=== PATIENT | female | born 2000 | race Caucasian/White ===

== ENCOUNTER → 2024-02-12 | Outpatient (CLI) | payer BC, SELFPAY ==
--- NOTE | 2024-02-12 14:32 | US_ITS ---
EXAM: US PELVIS TRANSABDOMINAL AND TRANSVAGINAL, COMPLETE CLINICAL INDICATION: Pelvic pain TECHNIQUE: Transabdominal and transvaginal pelvic ultrasound was performed with grayscale and color Doppler imaging. Transvaginal imaging was used for better evaluation of the endometrium and adnexa. COMPARISON: No relevant prior studies available. FINDINGS: UTERUS/CERVIX: The uterus measures 6.0 x 4.4 x 3.0 cm. The endometrium measures 6 mm. Anteverted. There is no uterine mass. RIGHT OVARY: The right ovary measures 1.6 x 2.8 x 2.1 cm. There are multiple wall. Blood flow is present in the right ovary. LEFT OVARY: The left ovary measures 2.3 x 3.0 x 2.3 cm. There is a hypoechoic structure in the left ovary measures 1.6 x 1.1 x 1.4 cm which may represent an involuting cyst. Blood flow is present in the left ovary. FREE FLUID: There is free fluid in the adnexa. BLADDER: Bladder measures 7.6 x 6.2 x 5.0 cm for a volume of 115 mL. US/Pelvic w/ Transvaginal IMPRESSION: Hypoechoic structure in left ovary which may represent an involuting cyst. There is free fluid in the right adnexa. No other abnormalities are identified. Electronically Signed: Bang Conway MD at 0:09 EDT ,
[2024-02-12 17:01] LABS: Prolactin 13.1 ng/mL
--- OUTSIDE RECORDS SUMMARY | 2024-02-12 18:58 | XMS RPT_ITS | CCD ---
Author Name Unknown Address [address] [place] [address] Organization [facility] Care Team Providers Care Physical Medicine Physician Name Role Phone No, Physician Unavailable Unavailable NO, PHYSICIAN Unavailable Unavailable NASRIN BRENNER Unavailable UnavailMary Ann Alfaro Primary Care Provider Mary Ann Tyson Primary Care Provider Mary Ann Tyson CNP Primary Care Provider [phone] Niru SESAY, Tiny Primary Care Provider Niru SESAY, Tiny Primary Care Provider Niru SESAY, Tiny Unavailable Niru SESAY, Tiny Unavailable TINY CARRANZA Primary Care Unavail able JAIMIE MENDEZ Attending Unavailabl e Niru SESAY, Tiny Unavailable Niru SESAY, Tiny Primary Care Provider Niru SESAY, Tiny Unavailable Niru SESAY, Tiny Primary Care Provider KAMLA MEDINA Attending Unava ilable MASIMDELGADO, KAMLA NOLASCO Referring Unava ilTINY Simpson Primary Care Unavail able CARRANZATINY Larose Primary Care Unavail able MASIMKAMLA NATARAJAN Attending Unava ilable CARRANZATINY Larose Primary Care Unavail able MASIMKAMLA NATARAJAN Attending Unava ilable TINY CARRANZA Primary Care Unavail able MASIMKAMLA NATARAJAN Attending Unava ilable MCALEER, GAYATHRI PIERCE Attending Unavail able TINY CARRANZA Primary [facility] [place] Unavail able CARRANZA, TINY GOMEZDAVE Primary Care Unavail able PAM MCKINNON Attending Unavailable CARRANZA, TINY GOMEZDAVE Primary Care Unavail able JULIANE LOMAX Attending Unavailable CARRANZATINY Larose Primary [facility] [place] Unavail able CARRANZA, TINY TORRES Primary Care Unavail able MASIMDELGADO, KAMLA NOLASCO Admitting Unava ilable CARRANZA, TINY TORRES Primary Care Unavail able CARRANZA, TINY TORRES Primary Care Unavail able MASIMORE, KAMLA NOLASCO Referring Unava ilable Medications Current Medications Medication Drug Class(es) Dates Sig (Normalized) Sig (Original) atorvastatin 10 mg oral tablet (9 sources) HMG-CoA Reductase Inhibitor Start: 07-03-2022 take 1 tablet by mouth once daily atorvastatin (LIPITOR) 10 MG tablet Indications: Hypercholesterolemia with LDL greater than 190 mg/dL Take 1 (one) tablet (10 mg total) by mouth daily . 30 tablet 5 07/03/2022 Active rosuvastatin calcium 20 mg oral tablet (10 sources) HMG-CoA Reductase Inhibitor Start: 09-18-2021 End: 09-18-2022 take 1 tablet by mouth once daily rosuvastatin (CRESTOR) 20 MG tablet Indications: Hypercholesterolemia with LDL greater than 190 mg/dL Take 1 (one) tablet (20 mg total) by mouth daily . 30 tablet 11 09/18/2021 07/03/2022 Discontinued Completed/Discontinued Medications Medication Drug Class(es) Dates Sig (Normalized) Sig (Original) amoxicillin 80 mg/ml / clavulanate 11.4 mg/ml oral suspension (2 sources) Penicillin-class Antibacterial Start: 11-20-2018 End: 08-15-2020 take 10 mL by mouth twice daily amoxicillin-clavu lanate (AUGMENTIN) 400-57 mg/5 mL suspension Indications: Tonsillitis Take 10 mL (800 mg total) by mouth 2 (two) times a day . 200 mL 0 11/20/2018 08/15/2020 Discontinued (Therapy completed) 168 hr ethinyl estradiol 0.31230 mg/hr / norelgestromin 0.29520 mg/hr transdermal system (7 sources) Progestin, Estrogen Start: 03-20-2021 End: 07-22-2021 apply 1 dose transdermal route every week norelgestromin-et hinyl estradiol (ORTHO EVRA) 150-35 mcg/24 hr patch Indications: Menorrhagia with irregular cycle Place 1 (one) patch on the skin once a week . 12 patch 0 03/20/2021 07/22/2021 Discontinued (Alternate therapy) Problems Active Problems Problem Classification Problem Date Documented Date Episodic/Chronic Acute and chronic tonsillitis (3 sources) Tonsillitis; Translations: [Acute tonsillitis, unspecified] Onset: 11-20-2018 Episodic Contraceptive and procreative management (3 sources) Patient encounter status; Translations: [Encounter for contraceptive management, unspecified] Episodic Disorders of lipid metabolism (20 sources) Familial hypercholesterolemia ; Translations: [Familial hypercholesterolemia ] Onset: 09-18-2021 09-18-2021 Chronic Malaise and fatigue (1 source) Fatigue; Translations: [Other fatigue] Episodic Menstrual disorders (20 sources) Menometrorrhagia; Translations: [Excessive and frequent menstruation with irregular cycle] Onset: 08-15-2020 08-15-2020 Chronic Other female genital disorders (1 source) Pain in female genitalia on intercourse; Translations: [Unspecified dyspareunia] Chronic Other nutritional; endocrine; and metabolic disorders (1 source) Weight gain; Translations: [Abnormal weight gain] 04-08-2023 Episodic Unclassified (3 sources) Patient encounter status; Translations: [Well adult exam] Unclassified (2 sources) med f/u Onset: 07-14-2022 Past or Other Problems Problem Classification Problem Date Documented Da te Episodic/Chronic Abdominal pain (20 sources) Right lower quadrant pain; Translations: [Right lower quadrant pain] Onset: 07-22-2021 Episodic Inflammatory diseases of female pelvic organs (18 sources) Acute vaginitis; Translations: [Acute vaginitis] Onset: 09-23-2021 Episodic Other nutritional; endocrine; and metabolic disorders (4 sources) Abnormal weight gain; Translations: [Abnormal weight gain] Onset: 04-08-2023 Episodic Other screening for suspected conditions (not mental disorders or infectious disease) (6 sources) Increased prolactin level; Translations: [Other specified abnormal findings of blood chemistry] Onset: 04-10-2023 04-13-2023 Episodic Sprains and strains (2 sources) Sprain of unspecified ligament of right ankle, initial encounter; Translations: [Sprain of unspecified ligament of right ankle, initial encounter] Onset: 01-22-2023 Episodic Results Test Name Value Interpretation Reference Range Facil ity Vital Signs Date Time Vital Sign Value Performing Clinician Lashawn lity 04-08-2023 15:23-0400 Body mass index (BMI) [Ratio] 34.81 kg/m2 Kamla Basurtoore CNM Work Phone: [facility] 04-08-2023 15:23-0400 Body weight 97.84 kg Kamla Basurtoore CNM Work Phone: [facility] 04-08-2023 15:23-0400 Diastolic blood pressure 77 mm[Hg] Kamla Basurtoore CNM Work Phone: [facility] 04-08-2023 15:23-0400 Heart rate 97 /min Kamla Basurtoore CNM Work Phone: [facility] 04-08-2023 15:23-0400 Systolic blood pressure 124 mm[Hg] Kamla Basurtoore C NM Work Phone: [facility] 12-17-2022 08:27-0500 Body height 167.6 cm Kamla Basurtoore CNM Work Phone: [facility] 12-17-2022 08:27-0500 Body mass index (BMI) [Ratio] 35.01 kg/m2 Kamla Basurtoore CNM Work Phone: [facility] 12-17-2022 08:27-0500 Body weight 98.39 kg Kamla Basurtoore CNM Work Phone: [facility] 12-17-2022 08:27-0500 Diastolic blood pressure 80 mm[Hg] Kamla Shirleyimore CNM Work Phone: [facility] 12-17-2022 08:27-0500 Heart rate 78 /min Kamla Basurtoore CNM Work Phone: [facility] 12-17-2022 08:27-0500 Systolic blood pressure 131 mm[Hg] Kamla Masimore C NM Work Phone: [facility] 07-14-2022 14:52-0400 Body height 167.6 cm Kamla Masimore CNM Work Phone: [facility] 07-14-2022 14:52-0400 Body mass index (BMI) [Ratio] 33.73 kg/m2 Kamla Masimore CNM Work Phone: [facility] 07-14-2022 14:52-0400 Body weight 94.8 kg Kalma Masimore CNM Work Phone: [facility] 07-14-2022 14:52-0400 Diastolic blood pressure 77 mm[Hg] Kamla Masimore CNM Work Phone: [facility] 07-14-2022 14:52-0400 Heart rate 90 /min Kamla Masimore CNM Work Phone: [facility] 07-14-2022 14:52-0400 Systolic blood pressure 116 mm[Hg] Kamla Masimore C NM Work Phone: [facility] 04-08-2022 13:31-0400 Body height 167.6 cm Kamla Masimore CNM Work Phone: [facility] 04-08-2022 13:31-0400 Body mass index (BMI) [Ratio] 33.25 kg/m2 Kamla Masimore CNM Work Phone: [facility] 04-08-2022 13:31-0400 Body weight 93.44 kg Kamla Masimore CNM Work Phone: [facility] 04-08-2022 13:31-0400 Diastolic blood pressure 77 mm[Hg] Kamla Masimore CNM Work Phone: [facility] 04-08-2022 13:31-0400 Heart rate 85 /min Kamla Masimore CNM Work Phone: [facility] 04-08-2022 13:31-0400 Systolic blood pressure 124 mm[Hg] Kamla Masimore C NM Work Phone: [facility] 09-23-2021 07:27-0400 Body height 167.6 cm Tiny Carranza [employer] Work Phone: [facility] 09-23-2021 07:27-0400 Body mass index (BMI) [Ratio] 31.15 kg/m2 Tiny Cloude [employer] Work Phone: [facility] 09-23-2021 07:27-0400 Body temperature 98.01 [degF] Tiny Cloude [employer] Work Phone: [facility] 09-23-2021 07:27-0400 Body weight 87.54 kg Tiny Carranza [employer] Work Phone: [facility] 09-23-2021 07:27-0400 Diastolic blood pressure 78 mm[Hg] Tiny Cloude [employer] Work Phone: [facility] 09-23-2021 07:27-0400 Heart rate 97 /min Tiny Cloude [employer] Work Phone: [facility] 09-23-2021 07:27-0400 Respiratory rate 18 /min Tiny Cloude [employer] Work Phone: [facility] 09-23-2021 07:27-0400 SaO2% (BldA) [Mass fraction] 98 % Tiny Cloude [employer] Work Phone: [facility] 09-23-2021 07:27-0400 Systolic blood pressure 127 mm[Hg] Tiny Carranza [employer] Work Phone: [facility] 07-22-2021 09:27-0400 Diastolic blood pressure 83 mm[Hg] Tiny Carranza [employer] Work Phone: [facility] 07-22-2021 09:27-0400 Systolic blood pressure 131 mm[Hg] Tiny Carranza [employer] Work Phone: [facility] 08-15-2020 07:22-0400 BMI (Body Mass Index) 28.78 kg/m2 Mary Ann Tyson [facility] 08-15-2020 07:22-0400 Body Temperature 97.9 [degF] Mary Ann Tyson [facility] 08-15-2020 07:22-0400 Body weight 80.88 kg Mary Ann Tyson [facility] 08-15-2020 07:22-0400 BP Diastolic 79 mm[Hg] Mary Ann Tyson [facility] 08-15-2020 07:22-0400 BP Systolic 137 mm[Hg] Mary Ann Tyson [facility] 08-15-2020 07:22-0400 Height 167.6 cm Mary Ann Tyson [facility] 08-15-2020 07:22-0400 Pulse (Heart Rate) 85 /min Mary Ann Tyson [facility] 08-15-2020 07:22-0400 Pulse Oximetry 98 % Mary Ann Tyson [facility] 08-15-2020 07:22-0400 Respiratory Rate 16 /min Mary Ann Tyson [facility] 11-20-2018 10:15-0500 BMI (Body Mass Index) 25.82 kg/m2 Nasrin Brenner [facility] 11-20-2018 10:15-0500 Body Temperature 101.41 [degF] Nasrin Brenner [facility] 11-20-2018 10:15-0500 BP Diastolic 69 mm[Hg] Nasrin Brenner [facility] 11-20-2018 10:15-0500 BP Systolic 121 mm[Hg] Nasrin Brenner [facility] 11-20-2018 10:15-0500 Height 167.6 cm Nasrin Brenner [facility] 11-20-2018 10:15-0500 Pulse (Heart Rate) 100 /min Nasrin Brenner [facility] 11-20-2018 10:15-0500 Pulse Oximetry 98 % Nasrin Brenner [facility] 11-20-2018 10:15-0500 Respiratory Rate 18 /min Nasrin Brenner [facility] 11-20-2018 10:15-0500 Weight 72.58 kg Nasrin Brenner [facility] Encounters Encounter Date Encounter Type Care Provider Facility Start: 08-05-2023 End: 08-09-2023 ambulatory TINY CARRANZA [facility] Start: 04-30-2023 Orders Only Kamla Medina CNM Work Phone: [facility] Obstetrics and Gynecology Procedures Date Procedure Procedure Detail Performing Clinician Start: 12-17-2022 Urine test visual color cmprsn meths Kamla Medina CNM Work Phone: Start: 12-17-2022 Microscopic observat ion [Identifier] in Cervix by Cyto stain Kamla Sbdelgado [facility] Work Phone: Start: 09-23-2021 Urnls dip stick/tabl et rgnt auto w/o microscopy Tiny Carranza [employer] Work Phone: Start: 07-22-2021 Urnls dip stick/tabl et rgnt auto w/o microscopy Tiny Carranza [employer] Work Phone: Start: 08-15-2020 Gardnerella vaginali s rRNA assay Mary Ann Last Marbella Work Phone: Start: 08-15-2020 Adult depression scr eening assessment Mary Annmiguel angel Tyson Start: 11-20-2018 End: 11-20-2018 Heterophile antibodies screen Nasrin Brenner Work Phone: Plan of Treatment Date Care Activity Detail Author Start: 03-22-2028 Tetanus vaccination Tetanus: Every 10yrs [facility] Start: 12-17-2025 Screening for malignant neoplasm of cervix Pap Smear [facility] Start: 12-17-2023 History and physical examination, annual for health maintenance Wellness Visit [facility] Start: 07-31-2023 Influenza vaccination Sequential Influenza Vaccine (Season Ended) [facility] Start: 12-29-2022 End: 12-25-2023 Lipid 1996 panel - Serum or Plasma Lipid Panel Lab Routine Familial hypercholesterolemia Expected: 12/29/2022 (Approximate), Expires: 12/25/2023 [facility] Work Phone: Immunizations Immunization Date Immunization Notes Care Provider Fa leonard 03-22-2018 hepatitis A vaccine, pediatric/adolescent dosage, 2 dose schedule Mary Annmiguel angel Tyson [facility] 03-22-2018 tetanus toxoid, redu shayla diphtheria toxoid, and acellular pertussis vaccine, adsorbed [facility] diphtheria, tetanus toxoids and acellular pertussis vaccine [facility]2007 measles, mumps and r ubella virus vaccine Mary Ann [facility] 07-08-2007 poliovirus vaccine, inactivated Tracie larose [facility] 07-08-2007 varicella virus vaccine [facility] 05-21-2006 measles, mumps and r ubella virus vaccine [facility] 05-21-2002 haemophilus influenz ae type b vaccine, conjugate unspecified formulation [facility] 05-21-2002 hepatitis B vaccine, pediatric or pediatric/adolescent dosage [facility] 05-21-2002 measles, mumps and r ubella virus vaccine [facility] 01-20-2002 diphtheria, tetanus toxoids and acellular pertussis vaccine, unspecified formulation [facility] 01-20-2002 pneumococcal conjuga te vaccine, 7 valent [facility] 01-20-2002 pneumococcal Conjuga te, unspecified formulation [facility] 01-20-2002 varicella virus vaccine [facility] 2001 diphtheria, tetanus toxoids and acellular pertussis vaccine, unspecified formulation [facility] 2001 haemophilus influenz ae type b vaccine, conjugate unspecified formulation [facility] 2001 hepatitis B vaccine, pediatric or pediatric/adolescent dosage [facility] 2001 pneumococcal conjuga te vaccine, 7 valent [facility] 2001 pneumococcal Conjuga te, unspecified formulation [facility] 2001 poliovirus vaccine, unspecified formulation [facility] 2001 pneumococcal conjuga te vaccine, 7 valent [facility] 2001 pneumococcal Conjuga te, unspecified formulation [facility] 2001 poliovirus vaccine, unspecified formulation [facility] 2001 diphtheria, tetanus toxoids and acellular pertussis vaccine, unspecified formulation [facility] 2001 haemophilus influenz ae type b vaccine, conjugate unspecified formulation [facility] 2001 hepatitis B vaccine, pediatric or pediatric/adolescent dosage [facility] Payers Date Payer Category Payer Unknown [id number] 2019 Unknown [id number] 2019 Unknown SARAH WATSON/PREF/HMO/PPO [id number] 2019-Present [phone] [address] [place] [address] [id number] 2001 Unknown [id number] 2001 Unknown [id number] 2001 Unknown [id number] 2001 Unknown [id number] 2001 Unknown [id number] 2001 Unknown [id number] 2001 Unknown [id number] 2001 Unknown [id number] 1962 Unknown [id number] 1962 Unknown [id number] 1962 Unknown [id number] 1962 Unknown [id number] Social History Date Type Detail Facility Start: 11-20-2018 End: 07-14-2022 Tobacco smoking status WVIS Never smoker [facility] Start: 2001 Sex Assigned At Not on file [facility] Start: 08-15-2020 End: 07-14-2022 Tobacco use and exposure Never used [facility] Start: 08-15-2020 End: 04-08-2023 Alcohol intake Current non-drinker of alcohol (finding) [facility] Start: 08-15-2020 History SDOH Social Connections Phone 5 [facility] Start: 08-15-2020 History SDOH Social Connections [employer] [facility] Start: 08-15-2020 History SDOH Social Connections Membership 1 [facility] Start: 08-15-2020 History SDOH Social Connections Living 7 [facility] Start: 08-15-2020 History SDOH Physica l Activity DPW 2 [facility] Start: 08-15-2020 History SDOH Education 21 [facility] Start: 03-29-2022 End: 04-23-2023 Exposure to SARS-CoV-2 (event) Not sure [facility] Start: 08-15-2020 End: 04-08-2023 History of Social function [facility] Start: 08-15-2020 End: 04-08-2023 Humiliation, Afraid, Rape, and Kick questionnaire [HARK] [facility] Within the last year , have you been afraid of your partner or ex-partner? No [facility] Do you belong to any clubs or organizations such as religion groups, unions, fraternal or athletic groups, or school groups? Yes [facility] Are you now , , , , never or living with a partner? Never [facility] Adult Depression Scr eening Assessment 7 [facility] Do you feel stress - tense, restless, nervous, or anxious, or unable to sleep at night because your mind is troubled all the time - these days [OSQ] Only a little [facility] (I/We) worried wheth er (my/our) food would run out before (I/we) got money to buy more. Never true [facility] Clinical Notes 03-18-2021 to 04-08-2023 Kamla Medina CNM - 04/08/2023 4:02 PM Ivana Medina CNM - 12/17/2022 9:06 AM ESTPatient InstructionsPam Mckinnon, Micheal.Ph. - 10/09/2022 8:08 AM ESTPatient Instructions Note Date & Type Note Facility 04-08-2023 History of Presen t illness Narrative Subjective Patient ID: Alyssa Pro is a 23 y.o. female. HPI Pt presents today for a problem visit related to wanting thyroid and hormone levels checked. Pt states she is always fatigued and has noticed increase weight gain despite increasing diet and exercise. Pt was training for a half marathon previously and running daily, she is now going to the gym multiple times a week with a big focus on healthier eating and intermittent fasting. Upon diet recall pt eating mostly veggies and proteins and replacing carbs with vegetables. Pt states her lifestyle changes really took place about 2 months ago. Her and her are doing the same plan and her has lost 20lbs. Pt states she stopped taking her BC about two months ago as well as was having mood swings. She is using condoms for BC. Denies risk for . Pt states her periods are still very heavy changing pads and tampons every 1-2 hours. Pt denies fhx of any endocrine disorders besides her dads side of the family does have diabetes mellitus type 2. The following portions of the patient's history were reviewed and updated as appropriate: allergies, current medications, past family history, past medical history, past social history, past surgical history, and problem list. Review of Systems Constitutional: Positive for fatigue and unexpected weight change (weight gain). Negative for activity change and appetite change. HENT: Negative for congestion and mouth sores. Respiratory: Negative for cough, chest tightness and shortness of breath. Cardiovascular: Negative for chest pain, palpitations and leg swelling. Gastrointestinal: Negative for abdominal distention, abdominal pain, diarrhea, nausea and vomiting. Endocrine: Negative for cold intolerance and heat intolerance. Genitourinary: Negative for difficulty urinating, dyspareunia, dysuria, menstrual problem, pelvic pain, vaginal bleeding, vaginal discharge and vaginal pain. Musculoskeletal: Negative for arthralgias and back pain. Skin: Negative for color change, rash and wound. Neurological: Negative for dizziness, syncope, light-headedness and headaches. Psychiatric/Behavioral: Negative for dysphoric mood, self-injury and suicidal ideas. The patient is not nervous/anxious. Objective Physical Exam Vitals reviewed. Constitutional: General: She is not in acute distress. Appearance: Normal appearance. HENT: Head: Normocephalic. Nose: No congestion. Neck: Thyroid: No thyroid mass, thyromegaly or thyroid tenderness. Cardiovascular: Rate and Rhythm: Normal rate and regular rhythm. Pulses: Normal pulses. Heart sounds: Normal heart sounds. Pulmonary: Effort: Pulmonary effort is normal. No respiratory distress. Breath sounds: Normal breath sounds. Abdominal: General: Abdomen is flat. Palpations: Abdomen is soft. Musculoskeletal: General: Normal range of motion. Skin: General: Skin is warm and dry. Capillary Refill: Capillary refill takes less than 2 seconds. Neurological: General: No focal deficit present. Mental Status: She is alert. Motor: No weakness. Psychiatric: Mood and Affect: Mood normal. Behavior: Behavior normal. Thought Content: Thought content normal. Judgment: Judgment normal. Assessment/Plan: Diagnoses and all orders for this visit: Weight gain - TSH with Reflex Free T4; Future - Testosterone, Total and Free (Calculated); Future - Prolactin; Future - Luteinizing Hormone; Future - Follicle Stimulating Hormone; Future - Hemoglobin A1c; Future - DHEA-Sulfate; Future - Insulin, Free and Total; Future - CBC and Differential; Future - hCG, Blood, Quantitative; Future - reviewed diet/exercise, reviewed supplements, reviewed increased proteins, reviewed types of body weight exercises. Reviewed with pt will check for any abnormalities in endocrine function and f/u with pt after labs. Menorrhagia with regular cycle - TSH with Reflex Free T4; Future - Testosterone, Total and Free (Calculated); Future - Prolactin; Future - Luteinizing Hormone; Future - Follicle Stimulating Hormone; Future - Hemoglobin A1c; Future - DHEA-Sulfate; Future - Insulin, Free and Total; Future - CBC and Differential; Future documented in this encounter [facility] 12-17-2022 History of Presen t illness Narrative Patient ID: Alyssa Pro is a 22 y.o. female. Subjective CC: annual exam HPI: Alyssa Pro is a 22 y.o. female presents for routine annual exam, with no complaints. She did have some breakthrough bleeding with her cycle about 2 weeks ago and had light spotting for about three days. Bleeding has since stopped, pt denies any other issues, unsure about chance of . Has been taking her OCP daily. She has recently changed her lifestyle activities though and started running frequently. Denies any other issues. She works at [employer], is running for exercise and training for a half marathon. She admits to a healthy diet and mostly cooks at home. She is a . She is sexually active denies dyspareunia. Uses OCP for BC. Her LMP is 11/25/22. She denies any issues with bowel or bladder. She is due for her first pap. She denies any fhx of ovarian or colon cancer. Her maternal aunt did have breast cancer, pt unsure of any genetic testing. OB History: OB History 0 Para 0 Term 0 0 AB 0 Living 0 SAB 0 IAB 0 Ectopic 0 Multiple 0 Live Births 0 Menstrual History: Patient's last menstrual period was 11/25/2022. The following portions of the patient's history were reviewed and updated as appropriate: allergies, current medications, past medical history, past social history, past surgical history and problem list. Review of Systems Constitutional: Negative for activity change, appetite change and fatigue. HENT: Negative for congestion and mouth sores. Respiratory: Negative for cough, chest tightness and shortness of breath. Cardiovascular: Negative for chest pain, palpitations and leg swelling. Gastrointestinal: Negative for abdominal distention, abdominal pain, diarrhea, nausea and vomiting. Endocrine: Negative for cold intolerance and heat intolerance. Genitourinary: Positive for menstrual problem (spotting). Negative for difficulty urinating, dyspareunia, dysuria, pelvic pain, vaginal bleeding, vaginal discharge and vaginal pain. Musculoskeletal: Negative for arthralgias and back pain. Skin: Negative for color change, rash and wound. Neurological: Negative for dizziness, syncope, light-headedness and headaches. Psychiatric/Behavioral: Negative for dysphoric mood, self-injury and suicidal ideas. The patient is not nervous/anxious. Objective BP 131/80 Pulse 78 Ht 5' 6 Wt 98.4 kg (216 lb 14.4 oz) LMP 11/25/2022 BMI 35.01 kg/m Physical Exam Vitals reviewed. Constitutional: General: She is awake. She is not in acute distress. Appearance: Normal appearance. She is well-developed. HENT: Head: Normocephalic. Eyes: General: Lids are normal. Conjunctiva/sclera: Conjunctivae normal. Neck: Thyroid: No thyroid mass, thyromegaly or thyroid tenderness. Cardiovascular: Rate and Rhythm: Normal rate and regular rhythm. Heart sounds: Normal heart sounds. No murmur heard. No friction rub. No gallop. Pulmonary: Effort: Pulmonary effort is normal. No respiratory distress. Breath sounds: Normal breath sounds. No stridor. No decreased breath sounds, wheezing, rhonchi or rales. Chest: Chest wall: No mass, lacerations, deformity, swelling or tenderness. Breasts: Breasts are symmetrical. Right: Normal. No inverted nipple, mass, nipple discharge, skin change or tenderness. Left: Normal. No inverted nipple, mass, nipple discharge, skin change or tenderness. Abdominal: General: Bowel sounds are normal. There is no distension. Palpations: Abdomen is soft. There is no mass. Tenderness: There is no abdominal tenderness. Genitourinary: General: Normal vulva. Exam position: Supine. Pubic Area: No rash. Labia: Right: No rash, tenderness, lesion or injury. Left: No rash, tenderness, lesion or injury. Urethra: No urethral pain or urethral swelling. Vagina: Normal. No vaginal discharge, erythema, tenderness, bleeding or lesions. Cervix: No cervical motion tenderness, discharge, friability, erythema or cervical bleeding. Uterus: Normal. Not enlarged, not fixed and not tender. Adnexa: Right adnexa normal and left adnexa normal. Right: No mass, tenderness or fullness. Left: No mass, tenderness or fullness. Rectum: Normal. Musculoskeletal: General: Normal range of motion. Cervical back: Normal range of motion and neck supple. Right lower leg: No edema. Left lower leg: No edema. Lymphadenopathy: Upper Body: Right upper body: No supraclavicular or axillary adenopathy. Left upper body: No supraclavicular or axillary adenopathy. Lower Body: No right inguinal adenopathy. No left inguinal adenopathy. Skin: General: Skin is warm and dry. Neurological: Mental Status: She is alert and oriented to person, place, and time. Psychiatric: Mood and Affect: Mood normal. Speech: Speech normal. Behavior: Behavior normal. Thought Content: Thought content normal. Judgment: Judgment normal. Assessment/Plan: Diagnoses and all orders for this visit: Well woman exam with routine gynecological exam - Thinprep Pap Smear - norethindrone-ethinyl estradiol (ORTHO-NOVUM 1-35 TAB,NORTREL 1-35 TAB) 1-35 mg-mcg per tablet; Take 1 (one) tablet by mouth daily . - Alyssa Pro is a 22 y.o. pt who presents for routine annual exam with no complaints besides breakthrough bleeding, likely related to change in lifestyle, POC test negative. Exam wnl, pap completed, pt offered STD screening, pt declines. SBE reviewed. BC reviewed and pt wishes to keep OCP. Refill sent today. Pt is a non-smoker, advised healthy diet and exercise. RTO 1yr or PRN Abnormal menses - POC , urine Encounter for control pills maintenance - norethindrone-ethinyl estradiol (ORTHO-NOVUM 1-35 TAB,NORTREL 1-35 TAB) 1-35 mg-mcg per tablet; Take 1 (one) tablet by mouth daily . documented in this encounter [facility] 10-09-2022 Instructions Micheal Elias.Ph. - 10/09/2022 8:42 AM EST PLAN: Continue atorvastatin 10mg daily Have a fasting lipid panel checked the week of Nov 17. We will call you with the results Still need to schedule a follow up with Dr. Choe IF A NEW PRESCRIPTION IS BEING PRESCRIBED OR YOU REQUESTED A REFILL, PLEASE ALLOW 48 HOURS BEFORE CHECKING WITH YOUR PHARMACY. WE WILL NO LONGER ACCEPT FAX REQUEST FOR PRESCRIPTION REFILLS, PLEASE CONTACT THE OFFICE WHEN YOU NEED A REFILL OR NEW PRESCRIPTION. Fasting Labs: Please have labs drawn 2 weeks prior to your appointment. Your lab orders will be in the system and you can go to ANY [facility] lab to have this drawn. Physical Activity: A consistent program of exercise sustained over a period of at least 30 minutes is recommended for a minimum of 150 minutes per week. If you have not been exercising on a regular basis, begin gradually. Once you have achieved this level, increase as tolerated. Diet: Reducing overall total daily calorie amount, paying particular attention to carbohydrate intake, is the most important thing to consider for weight loss and weight management. A diet low in animal fat is recommended as well. A Mediterranean pattern is recommended. For dietary information check [email or web address] If you have any questions/concerns please contact the [facility] at Thank you for allowing us to participate in your care! Date ApoB LDL-P LDL-C HDL-C TG TC NON-HDL HDL-P SM LDL-P LDL Size LG VLDL-P LG HDL-P VLDL Size HDL Size LP-IR Score Treatment 09/25/22 113 149 48 176 232 184 Atorva 10 06/27/22 110 152 48 106 221 173 none 09/10/21 153 2483 191 55 142 272 217 35.8 1007 21.1 2.3 6.7 51.1 9.0 50 none 07/22/21 229 63 87 309 246 none documented in this encounter [facility] 10-09-2022 History of Presen t illness Narrative Video Visit [facility] [address] [address] Via Real-time Synchronous Audiovisual [facility] 10/09/2022 Micheal Elias.Ph. Provider Location: [facility] Patient Location Residential Appliance Repair Technician: None Patient Location: Patient's Work Patient: Alyssa Pro Date of : 2000 (22 y.o. female) PCP: Tiny Carranza CNP Video Visit Consent Statement: I discussed risks, benefits and alternatives of a real-time synchronous audiovisual consultation with the patient (and any accompanying persons) including the risks that the patient s personal health details and medical records will be discussed over real-time, synchronous, interactive video/audio/telecommunication technology, the visit will not be recorded without the express consent of both the provider and the patient, and that there are some limitations compared to [id number] evaluations. We elected to proceed. Collaborative Provider: Tiny Choe MD Alyssa Pro is a 22 y.o. female initially seen 09/18/21 for Primary Prevention with h/o LDL-C over 190mg/dl. She has a significant family history of ASCVD. Referred by Tiny Carranza CNP History: Dyslipidemia - pure hypercholesterolemia and LDL > 190. Dyslipidemia diagnosis date: 2020 ASCVD/Cardio: none Glucose metabolism - Normal. HTN: no Kidney, Liver: WNL Thyroid disorder: none Vit D: WNL Family history of HLD, CAD, CVD: yes Mother side of family Mother- stroke at 37 MGM- triple bypass later in life MGF- heart attack at 40 MGGF- heart attack None in father's side of the family 3 older Contraceptive method: On norgestimate-ethinyl estradioL (ORTHO TRI-CYCLEN LO) 0.18/0.215/0.25 mg-25 mcg per tablet history: preeclampsia, eclampsia, low weight, gestational diabetes, > expected hyperlipidemia during Age of menopause, surgical menopause: Menorrhagia with irregular cycle Treatment history: Statins: 09/18/21 Rosuva 20mg - noncompliance - stopped 07/01/22 due to myalgias 07/03/22 Atorva 10mg Non-statins: Fibrates: Niacin: Bile Acid: Ezetimibe: PCSK9i: Vascepa/Lovaza: Nexletol/Nexlizet: Other OTC products: Side effect issues: Current Treatment: Atorva 10mg Current diabetes medications: none 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 CV Diagnostic/Interventional History: CAC score?: none PV Diagnostic/Interventional History: Risk Scores: ASCVD 10 YEAR RISK and/or lifetime - LDL>190 indicates high risk PATTERSON 10 Year RISK and/or lifetime - n/a 2018 AHA/ACC Cholesterol Guideline other risk enhancing factors (REF) present: Fam hx of premature ASCVD, LDL-C 160mg/dl or more and ApoB 130 mg/dl or more Other risk factors: ASSESSMENT Compliance with Medications: Has been an issue in the past. For this visit she forgot to refill her medication so she was off of it for a week. Drug Interactions: Medications reviewed for drug interactions and none that would require therapy modification were identified Treatment Goals LDL-C<100, NonHDL<130, LDL-P<1000, ApoB<60, TG<150 NOTES FROM TODAY'S VISIT 10/09/22 Last Office Visit: 04/08/22 Weight History: Last OV Weight: 185 Current Weight: 190 Review of Systems Constitutional (fatigue): NEGATIVE Respiratory (Chest Tightness/SOB): NEGATIVE Cardiovascular (chest pain, palipitations, leg swelling): NEGATIVE Gastrointestinal (abdominal pain, blood in stool/urine, constipation, diarrhea): NEGATIVE Neurological (dizziness/lightheadedness): NEGATIVE Musculoskeletal: NEGATIVE Assessment: Lifestyle: -running for exercise, 3-4 miles every other day -training for a / marathon in February, [facility] -she does not feel her diet has changed, if anything trying to eat better with her running Lipids: -ApoB 113 just above the 70th percentile -LDL-C 149 70th percentile -TG 176, elevated Blood sugar issues: no Blood Pressure issues: no Thyroid issues: no Kidney/liver function: -WNL Jun 2021 Vitamin D deficiency: -no level Quick visit because she forgot she had it and was at work. Lipids uncontrolled on current treatment. In June we changed her from rosuvastatin to atorvastatin due to having myalgias with it. She also admitted to poor compliance at that time. She says she has been compliant since switching to atorvastatin and is reporting no side effects. However, she forgot to refill her prescription so was out of atorvastatin for about a week before she had the blood draw. Of note, her triglycerides are up some. She feels if anything her diet has improved since she's been running. She does not report increased carb intake. Her LDL-C is down 35% from her untreated baseline. Being off of the medication for a week probably influenced this some. Would like to see more reduction for optimal risk reduction. She has a very significant family history of premature ASCVD. Will not make any changes at this time and have her recheck a lipid panel in 6 weeks and focus on compliance. She agrees to this. PLAN: Continue atorvastatin 10mg daily Have a fasting lipid panel checked the week of Nov 17. We will call you with the results Still need to schedule a follow up with Dr. Choe Time spent on medical discussion: 10 min LABS: Date Weight BP HR BMI WAIST 07/22/21 191 131/83 80 Date HS-CRP CPK LP(a) 09/10/21 118 13.1 Date ApoB LDL-P LDL-C HDL-C TG TC NON-HDL HDL-P SM LDL-P LDL Size LG VLDL-P LG HDL-P VLDL Size HDL Size LP-IR Score Treatment 09/25/22 113 149 48 176 232 184 Atorva 10 06/27/22 110 152 48 106 221 173 none 09/10/21 153 2483 191 55 142 272 217 35.8 1007 21.1 2.3 6.7 51.1 9.0 50 none 07/22/21 229 63 87 309 246 none Date Glu HbA1c 25 OH VtD ALT AST Creatinine TSH 07/22/21 83 26 18 0.75 2.40 documented in this encounter [facility] 10-08-2022 History of Presen t illness Narrative Video Visit [facility] [address] [address] Via Real-time Synchronous Audiovisual [facility] 10/08/2022 Micheal Elias.Ph. Provider Location: [facility] Patient Location Residential Appliance Repair Technician: [place] Patient Location: Patient's Home Patient: Alyssa Pro Date of : 2000 (22 y.o. female) PCP: Tiny Carranza CNP Video Visit Consent Statement: I discussed risks, benefits and alternatives of a real-time synchronous audiovisual consultation with the patient (and any accompanying persons) including the risks that the patient s personal health details and medical records will be discussed over real-time, synchronous, interactive video/audio/telecommunication technology, the visit will not be recorded without the express consent of both the provider and the patient, and that there are some limitations compared to [id number] evaluations. We elected to proceed. 09/18/2021 LIPID CLINIC INITIAL VISIT Visit Date: 09/18/21 Provider: Lele Barger PharmD Treating Provider: Tiny Choe MD Location: [facility] Alyssa Pro is a 22 y.o. female initially seen 09/18/21 for Primary Prevention with h/o LDL-C over 190mg/dl. She has a significant family history of ASCVD. Referred by Tiny Carranza CNP History: Dyslipidemia - pure hypercholesterolemia and LDL > 190. Dyslipidemia diagnosis date: 2020 ASCVD/Cardio: none Glucose metabolism - Normal. HTN: no Kidney, Liver: WNL Thyroid disorder: none Vit D: WNL Family history of HLD, CAD, CVD: yes Mother side of family Mother- stroke at 37 MGM- triple bypass later in life MGF- heart attack at 40 MGGF- heart attack None in father's side of the family 3 older Contraceptive method: On norgestimate-ethinyl estradioL (ORTHO TRI-CYCLEN LO) 0.18/0.215/0.25 mg-25 mcg per tablet history: preeclampsia, eclampsia, low weight, gestational diabetes, > expected hyperlipidemia during Age of menopause, surgical menopause: Menorrhagia with irregular cycle Treatment history: Statins: 09/18/21 Rosuva 20mg - noncompliance - stopped 07/01/22 due to myalgias 07/03/22 Atorva 10mg Non-statins: Fibrates: Niacin: Bile Acid: Ezetimibe: PCSK9i: Vascepa/Lovaza: Nexletol/Nexlizet: Other OTC products: Side effect issues: Current Treatment: Atorva 10mg Current diabetes medications: none 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 CV Diagnostic/Interventional History: CAC score?: none PV Diagnostic/Interventional History: Risk Scores: ASCVD 10 YEAR RISK and/or lifetime - LDL>190 indicates high risk PATTERSON 10 Year RISK and/or lifetime - n/a 2018 AHA/ACC Cholesterol Guideline other risk enhancing factors (REF) present: Fam hx of premature ASCVD, LDL-C 160mg/dl or more and ApoB 130 mg/dl or more Other risk factors: ASSESSMENT Compliance with Medications: Drug Interactions: Medications reviewed for drug interactions and none that would require therapy modification were identified Treatment Goals LDL-C<100, NonHDL<130, LDL-P<1000, ApoB<60, TG<150 NOTES FROM TODAY'S VISIT 10/08/22 Last Office Visit: 04/08/22 Weight History: Last OV Weight: 185 Current Weight: Review of Systems Constitutional (fatigue): NEGATIVE Respiratory (Chest Tightness/SOB): NEGATIVE Cardiovascular (chest pain, palipitations, leg swelling): NEGATIVE Gastrointestinal (abdominal pain, blood in stool/urine, constipation, diarrhea): NEGATIVE Neurological (dizziness/lightheadedness): NEGATIVE Musculoskeletal: NEGATIVE Assessment: Lifestyle: Lipids: -ApoB 113 just above the 70th percentile -LDL-C 149 70th percentile -TG 176, elevated Blood sugar issues: no Blood Pressure issues: no Thyroid issues: no Kidney/liver function: -WNL Jun 2021 Vitamin D deficiency: -no level Lipids uncontrolled on current treatment. In June we changed her from rosuvastatin to atorvastatin due to having myalgias with it. She also admitted to poor compliance at that time. Wonder how compliance is now. Her LDL-C is down 35% from her untreated baseline. Would like to see more reduction for optimal risk reduction. She has a very significant family history of premature ASCVD. PLAN: Time spent on medical discussion: LABS: Date Weight BP HR BMI WAIST 07/22/21 191 131/83 80 Date HS-CRP CPK LP(a) 09/10/21 118 13.1 Date ApoB LDL-P LDL-C HDL-C TG TC NON-HDL HDL-P SM LDL-P LDL Size LG VLDL-P LG HDL-P VLDL Size HDL Size LP-IR Score Treatment 09/25/22 113 149 48 176 232 184 06/27/22 110 152 48 106 221 173 none 09/10/21 153 2483 191 55 142 272 217 35.8 1007 21.1 2.3 6.7 51.1 9.0 50 none 07/22/21 229 63 87 309 246 none Date Glu HbA1c 25 OH VtD ALT AST Creatinine TSH 07/22/21 83 26 18 0.75 2.40 documented in this encounter [facility] 07-14-2022 History of Presen t illness Narrative Subjective Patient ID: Alyssa Pro is a 22 y.o. female. HPI Alyssa presents today for a medication follow up after starting OCP for heavy bleeding with her periods. 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 LMP 07/07/22, pt desires to stay on current BC. Review of Systems Constitutional: Negative for activity change, appetite change and fatigue. HENT: Negative for congestion and mouth sores. Respiratory: Negative for cough, chest tightness and shortness of breath. Cardiovascular: Negative for chest pain, palpitations and leg swelling. Gastrointestinal: Negative for abdominal distention, abdominal pain, diarrhea, nausea and vomiting. Endocrine: Negative for cold intolerance and heat intolerance. Genitourinary: Negative for difficulty urinating, dyspareunia, dysuria, menstrual problem, pelvic pain, vaginal bleeding, vaginal discharge and vaginal pain. Musculoskeletal: Negative for arthralgias and back pain. Skin: Negative for color change, rash and wound. Neurological: Negative for dizziness, syncope, light-headedness and headaches. Psychiatric/Behavioral: Negative for dysphoric mood, self-injury and suicidal ideas. The patient is not nervous/anxious. Objective Physical Exam Vitals reviewed. Constitutional: General: She is not in acute distress. Appearance: Normal appearance. HENT: Head: Normocephalic. Nose: No congestion. Eyes: Pupils: Pupils are equal, round, and reactive to light. Cardiovascular: Rate and Rhythm: Normal rate. Pulmonary: Effort: Pulmonary effort is normal. No respiratory distress. Musculoskeletal: General: Normal range of motion. Skin: General: Skin is warm and dry. Capillary Refill: Capillary refill takes less than 2 seconds. Neurological: General: No focal deficit present. Mental Status: She is alert. Motor: No weakness. Psychiatric: Mood and Affect: Mood normal. Behavior: Behavior normal. Thought Content: Thought content normal. Judgment: Judgment normal. Assessment/Plan: Diagnoses and all orders for this visit: Encounter for control pills maintenance - norethindrone-ethinyl estradiol (ORTHO-NOVUM 1-35 TAB,NORTREL 1-35 TAB) 1-35 mg-mcg per tablet; Take 1 (one) tablet by mouth daily . - BC refilled for one year. Pt cramping and bleeding is much better. Advised pt to continue control daily. F/u as needed or for yearly exam when due in September. Pt understanding. Menorrhagia with regular cycle - norethindrone-ethinyl estradiol (ORTHO-NOVUM 1-35 TAB,NORTREL 1-35 TAB) 1-35 mg-mcg per tablet; Take 1 (one) tablet by mouth daily . documented in this encounter [facility] 07-01-2022 History of Presen t illness Narrative Video Visit [facility] [address] [address] Via Real-time Synchronous Audiovisual [facility] 07/01/2022 Pam Mckinnon, R.Ph. Provider Location: [facility] Patient Location Residential Appliance Repair Technician: None Patient Location: Patient's Home Patient: Alyssa Pro Date of : 2000 (22 y.o. female) PCP: Tiny Carranza CNP Video Visit Consent Statement: I discussed risks, benefits and alternatives of a real-time synchronous audiovisual consultation with the patient (and any accompanying persons) including the risks that the patient s personal health details and medical records will be discussed over real-time, synchronous, interactive video/audio/telecommunication technology, the visit will not be recorded without the express consent of both the provider and the patient, and that there are some limitations compared to [id number] evaluations. We elected to proceed. 09/18/2021 LIPID CLINIC INITIAL VISIT Visit Date: 09/18/21 Provider: Nella HurdD Treating Provider: Tiny Choe MD Location: [facility] Alyssa Pro is a 22 y.o. female seen today for Primary Prevention with h/o LDL-C over 190mg/dl. She has a significant family history of ASCVD. Referred by Tiny Carranza CNP History: Dyslipidemia - pure hypercholesterolemia and LDL > 190. Dyslipidemia diagnosis date: 2020 ASCVD/Cardio: none Glucose metabolism - Normal. HTN: no Kidney, Liver: WNL Thyroid disorder: none Vit D: WNL Family history of HLD, CAD, CVD: yes Mother side of family Mother- stroke at 37 MGM- triple bypass later in life MGF- heart attack at 40 MGGF- heart attack None in father's side of the family 3 older Contraceptive method: On norgestimate-ethinyl estradioL (ORTHO TRI-CYCLEN LO) 0.18/0.215/0.25 mg-25 mcg per tablet history: preeclampsia, eclampsia, low weight, gestational diabetes, > expected hyperlipidemia during Age of menopause, surgical menopause: Menorrhagia with irregular cycle Treatment history: Statins: 09/18/21 Rosuva 20mg - noncompliance Non-statins: Fibrates: Niacin: Bile Acid: Ezetimibe: PCSK9i: Vascepa/Lovaza: Nexletol/Nexlizet: Other OTC products: Side effect issues: Current Treatment: Rosuva 20mg - noncompliant Current diabetes medications: none 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 CV Diagnostic/Interventional History: CAC score?: none PV Diagnostic/Interventional History: Risk Scores: ASCVD 10 YEAR RISK and/or lifetime - LDL>190 indicates high risk PATTERSON 10 Year RISK and/or lifetime - n/a 2018 AHA/ACC Cholesterol Guideline other risk enhancing factors (REF) present: Fam hx of premature ASCVD, LDL-C 160mg/dl or more and ApoB 130 mg/dl or more Other risk factors: ASSESSMENT Compliance with Medications: Drug Interactions: Medications reviewed for drug interactions and none that would require therapy modification were identified Treatment Goals LDL-C<100, NonHDL<130, LDL-P<1000, ApoB<60, TG<150 PLAN LABS: Date Weight BP HR BMI WAIST 07/22/21 191 131/83 80 Date HS-CRP CPK LP(a) 09/10/21 118 13.1 Date ApoB LDL-P LDL-C HDL-C TG TC NON-HDL HDL-P SM LDL-P LDL Size LG VLDL-P LG HDL-P VLDL Size HDL Size LP-IR Score Tx 06/27/22 110 152 48 106 221 173 09/10/21 153 2483 191 55 142 272 217 35.8 1007 21.1 2.3 6.7 51.1 9.0 50 none 07/22/21 229 63 87 309 246 none Date Glu HbA1c 25 OH VtD ALT AST Creatinine TSH 07/22/21 83 26 18 0.75 2.40 documented in this encounter [facility] 07-01-2022 History of Presen t illness Narrative Video Visit [facility] [address] [place] [address] Via Real-time Synchronous Audiovisual [facility] 07/01/2022 Pam Mckinnon, R.Ph. Provider Location: [facility] Patient Location Residential Appliance Repair Technician: None Patient Location: Patient's Home Patient: Alyssa Pro Date of : 2000 (22 y.o. female) PCP: Tiny Carranza CNP Video Visit Consent Statement: I discussed risks, benefits and alternatives of a real-time synchronous audiovisual consultation with the patient (and any accompanying persons) including the risks that the patient s personal health details and medical records will be discussed over real-time, synchronous, interactive video/audio/telecommunication technology, the visit will not be recorded without the express consent of both the provider and the patient, and that there are some limitations compared to uvyi-or-kill evaluations. We elected to proceed. 09/18/2021 LIPID CLINIC INITIAL VISIT Visit Date: 09/18/21 Provider: Nella HurdD Treating Provider: Tiny Choe MD Location: [facility] Alyssa Pro is a 22 y.o. female seen today for Primary Prevention with h/o LDL-C over 190mg/dl. She has a significant family history of ASCVD. Referred by Tiny Carranza CNP History: Dyslipidemia - pure hypercholesterolemia and LDL > 190. Dyslipidemia diagnosis date: 2020 ASCVD/Cardio: none Glucose metabolism - Normal. HTN: no Kidney, Liver: WNL Thyroid disorder: none Vit D: WNL Family history of HLD, CAD, CVD: yes Mother side of family Mother- stroke at 37 MGM- triple bypass later in life MGF- heart attack at 40 MGGF- heart attack None in father's side of the family 3 older Contraceptive method: On norgestimate-ethinyl estradioL (ORTHO TRI-CYCLEN LO) 0.18/0.215/0.25 mg-25 mcg per tablet history: preeclampsia, eclampsia, low weight, gestational diabetes, > expected hyperlipidemia during Age of menopause, surgical menopause: Menorrhagia with irregular cycle Treatment history: Statins: 09/18/21 Rosuva 20mg - noncompliance - stopped 07/01/22 due to myalgias 07/03/22 Atorva 10mg Non-statins: Fibrates: Niacin: Bile Acid: Ezetimibe: PCSK9i: Vascepa/Lovaza: Nexletol/Nexlizet: Other OTC products: Side effect issues: Current Treatment: Atorva 10mg Current diabetes medications: none 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 CV Diagnostic/Interventional History: CAC score?: none PV Diagnostic/Interventional History: Risk Scores: ASCVD 10 YEAR RISK and/or lifetime - LDL>190 indicates high risk PATTERSON 10 Year RISK and/or lifetime - n/a 2018 AHA/ACC Cholesterol Guideline other risk enhancing factors (REF) present: Fam hx of premature ASCVD, LDL-C 160mg/dl or more and ApoB 130 mg/dl or more Other risk factors: ASSESSMENT Compliance with Medications: Drug Interactions: Medications reviewed for drug interactions and none that would require therapy modification were identified Treatment Goals LDL-C<100, NonHDL<130, LDL-P<1000, ApoB<60, TG<150 PLAN LABS: Date Weight BP HR BMI WAIST 07/22/21 191 131/83 80 Date HS-CRP CPK LP(a) 09/10/21 118 13.1 Date ApoB LDL-P LDL-C HDL-C TG TC NON-HDL HDL-P SM LDL-P LDL Size LG VLDL-P LG HDL-P VLDL Size HDL Size LP-IR Score Tx 06/27/22 110 152 48 106 221 173 09/10/21 153 2483 191 55 142 272 217 35.8 1007 21.1 2.3 6.7 51.1 9.0 50 none 07/22/21 229 63 87 309 246 none Date Glu HbA1c 25 OH VtD ALT AST Creatinine TSH 07/22/21 83 26 18 0.75 2.40 documented in this encounter [facility] 04-08-2022 History of Presen t illness Narrative Subjective Patient ID: Alyssa Pro is a 22 y.o. female. HPI Alyssa presents for a problem visit related to heavy periods, pt was previously on control to help control this and had some relief but stopped taking the control a few months ago. Pt states she is having monthly periods but bleeding is lasting 7-10 days with having to change her pad or tampon hourly at times. Pt states she also notices she has intense cramping that she feels around the time of ovulation in her lower abdomen as well as cramping with intercourse. Pt states she had US in June that showed multiple cysts on her ovaries but was never diagnosed with PCOS, pt was told she might have endometriosis. Review of Systems Constitutional: Negative for activity change, chills, fatigue and unexpected weight change. HENT: Negative for congestion and sore throat. Respiratory: Negative for chest tightness and shortness of breath. Cardiovascular: Negative for chest pain. Gastrointestinal: Negative for abdominal pain, constipation, diarrhea, nausea and vomiting. Genitourinary: Positive for dyspareunia and menstrual problem. Negative for dysuria, pelvic pain, vaginal bleeding, vaginal discharge and vaginal pain. Neurological: Negative for light-headedness and headaches. Psychiatric/Behavioral: The patient is not nervous/anxious. Objective Physical Exam Vitals reviewed. Constitutional: General: She is not in acute distress. Appearance: Normal appearance. HENT: Head: Normocephalic. Cardiovascular: Rate and Rhythm: Normal rate. Pulmonary: Effort: Pulmonary effort is normal. No respiratory distress. Musculoskeletal: General: Normal range of motion. Skin: General: Skin is warm and dry. Capillary Refill: Capillary refill takes less than 2 seconds. Neurological: General: No focal deficit present. Mental Status: She is alert. Motor: No weakness. Psychiatric: Mood and Affect: Mood normal. Behavior: Behavior normal. Thought Content: Thought content normal. Judgment: Judgment normal. Assessment/Plan: Diagnoses and all orders for this visit: Menorrhagia with regular cycle - CBC and Differential; Future - norethindrone-ethinyl estradiol (ORTHO-NOVUM 1-35 TAB,NORTREL 1-35 TAB) 1-35 mg-mcg per tablet; Take 1 (one) tablet by mouth daily . - Education with patient regarding causes of abnormal periods as well as the cramping she is feeling, advised cramping at ovulation is typical. Reviewed possibility of PCOS due to previous US. Will check CBC today due to large amount of bleeding with periods. Started OCP continuously to control bleeding with periods as well as ovulation cramping. Recommended position changes during intercourse and less penetration to stop hitting to cervix to decrease amount of pain as well. Pt agreeable, will f/u in 3 months to see how periods are with continuous OCP. documented in this encounter [facility] 10-21-2021 Miscellaneous Notes Pt called for refill, has appointment, lab dates correct. documented in this encounter [facility] 09-23-2021 Instructions Tiny Carranza CNP - 09/23/2021 8:11 PM EDT Images from the original note were not included. Pelvic Pain: Care Instructions Your Care Instructions Pelvic pain, or pain in the lower belly, can have many causes. Often pelvic pain is not serious and gets better in a few days. If your pain continues or gets worse, you may need tests and treatment. Tell your doctor about any new symptoms. These may be signs of a serious problem. Follow-up care is a gallardo part of your treatment and safety. Be sure to make and go to all appointments, and call your doctor if you are having problems. It's also a good idea to know your test results and keep a list of the medicines you take. How can you care for yourself at home? Rest until you feel better. Lie down, and raise your legs by placing a pillow under your knees. Drink plenty of fluids. You may find that small, frequent sips are easier on your stomach than if you drink a lot at once. Avoid drinks with carbonation or caffeine, such as soda pop, tea, or coffee. Try eating several small meals instead of 2 or 3 large ones. Eat mild foods, such as rice, dry toast or crackers, bananas, and applesauce. Avoid fatty and spicy foods, other fruits, and alcohol until 48 hours after your symptoms have gone away. Take an qzie-qkg-lwtndvz pain medicine, such as acetaminophen (Tylenol), ibuprofen (Advil, Motrin), or naproxen (Aleve). Read and follow all instructions on the label. Do not take two or more pain medicines at the same time unless the doctor told you to. Many pain medicines have acetaminophen, which is Tylenol. Too much acetaminophen (Tylenol) can be harmful. You can put a heating pad, a warm cloth, or moist heat on your belly to relieve pain. When should you call for help? Call 911 anytime you think you may need emergency care. For example, call if: You passed out (lost consciousness). Call your doctor now or seek immediate medical care if: You have a new or higher fever. You have unusual vaginal bleeding. You have new or worse belly or pelvic pain. You have vaginal discharge that has increased in amount or smells bad. You are dizzy or lightheaded, or you feel like you may faint. You have symptoms of sepsis, such as: ? Shortness of breath. ? Feeling very sick. ? Severe pain. ? A fast heart rate. ? Cool, pale, or clammy skin. ? Feeling confused. ? Feeling very sleepy, or you are hard to wake up. Watch closely for changes in your health, and be sure to contact your doctor if: You do not get better as expected. Where can you learn more? Log into your personal health record on [email or web address]://[email or web address].Tamr and enter B514 in the Education box to learn more about Pelvic Pain: Care Instructions. Current as of: January 10, 2021 Content Version: 13.0 [employer]. Care instructions adapted under license by your healthcare professional. If you have questions about a medical condition or this instruction, always ask your healthcare professional. [employer] disclaims any warranty or liability for your use of this information. documented in this encounter [facility] 09-23-2021 Miscellaneous Notes Associated Problem(s): Acute vaginitis Vaginitis swab obtained and sent. Associated Problem(s): Suprapubic pain, acute Pelvic u/s completed Consider referral to SENIOR TECHNICAL BUSINESS ANALYST Vaginitis swab sent documented in this encounter [facility] 09-23-2021 History of Presen t illness Narrative Images from the original note were not included. patient: Alyssa Pro : 2000 Date: 09/23/21 This 21 y.o. female presents for Pelvic Pain (tylenol ibuprofen does not help. ) Subjective Alyssa is a 21 y.o. female who presents for suprapubic pelvic pain Patient Active Problem List Diagnosis Menorrhagia with irregular cycle Right lower quadrant abdominal pain Familial hypercholesterolemia Suprapubic pain, acute Acute vaginitis History of Present Illness: Abd pain; Pelvic u/s 09/05/21 IMPRESSION: Normal-sized ovaries with multiple peripherally oriented follicles. Underlying polycystic ovarian syndrome felt less likely given normal size of the ovaries. No convincing evidence of ovarian torsion. Small amount of free fluid in the pelvis. Retroverted uterus. -- Reports rLQ abd pain has resolved Reports mid suprapubic pain - mild at present. Feels like a cramping and feels it when she runs. Feels a 'snag' with intercourse and is so painful that sometimes she screams. Reports no problems with intercourse prior to marriage, stopped for 3 months and now intercourse is painful. Currently sexually active 2 - 3 x / week. States has no concerns, pain/ discharge or discomfort with intercourse. Reports LMP 09/13/21 Continues with OCP. Reports suprapubic pain 02/06 at present Denies fevers, abd pain, n/v/d/, dysuria, Vag discharge or bleeding. STD: patient denies history and refuses STD testing at this time. Past Medical/Surgical History: History reviewed. No pertinent past medical history. History reviewed. No pertinent surgical history. Family History: Family History Problem Relation Age of Onset Arthritis Mother No Known Problems Father No Known Problems Sister No Known Problems Brother Heart disease Maternal Grandmother Heart attack Maternal Grandfather Heart disease Paternal Grandmother Cancer Paternal Grandfather No Known Problems Sister Social History: Social History Socioeconomic History Marital status: Spouse name: Not on file Number of children: 0 Years of education: Not on file Highest education level: Some college, no degree Occupational History Not on file Tobacco Use Smoking status: Never Smoker Smokeless tobacco: Never Used Vaping Use Vaping Use: Never used Substance and Sexual Activity Alcohol use: No Drug use: Never Sexual activity: Not Currently Other Topics Concern Not on file Social History Narrative Not on file Social Determinants of Health Financial Resource Strain: Difficulty of Paying Living Expenses: Not on file Food Insecurity: Worried About Running Out of Food in the Last Year: Not on file Ran Out of Food in the Last Year: Not on file Transportation Needs: Lack of Transportation (Medical): Not on file Lack of Transportation (Non-Medical): Not on file Physical Activity: Days of Exercise per Week: Not on file Minutes of Exercise per Session: Not on file Stress: Feeling of Stress : Not on file Social Connections: Frequency of Communication with Friends and Family: Not on file Frequency of Social Gatherings with Friends and Family: Not on file Attends Pent[employer]ism Services: Not on file Active Member of Clubs or Organizations: Not on file Attends Club or Organization Meetings: Not on file Marital Status: Not on file Housing Stability: Unable to Pay for Housing in the Last Year: Not on file Number of Places Lived in the Last Year: Not on file Unstable Housing in the Last Year: Not on file Allergies: No Known Allergies Medications: Patient's Medications New Prescriptions No medications on file Previous Medications NORGESTIMATE-ETHINYL ESTRADIOL (ORTHO TRI-CYCLEN LO) 0.18/0.215/0.25 MG-25 MCG PER TABLET Take 1 (one) tablet by mouth daily . ROSUVASTATIN (CRESTOR) 20 MG TABLET Take 1 (one) tablet (20 mg total) by mouth daily . Modified Medications No medications on file Discontinued Medications No medications on file There are no discontinued medications. Medication note: due to EMR limitations: DISCONTINUED medications may mean: PREVIOUSLY stopped STOPPING today REFILLING today Review of Systems: 10 organ systems were reviewed. All systems were negative, apart from what was mentioned in the HPI and the following. Review of Systems Constitutional: Negative for activity change, appetite change, chills, diaphoresis, fatigue, fever and unexpected weight change. HENT: Negative for congestion, ear pain, hearing loss, sinus pressure, sinus pain, sore throat and trouble swallowing. Eyes: Negative for pain and visual disturbance. Respiratory: Negative for cough, chest tightness, shortness of breath and wheezing. Cardiovascular: Negative for chest pain and palpitations. Gastrointestinal: Negative for abdominal pain, constipation, diarrhea, nausea and vomiting. Genitourinary: Positive for pelvic pain. Negative for difficulty urinating, dysuria, flank pain, frequency, hematuria, urgency and vaginal discharge. Musculoskeletal: Negative for neck pain and neck stiffness. Skin: Negative for rash. Allergic/Immunologic: Negative for environmental allergies and food allergies. Neurological: Negative for dizziness, syncope, light-headedness and headaches. Hematological: Negative for adenopathy. Does not bruise/bleed easily. Psychiatric/Behavioral: Negative for dysphoric mood and sleep disturbance. The patient is not nervous/anxious. Objective Physical Exam: Vital Signs: BP 127/78 (BP Location: Right arm, Patient Position: Sitting, BP Cuff Size: Adult) Pulse 97 Temp 98 F (36.7 C) (Temporal) Resp 18 Ht 5' 6 Wt 87.5 kg (193 lb) LMP 09/13/2021 (Approximate) SpO2 98% BMI 31.15 kg/m Wt Readings from Last 3 Encounters: 09/23/21 87.5 kg (193 lb) 07/22/21 (P) 86.9 kg (191 lb 8 oz) 08/15/20 80.9 kg (178 lb 4.8 oz) (94 %, Z= 1.58)* * Growth percentiles are based on CDC (Girls, 2-20 Years) data. No results found for: HGBA1C BP Readings from Last 3 Encounters: 09/23/21 127/78 07/22/21 131/83 08/15/20 137/79 Physical Exam Vitals and nursing note reviewed. Exam conducted with a robotype operator present. Constitutional: General: She is not in acute distress. Appearance: Normal appearance. She is well-developed. She is not ill-appearing, toxic-appearing or diaphoretic. HENT: Head: Normocephalic and atraumatic. Mouth/Throat: Pharynx: No oropharyngeal exudate. Eyes: General: No scleral icterus. Right eye: No discharge. Left eye: No discharge. Conjunctiva/sclera: Conjunctivae normal. Neck: Thyroid: No thyromegaly. Trachea: No tracheal deviation. Cardiovascular: Rate and Rhythm: Normal rate and regular rhythm. Heart sounds: Normal heart sounds. No murmur heard. No friction rub. No gallop. Pulmonary: Effort: Pulmonary effort is normal. No respiratory distress. Breath sounds: Normal breath sounds. No wheezing or rales. Abdominal: General: Bowel sounds are normal. There is no distension. Palpations: Abdomen is soft. There is no mass. Tenderness: There is no abdominal tenderness. There is no guarding or rebound. Genitourinary: Comments: Pelvic exam: normal external genitalia, vulva, vagina, cervix, uterus and adnexa,VULVA: normal appearing vulva with no masses, tenderness or lesions, VAGINA: normal appearing vagina with normal color and discharge, no lesions, CERVIX: normal appearing cervix without discharge or lesions, No cervical motion tenderness, UTERUS: uterus is normal size, shape, consistency and nontender, ADNEXA: normal adnexa in size, nontender and no masses, RECTAL: , no external hemorrhoids.PAP: Pap smear not performed,vaginitis swab obtained. exam chaperoned byAnton Ambriz LPN Musculoskeletal: General: No tenderness or deformity. Normal range of motion. Cervical back: Normal range of motion and neck supple. Comments: Gait normal Lymphadenopathy: Cervical: No cervical adenopathy. Skin: General: Skin is warm and dry. Findings: No erythema or rash. Neurological: Mental Status: She is alert and oriented to person, place, and time. Coordination: Coordination normal. Psychiatric: Behavior: Behavior normal. Thought Content: Thought content normal. Judgment: Judgment normal. Recent Results (from the past 168 hour(s)) POC Urinalysis Dipstick, Auto Collection Time: 09/23/21 7:41 AM Result Value Ref Range Glucose, UA Negative Normal, Negative mg/dL Bilirubin, UA Negative Negative Ketones, UA Negative Negative mg/dL Spec Grav, UA 1.030 (A) 1.005 - 1.025 Blood, UA Negative Negative pH, UA 5.5 5.0 - 7.0 Protein, UA Negative Negative mg/dL Urobilinogen, UA 0.2 <2.0, 0.2, Normal, Negative, 1.0, 2.0, <1.0 mg/dL Nitrite, UA Negative Negative Leukocyte Esterase, UA Negative Negative Assessment/Plan: Problem List Items Addressed This Visit Genitourinary Acute vaginitis Vaginitis swab obtained and sent. Relevant Orders Vaginitis DNA Probes Other Suprapubic pain, acute - Primary Pelvic u/s completed Consider referral to SENIOR TECHNICAL BUSINESS ANALYST Vaginitis swab sent Relevant Orders POC Urinalysis Dipstick, Auto (Completed) Health Maintenance Due Topic Date Due HPV Vaccines (1 - 2-dose series) Never done COVID-19 Vaccine (1) Never done HIV Screening Never done Hepatitis C Screening Never done Sequential Influenza Vaccine (1) Never done Depression Screening (PHQ-2/9) 08/15/2021 Wellness Visit 08/15/2021 Chlamydia Screening 08/15/2021 Return if symptoms worsen or fail to improve, for Next scheduled follow up. Patient Instructions Pelvic Pain: Care Instructions Your Care Instructions Pelvic pain, or pain in the lower belly, can have many causes. Often pelvic pain is not serious and gets better in a few days. If your pain continues or gets worse, you may need tests and treatment. Tell your doctor about any new symptoms. These may be signs of a serious problem. Follow-up care is a gallardo part of your treatment and safety. Be sure to make and go to all appointments, and call your doctor if you are having problems. It's also a good idea to know your test results and keep a list of the medicines you take. How can you care for yourself at home? Rest until you feel better. Lie down, and raise your legs by placing a pillow under your knees. Drink plenty of fluids. You may find that small, frequent sips are easier on your stomach than if you drink a lot at once. Avoid drinks with carbonation or caffeine, such as soda pop, tea, or coffee. Try eating several small meals instead of 2 or 3 large ones. Eat mild foods, such as rice, dry toast or crackers, bananas, and applesauce. Avoid fatty and spicy foods, other fruits, and alcohol until 48 hours after your symptoms have gone away. Take an yaex-upl-bzhtvua pain medicine, such as acetaminophen (Tylenol), ibuprofen (Advil, Motrin), or naproxen (Aleve). Read and follow all instructions on the label. Do not take two or more pain medicines at the same time unless the doctor told you to. Many pain medicines have acetaminophen, which is Tylenol. Too much acetaminophen (Tylenol) can be harmful. You can put a heating pad, a warm cloth, or moist heat on your belly to relieve pain. When should you call for help? Call 911 anytime you think you may need emergency care. For example, call if: You passed out (lost consciousness). Call your doctor now or seek immediate medical care if: You have a new or higher fever. You have unusual vaginal bleeding. You have new or worse belly or pelvic pain. You have vaginal discharge that has increased in amount or smells bad. You are dizzy or lightheaded, or you feel like you may faint. You have symptoms of sepsis, such as: ? Shortness of breath. ? Feeling very sick. ? Severe pain. ? A fast heart rate. ? Cool, pale, or clammy skin. ? Feeling confused. ? Feeling very sleepy, or you are hard to wake up. Watch closely for changes in your health, and be sure to contact your doctor if: You do not get better as expected. Where can you learn more? Log into your personal health record on [email or web address]://[email or web address].Tamr and enter B514 in the Education box to learn more about Pelvic Pain: Care Instructions. Current as of: January 10, 2021 Content Version: 13.0 [employer]. Care instructions adapted under license by your healthcare professional. If you have questions about a medical condition or this instruction, always ask your healthcare professional. [employer] disclaims any warranty or liability for your use of this information. For any new medications prescribed today, patient was educated about indications for the medication, how to take the medication and potential side effects of the medications. Goals None I personally spent > 25 minutes on this patients encounter today, Tiny Carranza CNP documented in this encounter [facility] 07-22-2021 Instructions Tiny Carranza CNP - 07/22/2021 9:22 AM EDT Images from the original note were not included. Abdominal Pain: Care Instructions Your Care Instructions Abdominal pain has many possible causes. Some aren't serious and get better on their own in a few days. Others need more testing and treatment. If your pain continues or gets worse, you need to be rechecked and may need more tests to find out what is wrong. You may need surgery to correct the problem. Don't ignore new symptoms, such as fever, nausea and vomiting, urination problems, pain that gets worse, and dizziness. These may be signs of a more serious problem. Your doctor may have recommended a follow-up visit in the next 8 to 12 hours. If you are not getting better, you may need more tests or treatment. The doctor has checked you carefully, but problems can develop later. If you notice any problems or new symptoms, get medical treatment right away. Follow-up care is a gallardo part of your treatment and safety. Be sure to make and go to all appointments, and call your doctor if you are having problems. It's also a good idea to know your test results and keep a list of the medicines you take. How can you care for yourself at home? Rest until you feel better. To prevent dehydration, drink plenty of fluids. Choose water and other clear liquids until you feel better. If you have kidney, heart, or liver disease and have to limit fluids, talk with your doctor before you increase the amount of fluids you drink. If your stomach is upset, eat mild foods, such as rice, dry toast or crackers, bananas, and applesauce. Try eating several small meals instead of two or three large ones. Wait until 48 hours after all symptoms have gone away before you have spicy foods, alcohol, and drinks that contain caffeine. Do not eat foods that are high in fat. Avoid anti-inflammatory medicines such as aspirin, ibuprofen (Advil, Motrin), and naproxen (Aleve). These can cause stomach upset. Talk to your doctor if you take daily aspirin for another health problem. When should you call for help? Call 911 anytime you think you may need emergency care. For example, call if: You passed out (lost consciousness). You pass maroon or very bloody stools. You vomit blood or what looks like coffee grounds. You have new, severe belly pain. Call your doctor now or seek immediate medical care if: Your pain gets worse, especially if it becomes focused in one area of your belly. You have a new or higher fever. Your stools are black and look like tar, or they have streaks of blood. You have unexpected vaginal bleeding. You have symptoms of a urinary tract infection. These may include: ? Pain when you urinate. ? Urinating more often than usual. ? Blood in your urine. You are dizzy or lightheaded, or you feel like you may faint. Watch closely for changes in your health, and be sure to contact your doctor if: You are not getting better after 1 day (24 hours). Where can you learn more? Log into your personal health record on?https://Intellicyt.Tamr?and enter?E907?in the Education box to learn more about Abdominal Pain: Care Instructions. Current as of: September 17, 2020 Content Version: 12.9 EachNet. Care instructions adapted under license by your healthcare professional. If you have questions about a medical condition or this instruction, always ask your healthcare professional. EachNet disclaims any warranty or liability for your use of this information. documented in this encounter [facility] 07-22-2021 Miscellaneous Notes Associated Problem(s): Right lower quadrant abdominal pain A referral has been made for a transvaginal ultrasound.. You will be contacted to schedule an appointment. Please f/u with our office if you have not been contacted about this referral within 1-2 weeks. documented in this encounter [facility] 07-22-2021 History of Presen t illness Narrative Images from the original note were not included. Patient: Alyssa Calvin : 2000 Date: 07/22/21 This 21 y.o. female presents for Contraception Subjective Alyssa is a 21 y.o. female who presents for questions re: changing control. Patient Active Problem List Diagnosis Menorrhagia with irregular cycle Right lower quadrant abdominal pain History of Present Illness: Recently June 29, 2021 LMP : 07/18/21 Contraception Risk Screening: Current control: ortho evra. Currently on period and would like to switch from ortho evra to OCP. Did not like ortho ibrahima - states she felt a little depressed. Was concerned with anemia. Did not have labs completed when ordered last July so unsure if anemic. Migraine with aura : no - reports did have headache the week prior to menses on ortho evra but not migraines. OTC's not always needed, but if she took anything it would be 400 mg ibuprofen. Liver disease: no Depression:no HTN: no PID: no Anxiety: no Blood clot hx: no Abnormal pap smear: no High cholesterol: no Uterine abnormalities: no Seizure disorder: no Abnormal vag bldg: no Thyroid disease: Tobacco use: no Family hx screening: VTE under age 40 yo: no Known thrombogenic mutation: no -- mother antiphospholipid syndrome. Osteoporosis: no ---- Sexually active: 1 male. Partner past year. No concerns re: STD's Reports pain right lower quadrant only with intercourse since she was . States was sexually active prior to marriage with but pain has only been since the wedding. Reports intercourse 4 - 5 times and pain occurs 'almost every time' but not every time. Reports daily BM's but states they are harder since the wedding and living with her . Denies dietary changes.denies abd pain/ n/v/ bleeding. Past Medical/Surgical History: History reviewed. No pertinent past medical history. History reviewed. No pertinent surgical history. Family History: Family History Problem Relation Age of Onset Arthritis Mother No Known Problems Father No Known Problems Sister No Known Problems Brother Heart disease Maternal Grandmother Heart attack Maternal Grandfather Heart disease Paternal Grandmother Cancer Paternal Grandfather No Known Problems Sister Social History: Social History Socioeconomic History Marital status: Single Spouse name: Not on file Number of children: 0 Years of education: Not on file Highest education level: Some college, no degree Occupational History Not on file Tobacco Use Smoking status: Never Smoker Smokeless tobacco: Never Used Vaping Use Vaping Use: Never used Substance and Sexual Activity Alcohol use: No Drug use: Never Sexual activity: Not Currently Other Topics Concern Not on file Social History Narrative Not on file Social Determinants of Health Financial Resource Strain: Difficulty of Paying Living Expenses: Not on file Food Insecurity: No Food Insecurity Worried About Running Out of Food in the Last Year: Never true Ran Out of Food in the Last Year: Never true Transportation Needs: No Transportation Needs Lack of Transportation (Medical): No Lack of Transportation (Non-Medical): No Physical Activity: Insufficiently Active Days of Exercise per Week: 2 days Minutes of Exercise per Session: 30 min Stress: No Stress Concern Present Feeling of Stress : Only a little Social Connections: Moderately Integrated Frequency of Communication with Friends and Family: More than three times a week Frequency of Social Gatherings with Friends and Family: More than three times a week Attends [employer] Services: More than 4 times per year Active Member of Clubs or Organizations: Yes Attends Club or Organization Meetings: More than 4 times per year Marital Status: Never Housing Stability: Unable to Pay for Housing in the Last Year: Not on file Number of Places Lived in the Last Year: Not on file Unstable Housing in the Last Year: Not on file Allergies: No Known Allergies Medications: Current Outpatient Medications Medication Sig Dispense Refill norgestimate-ethinyl estradioL (ORTHO TRI-CYCLEN LO) 0.18/0.215/0.25 mg-25 mcg per tablet Take 1 (one) tablet by mouth daily . 28 tablet 11 No current facility-administered medications for this visit. Medications Discontinued During This Encounter Medication Reason norelgestromin-ethinyl estradiol (ORTHO EVRA) 150-35 mcg/24 hr patch Alternate therapy Medication note: due to EMR limitations: DISCONTINUED medications may mean: PREVIOUSLY stopped STOPPING today REFILLING today Review of Systems: 10 organ systems were reviewed. All systems were negative, apart from what was mentioned in the HPI and the following. Review of Systems Constitutional: Negative. HENT: Negative. Respiratory: Negative for cough, chest tightness, shortness of breath and wheezing. Cardiovascular: Negative for chest pain, palpitations and leg swelling. Gastrointestinal: Negative for abdominal pain, blood in stool, diarrhea, nausea and vomiting. Genitourinary: Negative for difficulty urinating and dysuria. Musculoskeletal: Negative for arthralgias and myalgias. Skin: Negative for rash. Neurological: Negative for dizziness, light-headedness and headaches. Hematological: Negative for adenopathy. Psychiatric/Behavioral: Negative for dysphoric mood and sleep disturbance. The patient is not nervous/anxious. Objective Physical Exam: Vital Signs: BP 131/83 (BP Location: Right arm, BP Cuff Size: Adult) Pulse (P) 80 Temp (P) 97.9 F (36.6 C) (Temporal) Resp (P) 12 Ht (P) 5' 6 Wt (P) 86.9 kg (191 lb 8 oz) LMP 07/18/2021 SpO2 (P) 98% BMI (P) 30.91 kg/m Wt Readings from Last 3 Encounters: 07/22/21 (P) 86.9 kg (191 lb 8 oz) 08/15/20 80.9 kg (178 lb 4.8 oz) (94 %, Z= 1.58)* 11/20/18 72.6 kg (160 lb) (90 %, Z= 1.29)* * Growth percentiles are based on [facility] (Girls, 2-20 Years) data. No results found for: HGBA1C BP Readings from Last 3 Encounters: 07/22/21 131/83 08/15/20 137/79 11/20/18 121/69 (82 %, Z = 0.91 / 61 %, Z = 0.27)* *BP percentiles are based on the 2017 AAP Clinical Practice Guideline for girls Physical Exam Constitutional: General: She is not in acute distress. Appearance: Normal appearance. She is not ill-appearing, toxic-appearing or diaphoretic. HENT: Head: Normocephalic and atraumatic. Eyes: General: Right eye: No discharge. Left eye: No discharge. Conjunctiva/sclera: Conjunctivae normal. Cardiovascular: Rate and Rhythm: Normal rate and regular rhythm. Pulses: Normal pulses. Heart sounds: Normal heart sounds. Pulmonary: Effort: Pulmonary effort is normal. Breath sounds: Normal breath sounds. Abdominal: General: Bowel sounds are normal. There is no distension. Palpations: Abdomen is soft. There is no mass. Tenderness: There is no abdominal tenderness. There is no right CVA tenderness, left CVA tenderness, guarding or rebound. Musculoskeletal: General: No swelling. Right lower leg: No edema. Left lower leg: No edema. Skin: General: Skin is warm and dry. Capillary Refill: Capillary refill takes less than 2 seconds. Neurological: Mental Status: She is alert. Psychiatric: Behavior: Behavior normal. Thought Content: Thought content normal. Judgment: Judgment normal. Recent Results (from the past 168 hour(s)) POC Urinalysis Dipstick, Auto Collection Time: 07/22/21 9:40 AM Result Value Ref Range Glucose, UA Negative Normal, Negative mg/dL Bilirubin, UA Negative Negative Ketones, UA Negative Negative mg/dL Spec Grav, UA 1.025 1.005 - 1.025 Blood, UA Trace-lysed (A) Negative pH, UA 6.5 5.0 - 7.0 Protein, UA Negative Negative mg/dL Urobilinogen, UA 0.2 <2.0, 0.2, Normal, Negative, 1.0, 2.0, <1.0 mg/dL Nitrite, UA Negative Negative Leukocyte Esterase, UA Negative Negative Comprehensive Metabolic Panel Collection Time: 07/22/21 9:59 AM Result Value Ref Range Sodium 140 135 - 145 mmol/L Potassium 4.4 3.5 - 5.1 mmol/L Chloride 108 98 - 108 mmol/L Bicarbonate 23 21 - 32 mmol/L Anion Gap 13 10 - 20 mmol/L Glucose 83 65 - 99 mg/dL BUN 13 8 - 25 mg/dL Creatinine 0.75 0.40 - 1.10 mg/dL eGFR 115 >=60 mL/min/1.73 m2 BUN/Creatinine Ratio 17.3 10.0 - 20.0 Total Protein 7.4 6.0 - 8.0 g/dL Albumin 3.6 3.2 - 5.2 g/dL Calcium 9.0 8.4 - 10.2 mg/dL Alkaline Phosphatase 76 40 - 140 U/L AST 18 0 - 45 U/L Total Bilirubin 0.2 0.0 - 1.3 mg/dL ALT 26 14 - 65 U/L TSH with Reflex Free T4 Collection Time: 07/22/21 9:59 AM Result Value Ref Range TSH 2.40 0.27 - 4.20 mcIU/mL Ferritin Collection Time: 07/22/21 9:59 AM Result Value Ref Range Ferritin 53 13 - 150 ng/mL Iron and TIBC Collection Time: 07/22/21 9:59 AM Result Value Ref Range Iron 111 30 - 160 mcg/dL TIBC 380 225 - 430 mcg/dL Iron Saturation 29 20 - 50 % Lipid Panel Collection Time: 07/22/21 9:59 AM Result Value Ref Range Cholesterol 309 (H) 100 - 199 mg/dL Triglycerides 87 30 - 150 mg/dL HDL 63 40 - 59 mg/dL Chol/HDL Ratio 4.9 ratio LDL Calculated 229 (H) 10 - 130 mg/dL Non HDL Cholesterol 246 mg/dL CBC Auto Differential Collection Time: 07/22/21 9:59 AM Result Value Ref Range WBC 6.26 4.50 - 11.00 K/mcL RBC 3.99 (L) 4.00 - 5.20 M/mcL Hemoglobin 12.3 12.0 - 16.0 g/dL Hematocrit 38.0 36.0 - 46.0 % MCV 95.2 80.0 - 100.0 fL MCH 30.8 26.0 - 34.0 pg MCHC 32.4 31.0 - 37.0 g/dL Platelets 397 150 - 400 K/mcL RDW - CV 12.2 11.6 - 14.8 % MPV 10.2 9.4 - 12.4 fL Neutrophils 64.2 % Lymphocytes 28.0 % Monocytes 6.2 % Eosinophils 1.0 % Basophils 0.3 % IG Percent 0.30 % Neutrophils Abs 4.02 1.70 - 7.00 K/mcL Lymphocytes Abs 1.75 0.90 - 4.00 K/mcL Monocytes Abs 0.39 0.30 - 0.90 K/mcL Eosinophils Abs 0.06 0.00 - 0.50 K/mcL Basophils Abs 0.02 0.00 - 0.30 K/mcL IG Absolute 0.02 0.00 - 0.30 K/mcL Nucleated RBC 0.0 % Nucleated RBC Abs 0.00 0.00 - 0.00 K/mcL Assessment/Plan: Right lower quadrant abdominal pain A referral has been made for a transvaginal ultrasound.. You will be contacted to schedule an appointment. Please f/u with our office if you have not been contacted about this referral within 1-2 weeks. Problem List Items Addressed This Visit Other Menorrhagia with irregular cycle Right lower quadrant abdominal pain A referral has been made for a transvaginal ultrasound.. You will be contacted to schedule an appointment. Please f/u with our office if you have not been contacted about this referral within 1-2 weeks. Relevant Orders US Transvaginal POC Urinalysis Dipstick, Auto (Completed) Other Visit Diagnoses Encounter for contraceptive management, unspecified type - Primary Relevant Medications norgestimate-ethinyl estradioL (ORTHO TRI-CYCLEN LO) 0.18/0.215/0.25 mg-25 mcg per tablet Screening for lipid disorders Relevant Orders Lipid Panel (Completed) Fatigue, unspecified type Relevant Orders CBC and Differential (Completed) Comprehensive Metabolic Panel (Completed) TSH with Reflex Free T4 (Completed) Ferritin (Completed) Iron and TIBC (Completed) Return for Next scheduled follow up. Patient Instructions Abdominal Pain: Care Instructions Your Care Instructions Abdominal pain has many possible causes. Some aren't serious and get better on their own in a few days. Others need more testing and treatment. If your pain continues or gets worse, you need to be rechecked and may need more tests to find out what is wrong. You may need surgery to correct the problem. Don't ignore new symptoms, such as fever, nausea and vomiting, urination problems, pain that gets worse, and dizziness. These may be signs of a more serious problem. Your doctor may have recommended a follow-up visit in the next 8 to 12 hours. If you are not getting better, you may need more tests or treatment. The doctor has checked you carefully, but problems can develop later. If you notice any problems or new symptoms, get medical treatment right away. Follow-up care is a gallardo part of your treatment and safety. Be sure to make and go to all appointments, and call your doctor if you are having problems. It's also a good idea to know your test results and keep a list of the medicines you take. How can you care for yourself at home? Rest until you feel better. To prevent dehydration, drink plenty of fluids. Choose water and other clear liquids until you feel better. If you have kidney, heart, or liver disease and have to limit fluids, talk with your doctor before you increase the amount of fluids you drink. If your stomach is upset, eat mild foods, such as rice, dry toast or crackers, bananas, and applesauce. Try eating several small meals instead of two or three large ones. Wait until 48 hours after all symptoms have gone away before you have spicy foods, alcohol, and drinks that contain caffeine. Do not eat foods that are high in fat. Avoid anti-inflammatory medicines such as aspirin, ibuprofen (Advil, Motrin), and naproxen (Aleve). These can cause stomach upset. Talk to your doctor if you take daily aspirin for another health problem. When should you call for help? Call 911 anytime you think you may need emergency care. For example, call if: You passed out (lost consciousness). You pass maroon or very bloody stools. You vomit blood or what looks like coffee grounds. You have new, severe belly pain. Call your doctor now or seek immediate medical care if: Your pain gets worse, especially if it becomes focused in one area of your belly. You have a new or higher fever. Your stools are black and look like tar, or they have streaks of blood. You have unexpected vaginal bleeding. You have symptoms of a urinary tract infection. These may include: ? Pain when you urinate. ? Urinating more often than usual. ? Blood in your urine. You are dizzy or lightheaded, or you feel like you may faint. Watch closely for changes in your health, and be sure to contact your doctor if: You are not getting better after 1 day (24 hours). Where can you learn more? Log into your personal health record on?https://Intellicyt.Tamr?and enter?E907?in the Education box to learn more about Abdominal Pain: Care Instructions. Current as of: September 17, 2020 Content Version: 12.9 EachNet. Care instructions adapted under license by your healthcare professional. If you have questions about a medical condition or this instruction, always ask your healthcare professional. [employer] disclaims any warranty or liability for your use of this information. For any new medications prescribed today, patient was educated about indications for the medication, how to take the medication and potential side effects of the medications. Goals None Tiny Carranza CNP documented in this encounter [facility] 03-20-2021 Miscellaneous Notes Called pt and left message that Mary Ann Tyson will refill once pt is out when pharmacy sends notification I will refill when out, pharm will send notification Please advise thank you Called pt and scheduled her in for her yearly but she will not have enough patches to get her through. Can you send in 6 more to get her to her appt? Please advise thank you documented in this encounter [facility] 03-20-2021 Miscellaneous Notes Called pt and scheduled her in [facility] for her yearly but she will not have enough patches to get her through. Can you send in 6 more to get her to her appt? Please advise thank you documented in this encounter [facility] 03-18-2021 Miscellaneous Notes ----- Message from Cheikh Welch sent at 03/18/2021 8:21 AM EDT ----- Regarding: refill MEDICATION REFILL REQUEST: PCP: Mary Ann Tyson CNP Patient called 03/18/21 and is requesting a medication refill for norelgestromin-ethinyl estradiol (ORTHO EVRA) 150-35 mcg/24 hr patch. This was confirmed from the current medication list found in the patients chart. Supply Requested: # of days: 30 days Method of receiving: Send to pharmacy Last set of flowsheet rows for OARRS report: OARRS/NARxCHECK Report Received and Assessed: No data found Date controlled substance agreement signed: No data found Date of last drug screen: No data found Functional Assessment: No data found Will this refill be sent to the preferred pharmacy listed below? Yes Preferred pharmacies: [facility] [address] [address] Pt Call Back Number Work Phone Not on file. Patient call back message sent to the primary care clinical pool. Cheikh Welch documented in this encounter [facility] Diagnosis Menorrhagia with irregular cycle [facility]* Diagnosis Encounter for contraceptive management, unspecified type- Primary Right lower quadrant abdominal pain Menorrhagia with irregular cycle Fatigue, unspecified type [facility]* Diagnosis Suprapubic pain, acute- Primary Acute vaginitis Unspecified vaginitis and vulvovaginitis [facility]* Diagnosis Dyspareunia in female- Primary [facility]* Diagnosis Hypercholesterolemia with LDL greater than 190 mg/dL [facility]* Diagnosis Menorrhagia with regular cycle- Primary [facility]* Diagnosis Menorrhagia with regular cycle [facility]* Diagnosis Encounter for control pills maintenance- Primary Surveillance of previously prescribed contraceptive pill Menorrhagia with regular cycle [facility] Diagnosis Familial hypercholesterolemia- Primary [facility] Diagnosis Well woman exam with routine gynecological exam- Primary Routine gynecological examination Abnormal menses Unspecified disorder of menstruation and other abnormal bleeding from female genital tract Encounter for control pills maintenance Surveillance of previously prescribed contraceptive pill [facility]* Diagnosis Familial hypercholesterolemia- Primary [facility]* Diagnosis Elevated prolactin level- Primary [facility] Diagnosis Weight gain- Primary Other symptoms concerning nutrition, metabolism, and development Menorrhagia with regular cycle [facility] Diagnosis Elevated prolactin level- Primary documented in this encounter [facility] Instructions * Patient Instructions - Nasrin Brenner MD - 11/20/2018 11:26 AM EST Formatting of this note may be different from the original. Tonsillitis: Care Instructions Your Care Instructions Tonsillitis is an infection of the tonsils that is caused by bacteria or a virus. The tonsils are in the back of the throat and are part of the immune system. Tonsillitis typically lasts from a few days up to a couple of weeks. Tonsillitis caused by a virus goes away on its own. Tonsillitis caused by the bacteria that causes strep throat is treated with antibiotics. You and your doctor may consider surgery to remove the tonsils (tonsillectomy) if you have serious complications or repeat infections. Follow-up care is a gallardo part of your treatment and safety. Be sure to make and go to all appointments, and call your doctor if you are having problems. It's also a good idea to know your test resultsand keep a list of the medicines you take. How can you care for yourself at home? If your doctor prescribed antibiotics, take them as directed. Do not stop taking them just because you feel better. You need to take the full course of antibiotics. Gargle with warm salt water. This helps reduce swelling and relieve discomfort. Gargle once an hourwith 1 teaspoon of salt mixed in 8 fluid ounces of warm water. Take an mocu-pwg-[id number] pain medicine, such as acetaminophen (Tylenol), ibuprofen (Advil, Motrin),or naproxen (Aleve). Be safe with medicines. Read and follow all instructions on the label. No one younger than 20 should take aspirin. It has been linked to Mike syndrome, a serious illness. Be careful when taking ivia-zcv-sdbzaem cold or flu medicines and Tylenol at the same time. Many ofthese medicines have acetaminophen, which is Tylenol. Read the labels to make sure that you are nottaking more than the recommended dose. Too much acetaminophen (Tylenol) can be harmful. Try an quap-kue-dxwtuku throat spray to relieve throat pain. Drink plenty of fluids. Fluids may help soothe an irritated throat. Drink warm or cool liquids (whichever feels better). These include tea, soup, and juice. Do not smoke, and avoid secondhand smoke. Smoking can make tonsillitis worse. If you need help quitting, talk to your doctor about stop-smoking programs and medicines. These can increase your chancesof quitting for good. Use a vaporizer or humidifier to add moisture to your bedroom. Follow the directions for cleaning the machine. When should you call for help? Call your doctor now or seek immediate medical care if: Your pain gets worse on one side of your throat. You have a new or higher fever. You notice changes in your voice. You have trouble opening your mouth. You have any trouble breathing. You have much more trouble swallowing. You have a fever with a stiff neck or a severe headache. You are sensitive to light or feel very sleepy or confused. Watch closely for changes in your health, and be sure to contact your doctor if: You do not get better after 2 days. Where can you learn more? Log into your personal health record on [email or web address] and enter [id number] in the Education box to learn more about Tonsillitis: Care Instructions. Current as of: February 23, 2018 Content Version: [id number] EachNet. Care instructions adapted under license by your healthcare professional. If you have questions about a medical condition or this instruction, always ask your healthcare professional. [employer]Net disclaims any warranty or liability for your use of this information. Tonsillitis: Care Instructions Your Care Instructions Tonsillitis is an infection of the tonsils that is caused by bacteria or a virus. The tonsils are in the back of the throat and are part of the immune system. Tonsillitis typically lasts from a few days up to a couple of weeks. Tonsillitis caused by a virus goes away on its own. Tonsillitis caused by the bacteria that causes strep throat is treated with antibiotics. You and your doctor may consider surgery to remove the tonsils (tonsillectomy) if you have serious complications or repeat infections. Follow-up care is a gallardo part of your treatment and safety. Be sure to make and go to all appointments, and call your doctor if you are having problems. It's also a good idea to know your test resultsand keep a list of the medicines you take. How can you care for yourself at home? If your doctor prescribed antibiotics, take them as directed. Do not stop taking them just because you feel better. You need to take the full course of antibiotics. Gargle with warm salt water. This helps reduce swelling and relieve discomfort. Gargle once an hourwith 1 teaspoon of salt mixed in 8 fluid ounces of warm water. Take an tnzw-kxi-ipyqnel pain medicine, such as acetaminophen (Tylenol), ibuprofen (Advil, Motrin),or naproxen (Aleve). Be safe with medicines. Read and follow all instructions on the label. No one younger than 20 should take aspirin. It has been linked to Mike syndrome, a serious illness. Be careful when taking octy-cwl-bvahnes cold or flu medicines and Tylenol at the same time. Many ofthese medicines have acetaminophen, which is Tylenol. Read the labels to make sure that you are nottaking more than the recommended dose. Too much acetaminophen (Tylenol) can be harmful. Try an nwxy-rox-ygfvhke throat spray to relieve throat pain. Drink plenty of fluids. Fluids may help soothe an irritated throat. Drink warm or cool liquids (whichever feels better). These include tea, soup, and juice. Do not smoke, and avoid secondhand smoke. Smoking can make tonsillitis worse. If you need help quitting, talk to your doctor about stop-smoking programs and medicines. These can increase your chancesof quitting for good. Use a vaporizer or humidifier to add moisture to your bedroom. Follow the directions for cleaning the machine. When should you call for help? Call your doctor now or seek immediate medical care if: Your pain gets worse on one side of your throat. You have a new or higher fever. You notice changes in your voice. You have trouble opening your mouth. You have any trouble breathing. You have much more trouble swallowing. You have a fever with a stiff neck or a severe headache. You are sensitive to light or feel very sleepy or confused. Watch closely for changes in your health, and be sure to contact your doctor if: You do not get better after 2 days. Where can you learn more? Log into your personal health record on [email or web address] and enter M655 in the Education box to learn more about Tonsillitis: Care Instructions. Current as of: February 23, 2018 Content Version: .[id number] [employer]. Care instructions adapted under license by your healthcare professional. If you have questions about a medical condition or this instruction, always ask your healthcare professional. [employer]Net disclaims any warranty or liability for your use of this information. Tonsillitis: Care Instructions Your Care Instructions Tonsillitis is an infection of the tonsils that is caused by bacteria or a virus. The tonsils are in the back of the throat and are part of the immune system. Tonsillitis typically lasts from a few days up to a couple of weeks. Tonsillitis caused by a virus goes away on its own. Tonsillitis caused by the bacteria that causes strep throat is treated with antibiotics. You and your doctor may consider surgery to remove the tonsils (tonsillectomy) if you have serious complications or repeat infections. Follow-up care is a gallardo part of your treatment and safety. Be sure to make and go to all appointments, and call your doctor if you are having problems. It's also a good idea to know your test resultsand keep a list of the medicines you take. How can you care for yourself at home? If your doctor prescribed antibiotics, take them as directed. Do not stop taking them just because you feel better. You need to take the full course of antibiotics. Gargle with warm salt water. This helps reduce swelling and relieve discomfort. Gargle once an hourwith 1 teaspoon of salt mixed in 8 fluid ounces of warm water. Take an ohgb-vnl-dqmmjko pain medicine, such as acetaminophen (Tylenol), ibuprofen (Advil, Motrin),or naproxen (Aleve). Be safe with medicines. Read and follow all instructions on the label. No one younger than 20 should take aspirin. It has been linked to Mike syndrome, a serious illness. Be careful when taking hptn-vnl-hioblwz cold or flu medicines and Tylenol at the same time. Many ofthese medicines have acetaminophen, which is Tylenol. Read the labels to make sure that you are nottaking more than the recommended dose. Too much acetaminophen (Tylenol) can be harmful. Try an bgdo-gjk-cxluudf throat spray to relieve throat pain. Drink plenty of fluids. Fluids may help soothe an irritated throat. Drink warm or cool liquids (whichever feels better). These include tea, soup, and juice. Do not smoke, and avoid secondhand smoke. Smoking can make tonsillitis worse. If you need help quitting, talk to your doctor about stop-smoking programs and medicines. These can increase your chancesof quitting for good. Use a vaporizer or humidifier to add moisture to your bedroom. Follow the directions for cleaning the machine. When should you call for help? Call your doctor now or seek immediate medical care if: Your pain gets worse on one side of your throat. You have a new or higher fever. You notice changes in your voice. You have trouble opening your mouth. You have any trouble breathing. You have much more trouble swallowing. You have a fever with a stiff neck or a severe headache. You are sensitive to light or feel very sleepy or confused. Watch closely for changes in your health, and be sure to contact your doctor if: You do not get better after 2 days. Where can you learn more? Log into your personal health record on [email or web address] and enter M655 in the Education box to learn more about Tonsillitis: Care Instructions. Current as of: February 23, 2018 Content Version: .[id number] Each[employer]. Care instructions adapted under license by your healthcare professional. If you have questions about a medical condition or this instruction, always ask your healthcare professional. EachNet disclaims any warranty or liability for your use of this information. Tonsillitis: Care Instructions Your Care Instructions Tonsillitis is an infection of the tonsils that is caused by bacteria or a virus. The tonsils are in the back of the throat and are part of the immune system. Tonsillitis typically lasts from a few days up to a couple of weeks. Tonsillitis caused by a virus goes away on its own. Tonsillitis caused by the bacteria that causes strep throat is treated with antibiotics. You and your doctor may consider surgery to remove the tonsils (tonsillectomy) if you have serious complications or repeat infections. Follow-up care is a gallardo part of your treatment and safety. Be sure to make and go to all appointments, and call your doctor if you are having problems. It's also a good idea to know your test resultsand keep a list of the medicines you take. How can you care for yourself at home? If your doctor prescribed antibiotics, take them as directed. Do not stop taking them just because you feel better. You need to take the full course of antibiotics. Gargle with warm salt water. This helps reduce swelling and relieve discomfort. Gargle once an hourwith 1 teaspoon of salt mixed in 8 fluid ounces of warm water. Take an pfwv-dmx-vsatcbm pain medicine, such as acetaminophen (Tylenol), ibuprofen (Advil, Motrin),or naproxen (Aleve). Be safe with medicines. Read and follow all instructions on the label. No one younger than 20 should take aspirin. It has been linked to Mike syndrome, a serious illness. Be careful when taking ofvu-pwe-sexovph cold or flu medicines and Tylenol at the same time. Many ofthese medicines have acetaminophen, which is Tylenol. Read the labels to make sure that you are nottaking more than the recommended dose. Too much acetaminophen (Tylenol) can be harmful. Try an yxae-sli-niqjqvf throat spray to relieve throat pain. Drink plenty of fluids. Fluids may help soothe an irritated throat. Drink warm or cool liquids (whichever feels better). These include tea, soup, and juice. Do not smoke, and avoid secondhand smoke. Smoking can make tonsillitis worse. If you need help quitting, talk to your doctor about stop-smoking programs and medicines. These can increase your chancesof quitting for good. Use a vaporizer or humidifier to add moisture to your bedroom. Follow the directions for cleaning the machine. When should you call for help? Call your doctor now or seek immediate medical care if: Your pain gets worse on one side of your throat. You have a new or higher fever. You notice changes in your voice. You have trouble opening your mouth. You have any trouble breathing. You have much more trouble swallowing. You have a fever with a stiff neck or a severe headache. You are sensitive to light or feel very sleepy or confused. Watch closely for changes in your health, and be sure to contact your doctor if: You do not get better after 2 days. Where can you learn more? Log into your personal health record on [email or web address] and enter M655 in the Education box to learn more about Tonsillitis: Care Instructions. Current as of: February 23, 2018 Content Version: 11.9 6730-9344 EachNet. Care instructions adapted under license by your healthcare professional. If you have questions about a medical condition or this instruction, always ask your healthcare professional. EachNet disclaims any warranty or liability for your use of this information. ots of liquids - popsicles!!! No ibuprofen with orapred. Worse to ER. Can call me today or [phone] in this encounter* Patient Instructions* Mary Ann Tyson, LÁZARO - 08/15/2020 10:06 PM EDT Problem List Items Addressed This Visit Other Menorrhagia with irregular cycle I have started you on the control patch. You will place the patch once weekly for 3 weeks andon the fourth week you will not put a patch on. I would like to see you back in the office in 3 months to evaluate how well the control is working at controlling your irregular menstrual cycle. Have your lab work completed at your convenience. You will need to be fasting which means nothing to eat or drink for 8 hours except water and black coffee. I will give you your results through your my chart. Relevant Medications norelgestromin-ethinyl estradiol (ORTHO EVRA) 150-35 mcg/24 hr patch Other Relevant Orders CBC and Differential Ferritin Iron and TIBC Other Visit Diagnoses Well adult exam - Primary Relevant Orders Comprehensive Metabolic Panel Acute vaginitis Relevant Orders Vaginitis DNA Probes Screening for lipid disorders Relevant Orders Lipid Panel Screening for chlamydial disease Relevant Orders Chlamydia/Gonorrhoeae Amplified RNA Abnormal Uterine Bleeding: Care Instructions Your Care Instructions Abnormal uterine bleeding is irregular bleeding from the uterus that is longer or heavier than usual or does not occur at your regular time. Sometimes it is caused by changes in hormone levels. It can also be caused by growths in the uterus, such as fibroids or polyps. Sometimes a cause cannot be found. You may have heavy bleeding when you are not expecting your period. Your doctor may suggest a test, if you think you are . Follow-up care is a gallardo part of your treatment and safety. Be sure to make and go to all appointments, and call your doctor if you are having problems. It's also a good idea to know your test resultsand keep a list of the medicines you take. How can you care for yourself at home? Be safe with medicines. Take pain medicines exactly as directed. ? If the doctor gave you a prescription medicine for pain, take it as prescribed. ? If you are not taking a prescription pain medicine, ask your doctor if you can take an qjvl-ypi-ozgnvqa medicine. You may be low in iron because of blood loss. Eat a balanced diet that is high in iron and vitamin C. Foods rich in iron include red meat, shellfish, eggs, beans, and leafy green vegetables. Talk to your doctor about whether you need to take iron pills or a multivitamin. When should you call for help? [id number] anytime you think you may need emergency care. For example, call if: You passed out (lost consciousness). Call your doctor now or seek immediate medical care if: You have new or worse belly or pelvic pain. You have severe vaginal bleeding. You feel dizzy or lightheaded, or you feel like you may faint. Watch closely for changes in your health, and be sure to contact your doctor if: You think you may be . Your bleeding gets worse. You do not get better as expected. Where can you learn more? Log into your personal health record on [email or web address] and enter I327 in the Education box to learn more about Abnormal Uterine Bleeding: Care Instructions. Current as of: October 07, 2019 Content Version: 12.5 EachNet. Care instructions adapted under license by your healthcare professional. If you have questions about a medical condition or this instruction, always ask your healthcare professional. EachNet disclaims any warranty or liability for your use of this information. documented in this encounter History of Present Illness * Nasrin Brenner MD - 11/20/2018 10:42 AM EST Formatting of this note may be different from the original. PATIENT NAME: Alyssa Calvin [facility] [address] [place] [id number] : 2000 DATE OF VISIT: 11/20/2018 SS#: [id number] PROVIDER: Nasrin Brenner MD Chief Complaint Patient presents with Sore Throat SUBJECTIVE 18 y.o. female presents Sore Throat Sick for a week - started out as a little cold. Now has sore throat and ear pain. Seen at [facility] 5 days ago - checked ears and no ear infection - put peroxide in them. Has had fever since Thurs PM. Is also coughing. Threw up yesterday. ? Urine output. Not eaten for a couple of days Sore Throat This is a new problem. The current episode started in the past 7 days. The problem has been gradually worsening. The pain is worse on the right side. Maximum temperature: did not measure. The fever has been present for 1 to 2 days. The pain is at a severity of 10/10. The pain is severe. Associated s ymptoms include congestion, coughing, diarrhea, drooling, ear pain, headaches, a hoarse voice, trouble swallowing and vomiting. Pertinent negatives include no abdominal pain, ear discharge or shortness of breath. Exposure to: home schooled, works in [employer]. Has relatives that were sick with vomiting and colds. She has tried NSAIDs for the symptoms. The treatment provided no relief. MEDICAL ISSUES History reviewed. No pertinent past medical history. There is no problem list on file for this patient. SOCIAL HISTORY Social History Social History Marital status: Single Spouse name: N/A Number of children: N/A Years of education: N/A Occupational History Not on file. Social History Main Topics Smoking status: Never Smoker Smokeless tobacco: Never Used Alcohol use No Drug use: Unknown Sexual activity: Not on file Other Topics Concern Not on file Social History Narrative No narrative on file FAMILY HISTORY History reviewed. No pertinent family history. REVIEW OF SYSTEMS Review of Systems Constitutional: Positive for chills, fatigue and fever. HENT: Positive for congestion, drooling, ear pain, hoarse voice, sore throat and trouble swallowing. Negative for ear discharge, sinus pain and sinus pressure. Respiratory: Positive for cough. Negative for shortness of breath. Cardiovascular: Negative for chest pain. Gastrointestinal: Positive for diarrhea and vomiting. Negative for abdominal pain. Genitourinary: Nocturia - once. Not . No diabetes Skin: Negative for rash. Neurological: Positive for headaches. Hematological: Positive for adenopathy. MEDICATIONS PRIOR TO VISIT No current outpatient prescriptions on file prior to visit. No current facility-administered medications on file prior to visit. ALLERGIES/INTOLERANCES No Known Allergies OBJECTIVE BP 121/69 (BP Location: Right arm, Patient Position: Sitting, BP Cuff Size: Adult) Pulse 100 Temp (!) 101.4 F (38.6 C) (Oral) Resp 18 Ht 5' 6 Wt 72.6 kg (160 lb) LMP 11/04/2018 (Approximate) SpO2 98% ? No BMI 25.82 kg/m Physical Exam Constitutional: She appears well-developed and well-nourished. No distress. HENT: Head: Normocephalic and atraumatic. Right Ear: External ear normal. Left Ear: External ear normal. Bad breath. No trismus. Has red swollen tonsils that are symmetric and have exudate. No depression of soft palate or uvular deviation Eyes: Conjunctivae are normal. No scleral icterus. Neck: No thyromegaly present. Cardiovascular: Normal rate, regular rhythm and normal heart sounds. Pulmonary/Chest: Breath sounds normal. No respiratory distress. Lymphadenopathy: She has cervical adenopathy. Neurological: She is alert. Skin: Skin is warm and dry. She is not diaphoretic. Psychiatric: She has a normal mood and affect. Her behavior is normal. PROCEDURE Procedures Results No results found for this or any previous visit (from the past 168 hour(s)). ASSESSMENT/PLAN (expressed as patient instructions): No diagnosis found. No Follow-up on file. ADDITIONAL CLINICAL COMMENTS No evidence of peritonsillar abscess Mother aware I did mono test to be sure I could give amoxicillin derivative, and that even if she had a negative strep test she needed antibiotics ORDERS PLACED THIS VISIT No orders of the defined types were placed in this encounter. MEDICATION LIST AT END OF VISIT No current outpatient prescriptions on file. No current facility-administered medications for this visit. * Shauna Cotter, TECHNOLOGIST - 11/20/2018 10:23 AM EST C/O sore throat and ears hurting for a week, fever. in this encounter* Mary Ann Tyson, RAIL TRACK LAYER - 08/15/2020 7:31 AM EDT OUTPATIENT WELL WOMAN PROGRESS NOTE Subjective: Alyssa Calvin is a 20 y.o. female and is here for a new patient preventative care visit. Patient formally seen by welding machine operator ultrasonic. Health maintenance reviewed and updated. Lab work ordered at today's appointment for patient to have done at her convenience. She does report irregular heavy menstrual cycles. Cycles lasting 5 to 7 days and occurs monthly with heavy days occurring day 1 through 3. At its worst patient changes her tampon and pad every 45 minutes. She is also having 1 to 2 days in the middle of the month with heavy bleeding. This is been going on for multiple years. She is not sexually active at this time but would like to discuss control options to help regulate and decrease her menstrual cycle. Options discussed at today's appointment patient would like to try the patch due to its convenience. She also has complaints of yeast infection that has improved on its own with increased yogurt intake. We will recheck at the vaginal swab. Patient to self swab. Lab work to be completed to evaluate for anemia related to blood loss. Assessment completely unremarkable. Patient to return to the office in 3 months for evaluation of the control, lab work to be completed at her convenience. OB History 0 Para 0 Term 0 0 AB 0 Living 0 SAB 0 TAB 0 Ectopic 0 Multiple 0 Live Births 0 Menstrual History Menarche Age: 13 years Period Cycle (Days): (monthly with spotting) Period Duration (Days): 5-7 days Period Pattern: (!) Irregular Menstrual Flow: Heavy Menstrual Control: Tampon, Maxi pad Menstrual Control Change Freq (Hours): 45 minutes on heavy days Dysmenorrhea: (!) Severe Dysmenorrhea Symptoms: Cramping, Throbbing Sexual History Age of First Sexual Encounter: 18 years Sexual Assault: No Number of Male Sexual Partners in Lifetime: 1 Number of Partners in Last Year: 1 Sexually Transmitted Infection History: None Results of Last Sexually Transmitted Infection Testing: Not applicable T-dap: 03/22/2018 Influenza: Declines influenza vaccine Depression screenin08/15/2020 with a PHQ 9 score of 7 Diet/Exercise: 2/week running Last eye exam: Denies any visual abnormalities, unknown last eye exam Last dental visit: 2019 Health Maintenance Due Topic Date Due Chlamydia Screening 2001 HPV Vaccines (1 - 2-dose series) 2012 The following portions of the patient's history were reviewed and updated as appropriate: allergies, current medications, past family history, past medical history, past social history, past surgicalhistory and problem list. No past medical history on file. No past surgical history on file. Social History Tobacco Use Smoking status: Never Smoker Smokeless tobacco: Never Used Substance Use Topics Alcohol use: No Drug use: Never Family History Problem Relation Age of Onset Arthritis Mother No Known Problems Father No Known Problems Sister No Known Problems Brother Heart disease Maternal Grandmother Heart attack Maternal Grandfather Heart disease Paternal Grandmother Cancer Paternal Grandfather No Known Problems Sister No Known Allergies Objective: BP 137/79 (BP Location: Left arm, Patient Position: Sitting, BP Cuff Size: Adult) Pulse 85 Temp97.9 F (36.6 C) (Skin) Resp 16 Ht 5' 6 Wt 80.9 kg (178 lb 4.8 oz) LMP 07/30/2020 SpO2 98% BMI 28.78 kg/m Review of Systems Review of Systems Constitutional: Positive for fatigue. Negative for activity change. HENT: Negative. Respiratory: Negative. Negative for chest tightness and shortness of breath. Cardiovascular: Negative for chest pain and palpitations. Gastrointestinal: Negative. Negative for abdominal pain, constipation and diarrhea. Genitourinary: Positive for vaginal bleeding. Musculoskeletal: Negative. Skin: Positive for pallor. Neurological: Negative for dizziness, weakness, light-headedness and headaches. Psychiatric/Behavioral: Negative. The patient is not nervous/anxious. Vitals: 08/15/20 0722 BP: 137/79 BP Location: Left arm Patient Position: Sitting BP Cuff Size: Adult Pulse: 85 Resp: 16 Temp: 97.9 F (36.6 C) TempSrc: Skin SpO2: 98% Weight: 80.9 kg (178 lb 4.8 oz) Height: 5' 6 Body mass index is 28.78 kg/m . Physical Exam Physical Exam Vitals signs and nursing note reviewed. Constitutional: General: She is not in acute distress. Appearance: Normal appearance. She is well-developed and normal weight. She is not ill-appearing. HENT: Head: Normocephalic and atraumatic. Right Ear: Tympanic membrane, ear canal and external ear normal. Left Ear: Tympanic membrane, ear canal and external ear normal. Mouth/Throat: Mouth: Mucous membranes are moist. Pharynx: Oropharynx is clear. Eyes: Conjunctiva/sclera: Conjunctivae normal. Pupils: Pupils are equal, round, and reactive to light. Neck: Musculoskeletal: Normal range of motion. Vascular: No carotid bruit. Cardiovascular: Rate and Rhythm: Normal rate and regular rhythm. Pulses: Normal pulses. Heart sounds: Normal heart sounds. Pulmonary: Effort: Pulmonary effort is normal. Breath sounds: Normal breath sounds. Abdominal: General: Bowel sounds are normal. Palpations: Abdomen is soft. Musculoskeletal: Normal range of motion. Right lower leg: No edema. Left lower leg: No edema. Lymphadenopathy: Cervical: No cervical adenopathy. Skin: General: Skin is warm and dry. Capillary Refill: Capillary refill takes less than 2 seconds. Coloration: Skin is pale. Findings: No rash. Neurological: General: No focal deficit present. Mental Status: She is alert and oriented to person, place, and time. Motor: No weakness. Coordination: Coordination normal. Gait: Gait normal. Psychiatric: Attention and Perception: Attention normal. She is attentive. Mood and Affect: Mood normal. Mood is not anxious or depressed. Speech: Speech normal. Behavior: Behavior is cooperative. Thought Content: Thought content normal. Cognition and Memory: Cognition normal. Judgment: Judgment normal. Assessment/Plan Problem List Items Addressed This Visit Other Menorrhagia with irregular cycle I have started you on the control patch. You will place the patch once weekly for 3 weeks andon the fourth week you will not put a patch on. I would like to see you back in the office in 3 months to evaluate how well the control is working at controlling your irregular menstrual cycle. Have your lab work completed at your convenience. You will need to be fasting which means nothing to eat or drink for 8 hours except water and black coffee. I will give you your results through your my chart. Relevant Medications norelgestromin-ethinyl estradiol (ORTHO EVRA) 150-35 mcg/24 hr patch Other Relevant Orders CBC and Differential Ferritin Iron and TIBC Other Visit Diagnoses Well adult exam - Primary Relevant Orders Comprehensive Metabolic Panel Acute vaginitis Relevant Orders Vaginitis DNA Probes Screening for lipid disorders Relevant Orders Lipid Panel Screening for chlamydial disease Relevant Orders Chlamydia/Gonorrhoeae Amplified RNA General Patient Counseling Given: --Nutrition: Stressed importance of moderation in sodium/caffeine intake, saturated fat and cholesterol, caloric balance, sufficient intake of fresh fruits, vegetables, fiber, calcium, iron, and 1 mgof folate supplement per day (for females capable of ). --Exercise: Stressed the importance of regular exercise. --Substance Abuse: Discussed cessation/primary prevention of tobacco, alcohol, or other drug use --Sexuality: Discussed sexually transmitted diseases, partner selection, use of condoms, avoidance of unintended and contraceptive alternatives. --Dental health: Discussed importance of regular dental visits. --Immunizations reviewed. --Discussed benefits of screening mammograms, pap smears, and colonoscopy. documented in this encounter Assessments Diagnosis Tonsillitis- Primary Acute tonsillitis Diagnosis Well adult exam- Primary Routine general medical examination at a health care facility Menorrhagia with irregular cycle Acute vaginitis Unspecified vaginitis and vulvovaginitis Screening for lipid disorders Screening for chlamydial disease Special screening examination for unspecified chlamydial disease Diagnosis Menorrhagia with irregular cycle Summary Purpose Family History No Family History Records FoundNo Family History Records FoundNo Family History Records FoundNo Family History Records FoundNo Family History Records Found Advance Directives No Advanced Directives Records FoundDocuments on File Type Date Recorded Patient Reproducer Expl anation Advance Directives and Living Will Documents on File Type Date Recorded Patient Reproducer Expl anation Advance Directives and Living Will Documents on File Type Date Recorded Patient Reproducer Expl anation Advance Directives and Livin g Will 09/05/2021 2:18 PM Documents on File Type Date Recorded Patient Reproducer Expl anation Advance Directives and Livin g Will 09/05/2021 2:18 PM Reason for Referral Specialty Diagnoses / Procedures Referred By Contac t Referred To Contact Obstetrics and Gynecology Diagnoses Right lower quadrant abdominal pain Procedures US Transvaginal Tiny Craranza, RAIL TRACK LAYER [address] [place] [address] Referral ID Status Reason Start Date Expiration Date V isits Requested Visits Authorized [id number] Authorized 07/22/2021 07/22/2022 1 1 Specialty Diagnoses / Procedures Referred By Contac t Referred To Contact Obstetrics and Gynecology Diagnoses Dyspareunia in female Tiny Carranza CNP [address] [place] [address] [facility]any [address] [place] [address] Referral ID Status Reason Start Date Expiration Date V isits Requested Visits Authorized [id number] Authorized 09/26/2021 09/26/2022 1 1 Specialty Diagnoses / Procedures Referred By Contac t Referred To Contact Radiology Diagnoses Elevated prolactin level Procedures MR Pituitary With And Without Contrast Kamla Medina, CNM [address] [place] [id number] Referral ID Status Reason Start Date Expiration Date V isits Requested Visits Authorized [id number] New Request 04/13/2023 04/12/2024 1 1 Additional Source Comments Reason for Visit (unrecogniz ed section and content) Reason Comments Annual Exam Establish Care Fatigue Reason Onset Date Comments Medication Refill 12/05/2020 Reason Onset Date Comments Medication Refill 03/17/2021 Reason Onset Date Comments Medication Refill 03/18/2021 Reason Comments Contraception Reason Comments Pelvic Pain tylenol ibuprofen do es not help. Reason Onset Date Comments Medication Refill 10/21/2021 Reason Onset Date Comments Medication Refill 06/12/2022 Reason Onset Date Comments Lab grid update 07/01/2022 Reason Comments med f/u Reason Comments Annual Exam No previous pap due to age. Patient complains of bleeding while on active pill that last 2-3 days. Also here for bcp refills Reason Comments Hormone questions Stopped taking control about 2 months ago, did not like it and caused crazy mood swings. Would like thyroid and hormone labs checked. Is using condoms now. INFORMATION SOURCE (unrecogn ized section and content) DATE CREATED AUTHOR AUTHOR'S ORGANIZ ATION 10/05/2021 [facility] DATE CREATED AUTHOR AUTHOR'S ORGANIZ ATION 05/08/2023 [facility] DATE CREATED AUTHOR AUTHOR'S ORGANIZ ATION 05/31/2023 [facility] DATE CREATED AUTHOR AUTHOR'S ORGANIZ ATION 08/09/2023 [facility] Assessment & Plan Note - Mary Ann Tyson CNP - 08/15/2020 10:03 PM EDTTelephone Encounter - Adela Clifton LPN - 12/05/2020 9:16 AM EST Miscellaneous Notes (unrecog nized section and content) Associated Problem(s): Menorrhagia with irregular cycle I have started you on the control patch. You will place the patch once weekly for 3 weeks and on the fourth week you will not put a patch on. I would like to see you back in the office in 3 months to evaluate how well the control is working at controlling your irregular menstrual cycle. Have your lab work completed at your convenience. You will need to be fasting which means nothing to eat or drink for 8 hours except water and black coffee. I will give you your results through your my chart. documented in this encounter ----- Message from Billy Albarran sent at 12/05/2020 8:49 AM EST ----- Regarding: meds MEDICATION REFILL REQUEST: PCP: Mary Ann Tyson CNP Patient called 12/05/20 and is requesting a medication refill for norelgestromin-ethinyl estradiol (ORTHO EVRA) 150-35 mcg/24 hr patch() This was confirmed from the current medication list found in the patients chart. Supply Requested: # of days: 90 days Method of receiving: Send to pharmacy Last set of flowsheet rows for OARRS report: OARRS/NARxCHECK Report Received and Assessed: No data found Date controlled substance agreement signed: No data found Date of last drug screen: No data found Functional Assessment: No data found Will this refill be sent to the preferred pharmacy listed below? Yes Preferred pharmacies: [facility] [address] [facility] [place] [address] [facility] [id number] Pt Call Back Number Work Phone Not on file. Patient call back message sent to the primary care clinical pool. Billy Albarran documented in this encounter Care Teams (unrecognized sec tion and content) Physical Medicine Physician Relationship Specialty Start Date End Date Tiny Carranza CNP [address] [place] [phone] PCP - General Nurse Practitioner 03/20/21 Tiny Carranza CNP [address] [place] [address] PCP - JIMENEZ Attributed Provider - [employer] 12/31/20 11/29/50 Physical Medicine Physician Relationship Specialty Start Date End Date Tiny Carranza CNP [address] [place] [address] PCP - General Nurse Practitioner 03/20/21 Tiny Carranza CNP [address] [place] [address] PCP - JIMENEZ Attributed Provider - [employer] 12/31/20 11/28/21 Physical Medicine Physician Relationship Specialty Start Date End Date [facility]NP [facility] [address] [place] [address], [place] [address] PCP - General Nurse Practitioner 03/20/21 Physical Medicine Physician Relationship Specialty Start Date End Date Tiny Carranza CNP [address] [place] [address], [place] [address] PCP - General Nurse Practitioner 03/20/21 Tiny Carranza CNP [address] [place] [address], [place] [address] PCP - JIMENEZ Attributed Provider - [employer] 12/31/20 11/29/50 Physical Medicine Physician Relationship Specialty Start Date End Date [facility] Carranza CNP [facility] [address] [place] [address], [place] [address] PCP - General Nurse Practitioner 03/20/21 Tiny Carranza CNP [address] [facility] [address] [place] [address], [place] [address] PCP - JIMENEZ Attributed Provider - [employer] 12/31/20 11/29/50 Physical Medicine Physician Relationship Specialty Start Date End Date Tiny Carranza CNP [address] [place] [address], [place] [address] PCP - General Nurse Practitioner 03/20/21 Tiny Carranza CNP [address] [place] [address], [place] [address] PCP - JIMENEZ Attributed Provider - [employer] 12/31/20 11/29/50 Physical Medicine Physician Relationship Specialty Start Date End Date Tiny Carranza CNP [address] [place] [address], [place] [address] PCP - General Nurse Practitioner 03/20/21 Tiny [facility]za CNP [facility] [address] [place] [address], [place] [address] PCP - JIMENEZ Attributed Provider - [employer] 12/31/20 11/29/50 Physical Medicine Physician Relationship Specialty Start Date End Date Tiny Carranza CNP [address] [place] [address], [place] [address] PCP - General Nurse Practitioner 03/20/21 Tiny Carranza CNP [address] [place] [address], [place] [address] PCP - JIMENEZ Attributed Provider - [employer] 12/31/20 11/29/50 Physical Medicine Physician Relationship Specialty Start Date End Date Tiny Carranza CNP [address] [place] [address] PCP - General Nurse Practitioner 03/20/21 Tiny Carranza CNP [address] [place] [address] PCP - JIMENEZ Attributed Provider - [employer] 12/31/20 11/29/50 Physical Medicine Physician Relationship Specialty Start Date End Date Tiny Carranza CNP [address] [place] [address] PCP - General Nurse Practitioner 03/20/21 Tiny Carranza CNP [address] [place] [address] PCP - JIMENEZ Attributed Provider - [employer] 12/31/20 11/29/50 Physical Medicine Physician Relationship Specialty Start Date End Date Tiny Carranza CNP [address] [place] [address] PCP - General Nurse Practitioner 03/20/21 Tiny Carranza CNP [address] [place] [address] PCP - JIMENEZ Attributed Provider - [employer] 12/31/20 11/29/50 Physical Medicine Physician Relationship Specialty Start Date End Date Tiny Carranza CNP [address] [place] [address] PCP - General Nurse Practitioner 03/20/21 Tiny Carranza CNP [address] [place] [address] PCP - JIMENEZ Attributed Provider - [employer] 12/31/20 11/29/50 FOR RECORDS PERTAINING TO PATIENTS WHO ARE OR HAVE BEEN ENROLLED IN A CHEMICAL DEPENDENCY/SUBSTANCEABUSE PROGRAM, SOME INFORMATION MAY BE OMITTED. This clinical summary was aggregated from multiple sources. Caution should be exercised in using it in the provision of clinical care. This summary normalizes information from multiple sources, and as a consequence, information in this document may materially change the coding, format and clinical context of patient data. In addition, data may be omitted in some cases. CLINICAL DECISIONS SHOULD BE BASED ON THE PRIMARY CLINICAL RECORDS. [employer] provides no warranty or guarantee of the accuracy or completeness of information in this document.
[2024-02-17 05:07] LABS: Anti-Cardiolipin Ab, IgG, Qn < 9 GPL U/mL (0-14); Anti-Cardiolipin Ab, IgM, Qn < 9 MPL U/mL (0-12); Beta-2-Glycoprotein I IgA <9 (0-25); Beta-2-Glycoprotein I IgG <9 (0-20); Beta-2-Glycoprotein I IgM <9 (0-32); Dilute Prothrombin Time (dPT) 36.8 sec (0.0-47.6); Dilute Russell Viper Venom 34.8 sec (0.0-47.0); Interpretation Comment: (.); PTT-LA 23.8 sec (0.0-43.5); Thrombin Time 17.6 sec (0.0-23.0); dPT Confirm Ratio 1.01 Ratio (0.00-1.34)
== END | disposition home or self-care (01) ==
PROVIDERS: Referring Provider Nurse Practitioner Women's Health; Visit Provider Nurse Practitioner Women's Health
DX: N83.209 Unspecified ovarian cyst, unspecified side (principal); R10.2 Pelvic and perineal pain; Z86.39 Personal history of other endocrine, nutritional and metabolic disease
CPT/HCPCS: 36415; 76830; 76856; 84146; 86146; 86147

== ENCOUNTER → 2024-12-09 | Outpatient (CLI) | payer BC, SELFPAY ==
[2024-12-09 17:17] LABS: Absolute Lymphocyte Count 2.21 X10^3/uL (0.83-4.51); Absolute Neutrophil Count 8.5 X10^3/uL (2.0-7.7); Basophil# 0.02 X10^3/uL; Basophil% 0.2 % (0-1); Eosinophil# 0.03 X10^3/uL; Eosinophils% 0.3 % (0-5); Hematocrit 35.7 % (37-47); Hemoglobin 12.1 g/dL (12.0-15.0); Lymphocyte # 2.21 X10^3/ul (0.83-4.51); Lymphocyte % 19.4 % (19-41); Mean Corp Hgb Conc 33.9 g/dL (32-36); Mean Corpuscular Hgb 31.8 pg (27.0-32.0); Mean Corpuscular Volume 93.9 fL (81-99); Mean Platelet Vol. 10.6 fl (6.2-12.0); Monocyte# 0.57 X10^3/uL; NRBC Flagged by Analyzer 0 % (0-5); Neutrophil # 8.54 X10^3/uL (2.7-7.7); Neutrophil % 74.7 % (47-70); Platelet Count 370 K/mm3 (150-450); White Blood Count 11.4 K/mm3 (4.4-11.0)
[2024-12-09 17:54] LABS: Hemoglobin A1c 5.1 % (3.8-5.6)
[2024-12-12 15:32] LABS: Hepatitis B Surface Antigen Non-Reactive (Nonreactive); Hepatitis C Antibody Non-Reactive (Nonreactive); Rubella IgG Reactive (Nonreactive); Syphilis Antibodies Non-reactive
[2024-12-12 20:07] LABS: Chlamydia By Nucleic Acid AMP Negative (Negative); Gonococcus By Nucleic Acid AMP Negative (Negative)
[2024-12-13 22:09] LABS: HIV - WCH Non-Reactive (Nonreactive)
== END | disposition home or self-care (01) ==
LOC: BWCLAB 13:54
PROVIDERS: Referring Provider Advanced Practice Midwife; Visit Provider Advanced Practice Midwife
DX: O99.210 Obesity complicating pregnancy, unspecified trimester (principal); Z3A.00 Weeks of gestation of pregnancy not specified
CPT/HCPCS: 36415; 83036; 85025; 86703; 86762; 86780; 86803; 86850; 86900; 86901; 87086; 87088; 87340; 87491; 87591

== ENCOUNTER → 2025-01-31 | Outpatient (CLI) | payer BC, SELFPAY | END | disposition home or self-care (01) | LOC: LABSPEC 16:45 | PROVIDERS: Referring Provider Obstetrics & Gynecology; Visit Provider Obstetrics & Gynecology | DX: O26.899 Other specified pregnancy related conditions, unspecified trimester (principal); R10.2 Pelvic and perineal pain; Z3A.00 Weeks of gestation of pregnancy not specified | CPT/HCPCS: 87070; 87205 ==

== ENCOUNTER → 2025-03-28 | Outpatient (CLI) | payer BC, SELFPAY ==
[2025-03-28 14:22] LABS: Absolute Lymphocyte Count 1.87 X10^3/uL (0.83-4.51); Absolute Neutrophil Count 10.5 X10^3/uL (2.0-7.7); Basophil# 0.03 X10^3/uL; Basophil% 0.2 % (0-1); Eosinophil# 0.04 X10^3/uL; Eosinophils% 0.3 % (0-5); Hematocrit 34.3 % (37-47); Hemoglobin 12.1 g/dL (12.0-15.0); Lymphocyte # 1.87 X10^3/ul (0.83-4.51); Lymphocyte % 14.1 % (19-41); Mean Corp Hgb Conc 35.3 g/dL (32-36); Mean Corpuscular Hgb 33.7 pg (27.0-32.0); Mean Corpuscular Volume 95.5 fL (81-99); Mean Platelet Vol. 9.8 fl (6.2-12.0); Monocyte# 0.65 X10^3/uL; Monocyte% 4.9 % (0-10); NRBC Flagged by Analyzer 0 % (0-5); Neutrophil # 10.53 X10^3/uL (2.7-7.7); Neutrophil % 79.7 % (47-70); Platelet Count 360 K/mm3 (150-450); RBC Distribution Width CV 12.7 % (11.6-14.6); Red Blood Count 3.59 M/mm3 (4.2-5.4); White Blood Count 13.2 K/mm3 (4.4-11.0)
[2025-03-28 15:02] LABS: Glucose Challenge Gest 1H 50g 108 mg/dL (70-140); HIV Nonreactive (Nonreactive); Syphilis Antibodies Nonreactive (Nonreactive)
== END | disposition home or self-care (01) ==
PROVIDERS: Referring Provider Obstetrics & Gynecology; Visit Provider Obstetrics & Gynecology
DX: O09.90 Supervision of high risk pregnancy, unspecified, unspecified trimester (principal); Z3A.00 Weeks of gestation of pregnancy not specified; Z13.1 Encounter for screening for diabetes mellitus
CPT/HCPCS: 36415; 82950; 85025; 86703; 86780

== ENCOUNTER → 2025-06-05 | Outpatient (CLI) | payer OTHER, SELFPAY | END | disposition home or self-care (01) | PROVIDERS: Visit Provider Obstetrics & Gynecology | DX: O09.90 Supervision of high risk pregnancy, unspecified, unspecified trimester (principal); Z3A.00 Weeks of gestation of pregnancy not specified | CPT/HCPCS: 87077; 87081; 87186 ==

== ENCOUNTER 2025-06-20 05:53 | Inpatient (IN) | payer OTHER, SELFPAY ==
[2025-06-20] VITALS (49 sets, daily range): BP systolic 90–149; BP diastolic 51–93; PULSE 80–113; RESP 16–18; TEMP 36.1–36.9; O2SAT 96–100; BMI 36.1
--- OUTSIDE RECORDS SUMMARY | 2025-06-20 04:59 | XMS RPT_ITS | CCD ---
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 Name Role Phone No, Physician Unavailable Unavailable NO, PHYSICIAN Unavailable Unavailable NASRIN BRENNER Unavailable UnavailMary Ann Alfaro Primary Care Provider Mary Ann Tyson Primary Care Provider [phone] Mary Ann Tyson CNP Primary Care Provider Tiny Marrufo CNP Primary Care Provider Tiny Marrufo CNP Primary Care Provider Tiny Marrufo CNP Unavailable Tiny Marrufo CNP Unavailable TINY MARRUFO Primary Care Unavail able JAIMIE MENDEZ Attending Unavailjolene e Tiny Marrufo CNP Unavailable Tiny Marrufo CNP Primary Care Provider Tiny Marrufo CNP Unavailable Tiny Marrufo CNP Primary Care Provider KAMLA MEDINA Attending Unava KAMLA Bergman Referring Unava TINY Smith Primary Care Unavail able Benedict JANITOR, OLIVIA Vergara Attending Provider TINY MARRUFO Primary Care Provider UnavailTINY Stroud Referring Provider Unavailable Tiny Marrufo CNP Unavailable Raphael Razo CNP Primary Care Provider KAMLA MEDINA Referring Unava ilTINY Simpson Primary Care Unavail able RAPHAEL RAZO Admitting Unavailable DUNG, RAPHAEL GLOVER Primary Care Unavailable DUNG, RAPHAEL BELEN Primary Care Unavailable DUNG, RAPHAEL BELEN Referring Unavailable DUNG, RAPHAEL GLOVER Attending Unavailable Tiny Marrufo CNP Unavailable DUNG, RAPHAEL BELEN Attending Unavailable DUNG, RAPHAEL BELEN Primary Care Unavailable DUNG, RAPHAEL GLOVER Attending Unavailable DUNG, RAPHAEL BELEN Primary Care Unavailable NO PRIMARY CARE, MD Primary Care Unavailable ZULMA GILLIAM Referring Unavailab le ZULMA GILLIAM Attending Unavailab le Care Physician, No Primary Primary Care Provider Unavailable Care Physician, No Primary Referring Provider Un available Lory Saldana CNM Attending Provider [phone] Lory Saldana CNM Referring Provider [phone] Dr. Zulma Garcia DO Attending Provider Dr. Zulma Garcia DO Referring Provider Dr. Pam Acosta MD Attending Provider [phone] Dr. Pam Acosta MD Referring Provider [phone] Care Physician, No Primary Primary Care Provider Unavailable Care Physician, No Primary Referring Provider Un available Lory Saldana CNM Attending Provider [phone] Care Physician, No Primary Primary Care Provider Unavailable Care Physician, No Primary Referring Provider Un available Dr. Zulma Garcia DO Attending Provider Care Physician, No Primary Primary Care Provider Unavailable Care Physician, No Primary Referring Provider Un available Dr. Zulma Garcia DO Attending Provider Lilliana Melton CNM Attending Provider [phone] Zulma Garcia Attending Unavailabl e Care Physician, No Primary Primary Care Unava ilable Lory Saldana Attending Unavailable Care Physician, No Primary Primary Care Unava ilable Care Physician, No Primary Referring Unava ilable Pam Acosta Attending Unavailable Care Physician, No Primary Primary Care Unava ilable Care Physician, No Primary Referring Unava ilable Zulma Garcia Attending Unavailabl e Care Physician, No Primary Referring Unava ilable Care Physician, No Primary Primary Care Unava ilable Care Physician, No Primary Referring Unava ilable Care Physician, No Primary Primary Care Unava ilable Lilliana Melton Attending Unavailable Zulma Garcia Attending Unavailabl e Care Physician, No Primary Referring Unava ilable Care Physician, No Primary Primary Care Unava ilable Lory Saldana Attending Unavailable Care Physician, No Primary Referring Unava ilable Care Physician, No Primary Primary Care Unava ilable Pam Acosta Attending Unavailable Care Physician, No Primary Referring Unava ilable Care Physician, No Primary Primary Care Unava ilable Pam Acosta Attending Unavailable Care Physician, No Primary Primary Care Unava ilable Care Physician, No Primary Referring Unava ilable Benedict JANITOR, Ursula Attending Unavailable Care Physician, No Primary Referring Unava ilable Care Physician, No Primary Primary Care Unava ilable Lory Saldana Attending Unavailable Care Physician, No Primary Referring Unava ilable Care Physician, No Primary Primary Care Unava ilable Zulma Garcia Attending Unavailabl e Care Physician, No Primary Referring Unava ilable Care Physician, No Primary Primary Care Unava ilable Pam Acosta Attending Unavailable Care Physician, No Primary Referring Unava ilable Care Physician, No Primary Primary Care Unava ilable Pam Acosta Attending Unavailable Care Physician, No Primary Referring Unava ilable Care Physician, No Primary Primary Care Unava ilable Zulma Garcia Attending Unavailabl e Valentin Lima, Zulma Referring Unavailabl e Care Physician, No Primary Primary Care Unava ilable Pam Acosta Attending Unavailable Pam Acosta Referring Unavailable Care Physician, No Primary Primary Care Unava ilable Lory Saldana Attending Unavailable Lory Saldana Referring Unavailable Care Physician, No Primary Primary Care Unava ilable Medications Current Medications Medication Drug Class(es) Dates Sig (Normalized) Sig (Original) amoxicillin 500 mg oral capsule (2 sources) Penicillin-class Antibacterial Start: 08-18-2024 take 1 capsule by mouth three times daily amoxicillin (AMOXIL) 500 MG capsule Indications: Upper respiratory tract infection, unspecified type Take 1 (one) capsule (500 mg total) by mouth 3 (three) times a day . 21 capsule 08/18/2024 Active Multivit 00-Egml-Upbygf 1-Dha (Pnv-Dha) 27 mg iron-1 mg -300 mg capsule (9 sources) Start: 12-02-2024 Multivit 31-Zwit-Ehyxet 1-Dha (Pnv-Dha) 27 mg iron-1 mg -300 mg capsule Active NMA PO December 02, 2024 1:00am rosuvastatin calcium 20 mg oral tablet (13 sources) HMG-CoA Reductase Inhibitor Start: 09-18-2021 End: 09-18-2022 take 1 tablet by mouth once daily rosuvastatin (CRESTOR) 20 MG tablet Indications: Hypercholesterolemia with LDL greater than 190 mg/dL Take 1 (one) tablet (20 mg total) by mouth daily . 30 tablet 11 09/18/2021 07/03/2022 Discontinued End: 04-04-2024 take 1 tablet by mouth once daily rosuvastatin (CRESTOR) 10 MG tablet Take 1 (one) tablet (10 mg total) by mouth daily . 0 04/04/2024 Discontinued (Patient's Request) Completed/Discontinued Medications Medication Drug Class(es) Dates Sig (Normalized) Sig (Original) amoxicillin 80 mg/ml / clavulanate 11.4 mg/ml oral suspension (2 sources) Penicillin-class Antibacterial Start: 8 End: 0 take 10 mL by mouth twice daily amoxicillin-clavulanate (AUGMENTIN) 400-57 mg/5 mL suspension Indications: Tonsillitis Take 10 mL (800 mg total) by mouth 2 (two) times a day . 200 mL 0 11/20/2018 08/15/2020 Discontinued (Therapy completed) atorvastatin 10 mg oral tablet (12 sources) HMG-CoA Reductase Inhibitor Start: 2 End: 4 take 1 tablet by mouth once daily atorvastatin (LIPITOR) 10 MG tablet Indications: Hypercholesterolemia with LDL greater than 190 mg/dL Take 1 (one) tablet (10 mg total) by mouth daily . 30 tablet 5 07/03/2022 04/04/2024 Discontinued (Patient's Request) docosahexaenoic acid 200 mg oral capsule (9 sources) Start: 4 End: 5 Docosahexaenoic Acid ( Dha) 200 mg capsule Discontinued mg PO October 05, 2024 1:00am December 02, 2024 4:11pm 168 hr ethinyl estradiol 0.88087 mg/hr / norelgestromin 0.27788 mg/hr transdermal system (7 sources) Progestin, Estrogen Start: End: apply 1 dose transdermal route every week norelgestromin-ethinyl estradiol (ORTHO EVRA) 150-35 mcg/24 hr patch Indications: Menorrhagia with irregular cycle Place 1 (one) patch on the skin once a week . 12 patch 0 03/20/2021 07/22/2021 Discontinued (Alternate therapy) Start: 12-07-2020 End: 03-07-2021 apply 1 dose transdermal route every week norelgestromin-ethinyl estradiol (ORTHO EVRA) 150-35 mcg/24 hr patch Indications: Menorrhagia with irregular cycle Place 1 (one) patch on the skin once a week . 12 patch 0 12/07/2020 03/07/2021 Active Start: 08-15-2020 End: 12-05-2020 apply 1 dose transdermal route every week norelgestromin-ethinyl estradiol (ORTHO EVRA) 150-35 mcg/24 hr patch Indications: Menorrhagia with irregular cycle Place 1 (one) patch on the skin once a week . 12 patch 0 08/20/2020 12/05/2020 Discontinued (Reorder) ethinyl estradiol 0.035 mg / norethindrone 1 mg oral tablet (13 sources) Estrogen Start: 04-08-2022 End: 12-17-2023 take 1 tablet by mouth once daily norethindrone-ethinyl estradiol (ORTHO-NOVUM 1-35 TAB,NORTREL 1-35 TAB) 1-35 mg-mcg per tablet Indications: Well woman exam with routine gynecological exam , Encounter for control pills maintenance Take 1 (one) tablet by mouth daily . 90 tablet 3 12/17/2022 04/08/2023 Discontinued (Patient's Request) Ethinyl Estradiol / norgestimate (9 sources) Progestin, Estrogen Start: 07-22-2021 End: 07-14-2022 take 1 tablet by mouth once daily norgestimate-ethinyl estradioL (ORTHO TRI-CYCLEN LO) 0.18/0.215/0.25 mg-25 mcg per tablet Indications: Encounter for contraceptive management, unspecified type Take 1 (one) tablet by mouth daily . 28 tablet 11 07/22/2021 07/14/2022 Discontinued (Patient's Request) Start: 07-22-2021 take 1 tablet by erinn once daily norgestimate-ethinyl estradioL (ORTHO TRI-CYCLEN LO) 0.18/0.215/0.25 mg-25 mcg per tablet Indications: Encounter for contraceptive management, unspecified type Take 1 (one) tablet by mouth daily . 28 tablet 11 07/22/2021 Active folic acid 0.4 mg oral tablet (18 sources) Start: 10-05-2024 End: 04-14-2025 take 0.4 mg by mouth once daily as needed Folic Acid 400 mcg tablet Discontinued 0.4 mg PO daily as needed December 02, 2024 4:11pm April 14, 2025 3:42pm ondansetron 4 mg disintegrating oral tablet (9 sources) Serotonin-3 Receptor Antagonist Start: 11-16-2024 End: 04-14-2025 take 1 tablet by mouth every six hours as needed for nausea and vomiting Ondansetron 4 mg tablet,disintegrating Discontinued 4 mg PO EVERY 6 HOURS as needed for nausea and vomiting 90 4 November 16, 2024 1:00am April 14, 2025 3:43pm Nausea and vomiting during Vomiting of , unspecified pitavastatin calcium 2 mg oral tablet (4 sources) HMG-CoA Reductase Inhibitor Start: 04-07-2024 End: 08-18-2024 take 1 tablet by mouth once daily pitavastatin calcium (Livalo) 2 mg Tab Indications: Hypercholesterolemia Take 1 (one) tablet (2 mg total) by mouth daily . 90 tablet 3 04/13/2024 08/18/2024 Discontinued prednisoLONE 3 mg/ml oral solution (2 sources) Corticosteroid Start: 11-20-2018 End: 08-15-2020 prednisoLONE (ORAPRED) 15 mg/5 mL (3 mg/mL) solution Indications: Tonsillitis 60 mg po today, then 45 mg daily x 4 more days . 80 mL 0 11/20/2018 08/15/2020 Discontinued (Therapy completed) Problems Active Problems Problem Classification Problem Date Documented Date Episodic/Chronic Acute and chronic tonsillitis (3 sources) Tonsillitis; Translations: [Acute tonsillitis, unspecified] Onset: 11-20-2018 Episodic Contraceptive and procreative management (3 sources) Patient encounter status; Translations: [Encounter for contraceptive management, unspecified] Episodic Disorders of lipid metabolism (20 sources) Familial hypercholesterolemia ; Translations: [Familial hypercholesterolemia ] Onset: 09-18-2021 09-18-2021 Chronic Female infertility (10 sources) Anovulation; Translations: [Female infertility associated with anovulation] Onset: 10-05-2024 12-02-2024 Chronic Comment on above: Day 21 and 28 proges terone. Day 3 send out only. SA spouse. Orders given/lives in [place]. Then consider HSG, letrozole Immunizations and screening for infectious disease (1 source) Encounter for immunization; Translations: [Encounter for immunization] Onset: 04-28-2025 Episodic Malaise and fatigue (1 source) Fatigue; Translations: [Other fatigue] Episodic Menstrual disorders (20 sources) Menometrorrhagia; Translations: [Excessive and frequent menstruation with irregular cycle] Onset: 08-15-2020 08-15-2020 Chronic Other complications of (20 sources) Maternal obesity complicating , childbirth and the puerperium, antepartum; Translations: [Obesity complicating , unspecified trimester] 12-02-2024 Chronic Comment on above: HgbA1c Other complications of (1 source) Obesity complicating , unspecified trimester; Translations: [Obesity complicating , unspecified trimester] Onset: 04-28-2025 Chronic Other complications of (20 sources) High risk ; Translations: [Supervision of high risk , unspecified, unspecified trimester] 12-14-2024 Episodic Comment on above: PRR, G1PO, jonas // 5, Mansoor PRR, G1PO, jonas 07/05/ 5, boy soraya Mansoor Other complications of (3 sources) Group B Streptococcus carrier; Translations: [Streptococcus B carrier state complicating ] 06-08-2025 Episodic Comment on above: treat in labor Other complications of (1 source) Supervision of high risk , unspecified, unspecified trimester; Translations: [Supervision of high risk , unspecified, unspecified trimester] Onset: 06-08-2025 Episodic Other endocrine disorders (20 sources) Polycystic ovary syndrome; Translations: [Polycystic ovarian syndrome] 02-02-2024 Chronic Other endocrine disorders (2 sources) Polycystic ovarian syndrome; Translations: [Polycystic ovaries] Onset: 12-09-2024 02-02-2024 Chronic Other female genital disorders (1 source) Pain in female genitalia on intercourse; Translations: [Unspecified dyspareunia] Chronic Other female genital disorders (20 sources) Leonides; Translations: [Mittelschmerz] 02-02-2024 Chronic Other female genital disorders (20 sources) Dyspareunia; Translations: [Dyspareunia] 02-02-2024 Chronic Other female genital disorders (2 sources) Leonides; Translations: [Mittelschmerz] Onset: 12-09-2024 02-02-2024 Chronic Other female genital disorders (20 sources) Retroverted uterus; Translations: [Malposition of uterus] 12-02-2024 Episodic Comment on above: retro Other hematologic conditions (3 sources) History of anemia; Translations: [Personal history of diseases of the blood and blood-forming organs and certain disorders involving the immune mechanism] 04-04-2024 Episodic Other nutritional; endocrine; and metabolic disorders (1 source) Weight gain; Translations: [Abnormal weight gain] 04-08-2023 Episodic Other nutritional; endocrine; and metabolic disorders (20 sources) H/O: endocrine disorder; Translations: [Personal history of other endocrine, nutritional and metabolic disease] 02-02-2024 Episodic Comment on above: Neg MRI at [facility]. Prolactin WNL 01/2024 Other and delivery including normal (20 sources) ; Translations: [Encounter for supervision of normal , unspecified, unspecified trimester] 01-31-2025 Episodic Comment on above: Undecided about NIPT & Carrier testing declined ntd NIPT & Carrier testing. nl anatomy Other upper respiratory infections (3 sources) Upper respiratory infection; Translations: [Acute upper respiratory infection, unspecified] Onset: 08-18-2024 08-18-2024 Episodic Residual codes; unclassified (20 sources) FH: Autoimmune disease; Translations: [Family history of diseases of the blood and blood-forming organs and certain disorders involving the immune mechanism] 02-02-2024 Episodic Comment on above: Mother-9 SABs. APL p denys neg for patient Residual codes; unclassified (1 source) First trimester ; Translations: [Less than 8 weeks gestation of ] 11-07-2024 Episodic Residual codes; unclassified (1 source) 30 weeks gestation of ; Translations: [30 weeks gestation of ] Onset: 04-28-2025 Episodic Residual codes; unclassified (1 source) 28 weeks gestation of ; Translations: [28 weeks gestation of ] Onset: 04-14-2025 Episodic Residual codes; unclassified (1 source) 25 weeks gestation of ; Translations: [25 weeks gestation of ] Onset: 03-28-2025 Episodic Unclassified (3 sources) Patient encounter status; Translations: [Well adult exam] Past or Other Problems Problem Classification Problem Date Documented Da te Episodic/Chronic Abdominal pain (20 sources) Right lower quadrant pain; Translations: [Right lower quadrant pain] Onset: 07-22-2021 Episodic Cardiac dysrhythmias (8 sources) Palpitations; Translations: [Palpitations] Onset: 04-04-2024 04-04-2024 Episodic Inflammatory diseases of female pelvic organs (20 sources) Acute vaginitis; Translations: [Acute vaginitis] Onset: 09-23-2021 Episodic Other complications of (1 source) Other specified related conditions, unspecified trimester; Translations: [Other specified related conditions, unspecified trimester] Onset: 02-13-2025 Episodic Other female genital disorders (1 source) Malposition of uterus; Translations: [Malposition of uterus] Onset: 12-09-2024 Episodic Other hematologic conditions (4 sources) Personal history of diseases of the blood and blood-forming organs and certain disorders involving the immune mechanism; Translations: [Personal history of diseases of the blood and blood-forming organs and certain disorders involving the immune mechanism] Onset: 04-04-2024 Episodic Other nutritional; endocrine; and metabolic disorders (2 sources) Personal history of other endocrine, nutritional and metabolic disease; Translations: [Personal history of other endocrine, metabolic, and immunity disorders] Onset: 12-09-2024 02-02-2024 Episodic Other screening for suspected conditions (not mental disorders or infectious disease) (6 sources) Increased prolactin level; Translations: [Other specified abnormal findings of blood chemistry] Onset: 04-23-2023 04-13-2023 Episodic Residual codes; unclassified (2 sources) Family history of diseases of the blood and blood-forming organs and certain disorders involving the immune mechanism; Translations: [Family history of other blood disorders] Onset: 12-09-2024 02-02-2024 Episodic Residual codes; unclassified (1 source) 10 weeks gestation of ; Translations: [10 weeks gestation of ] Onset: 12-09-2024 Episodic Results Test Name Value Interpretation Reference Range Facility Wound/Ostomy Clinical Nurse Specialist Office Visit Reporton 06-16-2025 Wound/Ostomy Clinical Nurse Specialist Office Visit Report [facility] [address], [address] [place] [address] OFFICE VISIT Date of Service: 06/16/25 MR#: [id number] Acct: [id number] Name: ALYSSA PRO Rep #: [id number] 00 : 2000 Provider: MINERVA colindres Age/Sex: 25/F [place] [facility] [place]: S[place] Intake Vital Signs 05/09/25 14:34 06/05/25 09:23 06/16/25 15:42 06/16/25 15:42 Height 5 ft 6 in 5 ft 6 in 5 ft 6 in 5 ft 6 in Weight: 228 lb 6 oz BMI 36.8 BP 117/81 H Intake Visit Reasons: 37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 Is patient in pain?: No Allergies No Known Allergies Allergy (Verified 06/16/25 15:41) Medications ???Medication ???Instructions ???Recorded ???Confirmed ???Type multivitamin no.47-iron fum 27 cap PO 12/02/24 06/16/25 History mg-folate no.1 1 mg-dha 300 mg capsule (PNV-DHA) Last Menstrual Period: 09/28/24 Zika: Zika virus screening: Negative : No Have you fallen in the past year?: No PFSH PFSH Medical History PCOS (polycystic ovarian syndrome) Dysmenorrhea Anovulation Family History Aunt Breast cancer Maternal Grandfather Cancer Pancreatic- Paternal Mother APL (antiphospholipid syndrome) 9 miscarriages. Cancer skin Social History adopted: No household members: spouse housing: house number of children: 0 current occupational status: employed current occupation: [employer] current occupational exposures/hazards: No pets and animals: Yes pets and animals: dog(s) history of recent travel: Yes (October) out of state: Yes out of country: No sexually active: Yes Smoking Status: Never smoker alcohol intake: current alcohol intake frequency: holidays/special occasions only details: not while substance use type: does not use well-balanced diet: daily or most days caffeine: Yes Type: coffee Number of servings: 1 eating out: 4 or more times/week during the past year weight has: decreased > 10 lbs what type of physical activity do you participate in: none art/yazdanism: Latter-Day seatbelt use: always do you feel safe at home: Yes additional social history: - [employer] History 1 Elective abortions Hx Para 0 Spontaneous abortions Hx # Term Pregnancies Ectopic pregnancies Hx # Pregnancies Multiple births # of living children HPI 37wk ob Details: ALYSSA PRO is a 25 year old who presents for routine OB visit. OB Visit JONAS Calculator Estimated Delivery Date Method Current WG Current Estimate 07/05/25 LMP (Certain) 37w 2d Other Estimates 07/06/25 Ultrasound #1 37w 1d Expected Delivery Route/Plan Labor Preferences- CB/BF classes: [] labor support person: [] labor intervention preferences: [] pain management options preferred: [] cut cord/dad catch: [] : [] PP control planned: [] discussed possible routes of delivery and associated risks: [] special requests: [] Specific Issue/Plans Covid status: [] Flu vaccine: [] Tdap vaccine: given Rhogam: na LARC form signed: declined movement and labor precautions reviewed. Problem list reviewed and updated with the most current plan of care details and appropriate orders placed. Relevant counseling for the gestational age provided. Continue routine care and follow up unless otherwise noted in visit notes/problem list details Initial Weight: 205 lb Date -???-???-???-???-???-??? -???-???-???-???-???-??? - EGA Weight BP Urine Prot -???-???-???-???-???-??? -???-???-???-???-???-??? - Glucose FHR FuHt Pres Dilation -???-???-???-???-???-??? -???-???-???-???-???-??? - Effaced St Visit Note 12/09/24 -???-???-???-???-???-??? -???-???-???-???-???-??? - 10w 2d 205 lb 2 oz (+2 oz) 136/83 -???-???-???-???-???-??? -???-???-???-???-???-??? - 173 -???-???-???-???-???-??? -???-???-???-???-???-??? - KW- CRL cons with dates. Declines NIPT. 01/06/25 -???-???-???-???-???-??? -???-???-???-???-???-??? - 14w 2d 205 lb 6 oz (+6 oz) 131/85 Negative -???-???-???-???-???-??? -???-???-???-???-???-??? - Negative 147 -???-???-???-???-???-??? -???-???-???-???-???-??? - JV- no lof, vaginal bleeding, or cramping. declines nipt and did blood work. 01/31/25 -???-???-???-???-???-??? -???-???-???-???-???-??? - 17w 6d 206 lb 4 oz (+1 lb 4 oz) 121/82 Negative -???-???-???-???-???-??? -???-???-???-???-???-??? - Negative 142 -???-???-???-???-???-??? -???-???-???-???-???-??? - JV- no compl aints today other than some pelvic pain that feels like when I have an ovarian cyst" She was checked out at an urgent care in [place] and treated wit (more content not included)... Normal [facility] Rule out Beta Strep (Grp. B) on 06-09-2025 ALIN Streptococcus agalac tiae (B) Amount Growth 3+ Streptococcus agalactiae (B): REACTION Ampicillin Islt KATHY <=0.25 cefTRIAXone Islt KATHY <=0.12 S Clindamycin Islt KATHY <=0.25 S Clindamycin.induced Susc Islt NEG Linezolid Islt KATHY <=2 S Vancomycin Islt KATHY 0.5 S Normal [facility] Comment on above: Performed By: #### L 3890.6005, BTS, L509.4005, L100.0100, L3890.6100, L3890.6300, L509.8000, L501.9985 #### [facility] [address] [place], [address] Laboratory - Chemistry and C hemistry - challengeOrdered By: Zulma Lima on 06-05-2025 Glucose Ql (U) Negative [facility] - UrinalysisOrder ed By: Zulma Lima on 06-05-2025 Protein Ql (U) Negative [facility] Wound/Ostomy Clinical Nurse Specialist Office Visit Reporton 06-05-2025 Wound/Ostomy Clinical Nurse Specialist Office Visit Report [facility]'s [address], [address] [place] [address] OFFICE VISIT Date of Service: 06/05/25 MR#: [id number] Acct: [id number] Name: ALYSSA PRO Rep #: [id number] 20 : 2000 Provider: Dr. 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 Cancer skin Social History adopted: No household members: spouse housing: house number of children: 0 current occupational status: employed current occupation: [employer] current occupational exposures/hazards: No pets and animals: Yes pets and animals: dog(s) history of recent travel: Yes (October) out of state: Yes out of country: No sexually active: Yes Smoking Status: Never smoker alcohol intake: current alcohol intake frequency: holidays/special occasions only details: not while substance use type: does not use well-balanced diet: daily or most days caffeine: Yes Type: coffee Number of servings: 1 eating out: 4 or more times/week during the past year weight has: decreased > 10 lbs what type of physical activity do you participate in: none art/yazdanism: Latter-Day seatbelt use: always do you feel safe at home: Yes 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 OB Visit JONAS Calculator Estimated Delivery Date Method Current WG Current Estimate 07/05/25 LMP (Certain) 35w 5d Other Estimates 07/06/25 Ultrasound #1 35w 4d Expected Delivery Route/Plan Labor Preferences- CB/BF classes: [] labor support person: [] labor intervention preferences: [] pain management options preferred: [] cut cord/dad catch: [] : [] PP control planned: [] discussed possible routes of delivery and associated risks: [] special requests: [] Specific Issue/Plans Covid status: [] Flu vaccine: [] Tdap vaccine: given Rhogam: na LARC form signed: declined movement and labor precautions reviewed. Problem list reviewed and updated with the most current plan of care details and appropriate orders placed. Relevant counseling for the gestational age provided. Continue routine care and follow up unless otherwise noted in visit notes/problem list details Initial Weight: 205 lb Date -???-???-???-???-???-??? -???-???-???-???-???-??? - EGA Weight BP Urine Prot -???-???-???-???-???-??? -???-???-???-???-???-??? - Glucose FHR FuHt Pres Dilation -???-???-???-???-???-??? -???-???-???-???-???-??? - Effaced St Visit Note 12/09/24 -???-???-???-???-???-??? -???-???-???-???-???-??? - 10w 2d 205 lb 2 oz (+2 oz) 136/83 -???-???-???-???-???-??? -???-???-???-???-???-??? - 173 -???-???-???-???-???-??? -???-???-???-???-???-??? - KW- CRL cons with dates. Declines NIPT. 01/06/25 -???-???-???-???-???-??? -???-???-???-???-???-??? - 14w 2d 205 lb 6 oz (+6 oz) 131/85 Negative -???-???-???-???-???-??? -???-???-???-???-???-??? - Negative 147 -???-???-???-???-???-??? -???-???-???-???-???-??? - JV- no lof, vaginal bleeding, or cramping. declines nipt and did blood work. 01/31/25 -???-???-???-???-???-??? -???-???-???-???-???-??? - 17w 6d 206 lb 4 oz (+1 lb 4 oz) 121/82 Negative -???-???-???-???-???-??? -???-???-???-???-???-??? - Negative 142 -???-???-???-???-???-??? -???-???-???-???-???-??? - JV- no compl aints today other than some pelvic pain that feels like when I have an ovarian cyst" She was checked out at an urgent care in [place] and treated with amoxil but urine culture was neg. 03/01/ (more content not included)... Normal [facility] Screening beta-hemolytic Str eptococcus cultureOrdered By: Zulma Lima on 06-05-2025 Beta-hemolytic Streptococcus culture Streptococcus agalactiae (B) Abnormal [facility] - Chemistry and C hemistry - challengeOrdered By: Zulma Lima on 05-26-2025 Glucose Ql (U) Negative [facility] - UrinalysisOrder ed By: Zulma Lima on 05-26-2025 Protein Ql (U) Negative [facility] Wound/Ostomy Clinical Nurse Specialist Office Visit Reporton 05-26-2025 Wound/Ostomy Clinical Nurse Specialist Office Visit Report [facility] [address], [address] [place] [address] OFFICE VISIT Date of Service: 05/26/25 MR#: [id number] Acct: [id number] Name: ALYSSA PRO Rep #: [id number] : 2000 Provider: Dr. 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 Cancer skin Social History adopted: No household members: spouse housing: house number of children: 0 current occupational status: employed current occupation: [employer] current occupational exposures/hazards: No pets and animals: Yes pets and animals: dog(s) history of recent travel: Yes (October) out of state: Yes out of country: No sexually active: Yes Smoking Status: Never smoker alcohol intake: current alcohol intake frequency: holidays/special occasions only details: not while substance use type: does not use well-balanced diet: daily or most days caffeine: Yes Type: coffee Number of servings: 1 eating out: 4 or more times/week during the past year weight has: decreased > 10 lbs what type of physical activity do you participate in: none art/yazdanism: Latter-Day seatbelt use: always do you feel safe at home: Yes 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 OB Visit JONAS Calculator Estimated Delivery Date Method Current WG Current Estimate 07/05/25 LMP (Certain) 34w 2d Other Estimates 07/06/25 Ultrasound #1 34w 1d Expected Delivery Route/Plan Labor Preferences- CB/BF classes: [] labor support person: [] labor intervention preferences: [] pain management options preferred: [] cut cord/dad catch: [] : [] PP control planned: [] discussed possible routes of delivery and associated risks: [] special requests: [] Specific Issue/Plans Covid status: [] Flu vaccine: [] Tdap vaccine: given Rhogam: na LARC form signed: declined movement and labor precautions reviewed. Problem list reviewed and updated with the most current plan of care details and appropriate orders placed. Relevant counseling for the gestational age provided. Continue routine care and follow up unless otherwise noted in visit notes/problem list details Initial Weight: 205 lb Date -???-???-???-???-???-??? -???-???-???-???-???-??? - EGA Weight BP Urine Prot -???-???-???-???-???-??? -???-???-???-???-???-??? - Glucose FHR FuHt Pres Dilation -???-???-???-???-???-??? -???-???-???-???-???-??? - Effaced St Visit Note 12/09/24 -???-???-???-???-???-??? -???-???-???-???-???-??? - 10w 2d 205 lb 2 oz (+2 oz) 136/83 -???-???-???-???-???-??? -???-???-???-???-???-??? - 173 -???-???-???-???-???-??? -???-???-???-???-???-??? - KW- CRL cons with dates. Declines NIPT. 01/06/25 -???-???-???-???-???-??? -???-???-???-???-???-??? - 14w 2d 205 lb 6 oz (+6 oz) 131/85 Negative -???-???-???-???-???-??? -???-???-???-???-???-??? - Negative 147 -???-???-???-???-???-??? -???-???-???-???-???-??? - JV- no lof, vaginal bleeding, or cramping. declines nipt and did blood work. 01/31/25 -???-???-???-???-???-??? -???-???-???-???-???-??? - 17w 6d 206 lb 4 oz (+1 lb 4 oz) 121/82 Negative -???-???-???-???-???-??? -???-???-???-???-???-??? - Negative 142 -???-???-???-???-???-??? -???-???-???-???-???-??? - JV- no compl aints today other than some pelvic pain that feels like when I have an ovarian cyst" She was checked out at an urgent care in [place] and treated (more content not included)... Normal [facility] - Chemistry and C hemistry - challengeOrdered By: Lory Saldana on 05-09-2025 Glucose Ql (U) Negative [facility] - UrinalysisOrder ed By: Lory Saldana on 05-09-2025 Protein Ql (U) Negative [facility] Wound/Ostomy Clinical Nurse Specialist Office Visit Reporton 05-09-2025 Wound/Ostomy Clinical Nurse Specialist Office Visit Report [facility] [address] [place] [address], [address] [place] [address] OFFICE VISIT Date of Service: 05/09/25 MR#: [id number] Acct: [id number] Name: ALYSSA PRO Rep #: [id number] : 2000 Provider: MINERVA Hoang ams Age/Sex: 25/F Location[place] [facility] [place] Status: Signed Intake Vital Signs 12/09/24 13:07 04/28/25 15:06 05/09/25 14:34 Height 5 ft 6 in 5 ft 6 in 5 ft 6 in Weight: 219 lb 2 oz BMI 35.4 BP 107/72 Intake Visit Reasons: 32 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 Is patient in pain?: No Feel stressed/tense/nervous/a nxious/difficulty sleeping: not at all Allergies No Known Allergies Allergy (Verified 05/09/25 14:35) Medications ???Medication ???Instructions ???Recorded ???Confirmed ???Type multivitamin no.47-iron fum 27 cap PO 12/02/24 05/09/25 History mg-folate no.1 1 mg-dha 300 mg capsule (PNV-DHA) Last Menstrual Period: 09/28/24 Zika: Zika virus screening: Negative : No PFSH PFSH Medical History PCOS (polycystic ovarian syndrome) Dysmenorrhea Anovulation Family History Aunt Breast cancer Maternal Grandfather Cancer Pancreatic- Paternal Mother APL (antiphospholipid syndrome) 9 miscarriages. Cancer skin Social History adopted: No household members: spouse housing: house number of children: 0 current occupational status: employed current occupation: [employer] current occupational exposures/hazards: No pets and animals: Yes pets and animals: dog(s) history of recent travel: Yes ( - October) out of state: Yes out of country: No sexually active: Yes Smoking Status: Never smoker alcohol intake: current alcohol intake frequency: holidays/special occasions only details: not while substance use type: does not use well-balanced diet: daily or most days caffeine: Yes Type: coffee Number of servings: 1 eating out: 4 or more times/week during the past year weight has: decreased > 10 lbs what type of physical activity do you participate in: none art/yazdanism: Latter-Day seatbelt use: always do you feel safe at home: Yes 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 OB Visit JONAS Calculator Estimated Delivery Date Method Current WG Current Estimate 07/05/25 LMP (Certain) 31w 6d Other Estimates 07/06/25 Ultrasound #1 31w 5d Expected Delivery Route/Plan Labor Preferences- CB/BF classes: [] labor support person: [] labor intervention preferences: [] pain management options preferred: [] cut cord/dad catch: [] : [] PP control planned: [] discussed possible routes of delivery and associated risks: [] special requests: [] Specific Issue/Plans Covid status: [] Flu vaccine: [] Tdap vaccine: given Rhogam: na LARC form signed: declined movement and labor precautions reviewed. Problem list reviewed and updated with the most current plan of care details and appropriate orders placed. Relevant counseling for the gestational age provided. Continue routine care and follow up unless otherwise noted in visit notes/problem list details Initial Weight: 205 lb Date -???-???-???-???-???-??? -???-???-???-???-???-??? - EGA Weight BP Urine Prot -???-???-???-???-???-??? -???-???-???-???-???-??? - Glucose FHR FuHt Pres Dilation -???-???-???-???-???-??? -???-???-???-???-???-??? - Effaced St Visit Note 12/09/24 -???-???-???-???-???-??? -???-???-???-???-???-??? - 10w 2d 205 lb 2 oz (+2 oz) 136/83 -???-???-???-???-???-??? -???-???-???-???-???-??? - 173 -???-???-???-???-???-??? -???-???-???-???-???-??? - KW- CRL cons with dates. Declines NIPT. 01/06/25 -???-???-???-???-???-??? -???-???-???-???-???-??? - 14w 2d 205 lb 6 oz (+6 oz) 131/85 Negative -???-???-???-???-???-??? -???-???-???-???-???-??? - Negative 147 -???-???-???-???-???-??? -???-???-???-???-???-??? - JV- no lof, vaginal bleeding, or cramping. declines nipt and did blood work. 01/31/25 -???-???-???-???-???-??? -???-???-???-???-???-??? - 17w 6d 206 lb 4 oz (+1 lb 4 oz) 121/82 Negative -???-???-???-???-???-??? -???-???-???-???-???-??? - Negative 142 -???-???-???-???-???-??? -???-???-???-???-???-??? - JV- no compl aints today other than some pelvic pain that feels like when I have an ovarian cyst" She was checked out at an urgent care in [facility] (more content not included)... Normal [facility] - Chemistry and C hemistry - challengeOrdered By: Pam Acosta on 04-28-2025 Glucose Ql (U) Negative [facility] - UrinalysisOrder ed By: Pam Acosta on 04-28-2025 Protein Ql (U) Negative [facility] Wound/Ostomy Clinical Nurse Specialist Office Visit Reporton 04-28-2025 Wound/Ostomy Clinical Nurse Specialist Office Visit Report [facility] [address], [address] [place] [address] OFFICE VISIT Date of Service: 04/28/25 MR#: [id number] Acct: [id number] Name: ALYSSA PRO Rep #: [id number] : 2000 Provider: Dr. Pam gibbons MD Age/Sex: 25/F [place] [facility] [place]: Signed Intake Vital Signs 12/09/24 13:07 04/14/25 15:42 04/28/25 15:06 Height 5 ft 6 in 5 ft 6 in 5 ft 6 in Weight: 217 lb 8 oz BMI 35.1 BP 110/74 Intake Visit Reasons: 30 wk ob Chief Complaint: 30wk 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 Is patient in pain?: No Allergies No Known Allergies Allergy (Verified 04/28/25 15:04) Medications ???Medication ???Instructions ???Recorded ???Confirmed ???Type multivitamin no.47-iron fum 27 cap PO 12/02/24 04/28/25 History mg-folate no.1 1 mg-dha 300 mg capsule (PNV-DHA) Last Menstrual Period: 09/28/24 : No PFSH PFSH Medical History PCOS (polycystic ovarian syndrome) Dysmenorrhea Anovulation Family History Aunt Breast cancer Maternal Grandfather Cancer Pancreatic- Paternal Mother APL (antiphospholipid syndrome) 9 miscarriages. Cancer skin Social History adopted: No household members: spouse housing: house number of children: 0 current occupational status: employed current occupation: [employer] current occupational exposures/hazards: No pets and animals: Yes pets and animals: dog(s) history of recent travel: Yes (October) out of state: Yes out of country: No sexually active: Yes Smoking Status: Never smoker alcohol intake: current alcohol intake frequency: holidays/special occasions only details: not while substance use type: does not use well-balanced diet: daily or most days caffeine: Yes Type: coffee Number of servings: 1 eating out: 4 or more times/week during the past year weight has: decreased > 10 lbs what type of physical activity do you participate in: none art/yazdanism: Latter-Day seatbelt use: always do you feel safe at home: Yes 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 OB Visit JONAS Calculator Estimated Delivery Date Method Current WG Current Estimate 07/05/25 LMP (Certain) 30w 2d Other Estimates 07/06/25 Ultrasound #1 30w 1d Expected Delivery Route/Plan Labor Preferences- CB/BF classes: [] labor support person: [] labor intervention preferences: [] pain management options preferred: [] cut cord/dad catch: [] : [] PP control planned: [] discussed possible routes of delivery and associated risks: [] special requests: [] Specific Issue/Plans Covid status: [] Flu vaccine: [] Tdap vaccine: given Rhogam: na LARC form signed: declined movement and labor precautions reviewed. Problem list reviewed and updated with the most current plan of care details and appropriate orders placed. Relevant counseling for the gestational age provided. Continue routine care and follow up unless otherwise noted in visit notes/problem list details Initial Weight: 205 lb Date -???-???-???-???-???-??? -???-???-???-???-???-??? - EGA Weight BP Urine Prot -???-???-???-???-???-??? -???-???-???-???-???-??? - Glucose FHR FuHt Pres Dilation -???-???-???-???-???-??? -???-???-???-???-???-??? - Effaced St Visit Note 12/09/24 -???-???-???-???-???-??? -???-???-???-???-???-??? - 10w 2d 205 lb 2 oz (+2 oz) 136/83 -???-???-???-???-???-??? -???-???-???-???-???-??? - 173 -???-???-???-???-???-??? -???-???-???-???-???-??? - KW- CRL cons with dates. Declines NIPT. 01/06/25 -???-???-???-???-???-??? -???-???-???-???-???-??? - 14w 2d 205 lb 6 oz (+6 oz) 131/85 Negative -???-???-???-???-???-??? -???-???-???-???-???-??? - Negative 147 -???-???-???-???-???-??? -???-???-???-???-???-??? - JV- no lof, vaginal bleeding, or cramping. declines nipt and did blood work. 01/31/25 -???-???-???-???-???-??? -???-???-???-???-???-??? - 17w 6d 206 lb 4 oz (+1 lb 4 oz) 121/82 Negative -???-???-???-???-???-??? -???-???-???-???-???-??? - Negative 142 -???-???-???-???-???-??? -???-???-???-???-???-??? - JV- no compl aints today other than some pelvic pain that feels like when I have an ovarian cyst" She was checked out at an urgent care in [place] and treated with amoxil but urine culture was neg. 03/01/25 -???-???-???-???-???-? (more content not included)... Normal [facility] - Chemistry and C hemistry - challengeOrdered By: Pam Acosta on 04-14-2025 Glucose Ql (U) Negative [facility] - UrinalysisOrder ed By: Pam Acosta on 04-14-2025 Protein Ql (U) Negative [facility] Wound/Ostomy Clinical Nurse Specialist Office Visit Reporton 04-14-2025 Wound/Ostomy Clinical Nurse Specialist Office Visit Report [facility] [address], [address] [place] [address] OFFICE VISIT Date of Service: 04/14/25 MR#: [id number] Acct: [id number] Name: ALYSSA PRO Rep #: [id number] : 2000 Provider: Dr. 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 Cancer skin Social History adopted: No household members: spouse housing: house number of children: 0 current occupational status: employed current occupation: [employer] current occupational exposures/hazards: No pets and animals: Yes pets and animals: dog(s) history of recent travel: Yes (October) out of state: Yes out of country: No sexually active: Yes Smoking Status: Never smoker alcohol intake: current alcohol intake frequency: holidays/special occasions only details: not while substance use type: does not use well-balanced diet: daily or most days caffeine: Yes Type: coffee Number of servings: 1 eating out: 4 or more times/week during the past year weight has: decreased > 10 lbs what type of physical activity do you participate in: none art/yazdanism: Latter-Day seatbelt use: always do you feel safe at home: Yes 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 OB Visit JONAS Calculator Estimated Delivery Date Method Current WG Current Estimate 07/05/25 LMP (Certain) 28w 2d Other Estimates 07/06/25 Ultrasound #1 28w 1d Expected Delivery Route/Plan Labor Preferences- CB/BF classes: [] labor support person: [] labor intervention preferences: [] pain management options preferred: [] cut cord/dad catch: [] : [] PP control planned: [] discussed possible routes of delivery and associated risks: [] special requests: [] Specific Issue/Plans Covid status: [] Flu vaccine: [] Tdap vaccine: [] Rhogam: na LARC form signed: [] Problem list reviewed and updated with the most current plan of care details and appropriate orders placed. Relevant counseling for the gestational age provided. Continue routine care and follow up unless otherwise noted in visit notes/problem list details Initial Weight: 205 lb Date -???-???-???-???-???-??? -???-???-???-???-???-??? - EGA Weight BP Urine Prot -???-???-???-???-???-??? -???-???-???-???-???-??? - Glucose FHR FuHt Pres Dilation -???-???-???-???-???-??? -???-???-???-???-???-??? - Effaced St Visit Note 12/09/24 -???-???-???-???-???-??? -???-???-???-???-???-??? - 10w 2d 205 lb 2 oz (+2 oz) 136/83 -???-???-???-???-???-??? -???-???-???-???-???-??? - 173 -???-???-???-???-???-??? -???-???-???-???-???-??? - KW- CRL cons with dates. Declines NIPT. 01/06/25 -???-???-???-???-???-??? -???-???-???-???-???-??? - 14w 2d 205 lb 6 oz (+6 oz) 131/85 Negative -???-???-???-???-???-??? -???-???-???-???-???-??? - Negative 147 -???-???-???-???-???-??? -???-???-???-???-???-??? - JV- no lof, vaginal bleeding, or cramping. declines nipt and did blood work. 01/31/25 -???-???-???-???-???-??? -???-???-???-???-???-??? - 17w 6d 206 lb 4 oz (+1 lb 4 oz) 121/82 Negative -???-???-???-???-???-??? -???-???-???-???-???-??? - Negative 142 -???-???-???-???-???-??? -???-???-???-???-???-??? - JV- no compl aints today other than some pelvic pain that feels like when I have an ovarian cyst" She was checked out at an urgent care in [place] and treated with amoxil but urine culture was neg. 03/01/25 -???-???-???-???-???-??? -???-???-???-???-???-??? - 22w 0d (more content not included)... Normal [facility] Absolute lymphocyte countOrd ered By: Pam Acosta on 03-28-2025 Lymphocytes Auto (Unsp spec) [#/Vol] 1.87 10*3/uL 0.83-4.51 [facility] Absolute neutrophil countOrd ered By: Pam Acosta on 03-28-2025 Neutrophils (Bld) [#/Vol] 10.5 10*3/uL High 2.0-7.7 [facility] Automated lymphocyte count a s percentage of total leukocytesOrdered By: Pam Acosta on 03-28-2025 Lymphocytes/100 WBC Auto (Unsp spec) 14.1 % Low 19-41 [facility] Basophil percentageOrdered B y: Pam Acosta on 03-28-2025 Basophils/100 WBC (Bld) 0.2 % 0-1 [facility] CBC W/Diff, Liudmilaon 03-01 Absolute Lymph 1.87 X10 3/uL Normal 0.83-4.51 [facility] Comment on above: Performed By: #### L 100.0100, L501.0250, L3890.6006, L509.8002 #### [facility] [address] [place], [address] Absolute Neut 10.5 X10 3/uL High 2.0-7.7 [facility] Comment on above: Performed By: #### L 100.0100, L501.0250, L3890.6006, L509.8002 #### [facility] [address] [place], [address] Basophils/100 WBC (Bld) 0.2 % Normal 0-1 [facility] Comment on above: Performed By: #### L 100.0100, L501.0250, L3890.6006, L509.8002 #### [facility] [address] [place], [address] Eosinophils/100 WBC (Bld) 0.3 % Normal 0-5 [facility] Comment on above: Performed By: #### L 100.0100, L501.0250, L3890.6006, L509.8002 #### [facility] [address] [place], [address] Erythrocyte distribution width (RBC) [Ratio] 12.7 % Normal 11.6-14.6 [facility] Comment on above: Performed By: #### L 100.0100, L501.0250, L3890.6006, L509.8002 #### [facility] [address] [place], [address] Hematocrit (Bld) [Volume fraction] 34.3 % Low 37-47 [facility] Comment on above: Performed By: #### L 100.0100, L501.0250, L3890.6006, L509.8002 #### [facility] [address] [place], [address] Hemoglobin (Bld) [Mass/Vol] 12.1 g/dL Normal 12.0-15.0 [facility] Comment on above: Performed By: #### L 100.0100, L501.0250, L3890.6006, L509.8002 #### [facility] [address] [place], [address] IG% 0.800 Normal 0.0-0.9 [facility] Comment on above: Result Comment: IG% - Immature Granulocytes (promyelocytes, myelocytes and metamyelocytes) > 1% indicates that a LEFT SHIFT is Present. Performed By: #### L 100.0100, L501.0250, L3890.6006, L509.8002 #### [facility] [address] [place], [address] Lymphocytes/100 WBC (Bld) 14.1 % Low 19-41 [facility] Comment on above: Performed By: #### L 100.0100, L501.0250, L3890.6006, L509.8002 #### [facility] [address] [place], [address] MCH (RBC) [Entitic mass] 33.7 pg High 27.0-32.0 [facility] Comment on above: Performed By: #### L 100.0100, L501.0250, L3890.6006, L509.8002 #### [facility] [address] [place], [address] MCHC (RBC) [Mass/Vol] 35.3 g/dL Normal 32-36 [facility] Comment on above: Performed By: #### L 100.0100, L501.0250, L3890.6006, L509.8002 #### [facility] [address] [place], [address] MCV (RBC) [Entitic vol] 95.5 fL Normal 81-99 [facility] Comment on above: Performed By: #### L 100.0100, L501.0250, L3890.6006, L509.8002 #### [facility] [address] [place], [address] Monocytes/100 WBC (Bld) 4.9 % Normal 0-10 [facility] Comment on above: Performed By: #### L 100.0100, L501.0250, L3890.6006, L509.8002 #### [facility] [address] [place], [address] Neutrophils/100 WBC (Bld) 79.7 % High 47-70 [facility] Comment on above: Performed By: #### L 100.0100, L501.0250, L3890.6006, L509.8002 #### [facility] [address] [place], [address] Nucleated RBC (Bld) [#/Vol] 0 10*3/uL Normal 0-5 [facility] Comment on above: Performed By: #### L 100.0100, L501.0250, L3890.6006, L509.8002 #### [facility] [address] [place], [address] Platelet mean volume (Bld) [Entitic vol] 9.8 fL Normal 6.2-12.0 [facility] Comment on above: Performed By: #### L 100.0100, L501.0250, L3890.6006, L509.8002 #### [facility] [address] [place], [address] Platelets (Bld) [#/Vol] 360 10*3/uL Normal 150-450 [facility] Comment on above: Performed By: #### L 100.0100, L501.0250, L3890.6006, L509.8002 #### [facility] [address] [place], [address] RBC (Bld) [#/Vol] 3.59 10*6/uL Low 4.2-5.4 [facility] Comment on above: Performed By: #### L 100.0100, L501.0250, L3890.6006, L509.8002 #### [facility] [address] [place], [address] RDW SD 44.0 fl High 35.1-43.9 [facility] Comment on above: Performed By: #### L 100.0100, L501.0250, L3890.6006, L509.8002 #### [facility] [address] [place], [address] WBC (Bld) [#/Vol] 13.2 10*3/uL High 4.4-11.0 [facility] Comment on above: Performed By: #### L 100.0100, L501.0250, L3890.6006, L509.8002 #### [facility] [address] [place], [address] Eosinophil percentageOrdered By: Pam Acosta on 03-28-2025 Eosinophils/100 WBC (Bld) 0.3 % 0-5 [facility] Erythrocyte distribution wid th ratioOrdered By: Pam Acosta on 03-28-2025 Erythrocyte distribution width (RBC) [Ratio] 12.7 % 11.6-14.6 [facility] Erythrocyte distribution wid th standard deviationOrdered By: Pam Acosta on 03-28-2025 Erythrocyte distribution width (RBC) [Ratio] 44.0 fl High 35.1-43.9 [facility] Glucose Challenge Gest 1H 50 carla 03-28-2025 GLU GEST 50g 1H 108 mg/dL Normal 70-140 [facility] Comment on above: Performed By: #### L 100.0100, L501.0250, L3890.6006, L509.8002 #### [facility] [address] [place], [address] Glucose measurement at 2 mira rs post-dose gestational glucose tolerance testOrdered By: Pam Acosta on 03-28-2025 Glucose [Mass/Vol] 108 mg/dL 70-140 [facility] HIVon 03-28-2025 HIV Non-Reactive Normal Nonreactive [facility] Comment on above: Result Comment: Non- Reactive Reactive Repeatedly reactive samples must be confirmed according to CDC recommended confirmatory algorithms. The subresults for either HIVAG or AHIV can be used as an aid in the selection of the confirmation algorithm for reactive samples. Send out specimens with Reactive results to [facility] for confirmation. Order the HIV antibody detection and differentiation: lc#[id number] Performed By: #### L 3890.6005, BTS, L509.4005, L100.0100, L3890.6100, L3890.6300, L509.8000, L501.9985 #### [facility] [address] [place], [place], [address] Hematocrit Auto (Bld) [Volum e fraction]Ordered By: Pam Acosta on 03-28-2025 Hematocrit (Bld) [Volume fraction] 34.3 % Low 37-47 [facility] Hemoglobin measurementOrdere d By: Pam Acosta on 03-28-2025 Hemoglobin (Bld) [Mass/Vol] 12.1 g/dL 12.0-15.0 [facility] Immature granulocytes/100 WB C Auto (Bld)Ordered By: Pam Acosta on 03-28-2025 Immature granulocytes/100 WBC (Bld) 0.800 % 0.0-0.9 [facility] Comment on above: IG% - Immature Granu locytes (promyelocytes, myelocytes and metamyelocytes) > 1% indicates that a LEFT SHIFT is Present. Laboratory - Chemistry and C hemistry - challengeOrdered By: Lory Saldana on 03-28-2025 Glucose Ql (U) Negative [facility] - UrinalysisOrder ed By: Lory Saldana on 03-28-2025 Protein Ql (U) Negative [facility] MCV (mean corpuscular volume ) determinationOrdered By: Pam Acosta on 03-28-2025 MCV (RBC) [Entitic vol] 95.5 fL 81-99 [facility] Mean corpuscular hemoglobin (MCH) determinationOrdered By: Pam Acosta on 03-28-2025 MCH (RBC) [Entitic mass] 33.7 pg High 27.0-32.0 [facility] Mean corpuscular hemoglobin concentration (MCHC) determinationOrdered By: Pam Acosta on 03-28-2025 MCHC (RBC) [Mass/Vol] 35.3 g/dL 32-36 [facility] Mean platelet volume determi nationOrdered By: Pam Acosta on 03-28-2025 Platelet mean volume (Bld) [Entitic vol] 9.8 fL 6.2-12.0 [facility] Monocyte percentageOrdered B y: Pam Acosta on 03-28-2025 Monocytes/100 WBC (Bld) 4.9 % 0-10 [facility] Neutrophil percentageOrdered By: Pam Acosta on 03-28-2025 Neutrophils/100 WBC (Bld) 79.7 % High 47-70 [facility] No Panel InformationOrdered By: Pam Acosta on 03-28-2025 HIV (1&2) Antibody Non-Reactive Nonreactive [facility] Comment on above: Non-ReactiveReactive Repeatedly reactive samples must be confirmed according to CDC recommended confirmatory algorithms. The subresults for either HIVAG or AHIV can be used as an aid in the selection of the confirmation algorithm for reactive samples.Send out specimens with Reactive results to [facility] for confirmation.Order the HIV antibody detection and differentiation: #[id number] Nucleated red blood cell per centageOrdered By: Pam Acosta on 03-28-2025 Nucleated RBC/100 WBC (Bld) [Ratio] 0 % 0-5 [facility] Wound/Ostomy Clinical Nurse Specialist Office Visit Reporton 03-28-2025 Wound/Ostomy Clinical Nurse Specialist Office Visit Report [facility] [address], [address] [place] [address] OFFICE VISIT Date of Service: 03/28/25 MR#: [id number] Acct: [id number] Name: ALYSSA PRO Rep #: [id number] : 2000 Provider: MINERVA Hoang ams Age/Sex: 25/F [place] [facility] [place]: [place]igned Intake Vital Signs 12/09/24 13:07 01/06/25 15:33 03/01/25 15:01 03/28/25 14:22 Height 5 ft 6 in 5 ft 6 in 5 ft 6 in 5 ft 6 in Weight: 213 lb 2 oz BMI 34.4 BP 111/68 Intake Visit Reasons: 26 wk ob/glucose Chief Complaint: 26wk 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 Is patient in pain?: No Allergies No Known Allergies Allergy (Verified 03/28/25 14:20) Medications ???Medication ???Instructions ???Recorded ???Confirmed ???Type ondansetron 4 mg disintegrating 4 mg PO Q6H PRN nausea and 11/16/ 4 03/28/25 Rx tablet vomiting #90 tabs folic acid 400 mcg tablet 0.4 mg PO QDAY PRN 12/02/24 History multivitamin no.47-iron fum 27 cap PO 12/02/24 03/28/25 History mg-folate no.1 1 mg-dha 300 mg capsule (PNV-DHA) Last Menstrual Period: 09/28/24 : No PFSH PFSH Medical History PCOS (polycystic ovarian syndrome) Dysmenorrhea Anovulation Family History Aunt Breast cancer Maternal Grandfather Cancer Pancreatic- Paternal Mother APL (antiphospholipid syndrome) 9 miscarriages. Cancer skin Social History adopted: No household members: spouse housing: house number of children: 0 current occupational status: employed current occupation: [employer] current occupational exposures/hazards: No pets and animals: Yes pets and animals: dog(s) history of recent travel: Yes ( - October) out of state: Yes out of country: No sexually active: Yes Smoking Status: Never smoker alcohol intake: current alcohol intake frequency: holidays/special occasions only details: not while substance use type: does not use well-balanced diet: daily or most days caffeine: Yes Type: coffee Number of servings: 1 eating out: 4 or more times/week during the past year weight has: decreased > 10 lbs what type of physical activity do you participate in: none art/yazdanism: Latter-Day seatbelt use: always do you feel safe at home: Yes additional social history: - [employer] History 1 Elective abortions Hx Para 0 Spontaneous abortions Hx # Term Pregnancies Ectopic pregnancies Hx # Pregnancies Multiple births # of living children HPI 26 wk ob/glucose Details: ALYSSA PRO is a 25 year old who presents for routine OB visit. OB Visit JONAS Calculator Estimated Delivery Date Method Current WG Current Estimate 07/05/25 LMP (Certain) 25w 6d Other Estimates 07/06/25 Ultrasound #1 25w 5d Expected Delivery Route/Plan Labor Preferences- CB/BF classes: [] labor support person: [] labor intervention preferences: [] pain management options preferred: [] cut cord/dad catch: [] : [] PP control planned: [] discussed possible routes of delivery and associated risks: [] special requests: [] Specific Issue/Plans Covid status: [] Flu vaccine: [] Tdap vaccine: [] Rhogam: [] LARC form signed: [] Problem list reviewed and updated with the most current plan of care details and appropriate orders placed. Relevant counseling for the gestational age provided. Continue routine care and follow up unless otherwise noted in visit notes/problem list details Initial Weight: 205 lb Date -???-???-???-???-???-??? -???-???-???-???-???-??? - EGA Weight BP Urine Prot -???-???-???-???-???-??? -???-???-???-???-???-??? - Glucose FHR FuHt Pres Dilation -???-???-???-???-???-??? -???-???-???-???-???-??? - Effaced St Visit Note 12/09/24 -???-???-???-???-???-??? -???-???-???-???-???-??? - 10w 2d 205 lb 2 oz (+2 oz) 136/83 -???-???-???-???-???-??? -???-???-???-???-???-??? - 173 -???-???-???-???-???-??? -???-???-???-???-???-??? - KW- CRL cons with dates. Declines NIPT. 01/06/25 -???-???-???-???-???-??? -???-???-???-???-???-??? - 14w 2d 205 lb 6 oz (+6 oz) 131/85 Negative -???-???-???-???-???-??? -???-???-???-???-???-??? - Negative 147 -???-???-???-???-???-??? -???-???-???-???-???-??? - JV- no lof, vaginal bleeding, or cramping. declines nipt and did blood work. 01/31/25 -???-???-???-???-???-??? -???-???-???-???-???-??? - 17w 6d 206 lb 4 oz (+1 lb 4 oz) 121/82 Negative -???-???-???-???-???-??? -???-???-???-???-???-??? - Negative 142 -???-???-???-???-???-??? -???-???-???-???-???-??? - JV- no compl aints today other than some pelvic pain that feels like w (more content not included)... Normal [facility] Platelet countOrdered By: Robles Acosta on 03-28-2025 Platelets (Bld) [#/Vol] 360 10*3/uL 150-450 [facility] RBC Auto (Bld) [#/Vol]Ordere d By: Pam Acosta on 03-28-2025 RBC (Bld) [#/Vol] 3.59 10*6/uL Low 4.2-5.4 [facility] Syphilis Antibodieson 2024 Syphilis Abs Non-Reactive Normal Nonreactive [facility] Comment on above: Performed By: #### L 3890.6005, BTS, L509.4005, L100.0100, L3890.6100, L3890.6300, L509.8000, L501.9985 #### [facility] [address] [place], [address] White blood cell (WBC) count Ordered By: Pam Acosta on 03-28-2025 WBC (Bld) [#/Vol] 13.2 10*3/uL High 4.4-11.0 [facility] - Chemistry and C hemistry - challengeOrdered By: Pam Acosta on 03-01-2025 Glucose Ql (U) Negative [facility] - UrinalysisOrder ed By: Pam Acosta on 03-01-2025 Protein Ql (U) Negative [facility] Wound/Ostomy Clinical Nurse Specialist Office Visit Reporton 03-01-2025 Wound/Ostomy Clinical Nurse Specialist Office Visit Report [facility] [address], [address] [place] [address] OFFICE VISIT Date of Service: 03/01/25 MR#: [id number] Acct: [id number] Name: ALYSSA PRO Rep #: [id number] : 2000 Provider: Dr. 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 Pam Acosta MD) PCOS (polycystic ovarian syndrome) Dysmenorrhea Anovulation Family History Aunt Breast cancer Maternal Grandfather Cancer Pancreatic- Paternal Mother APL (antiphospholipid syndrome) 9 miscarriages. Cancer skin Social History adopted: No household members: spouse housing: house number of children: 0 current occupational status: employed current occupation: [employer] current occupational exposures/hazards: No pets and animals: Yes pets and animals: dog(s) history of recent travel: Yes ( - October) out of state: Yes out of country: No sexually active: Yes Smoking Status: Never smoker alcohol intake: current alcohol intake frequency: holidays/special occasions only details: not while substance use type: does not use well-balanced diet: daily or most days caffeine: Yes Type: coffee Number of servings: 1 eating out: 4 or more times/week during the past year weight has: decreased > 10 lbs what type of physical activity do you participate in: none art/yazdanism: Latter-Day seatbelt use: always do you feel safe at home: Yes additional social history: - [employer] History 1 Elective abortions Hx Para 0 Spontaneous abortions Hx # Term Pregnancies Ectopic pregnancies Hx # Pregnancies Multiple births # of living children HPI 22 wk ob Details: ALYSSA PRO is a 24 year old who presents for routine OB visit. OB Visit JONAS Calculator Estimated Delivery Date Method Current WG Current Estimate 07/05/25 LMP (Certain) 22w 0d Other Estimates 07/06/25 Ultrasound #1 21w 6d Expected Delivery Route/Plan Labor Preferences- CB/BF classes: [] labor support person: [] labor intervention preferences: [] pain management options preferred: [] cut cord/dad catch: [] : [] PP control planned: [] discussed possible routes of delivery and associated risks: [] special requests: [] Specific Issue/Plans Covid status: [] Flu vaccine: [] Tdap vaccine: [] Rhogam: [] LARC form signed: [] Problem list reviewed and updated with the most current plan of care details and appropriate orders placed. Relevant counseling for the gestational age provided. Continue routine care and follow up unless otherwise noted in visit notes/problem list details Initial Weight: 205 lb Date -???-???-???-???-???-??? -???-???-???-???-???-??? - EGA Weight BP Urine Prot -???-???-???-???-???-??? -???-???-???-???-???-??? - Glucose FHR FuHt Pres Dilation -???-???-???-???-???-??? -???-???-???-???-???-??? - Effaced St Visit Note 12/09/24 -???-???-???-???-???-??? -???-???-???-???-???-??? - 10w 2d 205 lb 2 oz (+2 oz) 136/83 -???-???-???-???-???-??? -???-???-???-???-???-??? - 173 -???-???-???-???-???-??? -???-???-???-???-???-??? - KW- CRL cons with dates. Declines NIPT. 01/06/25 -???-???-???-???-???-??? -???-???-???-???-???-??? - 14w 2d 205 lb 6 oz (+6 oz) 131/85 Negative -???-???-???-???-???-??? -???-???-???-???-???-??? - Negative 147 -???-???-???-???-???-??? -???-???-???-???-???-??? - JV- no lof, vaginal bleeding, or cramping. declines nipt and did blood work. 01/31/25 -???-???-???-???-???-??? -???-???-???-???-???-??? - 17w 6d 206 lb 4 oz (+1 lb 4 oz) 121/82 Negative -???-???-???-???-???-??? -???-???-???-???-???-??? - Negative 142 -???-???-???-???-???-??? -???-???-???-???-???-??? - JV- no compl aints today other than some pelvic pain t (more content not included)... Normal [facility] Genital Culture Comprehensiv betty 02-04-2025 VAC Reason for Exam: pel nathalia pain Normal vaginal fletcher isolated. No yeast, Gardnerella, Neisseria or beta-hemolytic Streptococcus isolated. Normal [facility] Comment on above: Performed By: #### L 3890.6005, BTS, L509.4005, L100.0100, L3890.6100, L3890.6300, L509.8000, L501.9985 #### [facility] [address] [place], [place], [id number] Genital cultureOrdered By: Gabby Lima on 01-31-2025 Genital Culture Neisseria or beta-hemolytic Streptococcus isolated. [facility] Source specific culture Neisseria or beta-hemolytic Streptococcus isolated. [facility] Gram Stainon 01-31-2025 GS Reason for Exam: pel nathalia pain Gram Stain 4+ Gram positive rods 2+ White Blood Cells No Gram negative diplococci Score = 0 Interpretation: 0-3 Normal, 4-6 Intermediate, 7-10 Positive BV Normal [facility] Comment on above: Performed By: #### L 3890.6005, BTS, L509.4005, L100.0100, L3890.6100, L3890.6300, L509.8000, L501.9985 #### [facility] [address] [place], [place], [id number] Gram stainOrdered By: Nancy Lima on 01-31-2025 Microscopic observation Gram stain Nom (Unsp spec) [facility] - Chemistry and C hemistry - challengeOrdered By: Zulma Lima on 01-31-2025 Glucose Ql (U) Negative [facility] - UrinalysisOrder ed By: Zulma Lima on 01-31-2025 Protein Ql (U) Negative [facility] Wound/Ostomy Clinical Nurse Specialist Office Visit Reporton 01-31-2025 Wound/Ostomy Clinical Nurse Specialist Office Visit Report [facility] [address], [address] [place] [address] OFFICE VISIT Date of Service: 01/31/25 MR#: [id number] Acct: [id number] Name: ALYSSA PRO Rep #: [id number] : 2000 Provider: Dr. 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 Is patient in pain?: No Allergies No Known Allergies Allergy (Verified 01/31/25 14:32) Medications ???Medication ???Instructions ???Recorded ???Confirmed ???Type ondansetron 4 mg disintegrating 4 mg PO Q6H PRN nausea and 4 01/31/25 Rx tablet vomiting #90 tabs folic acid 400 mcg tablet 0.4 mg PO QDAY PRN 12/02/24 History multivitamin no.47-iron fum 27 cap PO 12/02/24 01/31/25 History mg-folate no.1 1 mg-dha 300 mg capsule (PNV-DHA) Last Menstrual Period: 09/28/24 Zika: Zika virus screening: Negative : No PFSH PFSH Medical History Dysmenorrhea Anovulation Family History Aunt Breast cancer Maternal Grandfather Cancer Pancreatic- Paternal Mother APL (antiphospholipid syndrome) 9 miscarriages. Cancer skin Social History adopted: No household members: spouse housing: house number of children: 0 current occupational status: employed current occupation: [employer] current occupational exposures/hazards: No pets and animals: Yes pets and animals: dog(s) history of recent travel: Yes (October) out of state: Yes out of country: No sexually active: Yes Smoking Status: Never smoker alcohol intake: current alcohol intake frequency: holidays/special occasions only details: not while substance use type: does not use well-balanced diet: daily or most days caffeine: Yes Type: coffee Number of servings: 1 eating out: 4 or more times/week during the past year weight has: decreased > 10 lbs what type of physical activity do you participate in: none art/yazdanism: Latter-Day seatbelt use: always do you feel safe at home: Yes 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 OB Visit JONAS Calculator Estimated Delivery Date Method Current WG Current Estimate 07/05/25 LMP (Certain) 17w 6d Other Estimates 07/06/25 Ultrasound #1 17w 5d Expected Delivery Route/Plan Labor Preferences- CB/BF classes: [] labor support person: [] labor intervention preferences: [] pain management options preferred: [] cut cord/dad catch: [] : [] PP control planned: [] discussed possible routes of delivery and associated risks: [] special requests: [] Specific Issue/Plans Covid status: [] Flu vaccine: [] Tdap vaccine: [] Rhogam: [] LARC form signed: [] Problem list reviewed and updated with the most current plan of care details and appropriate orders placed. Relevant counseling for the gestational age provided. Continue routine care and follow up unless otherwise noted in visit notes/problem list details Initial Weight: 205 lb Date -???-???-???-???-???-??? -???-???-???-???-???-??? - EGA Weight BP Urine Prot -???-???-???-???-???-??? -???-???-???-???-???-??? - Glucose FHR FuHt Pres Dilation -???-???-???-???-???-??? -???-???-???-???-???-??? - Effaced St Visit Note 12/09/24 -???-???-???-???-???-??? -???-???-???-???-???-??? - 10w 2d 205 lb 2 oz (+2 oz) 136/83 -???-???-???-???-???-??? -???-???-???-???-???-??? - 173 -???-???-???-???-???-??? -???-???-???-???-???-??? - KW- CRL cons with dates. Declines NIPT. 01/06/25 -???-???-???-???-???-??? -???-???-???-???-???-??? - 14w 2d 205 lb 6 oz (+6 oz) 131/85 Negative -???-???-???-???-???-??? -???-???-???-???-???-??? - Negative 147 -???-???-???-???-???-??? -???-???-???-???-???-??? - JV- no lof, vaginal bleeding, or cramping. declines nipt and did blood work. 01/31/25 -???-???-???-???-???-??? -???-???-???-???-???-??? - 17w 6d 206 lb 4 oz (+1 lb 4 oz) 121/82 Negative -???-???-???-???-???-??? -???-???-???-???-???-??? - Negative 142 -???-???-???-???-???-??? -???-???-???-???-???-??? - JV- no compl aints today other than some pelvic pain that feels like when I have an ovarian cyst" (more content not included)... Normal [facility] - Chemistry and C hemistry - challengeOrdered By: Zulma Lima on 01-06-2025 Glucose Ql (U) Negative [facility] - UrinalysisOrder ed By: Zulma Lima on 01-06-2025 Protein Ql (U) Negative [facility] Wound/Ostomy Clinical Nurse Specialist Office Visit Reporton 01-06-2025 Wound/Ostomy Clinical Nurse Specialist Office Visit Report [facility] [address], [address] [place] [address] OFFICE VISIT Date of Service: 01/06/25 MR#: [id number] Acct: [id number] Name: ALYSSA PRO Rep #: [id number] : 2000 Provider: Dr. 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 Is patient in pain?: No Allergies No Known Allergies Allergy (Verified 01/06/25 15:33) Medications ???Medication ???Instructions ???Recorded ???Confirmed ???Type ondansetron 4 mg disintegrating 4 mg PO Q6H PRN nausea and 4 01/06/25 Rx tablet vomiting #90 tabs folic acid 400 mcg tablet 0.4 mg PO QDAY PRN 12/02/24 History multivitamin no.47-iron fum 27 cap PO 12/02/24 01/06/25 History mg-folate no.1 1 mg-dha 300 mg capsule (PNV-DHA) Last Menstrual Period: 09/28/24 Zika: Zika virus screening: Negative : No PFSH PFSH Medical History Dysmenorrhea Anovulation Family History Aunt Breast cancer Maternal Grandfather Cancer Pancreatic- Paternal Mother APL (antiphospholipid syndrome) 9 miscarriages. Cancer skin Social History adopted: No household members: spouse housing: house number of children: 0 current occupational status: employed current occupation: [employer] current occupational exposures/hazards: No pets and animals: Yes pets and animals: dog(s) history of recent travel: Yes ( - October) out of state: Yes out of country: No sexually active: Yes Smoking Status: Never smoker alcohol intake: current alcohol intake frequency: holidays/special occasions only details: not while substance use type: does not use well-balanced diet: daily or most days caffeine: Yes Type: coffee Number of servings: 1 eating out: 4 or more times/week during the past year weight has: decreased > 10 lbs what type of physical activity do you participate in: none art/yazdanism: Latter-Day seatbelt use: always do you feel safe at home: Yes additional social history: - [employer] History 1 Elective abortions Hx Para 0 Spontaneous abortions Hx # Term Pregnancies Ectopic pregnancies Hx # Pregnancies Multiple births # of living children HPI 14wk OB Details: ALYSSA PRO is a 24 year old who presents for routine OB visit. OB Visit JONAS Calculator Estimated Delivery Date Method Current WG Current Estimate 07/05/25 LMP (Certain) 14w 2d Other Estimates 07/06/25 Ultrasound #1 14w 1d Expected Delivery Route/Plan Labor Preferences- CB/BF classes: [] labor support person: [] labor intervention preferences: [] pain management options preferred: [] cut cord/dad catch: [] : [] PP control planned: [] discussed possible routes of delivery and associated risks: [] special requests: [] Specific Issue/Plans Covid status: [] Flu vaccine: [] Tdap vaccine: [] Rhogam: [] LARC form signed: [] Problem list reviewed and updated with the most current plan of care details and appropriate orders placed. Relevant counseling for the gestational age provided. Continue routine care and follow up unless otherwise noted in visit notes/problem list details Initial Weight: Not Recorded Date -???-???-???-???-???-??? -???-???-???-???-???-??? - EGA Weight BP Urine Prot -???-???-???-???-???-??? -???-???-???-???-???-??? - Glucose FHR FuHt Pres Dilation -???-???-???-???-???-??? -???-???-???-???-???-??? - Effaced St Visit Note 12/09/24 -???-???-???-???-???-??? -???-???-???-???-???-??? - 10w 2d 205 lb 2 oz 136/83 -???-???-???-???-???-??? -???-???-???-???-???-??? - 173 -???-???-???-???-???-??? -???-???-???-???-???-??? - KW- CRL cons with dates. Declines NIPT. 01/06/25 -???-???-???-???-???-??? -???-???-???-???-???-??? - 14w 2d 205 lb 6 oz 131/85 Negative -???-???-???-???-???-??? -???-???-???-???-???-??? - Negative 147 -???-???-???-???-???-??? -???-???-???-???-???-??? - JV- no lof, vaginal bleeding, or cramping. declines nipt and did blood work. ACOG First Trimester First Trimester: Discussed Results POC Urinalysis 2 Dip (Clinic) Office Urine Glucose Negative Last Edit by Lyndsey Bush on 01/06/25 15:43 Office Urine Protein Negative Last Edit by Lyndsey Bush on 01/06/25 15:43 Coding Level of Care Code OB Routine Diagnoses Obe (more content not included)... Normal [facility] HIV - WCHon 12-13-2024 HIV Non-Reactive Normal Nonreactive [facility] Comment on above: Order Comment: Reaso n for Exam: Performed By: #### L 3890.6005, BTS, L509.4005, L100.0100, L3890.6100, L3890.6300, L509.8000, L501.9985 #### [facility] [address] [place], [address] Chlamydia/GC KENYON aptimaon CHLAMY,NUC ACID Negative Normal Negative [facility] Comment on above: Performed By: #### L 3890.6005, BTS, L509.4005, L100.0100, L3890.6100, L3890.6300, L509.8000, L501.9985 #### [facility] [address] [place], [place], [id number] GC BY NUC ACID Negative Normal Negative [facility] Comment on above: Result Comment: Perf ormed at: =G - [facility] [address] [place] [id number] Training Facilitator: Monique Neil MD, Phone: [phone] Performed By: #### L 3890.6005, BTS, L509.4005, L100.0100, L3890.6100, L3890.6300, L509.8000, L501.9985 #### [facility] [address] [place], [place], [id number] Hepatitis B Surface Antigeno n 12-12-2024 HEP B Surf Ag Non-Reactive Normal Nonreactive [facility] Comment on above: Order Comment: Reaso n for Exam: Performed By: #### L 3890.6005, BTS, L509.4005, L100.0100, L3890.6100, L3890.6300, L509.8000, L501.9985 #### [facility] [address] [place], [place], [id number] Hepatitis C Antibodyon 12-12 Hepatitis C AB Non-Reactive Normal Nonreactive [facility] Comment on above: Order Comment: Reaso n for Exam: Result Comment: Non Reactive: < 0.8 Equivocal: >/= 0.8 to < 1.0 Reactive: >/= 1.0 The CDC requires that a reactive/equivocal HCV antibody result be sent out for confirmation. HCV Quant by PCR testing. Performed By: #### L 3890.6005, BTS, L509.4005, L100.0100, L3890.6100, L3890.6300, L509.8000, L501.9985 #### [facility] [address] [place], [address] L509.8000on 12-12-2024 Syphilis Abs Non-Reactive Normal [facility] Comment on above: Order Comment: Reaso n for Exam: Performed By: #### L 3890.6005, BTS, L509.4005, L100.0100, L3890.6100, L3890.6300, L509.8000, L501.9985 #### [facility] [address] [place], [address] Rubella IgGon 12-12-2024 Rubella IgG Reactive Normal Nonreactive [facility] Comment on above: Order Comment: Reaso n for Exam: Result Comment: Anti body Results Interpretation of Immune Status Non Reactive Presumed Non-Immune Equivocal Equivocal Reactive Presumed Immune Performed By: #### L 3890.6005, BTS, L509.4005, L100.0100, L3890.6100, L3890.6300, L509.8000, L501.9985 #### [facility] [address] [place], [place], [id number] Urine Cultureon 12-12-2024 URC Mixed Gram Positive Organisms Traphill Count 11,000-25,000 MIXC Mixed contaminants. Submit a new specimen if indicated. Normal [facility] Comment on above: Performed By: #### L 3890.6005, BTS, L509.4005, L100.0100, L3890.6100, L3890.6300, L509.8000, L501.9985 #### [facility] [address] [place], [place], [id number] Absolute lymphocyte countOrd ered By: Lory Saldana on 12-09-2024 Lymphocytes Auto (Unsp spec) [#/Vol] 2.21 10*3/uL 0.83-4.51 [facility] Absolute neutrophil countOrd ered By: Lory Saldana on 12-09-2024 Neutrophils (Bld) [#/Vol] 8.5 10*3/uL High 2.0-7.7 [facility] Automated lymphocyte count a s percentage of total leukocytesOrdered By: Lory Saldana on 12-09-2024 Lymphocytes/100 WBC Auto (Unsp spec) 19.4 % 19-41 [facility] Basophil percentageOrdered B y: Lory Saldana on 12-09-2024 Basophils/100 WBC (Bld) 0.2 % 0-1 [facility] C. trachomatis rRNA KENYON+prob e Ql (Unsp spec)Ordered By: Lory Saldana on 12-09-2024 Chlamydia DNA (KENYON) Negative Negative [facility] CBC W/Diff, Automatedon 11-30 0-2024 Absolute Lymph 2.21 X10 3/uL Normal 0.83-4.51 [facility] Comment on above: Performed By: #### L 3890.6005, BTS, L509.4005, L100.0100, L3890.6100, L3890.6300, L509.8000, L501.9985 #### [facility] [address] [place], [address] Absolute Neut 8.5 X10 3/uL High 2.0-7.7 [facility] Comment on above: Performed By: #### L 3890.6005, BTS, L509.4005, L100.0100, L3890.6100, L3890.6300, L509.8000, L501.9985 #### [facility] [address] [place], [address] Basophils/100 WBC (Bld) 0.2 % Normal 0-1 [facility] Comment on above: Performed By: #### L 3890.6005, BTS, L509.4005, L100.0100, L3890.6100, L3890.6300, L509.8000, L501.9985 #### [facility] [address] [place], [address] Eosinophils/100 WBC (Bld) 0.3 % Normal 0-5 [facility] Comment on above: Performed By: #### L 3890.6005, BTS, L509.4005, L100.0100, L3890.6100, L3890.6300, L509.8000, L501.9985 #### [facility] [address] [place], [address] Erythrocyte distribution width (RBC) [Ratio] 12.0 % Normal 11.6-14.6 [facility] Comment on above: Performed By: #### L 3890.6005, BTS, L509.4005, L100.0100, L3890.6100, L3890.6300, L509.8000, L501.9985 #### [facility] [address] [place], [address] Hematocrit (Bld) [Volume fraction] 35.7 % Low 37-47 [facility] Comment on above: Performed By: #### L 3890.6005, BTS, L509.4005, L100.0100, L3890.6100, L3890.6300, L509.8000, L501.9985 #### [facility] [address] [place], [address] Hemoglobin (Bld) [Mass/Vol] 12.1 g/dL Normal 12.0-15.0 [facility] Comment on above: Performed By: #### L 3890.6005, BTS, L509.4005, L100.0100, L3890.6100, L3890.6300, L509.8000, L501.9985 #### [facility] [address] [place], [address] IG% 0.400 Normal 0.0-0.9 [facility] Comment on above: Result Comment: IG% - Immature Granulocytes (promyelocytes, myelocytes and metamyelocytes) > 1% indicates that a LEFT SHIFT is Present. Performed By: #### L 3890.6005, BTS, L509.4005, L100.0100, L3890.6100, L3890.6300, L509.8000, L501.9985 #### [facility] [address] [place], [address] Lymphocytes/100 WBC (Bld) 19.4 % Normal 19-41 [facility] Comment on above: Performed By: #### L 3890.6005, BTS, L509.4005, L100.0100, L3890.6100, L3890.6300, L509.8000, L501.9985 #### [facility] [address] [place], [address] MCH (RBC) [Entitic mass] 31.8 pg Normal 27.0-32.0 [facility] Comment on above: Performed By: #### L 3890.6005, BTS, L509.4005, L100.0100, L3890.6100, L3890.6300, L509.8000, L501.9985 #### [facility] [address] [place], [address] MCHC (RBC) [Mass/Vol] 33.9 g/dL Normal 32-36 [facility] Comment on above: Performed By: #### L 3890.6005, BTS, L509.4005, L100.0100, L3890.6100, L3890.6300, L509.8000, L501.9985 #### [facility] [address] [place], [address] MCV (RBC) [Entitic vol] 93.9 fL Normal 81-99 [facility] Comment on above: Performed By: #### L 3890.6005, BTS, L509.4005, L100.0100, L3890.6100, L3890.6300, L509.8000, L501.9985 #### [facility] [address] [place], [address] Monocytes/100 WBC (Bld) 5.0 % Normal 0-10 [facility] Comment on above: Performed By: #### L 3890.6005, BTS, L509.4005, L100.0100, L3890.6100, L3890.6300, L509.8000, L501.9985 #### [facility] [address] [place], [address] Neutrophils/100 WBC (Bld) 74.7 % High 47-70 [facility] Comment on above: Performed By: #### L 3890.6005, BTS, L509.4005, L100.0100, L3890.6100, L3890.6300, L509.8000, L501.9985 #### [facility] [address] [place], [address] Nucleated RBC (Bld) [#/Vol] 0 10*3/uL Normal 0-5 [facility] Comment on above: Performed By: #### L 3890.6005, BTS, L509.4005, L100.0100, L3890.6100, L3890.6300, L509.8000, L501.9985 #### [facility] [address] [place], [address] Platelet mean volume (Bld) [Entitic vol] 10.6 fL Normal 6.2-12.0 [facility] Comment on above: Performed By: #### L 3890.6005, BTS, L509.4005, L100.0100, L3890.6100, L3890.6300, L509.8000, L501.9985 #### [facility] [address] [place], [address] Platelets (Bld) [#/Vol] 370 10*3/uL Normal 150-450 [facility] Comment on above: Performed By: #### L 3890.6005, BTS, L509.4005, L100.0100, L3890.6100, L3890.6300, L509.8000, L501.9985 #### [facility] [address] [place], [address] RBC (Bld) [#/Vol] 3.80 10*6/uL Low 4.2-5.4 [facility] Comment on above: Performed By: #### L 3890.6005, BTS, L509.4005, L100.0100, L3890.6100, L3890.6300, L509.8000, L501.9985 #### [facility] [address] [place], [address] RDW SD 42.0 fl Normal 35.1-43.9 [facility] Comment on above: Performed By: #### L 3890.6005, BTS, L509.4005, L100.0100, L3890.6100, L3890.6300, L509.8000, L501.9985 #### [facility] [address] [place], [address] WBC (Bld) [#/Vol] 11.4 10*3/uL High 4.4-11.0 [facility] Comment on above: Performed By: #### L 3890.6005, BTS, L509.4005, L100.0100, L3890.6100, L3890.6300, L509.8000, L501.9985 #### [facility] [address] [place], [address] Chlamydia trachomatis rRNA d etection by probe and target amplification methodOrdered By: Lory Saldana on 12-09-2024 C. trachomatis rRNA KENYON+probe Ql (Unsp spec) Negative Negative [facility] Eosinophil percentageOrdered By: Lory Saldana on 12-09-2024 Eosinophils/100 WBC (Bld) 0.3 % 0-5 [facility] Erythrocyte distribution wid th ratioOrdered By: Lory Saldana on 12-09-2024 Erythrocyte distribution width (RBC) [Ratio] 12.0 % 11.6-14.6 [facility] Erythrocyte distribution wid th standard deviationOrdered By: Lory Saldana on 12-09-2024 Erythrocyte distribution width (RBC) [Entitic vol] 42.0 fL 35.1-43.9 [facility] Erythrocyte distribution width (RBC) [Ratio] 42.0 fl 35.1-43.9 [facility] HIV 1 and HIV-2 antibody ass ay with HIV-1 p24 antigen detectionOrdered By: Lory Saldana on 12-09-2024 HIV 1+2 Ab+HIV1 p24 Ag IA Ql Non-Reactive Nonreactive [facility] HIV 1+2 Ab+HIV1 p24 Ag IA Ql Ordered By: Lory Saldana on 12-09-2024 HIV (1&2) Antibody Non-Reactive Nonreactive [facility] Hematocrit Auto (Bld) [Volum e fraction]Ordered By: Lory Saldana on 12-09-2024 Hematocrit (Bld) [Volume fraction] 35.7 % Low 37-47 [facility] Hemoglobin A1con 12-09-2024 HbA1c (Bld) [Mass fraction] 5.1 % Normal 3.8-5.6 [facility] Comment on above: Result Comment: Norm al < 5.7 % Prediabetic 5.7 - 6.4 % Diabetic >or= 6.5 % Please note range changes. Performed By: #### L 3890.6005, BTS, L509.4005, L100.0100, L3890.6100, L3890.6300, L509.8000, L501.9985 #### [facility] [employer] [address] [place], [place], [id number] Hemoglobin A1c percentageOrd ered By: Lory Saldana on 12-09-2024 HbA1c (Bld) [Mass fraction] 5.1 % 3.8-5.6 [facility] Comment on above: Normal < 5.7 % Predi abetic 5.7 - 6.4 % Diabetic >or= 6.5 % Please note range changes. Hemoglobin measurementOrdere d By: Lory Saldana on 12-09-2024 Hemoglobin (Bld) [Mass/Vol] 12.1 g/dL 12.0-15.0 [facility] Hepatitis B surface antigen detectionOrdered By: Lory Saldana on 12-09-2024 Hepatitis B Surface Antigen Non-Reactive Nonreactive [facility] Hepatitis C virus antibody a ssayOrdered By: Lory Saldana on 12-09-2024 Hepatitis C Antibody Non-Reactive Nonreactive [facility] Comment on above: Non Reactive: < 0.8 Equivocal: >/= 0.8 to < 1.0 Reactive: >/= 1.0The CDC requires that a reactive/equivocal HCV antibody result be sent out for confirmation. HCV Quant by PCR testing. Immature granulocytes/100 WB C Auto (Bld)Ordered By: Lory Saldana on 12-09-2024 Immature granulocytes/100 WBC (Bld) 0.400 % 0.0-0.9 [facility] Comment on above: IG% - Immature Granu locytes (promyelocytes, myelocytes and metamyelocytes) > 1% indicates that a LEFT SHIFT is Present. Lymphocytes Auto (Unsp spec) [#/Vol]Ordered By: Lory Saldana on 12-09-2024 Lymphocytes (Bld) [#/Vol] 2.21 10*3/uL 0.83-4.51 [facility] Lymphocytes/100 WBC Auto (Un sp spec)Ordered By: Lory Saldana on 12-09-2024 Lymphocytes/100 WBC (Bld) 19.4 % 19-41 [facility] MCV (mean corpuscular volume ) determinationOrdered By: Lory Saldana on 12-09-2024 MCV (RBC) [Entitic vol] 93.9 fL 81-99 [facility] Mean corpuscular hemoglobin (MCH) determinationOrdered By: Lory Saldana on 12-09-2024 MCH (RBC) [Entitic mass] 31.8 pg 27.0-32.0 [facility] Mean corpuscular hemoglobin concentration (MCHC) determinationOrdered By: Lory Saldana on 12-09-2024 MCHC (RBC) [Mass/Vol] 33.9 g/dL 32-36 [facility] Mean platelet volume determi nationOrdered By: Lory Saldana on 12-09-2024 Platelet mean volume (Bld) [Entitic vol] 10.6 fL 6.2-12.0 [facility] Monocyte percentageOrdered B y: Lory Saldana on 12-09-2024 Monocytes/100 WBC (Bld) 5.0 % 0-10 [facility] Neisseria gonorrhoeae nuclei c acid detection by amplified probe techniqueOrdered By: Lory Saldana on 12-09-2024 N. gonorrhoeae DNA KENYON+probe Ql (Unsp spec) Negative Negative [facility] Comment on above: Performed at: =[address] [place] [id number] Director: Monique Neil MD, Phone: [phone] Neutrophil percentageOrdered By: Lory Saldana on 12-09-2024 Neutrophils/100 WBC (Bld) 74.7 % High 47-70 [facility] Nucleated red blood cell per centageOrdered By: Lory Saldana on 12-09-2024 Nucleated RBC/100 WBC (Bld) [Ratio] 0 % 0-5 [facility] Wound/Ostomy Clinical Nurse Specialist Office Visit Reporton 12-09-2024 Wound/Ostomy Clinical Nurse Specialist Office Visit Report [facility] [address], [address] [place] [address] OFFICE VISIT Date of Service: 12/09/24 MR#: [id number] Acct: [id number] Name: ALYSSA PRO Rep #: [id number] : 2000 Provider: MINERVA Hoang ams Age/Sex: 24/F Location[place] [facility] [place] Status: Signed Intake Vital Signs 10/05/24 13:07 12/09/24 13:06 12/09/24 13:07 Height 5 ft 6 in 5 ft 6 in 5 ft 6 in Weight: 214 lb 205 lb 2 oz BMI 34.5 33.0 BP 122/80 H 136/83 H Intake Visit Reasons: NOB [facility] 09/28 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 Is patient in pain?: No Allergies No Known Allergies Allergy (Verified 12/09/24 13:07) Medications ???Medication ???Instructions ???Recorded ???Confirmed ???Type ondansetron 4 mg disintegrating 4 mg PO Q6H PRN nausea and 11/16/24 12/02/24 Rx tablet vomiting #90 tabs folic acid 400 mcg tablet 0.4 mg PO QDAY PRN 12/02/24 12/02/24 History multivitamin no.47-iron fum 27 cap PO 12/02/24 12/02/24 History mg-folate no.1 1 mg-dha 300 mg capsule (PNV-DHA) Last Menstrual Period: 09/28/24 Zika: Zika virus screening: Negative : No Have you fallen in the past year?: No PFSH PFSH Medical History Dysmenorrhea Anovulation Family History Aunt Breast cancer Maternal Grandfather Cancer Pancreatic- Paternal Mother APL (antiphospholipid syndrome) 9 miscarriages. Cancer skin Social History adopted: No household members: spouse housing: house number of children: 0 service: No current occupational status: employed current occupation: [employer] current occupational exposures/hazards: No pets and animals: Yes pets and animals: dog(s) history of recent travel: Yes ( - October) out of state: Yes out of country: No sexually active: Yes Smoking Status: Never smoker alcohol intake: current alcohol intake frequency: holidays/special occasions only details: not while substance use type: does not use well-balanced diet: daily or most days caffeine: Yes Type: coffee Number of servings: 1 eating out: 4 or more times/week during the past year weight has: decreased > 10 lbs what type of physical activity do you participate in: none art/yazdanism: Latter-Day seatbelt use: always do you feel safe at home: Yes additional social history: - [employer] History 1 Elective abortions Hx Para 0 Spontaneous abortions Hx # Term Pregnancies Ectopic pregnancies Hx # Pregnancies Multiple births # of living children HPI NOB LMP 09/28 Details: ALYSSA PRO is a 24 year old who presents for New OB visit. OB Visit JONAS Calculator Estimated Delivery Date Method Current WG Current Estimate 07/05/25 LMP (Certain) 10w 2d Other Estimates 07/06/25 Ultrasound #1 10w 1d Comments: HIV: Urine Culture: Sequential Screen: NIPT Screen: Estimated Due Date: 07/05/25 Expected Delivery Route/Plan Labor Preferences- CB/BF classes: [] labor support person: [] labor intervention preferences: [] pain management options preferred: [] cut cord/dad catch: [] : [] PP control planned: [] discussed possible routes of delivery and associated risks: [] special requests: [] Specific Issue/Plans Covid status: [] Flu vaccine: [] Tdap vaccine: [] Rhogam: [] LARC form signed: [] Problem list reviewed and updated with the most current plan of care details and appropriate orders placed. Relevant counseling for the gestational age provided. Continue routine care and follow up unless otherwise noted in visit notes/problem list details Initial Weight: Not Recorded Date -???-???-???-???-???-??? -???-???-???-???-???-??? - EGA Weight BP Urine Prot -???-???-???-???-???-??? -???-???-???-???-???-??? - Glucose FHR FuHt Pres Dilation -???-???-???-???-???-??? -???-???-???-???-???-??? - Effaced St Visit Note 12/09/24 -???-???-???-???-???-??? -???-???-???-???-???-??? - 10w 2d 205 lb 2 oz 136/83 -???-???-???-???-???-??? -???-???-???-???-???-??? - 173 -???-???-???-???-???-??? -???-???-???-???-???-??? - KW- CRL cons with dates. Declines NIPT. Menstrual History Last Menstrual Period: 09/28/24 Reported LMP: definite Normal amount/duration: Yes Frequency in days: irregular due to PCOS - 28-40 On hormonal BC at conception: No hCG+: 11/02/24 Antepartum Record Genetic Screening: Congenital Heart Defect: Other, Neural Tube Defect: Other, Hemoglobinopathy Or Carrier: Patient (Mother has antiphospholipid syndrome), Cystic Fibrosis: Other, Chromosome Abnormality: Other, Anupam-Sachs: Other, Hemophilia: Other, Inte (more content not included)... Normal [facility] Platelet countOrdered By: Scout Saldana on 12-09-2024 Platelets (Bld) [#/Vol] 370 10*3/uL 150-450 [facility] RBC Auto (Bld) [#/Vol]Ordere d By: Lory Saldana on 12-09-2024 RBC (Bld) [#/Vol] 3.80 10*6/uL Low 4.2-5.4 [facility] Rubella immune status IgGOrd ered By: Lory Saldana on 12-09-2024 Rubella IgG Antibody Reactive Nonreactive [facility] Comment on above: Antibody Results Int erpretation of Immune Status Non Reactive Presumed Non-Immune Equivocal Equivocal Reactive Presumed Immune Serum Treponema species anti body detectionOrdered By: Lory Saldana on 12-09-2024 Treponema sp Ab Ql (S) Non-Reactive [facility] Treponema sp Ab Ql (S)Ordere d By: Lory Saldana on 12-09-2024 Syphilis Total Antibody Non-Reactive [facility] Type AND Screenon 12-09-2024 Ab SCREEN GEL Negative Normal [facility] Comment on above: Order Comment: PN Performed By: #### L 3890.6005, BTS, L509.4005, L100.0100, L3890.6100, L3890.6300, L509.8000, L501.9985 #### [facility] [address] [place], [place], [address] Urine cultureOrdered By: Hero Saldana on 12-09-2024 Bacteria identified Cx Nom (U) Positive Abnormal [facility] White blood cell (WBC) count Ordered By: Lory Saldana on 12-09-2024 WBC (Bld) [#/Vol] 11.4 10*3/uL High 4.4-11.0 [facility] Wound/Ostomy Clinical Nurse Specialist Office Visit Reporton 10-05-2024 Wound/Ostomy Clinical Nurse Specialist Office Visit Report [facility] [address], [address] [place] [address] OFFICE VISIT Date of Service: 10/05/24 MR#: [id number] Acct: [id number] Name: ALYSSA PRO Rep #: [id number] : 2000 Provider: OLIVIA pearce Age/Sex: 24/F [place] [facility] [place] Signed Intake Vital Signs 10/05/24 13:07 Height 5 ft 6 in Weight: 214 lb BMI 34.5 BP 122/80 H Intake Visit Reasons: FERTILITY CONSULT Chief Complaint: Fertility consult 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 Is patient in pain?: No Allergies No Known Allergies Allergy (Unverified 10/05/24 13:03) Medications ???Medication ???Instructions ???Recorded ???Confirmed ???Type docosahexaenoic acid 200 mg mg PO 10/05/24 10/05/24 History capsule ( DHA) folic acid 400 mcg tablet 0.4 mg PO QDAY 10/05/24 10/05/24 History Is last menstrual period known: Yes Last Menstrual Period: 09/18/24 Post menopausal: No Patient : No : No PFSH Family History Aunt Breast cancer Maternal Grandfather Cancer Pancreatic- Paternal Mother APL (antiphospholipid syndrome) 9 miscarriages. Social History household members: spouse housing: house number of children: 0 current occupational status: employed current occupation: [employer] Smoking Status: Never smoker alcohol intake: current alcohol intake frequency: holidays/special occasions only substance use type: does not use seatbelt use: always do you feel safe at home: Yes additional social history: - Mansoor-Aide NICHOLS FERTILITY CONSULT Details: ALYSSA PRO is a 24 year old who presents for discussion of no ovulation on home tests X 3 cycles. She is having a menses about every 38-39 days. States has 4 days of brown discharge then 4-6 days of menses. History of PCOS. Had thyroid labs and PCOS labs in last year with another provider. She did have an elevated prolactin but repeated that with an APL in January 2024 when saw me and normal. Female Reproductive History Last Menstrual Period: 09/18/24 History 0 Elective abortions Hx Para Spontaneous abortions Hx # Term Pregnancies Ectopic pregnancies Hx # Pregnancies Multiple births # of living children ROS Const Constitutional: Reports system reviewed and no additional complaints, except as documented Eyes Eyes: Reports system reviewed and no additional complaints, except as documented GI GI: Denies abdominal pain or change in bowel habits : Reports as per HPI Exam Const General: cooperative and no acute distress Orientation: oriented x3 HENMT Head: normal to inspection and normocephalic Eyes General: appearance normal, both eyes and all related structures Neck Neck: normal visual inspection Resp Effort Inspection: normal respiratory effort Neuro Cognition: normal cognition Speech: speech normal Psych Appearance: grossly normal Mood: congruent mood Affect: normal affect Speech and Movement: speech and movement normal Attitude: cooperative Judgment: judgment good Coding Level of Care Code Off vis,est,level 3 Diagnoses Anovulation N97.0 PCOS (polycystic ovarian syndrome) E28.2 Assessment and Plan Assessment and Plan (1) Anovulation: Status: Acute Comment: Day 21 and 28 progesterone. Day 3 send out only. SA spouse. Orders given/lives in [place]. 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 10/05/24 1327 Date Ursula Mcmullen NP JANITOR-C Cosigner Signature: Date (if applicable) CC: Normal [facility] CBC WITH AUTO DIFFERENTIALon 04-06-2024 AUTO NRBC 0.0 % Normal [facility] Comment on above: Performed By: #### L [id number] #### [facility] [address] [place], [place] [address] Harley Machuca M.D. [id number] AUTO NRBC ABS COUNT 0.00 K/mcL Normal 0.00-0.[address] [facility] Comment on above: Performed By: #### L [id number] #### [facility] [address] [place], [place] [address] Harley Machuca M.D. [id number] BASOPHILS ABSOLUTE COUNT 0.03 K/mcL Normal 0.00-0.30 [facility] Comment on above: Performed By: #### L [id number] #### LAB [address] [place] [address] Harley Machuca M.D. [id number] Basophils/100 WBC (Bld) 0.4 % Normal [facility] Comment on above: Performed By: #### L [id number] #### LAB [address] [place] [address] Harley Machuca M.D. [id number] Eosinophils (Bld) [#/Vol] 0.06 10*3/uL Normal 0.00-0.50 [facility] Comment on above: Performed By: #### L [id number] #### LAB [address] [place] [address] Harley Machuca M.D. [id number] Eosinophils/100 WBC (Bld) 0.7 % Normal [facility] Comment on above: Performed By: #### L [id number] #### LAB [address] [place] [address] Harley Machuca M.D. [id number] Erythrocyte distribution width (RBC) [Ratio] 12.4 % Normal 11.6-14.8 [facility] Comment on above: Performed By: #### L [id number] #### LAB [address] [place] [address] Harley Machuca M.D. [id number] Hematocrit (Bld) [Volume fraction] 36.8 % Normal 36.0-46.0 [facility] Comment on above: Performed By: #### L [id number] #### LAB [address] [place] [address] Harley Machuca M.D. [id number] Hemoglobin (Bld) [Mass/Vol] 12.5 g/dL Normal 12.0-16.0 [facility] Comment on above: Performed By: #### L [id number] #### LAB [address] [place] [address] Harley Machuca M.D. [id number] IG ABSOLUTE 0.02 K/mcL Normal 0.00-0.30 [facility] Comment on above: Performed By: #### L [id number] #### LAB [address] [place] [address] Harley Machuca M.D. [id number] IG PERCENT 0.20 % Normal [facility] Comment on above: Result Comment: The IG parameter is the percentage of metamyelocytes, myelocytes and promyelocytes. An immature granulocyte count (IG) of 1% or more suggests the possibility of infection, an IG count of 3% is very likely related to an infection. Performed By: #### L [id number] #### LAB [address] [place] [address] Harley Machuca M.D. [id number] Lymphocytes (Bld) [#/Vol] 2.15 10*3/uL Normal 0.90-4.00 [facility] Comment on above: Performed By: #### L [id number] #### LAB [address] [place] [address] Harley Machuca M.D. [id number] Lymphocytes/100 WBC (Bld) 26.4 % Normal [facility] Comment on above: Performed By: #### L [id number] #### [facility] [address] [place] [address] Harley Machuca M.D. [id number] MCH (RBC) [Entitic mass] 32.1 pg Normal 26.0-34.0 [facility] Comment on above: Performed By: #### L [id number] #### [facility] [address] [place] [address] Harley Machuca M.D. [id number] MCV (RBC) [Entitic vol] 94.6 fL Normal 80.0-100.0 [facility] Comment on above: Performed By: #### L [id number] #### LAB [address] [place] [address] Harley Machuca M.D. [id number] MEAN CORPUSCULAR HEMOGLOBIN CONC 34.0 g/dL Normal 31.0-37.0 [facility] Comment on above: Performed By: #### L [id number] #### LAB [address] [place] [address] Harley Machuca M.D. [id number] Monocytes (Bld) [#/Vol] 0.68 10*3/uL Normal 0.30-0.90 [facility] Comment on above: Performed By: #### L [id number] #### LAB [address] [place] [address] Harley Machuca M.D. [id number] Monocytes/100 WBC (Bld) 8.4 % Normal [facility] Comment on above: Performed By: #### L [id number] #### LAB [address] [place] [address] Harley Machuca M.D. [id number] NEUTROPHILS ABSOLUTE COUNT 5.19 K/mcL Normal 1.70-7.00 [facility] Comment on above: Performed By: #### L [id number] #### LAB [address] [place] [address] Harley Machuca M.D. [id number] Neutrophils/100 WBC (Bld) 63.9 % Normal [facility] Comment on above: Performed By: #### L [id number] #### LAB [address] [place] [address] Harley Machuca M.D. [id number] Platelet mean volume (Bld) [Entitic vol] 10.1 fL Normal 9.4-12.4 [facility] Comment on above: Performed By: #### L [id number] #### LAB [address] [place] [address] Harley Machuca M.D. [id number] Platelets (Bld) [#/Vol] 364 10*3/uL Normal 150-400 [facility] Comment on above: Performed By: #### L [id number] #### LAB [address] [place] [address] Harley Machuca M.D. [id number] RBC (Bld) [#/Vol] 3.89 10*6/uL Low 4.00-5.[address] [facility] Comment on above: Performed By: #### L [id number] #### [facility] [address] [place] [address] Harley Machuca M.D. [id number] WBC (Bld) [#/Vol] 8.13 10*3/uL Normal 4.50-11.[address] [facility] Comment on above: Performed By: #### L [id number] #### [facility] [address] [place] [address] Harley Machuca M.D. [id number] COMPREHENSIVE METABOLIC PANE Henrik 04-06-2024 Albumin [Mass/Vol] 4.2 g/dL Normal 3.2-5.2 [facility] Comment on above: Order Comment: [facility] has implemented the eGFR calculation approach that does not have a coefficient for race that conforms to the NKF-ASN Task Force Recommendations. Performed By: #### 4 6126 #### LAB [address] [place] [address] Harley Machuca M.D. [id number] ALP [Catalytic activity/Vol] 86 U/L Normal 40-140 [facility] Comment on above: Order Comment: [facility] has implemented the eGFR calculation approach that does not have a coefficient for race that conforms to the NKF-ASN Task Force Recommendations. Performed By: #### 4 6126 #### [facility] [address] [place] [address] Harley Machuca M.D. [id number] ALT [Catalytic activity/Vol] 15 U/L Normal 0-35 U/L [facility] Comment on above: Order Comment: [facility] has implemented the eGFR calculation approach that does not have a coefficient for race that conforms to the NKF-ASN Task Force Recommendations. Performed By: #### 4 6126 #### [facility] [address] [place] [address] Harley Machuca M.D. [id number] Anion gap [Moles/Vol] 14 mmol/L Normal 10-20 [facility] Comment on above: Order Comment: [facility] has implemented the eGFR calculation approach that does not have a coefficient for race that conforms to the NKF-ASN Task Force Recommendations. Performed By: #### 4 6126 #### LAB [address] [place] [address] Harley Machuca M.D. [id number] AST [Catalytic activity/Vol] 22 U/L Normal 0-35 U/L [facility] Comment on above: Order Comment: [facility] has implemented the eGFR calculation approach that does not have a coefficient for race that conforms to the NKF-ASN Task Force Recommendations. Performed By: #### 4 6126 #### LAB [address] [place] [address] Harley Machuca M.D. [id number] Bilirubin [Mass/Vol] 0.5 mg/dL Normal 0.0-1.3 [facility] [place] [facility] Comment on above: Order Comment: [facility] has implemented the eGFR calculation approach that does not have a coefficient for race that conforms to the NKF-ASN Task Force Recommendations. Performed By: #### 4 6126 #### LAB [address] [place] [address] Harley Machuca M.D. [id number] Calcium [Mass/Vol] 9.2 mg/dL Normal 8.4-10.2 [facility] Comment on above: Order Comment: [facility] has implemented the eGFR calculation approach that does not have a coefficient for race that conforms to the NKF-ASN Task Force Recommendations. Performed By: #### 4 6126 #### LAB [address] [place] [address] Harley Machuca M.D. [id number] Chloride [Moles/Vol] 105 mmol/L Normal 98-108 [facility] [place] [facility] Comment on above: Order Comment: [facility] has implemented the eGFR calculation approach that does not have a coefficient for race that conforms to the NKF-ASN Task Force Recommendations. Performed By: #### 4 6126 #### LAB [address] [place], [place] [address] Harley Machuca M.D. [id number] Creatinine [Mass/Vol] 0.76 mg/dL Normal 0.40-1.10 [facility] Comment on above: Order Comment: [facility] has implemented the eGFR calculation approach that does not have a coefficient for race that conforms to the NKF-ASN Task Force Recommendations. Performed By: #### 4 6126 #### LAB [address] [place] [address] Harley Machuca M.D. [id number] EGFR 113 mL/min/1.73 m2 Normal >=60 [facility] Comment on above: Order Comment: [facility] has implemented the eGFR calculation approach that does not have a coefficient for race that conforms to the NKF-ASN Task Force Recommendations. Result Comment: Pat mated GFR was calculated using the 2020 CKD-EPI creatinine equation. Performed By: #### 4 6126 #### LAB [address] [place] [address] Harley Machuca M.D. [id number] Glucose [Mass/Vol] 92 mg/dL Normal 65-99 [facility] Comment on above: Order Comment: [facility] has implemented the eGFR calculation approach that does not have a coefficient for race that conforms to the NKF-ASN Task Force Recommendations. Performed By: #### 4 6126 #### LAB [address] [place] [address] Harley Machuca M.D. [id number] HCO3 (Bld) [Moles/Vol] 22 mmol/L Normal 21-32 [facility] Comment on above: Order Comment: [facility] has implemented the eGFR calculation approach that does not have a coefficient for race that conforms to the NKF-ASN Task Force Recommendations. Performed By: #### 4 6126 #### LAB [address] [place] [address] Harley Machuca M.D. [id number] Potassium [Moles/Vol] 4.1 mmol/L Normal 3.5-5.1 [facility] Comment on above: Order Comment: [facility] has implemented the eGFR calculation approach that does not have a coefficient for race that conforms to the NKF-ASN Task Force Recommendations. Performed By: #### 4 6126 #### LAB [address] [place] [address] Harley Machuca M.D. [id number] Protein [Mass/Vol] 6.9 g/dL Normal 6.0-8.0 [facility] Comment on above: Order Comment: [facility] has implemented the eGFR calculation approach that does not have a coefficient for race that conforms to the NKF-ASN Task Force Recommendations. Performed By: #### 4 6126 #### LAB [address] [place] [address] Harley Machuca M.D. [id number] Sodium [Moles/Vol] 137 mmol/L Normal 135-145 [facility] Comment on above: Order Comment: [facility] has implemented the eGFR calculation approach that does not have a coefficient for race that conforms to the NKF-ASN Task Force Recommendations. Performed By: #### 4 6126 #### LAB [address] [place] [address] Harley Machuca M.D. [id number] Urea nitrogen [Mass/Vol] 17 mg/dL Normal 8-25 [facility] Comment on above: Order Comment: [facility] has implemented the eGFR calculation approach that does not have a coefficient for race that conforms to the NKF-ASN Task Force Recommendations. Performed By: #### 4 6126 #### LAB [address] [place] [address] Harley Machuca M.D. [id number] Urea nitrogen/Creatinine [Mass ratio] 22.4 mg/mg High 10.0-20.0 [facility] Comment on above: Order Comment: [facility] has implemented the eGFR calculation approach that does not have a coefficient for race that conforms to the NKF-ASN Task Force Recommendations. Performed By: #### 4 6126 #### LAB [address] [place] [address] Harley Machuca M.D. [id number] Comprehensive metabolic 2000 panelon 04-06-2024 Albumin [Mass/Vol] 4.2 g/dL 3.2 - 5.2 g/dL [facility] ALP [Catalytic activity/Vol] 86 U/L 40 - 140 U/L [facility] ALT [Catalytic activity/Vol] 15 U/L 0-35 U/L [facility] Anion gap [Moles/Vol] 14 mmol/L 10 - 2 0 mmol/L [facility] AST [Catalytic activity/Vol] 22 U/L 0-35 U/L [facility] Bilirubin [Mass/Vol] 0.5 mg/dL 0.0 - 1 .3 mg/dL [facility] Calcium [Mass/Vol] 9.2 mg/dL 8.4 - 10. 2 mg/dL [facility] Chloride [Moles/Vol] 105 mmol/L 98 - 10 8 mmol/L [facility] Creatinine [Mass/Vol] 0.76 mg/dL 0.40 - 1.10 mg/dL [facility] GFR/1.73 sq M.predicted CKD-EPI (S/P/Bld) [Vol rate/Area] 113 - PINF [facility] Comment on above: Estimated GFR was ca lculated using the 2020 CKD-EPI creatinine equation. Glucose [Mass/Vol] 92 mg/dL 65 - 99 mg/dL [facility] HCO3 [Moles/Vol] 22 mmol/L 21 - 32 mmol/L [facility] Potassium [Moles/Vol] 4.1 mmol/L 3.5 - 5.1 mmol/L [facility] Protein [Mass/Vol] 6.9 g/dL 6.0 - 8.0 g/dL [facility] Sodium [Moles/Vol] 137 mmol/L 135 - 145 mmol/L [facility] Urea nitrogen [Mass/Vol] 17 mg/dL 8 - 25 mg/dL [facility] Urea nitrogen/Creatinine [Mass ratio] 22.4 mg/mg High 10.0 - 20.0 [facility] has implemented the eGFR calculation approach that does not have a coefficient for race that conforms to the NKF-ASN Task Force Recommendations. [facility] IRON STUDY WITH FERRITINon 0 04-06-2024 Ferritin [Mass/Vol] 105 ng/mL Normal 13-[address] [facility] Comment on above: Performed By: #### 4 [id number] #### [facility] [address] [place] [id number] Harley Machuca M.D. [id number] Iron [Mass/Vol] 151 ug/dL Normal 30-160 [facility] Comment on above: Performed By: #### 4 7645 #### [facility] [address] [place] [id number] Harley Machuca M.D. [id number] IRON SATURATION 47 % Normal 20-50 [facility] Comment on above: Performed By: #### 4 7645 #### [facility] [address] [place] [address] Harley Machcua M.D. [id number] TIBC (CALCULATED) 321 mcg/dL Normal 225-430 [facility] Comment on above: Performed By: #### 4 7645 #### LAB [address] [place] [address] Harley Machuca M.D. [id number] LIPID PANELon 04-06-2024 Cholesterol [Mass/Vol] 237 mg/dL High 100-199 [facility] Comment on above: Performed By: #### 4 6087 #### [facility] [address] [place] [address] Harley Machuca M.D. [id number] Cholesterol in HDL [Mass/Vol] 43 mg/dL Normal 40-59 [facility] Comment on above: Performed By: #### 4 6087 #### [facility] [address] [place] [address] Harley Machuca M.D. [id number] Cholesterol.total/Chol esterol in HDL [Mass ratio] 5.5 {ratio} Normal [facility] Comment on above: Result Comment: Fema le Cholesterol/HDL Ratio: Average risk: 4.4 1/2 average risk: 3.3 2 x average risk: 7.1 Performed By: #### 4 6076 #### [facility] [address] [place] [address] Harley Machuca M.D. [id number] LDL CHOLESTEROL CALCULATED 166 mg/dL High 10-130 [facility] Comment on above: Result Comment: [facility] Cholesterol Education Program Guidelines: LDL Cholesterol Optimal: <100 mg/dL Near Optimal/above Optimal: 100-129 mg/dL Borderline High: 130-159 mg/dL High: 160-189 mg/dL Very High: greater than or equal to 190 mg/dL Performed By: #### 4 6087 #### LAB [address] [place], [place] [address] Harley Machuca M.D. [id number] NON HDL CHOL 194 mg/dL Normal [facility] Comment on above: Result Comment: [facility] Cholesterol Education Program Guidelines: NON HDL Cholesterol Desirable: <130 mg/dL Borderline High: 130-159 mg/dL High: 160-189 mg/dL Very High: > or = 190 mg/dL Performed By: #### 4 6087 #### LAB [address] [place], [place] [address] Harley Machuca M.D. [id number] Triglyceride [Mass/Vol] 141 mg/dL Normal 30-150 [facility] Comment on above: Performed By: #### 4 6087 #### LAB [address] [place], [place] [address] Harley Machuca M.D. [id number] Laboratory - Chemistry and C hemistry - challengeon 04-06-2024 Ferritin [Mass/Vol] 105 ng/mL 13 - 150 ng/mL [facility] Iron [Mass/Vol] 151 ug/dL [facility] Iron binding capacity [Mass/Vol] 321 [facility] Iron saturation [Mass fraction] 47 % 20 - 50 % [facility] Lipid 1996 panelon Cholesterol [Mass/Vol] 237 mg/dL High 100 - 199 mg/dL [facility] Cholesterol in HDL [Mass/Vol] 43 mg/dL 40 - 59 mg/dL [facility] Cholesterol in LDL [Mass/Vol] 166 mg/dL High 10 - 130 mg/dL [facility] Comment on above: National Cholesterol Education Program Guidelines: LDL Cholesterol Optimal: <100 mg/dL Near Optimal/above Optimal: 100-129 mg/dL Borderline High: 130-159 mg/dL High: 160-189 mg/dL Very High: greater than or equal to 190 mg/dL Cholesterol non HDL [Mass/Vol] 194 mg/dL [facility] Comment on above: National Cholesterol Education Program Guidelines: NON HDL Cholesterol Desirable: <130 mg/dL Borderline High: 130-159 mg/dL High: 160-189 mg/dL Very High: > or = 190 mg/dL Cholesterol.total/Chol esterol in HDL [Mass ratio] 5.5 {ratio} ratio [facility] Comment on above: Female Cholesterol/H DL Ratio: Average risk: 4.4 1/2 average risk: 3.3 2 x average risk: 7.1 Triglyceride [Mass/Vol] 141 mg/dL 30 - 150 mg/dL [facility] No Panel Informationon 04-06 Interpretation and review of laboratory results Abnormal [facility] Interpretation and review of laboratory results Normal [facility] TSH DL <= 0.005 mIU/L Qnon 0 04-06-2024 TSH Qn 3.33 m[IU]/L [facility] TSH WITH REFLEX FREE T4on TSH Qn 3.33 m[IU]/L Normal 0.27-4.20 [facility] Comment on above: Performed By: #### 4 [id number] #### [facility] [address] [place], [place] [address] Harley Machuca M.D. [id number] Dilute Wing's viper venom timeOrdered By: Ursula Mcmullen on 02-12-2024 dRVVT Coag (PPP) [Time] 34.8 s 0.0-47.0 [facility] No Panel InformationOrdered By: Ursula Mcmullen on 02-12-2024 Anti-Cardiolipin IgM Antibody < 9 MPL U/mL 0-12 [facility] Comment on above: Negative: <13 Indete rminate: 13 - 20 Low-Med Positive: >20 - 80 High Positive: >80Performed at: - [facility] [id number] Director: Hien Julian MD, Phone: [phone] at: [facility] [id number] [place], [place] [id number] Director: Dragan Gotti PhD, Phone: [phone] Prolactin 13.1 ng/mL [facility] Comment on above: NORMAL REFERENCE RAN GES FEMALE NON- 2.2 - 30.3 ng/mL 8.1 - 347.6 ng/mL POST-MENOPAUSAL 0.7 - 31.5 ng/mL MALE 2.5 - 17.4 ng/mL Serum beta 2 glycoprotein 1 IgA antibody detectionOrdered By: Ursula Mcmullen on 02-12-2024 Beta 2 glycoprotein 1 IgA Ql (S) <9 0-25 [facility] Comment on above: Result Units: GPI Ig A unitsThe reference interval reflects a 3SD or 99th percentileinterval, which is thought to represent a potentiallyclinically significant result in accordance with theInternational Consensus Statement on the classificationcriteria for definitive antiphospholipid syndrome (APS). JThromb Haem 2006;4:295-306. Serum beta 2 glycoprotein 1 IgG antibody detectionOrdered By: Ursula Mcmullen on 02-12-2024 Beta 2 glycoprotein 1 IgG Ql (S) <9 0-20 [facility] Comment on above: Result Units: GPI Ig G unitsThe reference interval reflects a 3SD or 99th percentileinterval, which is thought to represent a potentiallyclinically significant result in accordance with theInternational Consensus Statement on the classificationcriteria for definitive antiphospholipid syndrome (APS). JThromb Haem 2006;4:295-306. Serum beta 2 glycoprotein 1 IgM antibody detectionOrdered By: Ursula Mcmullen on 02-12-2024 Beta 2 glycoprotein 1 IgM Ql (S) <9 0-32 [facility] Comment on above: Result Units: GPI Ig M unitsThe reference interval reflects a 3SD or 99th percentileinterval, which is thought to represent a potentiallyclinically significant result in accordance with theInternational Consensus Statement on the classificationcriteria for definitive antiphospholipid syndrome (APS). JThromb Haem 2006;4:295-306. Serum cardiolipin IgG antibo dy assay by immunoassay (units/volume)Ordered By: Ursula Mcmullen on 02-12-2024 Cardiolipin IgG IA Qn (S) < 9 GPL U/mL 0-14 [facility] Comment on above: Negative: <15 Indete rminate: 15 - 20 Low-Med Positive: >20 - 80 High Positive: >80 Thin prep Papanicolaou smear with manual screeningOrdered By: Ursula Mcmullen on 02-12-2024 Thin prep Papanicolaou smear with manual screening 36.8 sec 0.0-47.6 [facility] Thin prep Papanicolaou smear with manual screening 1.01 Ratio 0.00-1.34 [facility] Thin prep Papanicolaou smear with manual screening 23.8 sec 0.0-43.5 [facility] Thin prep Papanicolaou smear with manual screening Comment: . [facility] Comment on above: No lupus anticoagula nt was detected. Thrombin time in platelet po or plasmaOrdered By: Ursula Mcmullen on 02-12-2024 Thrombin time Coag (PPP) [Time] 17.6 sec 0.0-23.0 [facility] MR PITUITARY WITH AND WITHOU T CONTRASTon 04-23-2023 MR PITUITARY WITH AND WITHOUT CONTRAST EXAMINATION: MRI OF THE BRAIN/PITUITARY WITH AND WITHOUT CONTRAST 04/23/2023 TECHNIQUE: Multiplanar multisequence MRI of the brain focused on the pituitary was performed with and without the administration of intravenous contrast. COMPARISON: None. HISTORY: ORDERING SYSTEM PROVIDED HISTORY: elevated prolactin; TECHNOLOGIST PROVIDED HISTORY: Illness/Other Acuity: Acute Reason for Exam: Elevated prolactin level, possible pituitory adenoma Type of Encounter: Initial Additional signs and symptoms: Elevated prolactin level ORDERING SYSTEM PROVIDED DIAGNOSIS CODES: R79.89 Elevated prolactin level FINDINGS: INTRACRANIAL STRUCTURES: There is a focus of hypoenhancement along the posterior aspect of the pituitary gland on the left-hand side measuring 4.2 mm in diameter on image number 9 of series 14. This is favored to represent the cleft between the adeno and neurohypophysis. There is no acute infarct. No mass effect or midline shift. No evidence of an acute intracranial hemorrhage. The ventricles and sulci are normal in size and configuration. The normal signal voids within the major intracranial vessels appear maintained. No abnormal focus of enhancement is seen within the brain. ORBITS: The visualized portion of the orbits demonstrate no acute abnormality. SINUSES: The visualized paranasal sinuses and mastoid air cells are well aerated. BONES/SOFT TISSUES: The bone marrow signal intensity appears normal. The soft tissues demonstrate no acute abnormality. IMPRESSION: No definite pituitary microadenoma identified. With continued clinical concern, recommend repeat exam with thin cuts and dynamic postcontrast imaging for further evaluation. Workstation ID: [id number] Dictated by: SHUBHAM HERRING on ThuApril 26, 2023 6:16:25 PM EDT Transcribed by: SHUBHAM HERRING on [place] April 26, 2023 6:16:25 PM EDT Finalized by: SHUBHAM HERRING on [place] April 26, 2023 6:16:25 PM EDT [facility] Comment on above: Order Comment: Injur y/Trauma or Illness?:Illness/Other How long have you had these symptoms (acute/chronic)?:Acute Reason for exam?:Elevated prolactin level, possible pituitory adenoma Type of Exam?:Initial Additional signs and symptoms?:Elevated prolactin level DHEA-SulfateOrdered By: Martha Zamorano on 04-09-2023 DHEA-S [Mass/Vol] 326 ug/dL [facility] Comment on above: Assay performed by Sophia arabella [employer] DXI Immunoassay. Interpretation and review of laboratory results Normal [facility] HbA1c (Bld) [Mass fraction]O rdered By: Sammie Bran on 04-09-2023 Average glucose Estimated from glycated hemoglobin (Bld) [Mass/Vol] 100 mg/dL 68 - 114 mg/dL [facility] Interpretation and review of laboratory results Normal [facility] Normal: 4.0% - 5.6% Increased risk for diabetes: 5.7% - 6.4% Diabetes: >= 6.5% Pediatrics: No established reference range Estimated average glucose: 68-114 mg/dL [facility] Hemoglobin [id number] By: Tiarra Bran on 04-09-2023 HbA1c (Bld) [Mass fraction] 5.1 % 4.0 - 5.6 % [facility] Testosterone Free [Mass/Vol] Ordered By: Chucky White on 04-09-2023 Albumin [Mass/Vol] 4.5 g/dL 3.8 - 5.3 g/dL [facility] Calculated Free Testosterone 5.1 pg/mL 1.0 - 9.0 pg/mL [facility] Interpretation and review of laboratory results Normal [facility] Sex hormone binding globulin [Moles/Vol] 29.4 nmol/L 24.6 - 122 nmol/L [facility] Testosterone [Mass/Vol] 27 ng/dL 6 - 82 ng/dL [facility] Follicle Stimulating Hormone on 04-08-2023 Follitropin Qn 2.1 m[IU]/mL mIU/mL [facility] Follitropin Qnon 04-08-2023 FSH Female: Follicular phase: 3.0-20.0 Midcycle peak: 9.0-26.0 Luteal phase: 1.0-12.0 Post menopausal: 18.0-153.0 [facility] HCG Qnon 04-08-2023 Beta HCG ( test) Ql (U) Males and non females: <5 mIU/mL Females during : 3-4 weeks 9-130 mIU/mL 4-5 weeks 75-2600 mIU/mL 5-6 weeks 850-20,800 mIU/mL 6-7 weeks 4000-100,200 mIU/mL 7-12 weeks 11,500-289,000 mIU/mL 12-16 weeks 18,300-137,000 mIU/mL 16-29 weeks 1,400-53,000 mIU/mL 29-41 weeks 940-60,000 mIU/mL [facility] Luteinizing Hormoneon 2022 Lutropin Qn 9.7 m[IU]/mL mIU/mL [facility] Lutropin Qnon 04-08-2023 LH Female: Follicular phase: 2.0-15.0 Midcycle peak: 22.0-105.0 Luteal phase: 0.6-19.0 Post menopausal: 16.0-64.0 [facility] No Panel Informationon 04-08 [facility] Interpretation and review of laboratory results Normal [facility] Prolactinon 04-08-2023 Prolactin [Mass/Vol] 46.4 ng/mL High 1.4 - 2 4.2 ng/mL [facility] Prolactin [Mass/Vol]on 04-08 Interpretation and review of laboratory results Abnormal [facility] TSH DL <= 0.005 mIU/L Qnon 0 04-08-2023 TSH Qn 2.28 m[IU]/L [facility] hCG, Blood, Quantitativeon 0 04-08-2023 HCG Qn [facility] HCG ( test) Ql (U)O rdered By: Maria Dolores Carrasco on 12-17-2022 Internal Control Pass [facility] POC , urineOrdered By: Maria Dolores Carrasco on 12-17-2022 HCG ( test) Ql (U) Negative Negative [facility] POC Urinalysis Dipstick, Aut oOrdered By: Anton Shetty on 09-23-2021 Bilirubin Ql (U) Negative Negative [facility] Glucose Ql (U) Negative Normal, Negative mg/dL [facility] Hemoglobin Ql (U) Negative Negative [facility] Interpretation and review of laboratory results Abnormal [facility] Ketones Ql (U) Negative Negative mg/dL [facility] Leukocyte esterase Test strip Ql (U) Negative Negative [facility] Nitrite Ql (U) Negative Negative [facility] pH (U) 5.5 [pH] [facility] Protein Ql (U) Negative Negative mg/dL [facility] Specific gravity (U) [Rel density] 1.030 Abnormal [facility] Urobilinogen Qn (U) 0.2 mg/dL <2.0, 0. 2, Normal, Negative, 1.0, 2.0, <1.0 [facility] Comprehensive metabolic 2000 panelon 07-22-2021 Albumin [Mass/Vol] 3.6 g/dL 3.2 - 5.2 g/dL [facility] ALP [Catalytic activity/Vol] 76 U/L 40 - 140 U/L [facility] ALT [Catalytic activity/Vol] 26 U/L 14 - 65 U/L [facility] Anion gap [Moles/Vol] 13 mmol/L 10 - 2 0 mmol/L [facility] AST [Catalytic activity/Vol] 18 U/L 0 - 45 U/L [facility] Bilirubin [Mass/Vol] 0.2 mg/dL 0.0 - 1 .3 mg/dL [facility] Calcium [Mass/Vol] 9.0 mg/dL 8.4 - 10. 2 mg/dL [facility] Chloride [Moles/Vol] 108 mmol/L 98 - 10 8 mmol/L [facility] Creatinine [Mass/Vol] 0.75 mg/dL 0.40 - 1.10 [facility] GFR/1.73 sq M.predicted CKD-EPI (S/P/Bld) [Vol rate/Area] 115 >=60 mL/min/1.73 m2 [facility] Glucose [Mass/Vol] 83 mg/dL 65 - 99 mg/dL [facility] HCO3 [Moles/Vol] 23 mmol/L 21 - 32 mmol/L [facility] Potassium [Moles/Vol] 4.4 mmol/L 3.5 - 5.1 mmol/L [facility] Protein [Mass/Vol] 7.4 g/dL 6.0 - 8.0 g/dL [facility] Sodium [Moles/Vol] 140 mmol/L 135 - 145 mmol/L [facility] Urea nitrogen [Mass/Vol] 13 mg/dL 8 - 25 mg/dL [facility] Urea nitrogen/Creatinine [Mass ratio] 17.3 mg/mg [facility] The eGFR should be u sed for monitoring renal function only and not for medication dosing. [facility] Ferritinon 07-22-2021 Ferritin [Mass/Vol] 53 ng/mL 13 - 150 ng/mL [facility] Iron and Iron binding capaci ty panelon 07-22-2021 Iron [Mass/Vol] [facility] [Mass/Vol] 380 [facility] Iron saturation [Mass fraction] 29 % 20 - 50 % [facility] Lipid 1996 panelon Cholesterol [Mass/Vol] 309 mg/dL High 100 - 199 mg/dL [facility] Comment on above: National Cholesterol Education Program Guidelines: Cholesterol Desirable: <200 mg/dL Borderline High: 200-239 mg/dL High: greater than or equal to 240 mg/dL Cholesterol in HDL [Mass/Vol] 63 mg/dL 40 - 59 [facility] Comment on above: National Cholesterol Education Program Guidelines: HDL Cholesterol Low: <40 mg/dL Near Optimal: 40-59 mg/dL High: greater than or equal to 60 mg/dL Cholesterol in LDL [Mass/Vol] 229 mg/dL High 10 - 130 mg/dL [facility] Comment on above: National Cholesterol Education Program Guidelines: LDL Cholesterol Optimal: <100 mg/dL Near Optimal/above Optimal: 100-129 mg/dL Borderline High: 130-159 mg/dL High: 160-189 mg/dL Very High: greater than or equal to 190 mg/dL Cholesterol non HDL [Mass/Vol] 246 mg/dL [facility] Comment on above: National Cholesterol Education Program Guidelines: NON HDL Cholesterol Desirable: <130 mg/dL Borderline High: 130-159 mg/dL High: 160-189 mg/dL Very High: > or = 190 mg/dL Cholesterol.total/Chol esterol in HDL [Mass ratio] 4.9 {ratio} ratio [facility] Comment on above: Female Cholesterol/H DL Ratio: Average risk: 4.4 1/2 average risk: 3.3 2 x average risk: 7.1 Interpretation and review of laboratory results Abnormal [facility] Triglyceride [Mass/Vol] 87 mg/dL 30 - 150 mg/dL [facility] Comment on above: National Cholesterol Education Program Guidelines: Triglyceride Normal: <150 mg/dL Borderline High: 150-199 mg/dL High: 200-499 mg/dL Very High: greater than or equal to 500 mg/dL No Panel Informationon 07-22 Interpretation and review of laboratory results Normal [facility] POC Urinalysis Dipstick, Aut oOrdered By: Kiara Fung on 07-22-2021 Bilirubin Ql (U) Negative Negative [facility] Glucose Ql (U) Negative Normal, Negative mg/dL [facility] Hemoglobin Ql (U) Trace-lysed Abnormal Negative [facility] Interpretation and review of laboratory results Abnormal [facility] Ketones Ql (U) Negative Negative mg/dL [facility] Leukocyte esterase Test strip Ql (U) Negative Negative [facility] Nitrite Ql (U) Negative Negative [facility] pH (U) 6.5 [pH] [facility] Protein Ql (U) Negative Negative mg/dL [facility] Specific gravity (U) [Rel density] 1.025 [facility] Urobilinogen Qn (U) 0.2 mg/dL <2.0, 0. 2, Normal, Negative, 1.0, 2.0, <1.0 [facility] TSH DL <= 0.005 mIU/L Qnon 0 07-22-2021 TSH Qn 2.40 m[IU]/L [facility] VAGINITIS DNA PROBESon 08-16 Zita sp DNA Probe+sig amp Ql (Vag fld) Negative Negative [facility] G. vaginalis DNA Probe+sig amp Ql (Vag fld) Negative Negative [facility] Interpretation and review of laboratory results Normal [facility] T. vaginalis DNA Probe+sig amp Ql (Vag fld) Negative Negative [facility] POC Infectious Mononucleosis Antibodyon 11-20-2018 Infectious Dolores Negative Invalid Interpretation Code Negative [facility] Internal Control Invalid Interpretation Code [facility] Interpretation and review of laboratory results Abnormal Invalid Interpretation Code [facility] Vital Signs Date Time Vital Sign Value Performing Clinician Facility 06-16-2025 15:42-0400 Body height 167.64 cm No Primary Care Physician [facility] 06-16-2025 [id number] Body mass index (BMI) [Ratio] 36.8 kg/m2 No Primary Care Physician [facility] 06-16-2025 [id number] Body weight 103.58 kg No Primary Care Physician [facility] 06-16-2025 15:42-0400 Diastolic blood pressure 81 mm[Hg] No Primary Care Physician [facility] 06-16-2025 15:42-0400 Systolic blood pressure 117 mm[Hg] No Primary Care Physician [facility] 06-05-2025 09:23-0400 Body height 167.64 cm No Primary Care Physician [facility] 06-05-2025 09:23-0400 Body mass index (BMI) [Ratio] 35.9 kg/m2 No Primary Care Physician [facility] 06-05-2025 09:23-0400 Body weight 100.86 kg No Primary Care Physician [facility] 06-05-2025 09:23-0400 Diastolic blood pressure 73 mm[Hg] No Primary Care Physician [facility] 06-05-2025 09:23-0400 Systolic blood pressure 107 mm[Hg] No Primary Care Physician [facility] 05-26-2025 15:15-0400 Body height 167.64 cm No Primary Care Physician [facility] 05-26-2025 15:14-0400 Body mass index (BMI) [Ratio] 36 kg/m2 No Primary Care Physician [facility] 05-26-2025 15:14-0400 Body weight 101.32 kg No Primary Care Physician [facility] 05-26-2025 15:14-0400 Diastolic blood pressure 76 mm[Hg] No Primary Care Physician [facility] 05-26-2025 15:14-0400 Systolic blood pressure 110 mm[Hg] No Primary Care Physician [facility] 05-09-2025 14:34-0400 Body height 167.64 cm No Primary Care Physician [facility] 05-09-2025 14:34-0400 Body mass index (BMI) [Ratio] 35.4 kg/m2 No Primary Care Physician [facility] 05-09-2025 14:34-0400 Body weight 99.39 kg No Primary Care Physician [facility] 05-09-2025 14:34-0400 Diastolic blood pressure 72 mm[Hg] No Primary Care Physician [facility] 05-09-2025 14:34-0400 Systolic blood pressure 107 mm[Hg] No Primary Care Physician [facility] 04-28-2025 15:06-0400 Body height 167.64 cm No Primary Care Physician [facility] 04-28-2025 15:06-0400 Body mass index (BMI) [Ratio] 35.1 kg/m2 No Primary Care Physician [facility] 04-28-2025 15:06-0400 Body weight 98.65 kg No Primary Care Physician [facility] 04-28-2025 15:06-0400 Diastolic blood pressure 74 mm[Hg] No Primary Care Physician [facility] 04-28-2025 15:06-0400 Systolic blood pressure 110 mm[Hg] No Primary Care Physician [facility] 04-14-2025 15:42-0400 Body height 167.64 cm No Primary Care Physician [facility] 04-14-2025 15:39-0400 Body mass index (BMI) [Ratio] 35 kg/m2 No Primary Care Physician [facility] 04-14-2025 15:39-0400 Body weight 98.54 kg No Primary Care Physician [facility] 04-14-2025 15:39-0400 Diastolic blood pressure 72 mm[Hg] No Primary Care Physician [facility] 04-14-2025 15:39-0400 Systolic blood pressure 101 mm[Hg] No Primary Care Physician [facility] 03-28-2025 14:22-0400 Body height 167.64 cm No Primary Care Physician [facility] 03-28-2025 14:22-0400 Body mass index (BMI) [Ratio] 34.4 kg/m2 No Primary Care Physician [facility] 03-28-2025 14:22-0400 Body weight 96.67 kg No Primary Care Physician [facility] 03-28-2025 14:22-0400 Diastolic blood pressure 68 mm[Hg] No Primary Care Physician [facility] 03-28-2025 14:22-0400 Systolic blood pressure 111 mm[Hg] No Primary Care Physician [facility] 03-01-2025 14:54-0400 Body mass index (BMI) [Ratio] 33.7 kg/m2 No Primary Care Physician [facility] 03-01-2025 14:54-0400 Body weight 94.91 kg No Primary Care Physician [facility] 03-01-2025 14:54-0400 Diastolic blood pressure 74 mm[Hg] No Primary Care Physician [facility] 03-01-2025 14:54-0400 Systolic blood pressure 109 mm[Hg] No Primary Care Physician [facility] 01-31-2025 14:33-0500 Body height 167.64 cm No Primary Care Physician [facility] 01-31-2025 14:32-0500 Body mass index (BMI) [Ratio] 33.3 kg/m2 No Primary Care Physician [facility] 01-31-2025 14:32-0500 Body weight 93.55 kg No Primary Care Physician [facility] 01-31-2025 14:32-0500 Diastolic blood pressure 82 mm[Hg] No Primary Care Physician [facility] 01-31-2025 14:32-0500 Systolic blood pressure 121 mm[Hg] No Primary Care Physician [facility] 01-06-2025 15:33-0500 Body mass index (BMI) [Ratio] 33.1 kg/m2 No Primary Care Physician [facility] 01-06-2025 15:33-0500 Body weight 93.15 kg No Primary Care Physician [facility] 01-06-2025 15:33-0500 Diastolic blood pressure 85 mm[Hg] No Primary Care Physician [facility] 01-06-2025 15:33-0500 Systolic blood pressure 131 mm[Hg] No Primary Care Physician [facility] 12-09-2024 13:06-0500 Body mass index (BMI) [Ratio] 33 kg/m2 No Primary Care Physician [facility] 12-09-2024 13:06-0500 Body weight 93.04 kg No Primary Care Physician [facility] 12-09-2024 13:06-0500 Diastolic blood pressure 83 mm[Hg] No Primary Care Physician [facility] 12-09-2024 13:06-0500 Systolic blood pressure 136 mm[Hg] No Primary Care Physician [facility] 04-04-2024 14:37-0400 Body height 167.6 cm Raphael Razo CNP Work Phone: [facility] 04-04-2024 14:37-0400 Body mass index (BMI) [Ratio] 35.51 kg/m2 Raphael Razo CNP Work Phone: [facility] 04-04-2024 14:37-0400 Body temperature 97.5 [degF] Raphael Dung PROSTHODONTIST/OWNER Work Phone: [facility] 04-04-2024 14:37-0400 Body weight 99.79 kg Raphael Dung PROSTHODONTIST/OWNER Work Phone: [facility] 04-04-2024 14:37-0400 Diastolic blood pressure 78 mm[Hg] Raphael Dung PROSTHODONTIST/OWNER Work Phone: [facility] 04-04-2024 14:37-0400 Heart rate 70 /min Raphael Dung PROSTHODONTIST/OWNER Work Phone: [facility] 04-04-2024 14:37-0400 SaO2% (BldA) [Mass fraction] 98 % Raphael Dung PROSTHODONTIST/OWNER Work Phone: [facility] 04-04-2024 14:37-0400 Systolic blood pressure 118 mm[Hg] Raphael Razo PROSTHODONTIST/OWNER Work Phone: [facility] 04-08-2023 15:23-0400 Body mass index (BMI) [Ratio] 34.81 kg/m2 Kamla Masimore CNM Work Phone: [facility] 04-08-2023 15:23-0400 Body weight 97.84 kg Kamla Masimore CNM Work Phone: [facility] 04-08-2023 15:23-0400 Diastolic blood pressure 77 mm[Hg] Kamla Masimore CNM Work Phone: [facility] 04-08-2023 15:23-0400 Heart rate 97 /min Kamla Masimore CNM Work Phone: [facility] 04-08-2023 15:23-0400 Systolic blood pressure 124 mm[Hg] Kamla Masimore CNM Work Phone: [facility] 12-17-2022 08:27-0500 Body height 167.6 cm Kamla Masimore CNM Work Phone: [facility] 12-17-2022 08:27-0500 Body mass index (BMI) [Ratio] 35.01 kg/m2 Kamla Masimore CNM Work Phone: [facility] 12-17-2022 08:27-0500 Body weight 98.39 kg Kamla Masimore CNM Work Phone: [facility] 12-17-2022 08:27-0500 Diastolic blood pressure 80 mm[Hg] Kamla Masimore CNM Work Phone: [facility] 12-17-2022 08:27-0500 Heart rate 78 /min Kamla Masimore CNM Work Phone: [facility] 12-17-2022 08:27-0500 Systolic blood pressure 131 mm[Hg] Kamla Masimore CNM Work Phone: [facility] 07-14-2022 14:52-0400 Body height 167.6 cm Kamla Masimore CNM Work Phone: [facility] 07-14-2022 14:52-0400 Body mass index (BMI) [Ratio] 33.73 kg/m2 Kamla Masimore CNM Work Phone: [facility] 07-14-2022 14:52-0400 Body weight 94.8 kg Kamla Masimore CNM Work Phone: [facility] 07-14-2022 14:52-0400 Diastolic blood pressure 77 mm[Hg] Kamla Masimore CNM Work Phone: [facility] 07-14-2022 14:52-0400 Heart rate 90 /min Kamla Masimore CNM Work Phone: [facility] 07-14-2022 14:52-0400 Systolic blood pressure 116 mm[Hg] Kamla Masimore CNM Work Phone: [facility] 04-08-2022 13:31-0400 Body height 167.6 cm Kamla Masimore CNM Work Phone: [facility] 04-08-2022 13:31-0400 Body mass index (BMI) [Ratio] 33.25 kg/m2 Kamla Masimore CNM Work Phone: [facility] 04-08-2022 13:31-0400 Body weight 93.44 kg Kamla Basurtoore CNM Work Phone: [facility] 04-08-2022 13:31-0400 Diastolic blood pressure 77 mm[Hg] Kamla Basurtoore CNM Work Phone: [facility] 04-08-2022 13:31-0400 Heart rate 85 /min Kamla Basurtoore CNM Work Phone: [facility] 04-08-2022 13:31-0400 Systolic blood pressure 124 mm[Hg] Kamla Basurtoore CNM Work Phone: [facility] 09-23-2021 07:27-0400 Body height 167.6 cm Tiny Marrufo PROSTHODONTIST/OWNER Work Phone: [facility] 09-23-2021 07:27-0400 Body mass index (BMI) [Ratio] 31.15 kg/m2 Tiny Cloude PROSTHODONTIST/OWNER Work Phone: [facility] 09-23-2021 07:27-0400 Body temperature 98.01 [degF] Tiny Cloude PROSTHODONTIST/OWNER Work Phone: [facility] 09-23-2021 07:27-0400 Body weight 87.54 kg Tiny Cloude PROSTHODONTIST/OWNER Work Phone: [facility] 09-23-2021 07:27-0400 Diastolic blood pressure 78 mm[Hg] Tiny Cloude PROSTHODONTIST/OWNER Work Phone: [facility] 09-23-2021 07:27-0400 Heart rate 97 /min Tiny Cloude PROSTHODONTIST/OWNER Work Phone: [facility] 09-23-2021 07:27-0400 Respiratory rate 18 /min Tiny Marrufo PROSTHODONTIST/OWNER Work Phone: [facility] 09-23-2021 07:27-0400 SaO2% (BldA) [Mass fraction] 98 % Tiny Marrufo PROSTHODONTIST/OWNER Work Phone: [facility] 09-23-2021 07:27-0400 Systolic blood pressure 127 mm[Hg] Tiny Marrufo PROSTHODONTIST/OWNER Work Phone: [facility] 07-22-2021 09:27-0400 Diastolic blood pressure 83 mm[Hg] Tiny Marrufo PROSTHODONTIST/OWNER Work Phone: [facility] 07-22-2021 09:27-0400 Systolic blood pressure 131 mm[Hg] Tiny Marrufo PROSTHODONTIST/OWNER Work Phone: [facility] 08-15-2020 07:22-0400 BMI (Body Mass Index) 28.78 kg/m2 [facility] 08-15-2020 07:22-0400 Body Temperature 97.9 [degF] [facility]-15-2020 07:22-0400 Body weight 80.88 kg [facility] 08-15-2020 07:22-0400 BP Diastolic 79 mm[Hg] [facility] 08-15-2020 07:22-0400 BP Systolic 137 mm[Hg] [facility] 08-15-2020 07:22-0400 Height 167.6 cm [facility] 08-15-2020 07:22-0400 Pulse (Heart Rate) 85 /min [facility] 08-15-2020 07:22-0400 Pulse Oximetry 98 % [facility] 08-15-2020 07:22-0400 Respiratory Rate 16 /min Mary Ann Marbella [facility] 11-20-2018 10:15-0500 BMI (Body Mass Index) 25.82 kg/m2 Nasrin Brenner [facility] 11-20-2018 10:15-0500 Body Temperature 101.41 [degF] Nasrin Brenner [facility] 11-20-2018 10:15-0500 BP Diastolic 69 mm[Hg] Nasrin Brenner [facility] 11-20-2018 10:15-0500 BP Systolic 121 mm[Hg] Nasrin Brenner [facility] 11-20-2018 10:15-0500 Height 167.6 cm Nasrin Brenner [facility] 11-20-2018 10:15-0500 Pulse (Heart Rate) 100 /min Nasrin Brenner [facility] 11-20-2018 10:15-0500 Pulse Oximetry 98 % Nasrin Brenner [facility] 11-20-2018 10:15-0500 Respiratory Rate 18 /min Nasrin [facility] 11-20-2018 10:15-0500 Weight 72.58 kg Nasrin Brenner [facility] Encounters Encounter Date Encounter Type Care Provider Facility Start: 06-20-2025 ambulatory Pam garcia:[facility] Start: 06-16-2025 End: 06-16-2025 Patient encounter procedure Lilliana Melton [facility] Work Phone: Start: 06-16-2025 End: 06-16-2025 ambulatory No Primary Care Physician -[facility] Start: 06-05-2025 End: 06-05-2025 ambulatory No Primary Care Physician -Laboratory Specimen Start: 06-05-2025 End: 06-05-[address] Zulma Garcia DO -Laboratory Specimen Work Phone: Start: 06-05-2025 End: 06-05-[address] Zulma Garcia DO -[facility] Work Phone: Start: 06-05-2025 End: 06-05-2025 ambulatory No Primary Care Physician [facility] Start: 06-05-2025 End: 06-05-2025 ambulatory Zulma Garcia Facility:[facility] Start: 05-26-2025 End: 05-26-[address] Pam Acosta MD -[facility] Work Phone: Start: 05-26-2025 End: 05-26-2025 ambulatory No Primary Care Physician [facility] Start: 05-09-2025 End: 05-09-2025 Patient encounter procedure Lory Saldana [facility] Work Phone: Start: 05-09-2025 End: 05-09-2025 ambulatory No Primary Care Physician [facility] Work Phone: Start: 04-28-2025 End: 04-28-[address] Pam Acosta MD -[facility] Work Phone: Start: 04-28-2025 End: 04-28-2025 ambulatory No Primary Care Physician [facility] Work Phone: Start: 04-14-2025 End: 04-14-[address] Pam Acosta MD -[facility] Work Phone: Start: 04-14-2025 End: 04-14-2025 ambulatory No Primary Care Physician [facility] Work Phone: Start: 03-28-2025 End: 03-28-2025 ambulatory No Primary Care Physician [facility] Work Phone: Start: 03-28-2025 End: 03-28-2025 Patient encounter procedure Lory Saldana CNM -[facility] Work Phone: Start: 03-28-2025 End: 03-28-2025 ambulatory Pam Acosta Facility:[facility] Start: 03-01-2025 End: 03-01-[address] Pam Acosta MD -[facility] Work Phone: Start: 03-01-2025 End: 03-01-2025 ambulatory Pam Acosta Facility:[facility] Start: 02-09-2025 End: 02-09-2025 ambulatory [facility] Start: 01-31-2025 End: 01-31-2025 ambulatory No Primary Care Physician [facility] Work Phone: Start: 01-31-2025 End: 01-31-[address] Zulma Garcia DO -Laboratory, Specimen Work Phone: Start: 01-31-2025 End: 01-31-[address] Zulma Garcia DO -[facility] Work Phone: Start: 01-31-2025 End: 01-31-2025 ambulatory Zulma Garcia Facility:[facility] Start: 01-31-2025 End: 01-31-2025 ambulatory Zulma Garcia Facility:[facility] Start: 01-06-2025 End: 01-06-[address] Zulma Garcia DO -[facility] Work Phone: Start: 01-06-2025 End: 01-06-2025 ambulatory Zulma Garcia Facility:[facility] Start: 12-09-2024 End: 12-09-2024 Patient encounter procedure Lory Saldana CN -[facility] Work Phone: Start: 12-09-2024 End: 12-09-2024 ambulatory Lory Saldana Facility:[facility] Start: 12-09-2024 End: 12-09-2024 ambulatory Lory Les Facility:[facility] Start: 11-07-2024 End: 11-07-2024 Orders Only Raphael Razo PROSTHODONTIST/OWNER Work Phone: [facility] Physician [facility] Comment on above: Less than 8 weeks ge station of (Primary Dx) Start: 10-05-2024 End: 10-05-2024 ambulatory Ursula Mcmullen NP Facility:[facility] Start: 08-18-2024 End: 08-18-2024 Phys/qhp telephone evaluation 11-20 min Raphael Razo PROSTHODONTIST/OWNER Work Phone: [facility] Physician [facility] Comment on above: Upper respiratory tr act infection, unspecified type (Primary Dx) Start: 08-18-2024 End: 08-18-2024 ambulatory [facility] Start: 04-11-2024 Orders Only Raphael iglesias PROSTHODONTIST/OWNER Work Phone: [facility] Physician [facility] Start: 04-08-2024 End: 04-09-2024 ambulatory [facility] Start: 04-07-2024 Orders Only Raphael iglesias PROSTHODONTIST/OWNER Work Phone: [facility] Physician [facility] Comment on above: Palpitations (Primar y Dx); Hypercholesterolemia Start: 04-06-2024 End: 04-10-2024 ambulatory [facility] Start: 04-06-2024 End: 04-10-2024 Encounter for general adult medical examination without abnormal findings [facility] Start: 04-04-2024 End: 04-04-2024 Initial preventive medicine new pt age 18-39yrs Raphael Razo PROSTHODONTIST/OWNER Work Phone: [facility] Comment on above: History of anemia (P rimary Dx); Wellness examination; Hypercholesterolemia; Palpitations Start: 04-04-2024 End: 04-04-2024 Patient encounter status Raphael Razo PROSTHODONTIST/OWNER Work Phone: [facility] Start: 04-04-2024 End: 04-04-2024 ambulatory RAPHAEL RAZO [facility] Start: 04-04-2024 End: 04-04-2024 Encounter for general adult medical examination without abnormal findings RAPHAEL RAZO [facility] Start: 02-12-2024 End: 02-12-2024 ambulatory [facility] Work Phone: Start: 02-12-2024 End: 02-12-2024 Patient encounter procedure [facility] Work Phone: Start: 02-02-2024 End: 02-02-2024 Patient encounter procedure TINY MARRUFO [facility] Work Phone: Start: 08-05-2023 End: 08-09-2023 ambulatory [place] [facility] Start: 04-30-2023 Orders Only Kamla Altaf Basurtoore CNM Work Phone: [facility] Comment on above: Elevated prolactin l evel (Primary Dx) Start: 04-23-2023 End: 04-24-2023 [facility] Start: 04-13-2023 Orders Only Kamla Mayorgandr fady Masimore CNM Work Phone: [facility] Comment on above: Elevated prolactin l evel (Primary Dx) Start: 04-08-2023 End: 04-08-2023 Office outpatient visit 15 minutes Kamla Shirleygriffin CNM Work Phone: [facility] Comment on above: Weight gain (Primary Dx); Menorrhagia with regular cycle Start: 12-25-2022 Orders Only Lele Barger tania,PharmD [facility] Comment on above: Familial hypercholes terolemia (Primary Dx) Start: 12-18-2022 Orders Only Pam landrum R.Ph. Work Phone: [facility] Comment on above: Familial hypercholes terolemia (Primary Dx) Start: 12-17-2022 End: 12-17-2022 Patient encounter procedure Kamla Medina CNM Work Phone: [facility] Start: 12-17-2022 End: 12-17-2022 Periodic preventive med est patient 18-39 yrs Kamla Medina CNM Work Phone: [facility] Comment on above: Well woman exam with routine gynecological exam (Primary Dx); Abnormal menses; Encounter for control pills maintenance Start: 10-09-2022 End: 10-09-2022 Office outpatient visit 5 minutes Pam Burton.Ph. Work Phone: [facility] Comment on above: Familial hypercholes terolemia (Primary Dx) Start: 10-08-2022 Documentation procedure Pam Burton.Ph. Work Phone: [facility] Start: 07-14-2022 End: 07-14-2022 Office outpatient visit 10 minutes Kamla Medina CNM Work Phone: [facility] Physician [facility] Comment on above: Encounter for control pills maintenance (Primary Dx); Menorrhagia with regular cycle Start: 07-01-2022 Documentation procedure Pam Burton.Ph. Work Phone: [facility] Comment on above: Lab grid update Start: 06-12-2022 Refill Kamla Medina CNM Work Phone: [facility] Comment on above: Menorrhagia with reg ular cycle Start: 04-08-2022 End: 04-08-2022 Office outpatient new 30 minutes Kamla Snyder Carol SHUKLA Work Phone: [facility] Comment on above: Menorrhagia with reg ular cycle (Primary Dx) Start: 10-21-2021 Refill Lindsey Zapien MA [facility] Comment on above: Medication Refill Start: 10-03-2021 End: 10-03-2021 ambulatory TINY MARRUFO [facility] Start: 09-26-2021 Orders Only Tiny SHUKLA P Work Phone: [facility] Comment on above: Dyspareunia in femal e (Primary Dx) Start: 09-23-2021 End: 09-23-2021 Office outpatient visit 15 minutes Tiny Marrufo CNP Work Phone: [facility] Comment on above: Suprapubic pain, acu te (Primary Dx); Acute vaginitis Start: 07-22-2021 End: 07-22-2021 Office outpatient visit 15 minutes Tiny Marrufo CNP Work Phone: [facility] Comment on above: Encounter for contra ceptive management, unspecified type (Primary Dx); Right lower quadrant abdominal pain; Screening for lipid disorders; Menorrhagia with irregular cycle; Fatigue, unspecified type Start: 03-18-2021 End: 03-18-2021 Refill Mary Ann Tyson CNP Work Phone: [facility] Comment on above: Menorrhagia with irr egular cycle Start: 03-17-2021 End: 03-17-2021 Refill Mary Ann Tyson CNP Work Phone: [facility] Comment on above: Menorrhagia with irr egular cycle Start: 12-05-2020 End: 12-05-2020 Refill Mary Ann Tyson Work Phone: [facility] Comment on above: Menorrhagia with irr egular cycle Start: 08-15-2020 End: 08-15-2020 Initial preventive medicine new pt age 18-39yrs Mary Ann Tyson Work Phone: [facility] Comment on above: Well adult exam (Evelyn lily Dx); Menorrhagia with irregular cycle; Acute vaginitis; Screening for lipid disorders; Screening for chlamydial disease Start: 11-20-2018 End: 11-20-2018 Patient encounter procedure PHYSICIAN NO [facility] Start: 11-20-2018 End: 11-20-2018 Office outpatient visit 15 minutes Nasrin Brenner Work Phone: [facility] Comment on above: Tonsillitis (Primary Dx) Procedures Date Procedure Procedure Detail Performing Clinician Start: 06-05-2025 Beta-hemolytic Streptococcus culture No Primary Care Physician Start: 03-28-2025 Serologic test for syphilis No Primary Care Physician Start: 01-31-2025 Gram stain microscopy N o Primary Care Physician Start: 01-31-2025 Source specific culture No Primary Care Physician Start: 12-09-2024 Urine culture No Primar Care Physician Start: 12-09-2024 Hepatitis B surface antigen measurement No Primary Care Physician Start: 12-09-2024 Hepatitis C antibody measurement No Primary Care Physician Comment on above: Non Reactive: < 0.8 Equivocal: >/= 0.8 to < 1.0 Reactive: >/= 1.0The CDC requires that a reactive/equivocal HCV antibody result be sent out for confirmation. HCV Quant by PCR testing. Start: 12-09-2024 Rubella IgG measurement No Primary Care Physician Comment on above: Antibody Results Int erpretation of Immune Status Non Reactive Presumed Non-Immune Equivocal Equivocal Reactive Presumed Immune Start: 04-04-2024 Ecg routine ecg w/le ast 12 lds w/i&r Raphael Razo PROSTHODONTIST/OWNER Work Phone: Start: 04-04-2024 Adult depression scr eening assessment Raphael Razo PROSTHODONTIST/OWNER Work Phone: Start: 02-12-2024 Pelvic echography TINY MARRUFO Start: 12-17-2022 Urine test visual color cmprsn meths Kamla Lillian Medina [facility] Work Phone: Start: 12-17-2022 Microscopic observat ion [Identifier] in Cervix by Cyto stain Kamla Shirleygriffin [facility] Work Phone: Start: 09-23-2021 Urnls dip stick/tabl et rgnt auto w/o microscopy Tiny Niru [facility] Work Phone: Start: 07-22-2021 Urnls dip stick/tabl et rgnt auto w/o microscopy Tiny Niru [facility] Work Phone: Start: 08-15-2020 Gardnerella vaginali s rRNA assay Mary Ann Tyson Work Phone: Start: 08-15-2020 Adult depression scr eening assessment Mary Ann Tyson Start: 11-20-2018 End: 11-20-2018 Heterophile antibodies screen Nasrin Brenner Work Phone: Plan of Treatment Date Care Activity Detail Author Start: 03-22-2028 Tetanus vaccination Tetanus: Every 10yrs [facility] Start: 12-17-2025 Screening for malignant neoplasm of cervix Pap Smear [facility] Start: 06-05-2025 Beta-hemolytic Streptococcus culture Group B Streptococcus Culture [facility] Start: 06-05-2025 Streptococcus agalactiae [Presence] in Unspecified specimen by Organism specific culture [facility] Start: 04-04-2025 Depression screening using PHQ-9 (Patient Health Questionnaire 9) score [facility] Start: 04-04-2025 History and physical examination, annual for health maintenance Wellness Visit [facility] Start: 07-31-2024 Influenza vaccination [facility] Start: 07-05-2024 End: 07-05-2024 Patient encounter procedure 07/05/2024 2:20 PM EDT Office Visit [facility] Physician [facility] [address] [place] [id number] Raphael Razo, LÁZAR[address] [place] [address] [facility] Start: 12-17-2023 History and physical examination, annual for health maintenance Wellness Visit [facility] Start: 07-31-2023 Influenza vaccination Sequential Influenza Vaccine (Season Ended) [facility] Start: 12-29-2022 End: 12-25-2023 Lipid 1996 panel - Serum or Plasma Lipid Panel Lab Routine Familial hypercholesterolemia Expected: 12/29/2022 (Approximate), Expires: 12/25/2023 [facility] Work Phone: Comment on above: Expected: 12/29/2022 (Approximate), Expi res: 12/25/2023 Start: 12-19-2022 End: 12-18-2023 Lipid 1996 panel - Serum or Plasma Lipid Panel Lab Routine Familial hypercholesterolemia Expected: 12/19/2022 (Approximate), Expires: 12/18/2023 [facility] Work Phone: Comment on above: Expected: 12/19/2022 (Approximate), Expi res: 12/18/2023 Start: 12-02-2022 End: 12-02-2022 Patient encounter procedure 12/02/2022 Office Visit Obstetrics and Gynecology Kamla Medina, MINERVA [address] [place] [address] [facility] Physician [facility] Start: 11-17-2022 End: 10-09-2023 Lipid 1996 panel - Serum or Plasma Lipid Panel Lab Routine Familial hypercholesterolemia Expected: 11/17/2022 (Approximate), Expires: 10/09/2023 [facility] Work Phone: Comment on above: Expected: 11/17/2022 (Approximate), Expi res: 10/09/2023 Start: 10-03-2022 Screening for Chlamydia trachomatis Chlamydia Screening [facility] Start: 07-31-2022 Influenza vaccination [facility] Start: 07-08-2022 End: 07-08-2022 Patient encounter procedure 07/08/2022 Office Visit Obstetrics and Gynecology Kamla Medina CNM [address] [place] [address] [facility] Start: 01-22-2022 End: 01-22-2022 Telemedicine consultation with patient 01/22/2022 Telemedicine Cardiology [facility] Start: 08-19-2021 End: 08-19-2021 Patient encounter procedure [facility] Start: 08-15-2021 Adolescent depression screening assessment Depression Screening (PHQ9) [facility] Start: 08-15-2021 Depression screening using PHQ-9 (Patient Health Questionnaire 9) score [facility] Start: 08-15-2021 Hepatitis C antibody, confirmatory test Hepatitis C Screening [facility] Comment on above: Postponed from 2019 (Patient Refus ed) Start: 08-15-2021 Hepatitis C screening Hepatitis C Screening [facility] Comment on above: Postponed from 2019 (Patient Refus ed) Start: 08-15-2021 History and physical examination, annual for health maintenance Wellness Visit [facility] Start: 08-15-2021 HIV screening HIV Screening [facility] Comment on above: Postponed from 2016 (Patient Refus ed) Start: 08-15-2021 Screening for Chlamydia trachomatis Chlamydia Screening [facility] Start: 07-31-2021 Influenza vaccination Sequential Influenza Vaccine (#1) [facility] Start: 05-29-2021 Influenza vaccination Sequential Influenza Vaccine (#1) [facility] Comment on above: Postponed from 07/31/2020 (Patient Refus ed) Start: 05-29-2021 Influenza vaccination given Sequential Influenza Vaccine (#1) [facility] Comment on above: Postponed from 07/31/2020 (Patient Refus ed) Start: 11-15-2020 End: 11-15-2020 Office Visit 11/15/2020 Office Visit Primary Care Mary Ann Tyson, PROSTHODONTIST/OWNER [address] [place] [address] [phone] [facility] Start: 08-15-2020 End: 08-15-2021 Neisseria gonorrhoeae nucleic acid detection Chlamydia/Gonorrhoeae Amplified RNA Microbiology Routine Screening for chlamydial disease Expected: 08/15/2020, Expires: 08/15/2021 [facility] Comment on above: Expected: 08/15/2020, Expires: Start: 2019 Hepatitis C screening [facility] Scre[facility] Start: 07-31-2018 Influenza vaccination SEQUENTIAL INFLUENZA VACCINE (#1) [facility] Start: 2017 COVID-19 Vaccine (1) COVID-19 Vaccine (1) [facility] Start: 2017 Meningococcus vaccination MENINGOCOCCAL VACCINE (1 of 1 - 2-dose series) [facility] Start: 2016 HIV screening HIV Screening [facility] Start: 2016 Vaccination for human papillomavirus HPV Vaccines (1 - 3-dose series) [facility] Start: 2014 Varicella vaccination VARICELLA VACCINES (1 of 2 - 2-dose adolescent series) [facility] Start: 2013 COVID-19 Vaccine (1) COVID-19 Vaccine (1) [facility] Start: 2012 Vaccination for human papillomavirus [facility] Start: 2008 Vaccination for diphtheria, pertussis, and tetanus DTAP VACCINES (1 - Tdap) [facility] Start: 2006 COVID-19 Vaccine (1) COVID-19 Vaccine (1) [facility] Start: 2002 Hepatitis A immunization HEPATITIS A VACCINES (1 of 2 - 2-dose series) [facility] Start: 2002 Gwlvhzb-ommdp-nkrkgud vaccination MMR VACCINES (1 of 2 - Standard series) [facility] Start: 2001 COVID-19 Vaccine (#1) COVID-19 Vaccine (#1) [facility] Start: 2001 Inactivated poliovirus vaccine (product) IPV VACCINES (1 of 4 - All-IPV series) [facility] Start: 2001 Hepatitis B vaccination HEPATITIS B VACCINES (1 of 3 - 3-dose primary series) [facility] Start: 2001 Screening for Chlamydia trachomatis Chlamydia Screening [facility] Start: 2001 Screening for malignant neoplasm of cervix Pap Smear [facility] Start: 2001 Tetanus vaccination TETANUS EVERY 10 YR [facility] 12 lead ECG ECG 12 Lead ECG Routine Palpitations 04/04/2024 3:33 PM EDT [facility] End: 06-07-2025 Cardiac event recording Cardiac event monitor Cardiac Services Routine Palpitations 1 Occurrences starting 04/07/2024 until 06/07/2025 [facility] Work Phone: Comment on above: 1 Occurrences starting 04/07/2024 until 06/07/2025 End: 11-07-2025 Choriogonadotropin [Units/volume] in Serum or Plasma hCG, Quantitative, Blood Lab Routine Less than 8 weeks gestation of 1 Occurrences starting 11/07/2024 until 11/07/2025 [facility] Work Phone: Comment on above: 1 Occurrences starting 11/07/2024 until 11/07/2025 End: 08-15-2021 Complete blood count with white cell differential, manual CBC and Differential Lab Routine Menorrhagia with irregular cycle 1 Occurrences starting 08/15/2020 until 08/15/2021 [facility] Comment on above: 1 Occurrences starting 08/15/2020 until 08/15/2021 End: 04-08-2023 Complete blood count with white cell differential, manual CBC and Differential Lab Routine Menorrhagia with regular cycle 1 Occurrences starting 04/08/2022 until 04/08/2023 [facility] Work Phone: Comment on above: 1 Occurrences starting 04/08/2022 until 04/08/2023 End: 04-04-2025 Complete blood count with white cell differential, manual CBC and Differential Lab Routine History of anemia 1 Occurrences starting 04/04/2024 until 04/04/2025 [facility] Comment on above: 1 Occurrences starting 04/04/2024 until 04/04/2025 End: 08-15-2021 Comprehensive metabolic 2000 panel Comprehensive Metabolic Panel Lab Routine Well adult exam 1 Occurrences starting 08/15/2020 until 08/15/2021 [facility] Comment on above: 1 Occurrences starting 08/15/2020 until 08/15/2021 End: 04-04-2025 Comprehensive metabolic 2000 panel - Serum or Plasma Comprehensive Metabolic Panel Lab Routine Wellness examination 1 Occurrences starting 04/04/2024 until 04/04/2025 [facility] Comment on above: 1 Occurrences starting 04/04/2024 until 04/04/2025 End: 08-15-2021 Ferritin [Mass/Vol] Ferritin Lab Routine Menorrhagia with irregular cycle 1 Occurrences starting 08/15/2020 until 08/15/2021 [facility] Comment on above: 1 Occurrences starting 08/15/2020 until 08/15/2021 End: 09-23-2022 Gardnerella vaginalis rRNA assay Vaginitis DNA Probes Microbiology Routine Acute vaginitis 1 Occurrences starting 09/23/2021 until 09/23/2022 [facility] Work Phone: Comment on above: 1 Occurrences starting 09/23/2021 until 09/23/2022 Gardnerella vaginali s rRNA assay Vaginitis DNA Probes Microbiology Routine Acute vaginitis 09/23/2021 7:49 AM EDT [facility] End: 08-15-2021 Iron and Iron binding capacity panel - Serum or Plasma Iron and TIBC Lab Routine Menorrhagia with irregular cycle 1 Occurrences starting 08/15/2020 until 08/15/2021 [facility] Comment on above: 1 Occurrences starting 08/15/2020 until 08/15/2021 End: 04-04-2025 Iron measurement Iron Study with Ferritin Lab Routine History of anemia 1 Occurrences starting 04/04/2024 until 04/04/2025 [facility] Comment on above: 1 Occurrences starting 04/04/2024 until 04/04/2025 End: 08-15-2021 Lipid 1996 panel Lipid Panel Lab Routine Screening for lipid disorders 1 Occurrences starting 08/15/2020 until 08/15/2021 [facility] Comment on above: 1 Occurrences starting 08/15/2020 until 08/15/2021 End: 04-04-2025 Lipid 1996 panel - Serum or Plasma Lipid Panel Lab Routine Hypercholesterolemia 1 Occurrences starting 04/04/2024 until 04/04/2025 [facility] Work Phone: Comment on above: 1 Occurrences starting 04/04/2024 until 04/04/2025 Microscopic examinat ion of vaginal Papanicolaou smear Thinprep Pap Smear Pathology and Cytology Routine Well woman exam with routine gynecological exam Ordered: 12/17/2022 [facility] Work Phone: Comment on above: Ordered: 12/17/2022 End: 04-13-2024 MR Pituitary With And Without Contrast MR Pituitary With And Without Contrast Imaging Routine Elevated prolactin level 1 Occurrences starting 04/13/2023 until 04/13/2024 [facility] Work Phone: Comment on above: 1 Occurrences starting 04/13/2023 until 04/13/2024 Neisseria gonorrhoea e nucleic acid detection Chlamydia/Gonorrhoeae Amplified RNA Microbiology Routine Screening for chlamydial disease 08/15/2020 7:50 AM EDT [facility] End: 04-30-2024 Prolactin [Mass/volume] in Serum or Plasma Prolactin Lab Routine Elevated prolactin level 1 Occurrences starting 04/30/2023 until 04/30/2024 [facility] Work Phone: Comment on above: 1 Occurrences starting 04/30/2023 until 04/30/2024 Streptococcus agalac tiae [Presence] in Unspecified specimen by Organism specific culture [facility] End: 04-04-2025 Thyrotropin [Units/volume] in Serum or Plasma TSH with Reflex Free T4 Lab Routine Palpitations 1 Occurrences starting 04/04/2024 until 04/04/2025 [facility] Comment on above: 1 Occurrences starting 04/04/2024 until 04/04/2025 End: 07-22-2022 Transvaginal ultrasonography of pelvis US Transvaginal Imaging Routine Right lower quadrant abdominal pain 1 Occurrences starting 07/22/2021 until 07/22/2022 [facility] Work Phone: Comment on above: 1 Occurrences starting 07/22/2021 until 07/22/2022 Immunizations Immunization Date Immunization Notes Care Provider [facility] 04-28-2025 tetanus toxoid, reduced diphtheria toxoid, and acellular pertussis vaccine, adsorbed No Primary Care Physician [facility] 03-22-2018 hepatitis A vaccine, pediatric/adolescent dosage, 2 dose schedule [facility] 03-22-2018 tetanus toxoid, reduced diphtheria toxoid, and acellular pertussis vaccine, adsorbed [facility] 07-08-2007 diphtheria, tetanus toxoids and acellular pertussis vaccine [facility] 07-08-2007 measles, mumps and rubella virus vaccine [facility] 07-08-2007 poliovirus vaccine, inactivated [facility] 07-08-2007 varicella virus vaccine [facility] 05-21-2006 measles, mumps and rubella virus vaccine [facility] 05-21-2002 haemophilus influenz ae type b vaccine, conjugate unspecified formulation [facility] 05-21-2002 hepatitis B vaccine, pediatric or pediatric/adolescent dosage [facility] 05-21-2002 measles, mumps and rubella virus vaccine [facility] 01-20-2002 diphtheria, tetanus toxoids and acellular pertussis vaccine, unspecified formulation [facility] 01-20-2002 pneumococcal conjuga te vaccine, 7 valent [facility] 01-20-2002 pneumococcal Conjugate, unspecified formulation [facility] 01-20-2002 varicella virus vaccine [facility] 2001 diphtheria, tetanus toxoids and acellular pertussis vaccine, unspecified formulation [facility] 2001 haemophilus influenz ae type b vaccine, conjugate unspecified formulation [facility] 2001 hepatitis B vaccine, pediatric or pediatric/adolescent dosage [facility] 2001 pneumococcal conjuga te vaccine, 7 valent [facility] 2001 pneumococcal Conjugate, unspecified formulation [facility] 2001 poliovirus vaccine, unspecified formulation [facility] 2001 pneumococcal conjuga te vaccine, 7 valent [facility] 2001 pneumococcal Conjugate, unspecified formulation [facility] 2001 poliovirus vaccine, unspecified formulation [facility] 2001 diphtheria, tetanus toxoids and acellular pertussis vaccine, unspecified formulation [facility] 2001 haemophilus influenz ae type b vaccine, conjugate unspecified formulation [facility] 2001 hepatitis B vaccine, pediatric or pediatric/adolescent dosage [facility] Payers Date Payer Category Payer Private Health Insurance [id number] 2024 Private Health Insurance [id number] 2024 Unknown [id number] 2024 Self-pay 2019 [facility] SARAH GLASS UE/PREF/HMO/PPO [id number] 2019 Unknown [id number] [id number]. [id number] 2019 Unknown ANTHEM ANTHEM BLUE/PREF/HMO/PPO [id number] 2019-Present [phone] [address] [place] [address] [id number]. 2.7.3.591236.315 2019 Unknown [id number] 2001 Unknown [id number] 2.16.840.1.749237.3.579. 2.902 2001 Unknown [id number] 2.16.840.1.622772.3.579. 2.903 2001 Unknown [id number] 2.16.840.1.785272.3.579. 2.903 2001 Unknown [id number] 2.16.840.1.928158.3.579. 2.903 2001 Unknown [id number] 2.16.840.1.873980.3.579. 2.903 2001 Unknown [id number] 2.16.840.1.772152.3.579. 2.903 2001 Unknown [id number] 2.16.840.1.086264.3.579. 2.479 1962 Unknown [id number] 2.16.840.1.205368.3.579. 2.900 Unknown [id number] 2.16.840.1.934975.3.579. 2.462 Unknown [id number] 2.16.840.1.708283.3.579. 2.462 Unknown [id number] 2.16.840.1.402249.3.579. 2.462 Unknown [id number] 2.16.840.1.259944.3.579. 2.462 Unknown [id number] 2.16.840.1.674799.3.579. 2.462 Unknown [id number] 2.16.840.1.630440.3.579. 2.462 Unknown [id number] 2.16.840.1.185653.3.579. 2.462 Unknown [id number] 2.16.840.1.426645.3.579. 2.462 Unknown [id number] 2.16.840.1.254087.3.579. 2.462 Unknown [id number] 2.16.840.1.313055.3.579. 2.462 Unknown [id number] 2.16.840.1.096470.3.579. 2.462 Unknown [id number] 2.16.840.1.811617.3.579. 2.462 Unknown [id number] 2.16.840.1.049337.3.579. 2.462 Unknown [id number] 2.16.840.1.074503.3.579. 2.462 Unknown [id number] 2.16.840.1.898535.3.579. 2.462 Unknown [id number] 2.16.840.1.225887.3.579. 2.462 Unknown [id number] 2.16.840.1.254547.3.579. 2.462 Social History Date Type Detail Facility Start: 11-20-2018 End: 12-02-2024 Tobacco smoking status LAIS Never smoker [facility] Start: 2001 Sex Assigned At Not on file [facility] Start: 08-15-2020 End: 07-14-2022 Tobacco use and exposure Never used [facility] Start: 08-15-2020 End: 08-18-2024 Alcohol intake Current non-drinker of alcohol (finding) [facility] Start: 08-15-2020 History SDOH Social Connections Phone 5 [facility] Start: 08-15-2020 History SDOH Social Connections Sikhism 3 [facility] Start: 08-15-2020 History SDOH Social Connections Membership 1 [facility] Start: 08-15-2020 History SDOH Social Connections Living 7 [facility] Start: 08-15-2020 History SDOH Physica l Activity DPW 2 [facility] Start: 08-15-2020 History SDOH Education 21 [facility] Start: 03-29-2022 End: 04-23-2023 Exposure to SARS-CoV-2 (event) Not sure [facility] Start: 08-15-2020 End: 04-04-2024 History of Social function [facility] Start: 08-15-2020 End: 04-04-2024 Humiliation, Afraid, Rape, and Kick questionnaire [HARK] [facility] Within the last year , have you been afraid of your partner or ex-partner? No [facility] Do you belong to any clubs or organizations such as sabianism groups, unions, fraEUROBOX or athletic groups, or school groups? Yes [facility] Are you now , , , , never or living with a partner? Never [facility] Adult Depression Scr eening Assessment 7 [facility] Do you feel stress - tense, restless, nervous, or anxious, or unable to sleep at night because your mind is troubled all the time - these days [OSQ] Only a little [facility] (I/We) worried wheth er (my/our) food would run out before (I/we) got money to buy more. Never true [facility] Start: 02-02-2024 Tobacco smoking stat us NHIS Unknown if ever smoked [facility] Start: 2001 Sex Assigned At Female W [facility] How hard is it for y ou to pay for the very basics like food, housing, medical care, and heating Not very hard [facility] Start: 02-13-2025 Sex Female (finding) [facility] Clinical Notes 03-18-2021 to 06-05-2025 Note Date & Type Note Facility 06-05-2025 Progress note [facility] 05-09-2025 Progress note [facility] 05-09-2025 Progress note Note Date/Time May 09, 2025 2:54pm [facility] [address], [address] [place] [address] OFFICE VISIT Date of Service: 05/09/25 MR#: [id number] Acct: [id number] Name: ALYSSA PRO Rep #: [id number] : 2000 Provider: MINERVA Saldana Age/Sex: 25/F [place] [facility] [place] Signed Intake Vital Signs 12/09/24 13:07 04/28/25 15:06 05/09/25 14:34 Height 5 ft 6 in 5 ft 6 in 5 ft 6 in Weight: 219 lb 2 oz BMI 35.4 BP 107/72 Intake Visit Reasons: 32 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 Is patient in pain?: No Feel stressed/tense/nervous/anxious/difficulty sleeping: not at all Allergies No Known Allergies Allergy (Verified 05/09/25 14:35) Medications ?Medication ?Instructions ?Recorded ?Confirmed ?Type multivitamin no.47-iron fum 27 cap PO 12/02/24 5 History mg-folate no.1 1 mg-dha 300 mg capsule (PNV-DHA) Last Menstrual Period: 09/28/24 Zika: Zika virus screening: Negative : No PFSH PFSH Medical History PCOS (polycystic ovarian syndrome) Dysmenorrhea Anovulation Family History Aunt Breast cancer Maternal Grandfather Cancer Pancreatic- Paternal Mother APL (antiphospholipid syndrome) 9 miscarriages. Cancer skin Social History adopted: No household members: spouse housing: house number of children: 0 current occupational status: employed current occupation: [employer] current occupational exposures/hazards: No pets and animals: Yes pets and animals: dog(s) history of recent travel: Yes ( - October) out of state: Yes out of country:No sexually active: Yes Smoking Status: Never smoker alcohol intake: current alcohol intake frequency: holidays/special occasions only details: not while substance use type: does not use well-balanced diet: daily or most days caffeine: Yes Type: coffee Number of servings: 1 eating out: 4 or more times/week during the past year weight has: decreased > 10 lbs what type of physical activity do you participate in: none art/yazdanism: Latter-Day seatbelt use: always do you feel safe at home: Yes 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 OB Visit JONAS Calculator Estimated Delivery Date Method Current WG Current Estimate 07/05/25 LMP (Certain) 31w 6d Other Estimates 07/06/25 Ultrasound #1 31w 5d Expected Delivery Route/Plan Labor Preferences- CB/BF classes: [] labor support person: [] labor intervention preferences: [] pain management options preferred: [] cut cord/dad catch: [] : [] PP control planned: [] discussed possible routes of delivery and associated risks: [] special requests: [] Specific Issue/Plans Covid status: [] Flu vaccine: [] Tdap vaccine: given Rhogam: na LARC form signed: declined movement and labor precautions reviewed. Problem list reviewed and updated with the most current plan of care details and appropriate orders placed. Relevant counseling for the gestational age provided. Continue routine care and follow up unless otherwise noted in visit notes/problem list details Initial Weight: 205 lb Date -?-?-?-?-?-?-?-?-?-?-?-?- EGA Weight BP Urine Prot -?-?-?-?-?-?-?-?-?-?-?-?- Glucose FHR FuHt Pres Dilation -?-?-?-?-?-?-?-?-?-?-?-?- Effaced St Visit Note 12/09/24 -?-?-?-?-?-?-?-?-?-?-?-?- 10w 2d 205 lb 2 oz (+2 oz) 136/83 -?-?-?-?-?-?-?-?-?-?-?-?- 173 -?-?-?-?-?-?-?-?-?--?-?-?- KW- CRL cons wit h dates. Declines NIPT. 01/06/25 -?-?-?-?-?-?-?-?-?-?-?-?- 14w 2d 205 lb 6 oz (+6 oz) 131/85 Negative -?-?-?-?-?-?-?-?-?-?-?-?- Negative 147 -?-?-?-?-?-?-?-?-?-?-?-?- JV- no lof, vagi nal bleeding, or cramping. declines nipt and did blood work. 01/31/25 -?-?-?-?-?-?-?-?-?-?-?-?- 17w 6d 206 lb 4 oz (+1 lb 4 oz) 121/82 Negative -?-?-?-?-?-?-?-?-?-?-?-?- Negative 142 -?-?-?-?-?-?-?-?-?-?-?-?- JV- no complaint s today other than some pelvic pain that feels like when I have an ovarian cyst" She was checked out at an urgent care in [place] and treated with amoxil but urine culture was neg. 03/01/25 -?-?-?-?-?-?-?-?-?-?-?-?- 22w 0d 209 lb 4 oz (+4 lb 4 oz) 109/74 Negative -?-?-?-?-?-?-?-?-?-?-?-?- Negative 145 -?-?-?-?-?-?-?-?-?-?-?-?- Sm- no vb lof go od fm 03/28/25 -?-?-?-?-?-?-?-?-?-?-?-?- 25w 6d 213 lb 2 oz (+8 lb 2 oz) 111/68 Negative -?-?-?-?-?-?-?-?-?-?-?-?- Negative 150 27 -?-?-?-?-?-?-?-?-?-?-?-?- kw- no vb/lof/ct x. good fm. CBE classes discussed. 28 week labs today. 04/14/25 -?-?-?-?-?-?-?-?-?-?-?-?- 28w 2d 217 lb 4 oz (+12 lb 4 oz) 101/72 Negative -?-?-?-?-?-?-?-?-?-?-?-?- Negative 140 28 -?-?-?-?-?-?-?-?-?-?-?-?- Sm- no vb lof go od fm no regualr ctx 04/28/25 -?-?-?-?-?-?-?-?-?-?-?-?- 30w 2d 217 lb 8 oz (+12 lb 8 oz) 110/74 Negative -?-?-?-?-?-?-?-?-?-?-?-?- Negative 140 30 -?-?-?-?-?-?-?-?-?-?-?-?- SM- no vb lof go od fm no regular ctx 05/09/25 -?-?-?-?-?-?-?-?-?-?-?-?- 31w 6d 219 lb 2 oz (+14 lb 2 oz) 107/72 Negative -?-?-?-?-?-?-?-?-?-?-?-?- Negative 135 32 -?-?-?-?-?-?-?-?-?-?-?-?- KW- no vb/lof/ct x. good fm. CBE classes signed up. ACOG First Trimester First Trimester: Discussed ROS Const Reports system reviewed and no additional complaints, except as documented Eyes Reports system reviewed and no additional complaints, except as documented ENT Reports system reviewed and no additional complaints, except as documented Card Reports system reviewed and no additional complaints, except as documented Resp Reports system reviewed and no additional complaints, except as documented GI Reports system reviewed and no additional complaints, except as documented, Denies nausea and Denies vomiting Reports system reviewed and no additional complaints, except as documented Musc Reports system reviewed and no additional complaints, except as documented Skin/Breast Reports system reviewed and no additional complaints, except as documented Neuro Yes system reviewed and no additional complaints, except as documented Psych Reports system reviewed and no additional complaints, except as documented Endo Reports system reviewed and no additional complaints, except as documented Noé/Lymph Reports system reviewed and no additional complaints, except as documented Aller/Immun Reports system reviewed and no additional complaints, except as documented Exam Const General: cooperative, healthy appearing and no acute distress Orientation: alert, awake and oriented x3 Neck Neck: normal visual inspection and full ROM Resp Effort & Inspection: normal respiratory effort, able to speak in complete sentences and symmetric chest movement GI Inspection: normal to inspection Palpation: soft and other Other: gravid Skin General: no rashes or lesions noted Neuro General: patient alert, patient awake and patient oriented x3 Cognition: normal cognition Speech: speech normal Gait: normal gait Motor: muscle tone normal throughout Extrem General: normal to inspection and full ROM Psych Appearance: grossly normal Mental Status: mental status grossly normal Mood: congruent mood Affect: normal affect Speech and Movement: speech and movement normal Attitude: cooperative Thought Process: normal Thought Content: normal Judgment: judgment good Results POC Urinalysis 2 Dip (Clinic) Office Urine Glucose Negative Last Edit by Ursula Machado on 05/09/25 14:40 Office Urine Protein Negative Last Edit by Ursula Machado on 05/09/25 14:40 Coding Level of Care Code OB Routine Exam Comprehensive Diagnoses Obesity affecting O99.210 Supervision of high-risk O09.90 31 weeks gestation of Z3A.31 Weeks of gestation: 31 weeks Assessment and Plan Assessment and Plan (1) Obesity affecting : Status: Acute Comment: HgbA1c (2) Supervision of high-risk : Status: Acute Comment: PRR, G1PO, jonas 07/05/25, boy soraya Mansoor (3) : Status: Acute Qualifiers: Weeks of gestation: 31 weeks Qualified Code(s): Z3A.31 - 31 weeks gestation of Comment: declined ntd NIPT & Carrier testing. nl anatomy Orders: Orders POC Urinalysis 2 Dip (Clinic) Today Plan Details Additional Comments: ACOG trimester education reviewed and updated. see problem list details for updated plan management information and see below for orders placed at this visit. GA appropriate handout given. 05/09/25 3222 <Electronically signed by Lory Stoney s CNM> Date _ Lory SHUKLAM Danieleignangelcia Signature: Date (if applicable) CC: ~ [facility] Work Phone: 1(468) 681-517905-30-2025 [facility] [address] [place] [address], [address] [place] [address] OFFICE VISIT Date of Service: 04/28/25 MR#: [id number] Acct: [id number] Name: ALYSSA PRO Rep #: [id number] : 2000 Provider: Dr. 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 Cancer skin Social History adopted: No household members: spouse housing: house number of children: 0 current occupational status: employed current occupation: [employer] current occupational exposures/hazards: No pets and animals: Yes pets and animals: dog(s) history of recent travel: Yes (October) out of state: Yes out of country:No sexually active: Yes Smoking Status: Never smoker alcohol intake: current alcohol intake frequency: holidays/special occasions only details: not while substance use type: does not use well-balanced diet: daily or most days caffeine: Yes Type: coffee Number of servings: 1 eating out: 4 or more times/week during the past year weight has: decreased > 10 lbs what type of physical activity do you participate in: none art/yazdanism: Latter-Day seatbelt use: always do you feel safe at home: Yes 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 OB Visit JONAS Calculator Estimated Delivery Date Method Current WG Current Estimate 07/05/25 LMP (Certain) 30w 2d Other Estimates 07/06/25 Ultrasound #1 30w 1d Expected Delivery Route/Plan Labor Preferences- CB/BF classes: [] labor support person: [] labor intervention preferences: [] pain management options preferred: [] cut cord/dad catch: [] : [] PP control planned: [] discussed possible routes of delivery and associated risks: [] special requests: [] Specific Issue/Plans Covid status: [] Flu vaccine: [] Tdap vaccine: given Rhogam: na LARC form signed: declined movement and labor precautions reviewed. Problem list reviewed and updated with the most current plan of care details and appropriate ordersplaced. Relevant counseling for the gestational age provided. Continue routine care and follow up unless otherwise noted in visit notes/problem list details Initial Weight: 205 lb Date -?-?-?-?-?-?-?-?-?-?-?-?- EGA Weight BP Urine Prot -?-?-?-?-?-?-?-?-?-?-?-?- Glucose FHR FuHt Pres Dilation -?-?-?-?-?-?-?-?-?-?-?-?- Effaced St Visit Note 12/09/24 -?-?-?-?-?-?-?-?-?-?-?-?- 10w 2d 205 lb 2 oz (+2 oz) 136/83 -?-?-?-?-?-?-?-?-?-?-?-?- 173 -?-?-?-?-?-?-?-?-?-?-?-?- KW- CRL cons wit h dates. Declines NIPT. 01/06/25 -?-?-?-?-?-?-?-?-?-?-?-?- 14w 2d 205 lb 6 oz (+6 oz) 131/85 Negative -?-?-?-?-?-?-?-?-?-?-?-?- Negative 147 -?-?-?-?-?-?-?-?-?-?-?-?- JV- no lof, vagi nal bleeding, or cramping. declines nipt and did blood work. 01/31/25 -?-?-?-?-?-?-?-?-?-?-?-?- 17w 6d 206 lb 4 oz (+1 lb 4 oz) 121/82 Negative -?-?-?-?-?-?-?-?-?-?-?-?- Negative 142 -?-?-?-?-?-?-?-?-?-?-?-?- JV- no complaint s today other than some pelvic pain that "feels like when I have an ovarian cyst" She was checked out at an urgent care in [place] and treated with amoxil but urine culture was neg. 03/01/25 -?-?-?-?-?-?-?-?-?-?-?-?- 22w 0d 209 lb 4 oz (+4 lb 4 oz) 109/74 Negative -?-?-?-?-?-?-?-?-?-?-?-?- Negative 145 -?-?-?-?-?-?-?-?-?-?-?-?- Sm- no vb lof go od fm 03/28/25 -?-?-?-?-?-?-?-?-?-?-?-?- 25w 6d 213 lb 2 oz (+8 lb 2 oz) 111/68 Negative -?-?-?-?-?-?-?-?-?-?-?-?- Negative 150 27 -?-?-?-?-?-?-?-?-?-?-?-?- kw- no vb/lof/ct x. good fm. CBE classes discussed. 28 week labs today. 04/14/25 -?-?-?-?-?-?-?-?-?-?-?-?- 28w 2d 217 lb 4 oz (+12 lb 4 oz) 101/72 Negative -?-?-?-?-?-?-?-?-?-?-?-?- Negative 140 28 -?-?-?-?-?-?-?-?-?-?-?-?- Sm- no vb lof go od fm no regualr ctx 04/28/25 -?-?-?-?-?-?-?-?-?-?-?-?- 30w 2d 217 lb 8 oz (+12 lb 8 oz) 110/74 Negative -?-?-?-?-?-?-?-?-?-?-?-?- Negative 140 30 -?-?-?-?-?-?-?-?-?-?-?-?- SM- no vb lof go od fm no regular ctx ACOG First Trimester First Trimester: Discussed Results POC Urinalysis 2 Dip (Clinic) Office Urine Glucose Negative Last Edit by Anum Bonner on 04/28/25 15:20 Office Urine Protein Negative Last Edit by Anum Bonner on 04/28/25 15:20 Immunizations Adacel(Tdap Adolesn/Adult)(PF) 2 Lf-(2.5-5-3-5)-5 Lf/0.5 mL IM syringe Performing Provider: Pam Acosta MD Performing Location: [facility] Administered by: Anum Bonner on 04/28/25 15:16 Dose Route Admin Location Dispensed Lot Number Expiration Date NDC Regulatory Affairs Assistant 0.5 mL IM Left Deltoid 0.5 mL [id number] 03/29/27 14883-761-69 SANOF I-PASTEUR VIS Given Date VIS Provided VIS Publication Date 04/28/25 Single Vaccine 24 Eligibility Eligibility Date Funding Source Not Applicable Coding Level of Care Code OB Routine Diagnoses Obesity affecting O99.210 Supervision of high-risk O09.90 30 weeks gestation of Z3A.30 Weeks of gestation: 30 weeks Assessment and Plan Assessment and Plan (1) Obesity affecting : Status: Acute Comment: HgbA1c (2) Supervision of high-risk : Status: Acute Comment: PRR, G1PO, jonas 07/05/25, boy soraya Mansoor (3) : Status: Acute Qualifiers: Weeks of gestation: 30 weeks Qualified Code(s): Z3A.30 - 30 weeks gestation of Comment: declined ntd NIPT & Carrier testing. nl anatomy Orders: Orders POC Urinalysis 2 Dip (Clinic) Today Tdap Immunization Today Z23 - Encounter for immunization 04/28/25 1538 anjel ANDERSON> Date _ Pam Acosta MD Cosign Signature: Date (if applicable) CC: ~ [id number] Progress note Author Pam Acosta [facility] Note Date/Time April 28, 2025 3:38p [facility] [address] [place] [address], [address] [place] [address] OFFICE VISIT Date of Service: 04/28/25 MR#: [id number] Acct: [id number] Name: ALYSSA PRO Rep #: [id number] : 2000 Provider: Dr. 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 Cancer skin Social History adopted: No household members: spouse housing: house number of children: 0 current occupational status: employed current occupation: [employer] current occupational exposures/hazards: No pets and animals: Yes pets and animals: dog(s) history of recent travel: Yes ( - October) out of state: Yes out of country:No sexually active: Yes Smoking Status: Never smoker alcohol intake: current alcohol intake frequency: holidays/special occasions only details: not while substance use type: does not use well-balanced diet: daily or most days caffeine: Yes Type: coffee Number of servings: 1 eating out: 4 or more times/week during the past year weight has: decreased > 10 lbs what type of physical activity do you participate in: none art/yazdanism: Latter-Day seatbelt use: always do you feel safe at home: Yes additional social history: - [employer] History 1 Elective abortions Hx Para 0 Spontaneous abortions Hx # Term Pregnancies Ectopic pregnancies Hx # Pregnancies Multiple births # of living children HPI 30 wk ob Details: ALYSSA PRO is a 25 year old who presents for routine OB visit. OB Visit JONAS Calculator Estimated Delivery Date Method Current WG Current Estimate 07/05/25 LMP (Certain) 30w 2d Other Estimates 07/06/25 Ultrasound #1 30w 1d Expected Delivery Route/Plan Labor Preferences- CB/BF classes: [] labor support person: [] labor intervention preferences: [] pain management options preferred: [] cut cord/dad catch: [] : [] PP control planned: [] discussed possible routes of delivery and associated risks: [] special requests: [] Specific Issue/Plans Covid status: [] Flu vaccine: [] Tdap vaccine: given Rhogam: na LARC form signed: declined movement and labor precautions reviewed. Problem list reviewed and updated with the most current plan of care details and appropriate orders placed. Relevant counseling for the gestational age provided. Continue routine care and follow up unless otherwise noted in visit notes/problem list details Initial Weight: 205 lb Date -?-?-?-?-?-?-?-?-?-?-?-?- EGA Weight BP Urine Prot -?-?-?-?-?-?-?-?-?-?-?-?- Glucose FHR FuHt Pres Dilation -?-?-?-?-?-?-?-?-?-?-?-?- Effaced St Visit Note 12/09/24 -?-?-?-?-?-?-?-?-?-?-?-?- 10w 2d 205 lb 2 oz (+2 oz) 136/83 -?-?-?-?-?-?-?-?-?-?-?-?- 173 -?-?-?-?-?-?-?-?-?-?-?-?- KW- CRL cons wit h dates. Declines NIPT. 01/06/25 -?-?-?-?-?-?-?-?-?-?-?-?- 14w 2d 205 lb 6 oz (+6 oz) 131/85 Negative -?-?-?-?-?-?-?-?-?-?-?-?- Negative 147 -?-?-?-?-?-?-?-?-?-?-?-?- JV- no lof, vagi nal bleeding, or cramping. declines nipt and did blood work. 01/31/25 -?-?-?-?-?-?-?-?-?-?-?-?- 17w 6d 206 lb 4 oz (+1 lb 4 oz) 121/82 Negative -?-?-?-?-?-?-?-?-?-?-?-?- Negative 142 -?-?-?-?-?-?-?-?-?-?-?-?- JV- no complaint s today other than some pelvic pain that "feels like when I have an ovarian cyst" She was checked out at an urgent care in [place] and treated with amoxil but urine culture was neg. 03/01/25 -?-?-?-?-?-?-?-?-?-?-?-?- 22w 0d 209 lb 4 oz (+4 lb 4 oz) 109/74 Negative -?-?-?-?-?-?-?-?-?-?-?-?- Negative 145 -?-?-?-?-?-?-?-?-?-?-?-?- Sm- no vb lof go od fm 03/28/25 -?-?-?-?-?-?-?-?-?-?-?-?- 25w 6d 213 lb 2 oz (+8 lb 2 oz) 111/68 Negative -?-?-?-?-?-?-?-?-?-?-?-?- Negative 150 27 -?-?-?-?-?-?-?-?-?-?-?-?- kw- no vb/lof/ct x. good fm. CBE classes discussed. 28 week labs today. 04/14/25 -?-?-?-?-?-?-?-?-?-?-?-?- 28w 2d 217 lb 4 oz (+12 lb 4 oz) 101/72 Negative -?-?-?-?-?-?-?-?-?-?-?-?- Negative 140 28 -?-?-?-?-?-?-?-?-?-?-?-?- Sm- no vb lof go od fm no regualr ctx 04/28/25 -?-?-?-?-?-?-?-?-?-?-?-?- 30w 2d 217 lb 8 oz (+12 lb 8 oz) 110/74 Negative -?-?-?-?-?-?-?-?-?-?-?-?- Negative 140 30 -?-?-?-?-?-?-?-?-?-?-?-?- SM- no vb lof go od fm no regular ctx ACOG First Trimester First Trimester: Discussed Results POC Urinalysis 2 Dip (Clinic) Office Urine Glucose Negative Last Edit by Anum Bonner on 04/28/25 15:20 Office Urine Protein Negative Last Edit by Anum Bonner on 04/28/25 15:20 Immunizations Adacel(Tdap Adolesn/Adult)(PF) 2 Lf-(2.5-5-3-5)-5 Lf/0.5 mL IM syringe Performing Provider: Pam Acosta MD Performing Location: [facility] Administered by: Anum Bonner on 04/28/25 15:16 Dose Route Admin Location Dispensed Lot Number Expiration Date NDC Regulatory Affairs Assistant 0.5 mL IM Left Deltoid 0.5 mL [id number] 03/29/27 25921-547-40 SANOF I-PASTEUR VIS Given Date VIS Provided VIS Publication Date 04/28/25 Single Vaccine 24 Eligibility Eligibility Date Funding Source Not Applicable Coding Level of Care Code OB Routine Diagnoses Obesity affecting O99.210 Supervision of high-risk O09.90 30 weeks gestation of Z3A.30 Weeks of gestation: 30 weeks Assessment and Plan Assessment and Plan (1) Obesity affecting : Status: Acute Comment: HgbA1c (2) Supervision of high-risk : Status: Acute Comment: PRR, G1PO, jonas 07/05/25, boy soraya Mansoor (3) : Status: Acute Qualifiers: Weeks of gestation: 30 weeks Qualified Code(s): Z3A.30 - 30 weeks gestation of Comment: declined ntd NIPT & Carrier testing. nl anatomy Orders: Orders POC Urinalysis 2 Dip (Clinic) Today Tdap Immunization Today Z23 - Encounter for immunization 04/28/25 1538 <Electronically signed by Pam hobbs MD> Date _ Pam Acosta MD [facility] Signature: Date (if applicable) CC: ~ [facility] Work Phone: 1(428) 333-839005-16-2025 Progress [facility] [address], [address] [place] [address] OFFICE VISIT Date of Service: 04/14/25 MR#: [id number] Acct: [id number] Name: ALYSSA PRO Rep #: [id number] : 2000 Provider: Dr. 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 Cancer skin Social History adopted: No household members: spouse housing: house number of children: 0 current occupational status: employed current occupation: [employer] current occupational exposures/hazards: No pets and animals: Yes pets and animals: dog(s) history of recent travel: Yes (October) out of state: Yes out of country:No sexually active: Yes Smoking Status: Never smoker alcohol intake: current alcohol intake frequency: holidays/special occasions only details: not while substance use type: does not use well-balanced diet: daily or most days caffeine: Yes Type: coffee Number of servings: 1 eating out: 4 or more times/week during the past year weight has: decreased > 10 lbs what type of physical activity do you participate in: none art/yazdanism: Latter-Day seatbelt use: always do you feel safe at home: Yes 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 OB Visit JONAS Calculator Estimated Delivery Date Method Current WG Current Estimate 07/05/25 LMP (Certain) 28w 2d Other Estimates 07/06/25 Ultrasound #1 28w 1d Expected Delivery Route/Plan Labor Preferences- CB/BF classes: [] labor support person: [] labor intervention preferences: [] pain management options preferred: [] cut cord/dad catch: [] : [] PP control planned: [] discussed possible routes of delivery and associated risks: [] special requests: [] Specific Issue/Plans Covid status: [] Flu vaccine: [] Tdap vaccine: [] Rhogam: na LARC form signed: [] Problem list reviewed and updated with the most current plan of care details and appropriate ordersplaced. Relevant counseling for the gestational age provided. Continue routine care and follow up unless otherwise noted in visit notes/problem list details Initial Weight: 205 lb Date -?-?-?-?-?-?-?-?-?-?-?-?- EGA Weight BP Urine Prot -?-?-?-?-?-?-?-?-?-?-?-?- Glucose FHR FuHt Pres Dilation -?-?-?-?-?-?-?-?-?-?-?-?- Effaced St Visit Note 12/09/24 -?-?-?-?-?-?-?-?-?-?-?-?- 10w 2d 205 lb 2 oz (+2 oz) 136/83 -?-?-?-?-?-?-?--?-?-?-?-?- 173 -?-?-?-?-?-?-?-?-?-?-?-?- KW- CRL cons wit h dates. Declines NIPT. 01/06/25 -?-?-?-?-?-?-?-?-?-?-?-?- 14w 2d 205 lb 6 oz (+6 oz) 131/85 Negative -?-?-?-?-?-?-?-?-?-?-?-?- Negative 147 -?-?-?-?-?-?-?-?-?-?-?-?- JV- no lof, vagi nal bleeding, or cramping. declines nipt and did blood work. 01/31/25 -?-?-?-?-?-?-?-?-?-?-?-?- 17w 6d 206 lb 4 oz (+1 lb 4 oz) 121/82 Negative -?-?-?-?-?-?-?--?-?-?-?-?- Negative 142 -?-?-?-?-?-?-?-?-?-?-?-?- JV- no complaint s today other than some pelvic pain that "feels like when I have an ovarian cyst" She was checked out at an urgent care in [place] and treated with amoxil but urine culture was neg. 03/01/25 -?-?-?-?-?-?-?-?-?-?-?-?- 22w 0d 209 lb 4 oz (+4 lb 4 oz) 109/74 Negative -?-?-?-?-?-?-?-?-?-?-?-?- Negative 145 -?-?-?-?-?-?-?-?-?-?-?-?- Sm- no vb lof go od fm 03/28/25 -?-?-?-?-?-?-?-?--?-?-?-?- 25w 6d 213 lb 2 oz (+8 lb 2 oz) 111/68 Negative -?-?-?-?-?-?-?-?-?-?-?-?- Negative 150 27 -?-?-?-?-?-?-?-?-?-?-?-?- kw- no vb/lof/ct x. good fm. CBE classes discussed. 28 week labs today. 04/14/25 -?-?-?-?-?-?-?-?-?-?-?-?- 28w 2d 217 lb 4 oz (+12 lb 4 oz) 101/72 Negative -?-?-?-?-?-?-?-?-?-?-?-?- Negative 140 28 -?-?-?-?-?-?-?-?-?-?-?-?- Sm- no vb lof go od fm no regualr ctx ACOG First Trimester First Trimester: Discussed Results POC Urinalysis 2 Dip (Clinic) Office Urine Glucose Negative Last Edit by Ursula Machado on 04/14/25 15:45 Office Urine Protein Negative Last Edit by Ursula Machado on 04/14/25 15:45 Coding Level of Care Code OB Routine Diagnoses Obesity affecting O99.210 Supervision of high-risk O09.90 28 weeks gestation of Z3A.28 Weeks of gestation: 28 weeks Assessment and Plan Assessment and Plan (1) Obesity affecting : Status: Acute Comment: HgbA1c (2) Supervision of high-risk : Status: Acute Comment: PRR, G1PO, jonas 07/05/25, boy soraya Mansoor (3) : Status: Acute Qualifiers: Weeks of gestation: 28 weeks Qualified Code(s): Z3A.28 - 28 weeks gestation of Comment: declined ntd NIPT & Carrier testing. nl anatomy Orders: Orders POC Urinalysis 2 Dip (Clinic) Today 04/14/25 Michaela4 anjel ANDERSON> Date _ Pam Acosta MD Cosign Signature: Date (if applicable) CC: ~ [facility]05-16-2025 Progress note Author Pam Acosta [facility] Note Date/Time April 14, 2025 3:54p [facility] [address], [address] [place] [address] OFFICE VISIT Date of Service: 04/14/25 MR#: [id number] Acct: [id number] Name: ALYSSA PRO Rep #: [id number] : 2000 Provider: Dr. 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 Cancer skin Social History adopted: No household members: spouse housing: house number of children: 0 current occupational status: employed current occupation: [employer] current occupational exposures/hazards: No pets and animals: Yes pets and animals: dog(s) history of recent travel: Yes (October) out of state: Yes out of country:No sexually active: Yes Smoking Status: Never smoker alcohol intake: current alcohol intake frequency: holidays/special occasions only details: not while substance use type: does not use well-balanced diet: daily or most days caffeine: Yes Type: coffee Number of servings: 1 eating out: 4 or more times/week during the past year weight has: decreased > 10 lbs what type of physical activity do you participate in: none art/yazdanism: Latter-Day seatbelt use: always do you feel safe at home: Yes 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 OB Visit JONAS Calculator Estimated Delivery Date Method Current WG Current Estimate 07/05/25 LMP (Certain) 28w 2d Other Estimates 07/06/25 Ultrasound #1 28w 1d Expected Delivery Route/Plan Labor Preferences- CB/BF classes: [] labor support person: [] labor intervention preferences: [] pain management options preferred: [] cut cord/dad catch: [] : [] PP control planned: [] discussed possible routes of delivery and associated risks: [] special requests: [] Specific Issue/Plans Covid status: [] Flu vaccine: [] Tdap vaccine: [] Rhogam: na LARC form signed: [] Problem list reviewed and updated with the most current plan of care details and appropriate orders placed. Relevant counseling for the gestational age provided. Continue routine care and follow up unless otherwise noted in visit notes/problem list details Initial Weight: 205 lb Date -?-?-?-?-?-?-?-?-?-?-?-?- EGA Weight BP Urine Prot -?-?-?-?-?-?-?-?-?-?-?-?- Glucose FHR FuHt Pres Dilation -?-?-?-?-?-?-?-?-?-?-?-?- Effaced St Visit Note 12/09/24 -?-?-?-?-?-?-?-?-?-?-?-?- 10w 2d 205 lb 2 oz (+2 oz) 136/83 -?-?-?-?-?-?-?--?-?-?-?-?- 173 -?-?-?-?-?-?-?-?-?-?-?-?- KW- CRL cons wit h dates. Declines NIPT. 01/06/25 -?-?-?-?-?-?-?-?-?-?-?-?- 14w 2d 205 lb 6 oz (+6 oz) 131/85 Negative -?-?-?-?-?-?-?-?-?-?-?-?- Negative 147 -?-?-?-?-?-?-?-?-?-?-?-?- JV- no lof, vagi nal bleeding, or cramping. declines nipt and did blood work. 01/31/25 -?-?-?-?-?-?-?-?-?-?-?-?- 17w 6d 206 lb 4 oz (+1 lb 4 oz) 121/82 Negative -?-?-?-?-?-?-?--?-?-?-?-?- Negative 142 -?-?-?-?-?-?-?-?-?-?-?-?- JV- no complaint s today other than some pelvic pain that "feels like when I have an ovarian cyst" She was checked out at an urgent care in [place] and treated with amoxil but urine culture was neg. 03/01/25 -?-?-?-?-?-?-?-?-?-?-?-?- 22w 0d 209 lb 4 oz (+4 lb 4 oz) 109/74 Negative -?-?-?-?-?-?-?-?-?-?-?-?- Negative 145 -?-?-?-?-?-?-?-?-?-?-?-?- Sm- no vb lof go od fm 03/28/25 -?-?-?-?-?-?-?-?--?-?-?-?- 25w 6d 213 lb 2 oz (+8 lb 2 oz) 111/68 Negative -?-?-?-?-?-?-?-?-?-?-?-?- Negative 150 27 -?-?-?-?-?-?-?-?-?-?-?-?- kw- no vb/lof/ct x. good fm. CBE classes discussed. 28 week labs today. 04/14/25 -?-?-?-?-?-?-?-?-?-?-?-?- 28w 2d 217 lb 4 oz (+12 lb 4 oz) 101/72 Negative -?-?-?-?-?-?-?-?-?-?-?-?- Negative 140 28 -?-?-?-?-?-?-?-?-?-?-?-?- Sm- no vb lof go od fm no regualr ctx ACOG First Trimester First Trimester: Discussed Results POC Urinalysis 2 Dip (Clinic) Office Urine Glucose Negative Last Edit by Ursula Machado on 04/14/25 15:45 Office Urine Protein Negative Last Edit by Ursula Machado on 04/14/25 15:45 Coding Level of Care Code OB Routine Diagnoses Obesity affecting O99.210 Supervision of high-risk O09.90 28 weeks gestation of Z3A.28 Weeks of gestation: 28 weeks Assessment and Plan Assessment and Plan (1) Obesity affecting : Status: Acute Comment: HgbA1c (2) Supervision of high-risk : Status: Acute Comment: PRR, G1PO, jonas 07/05/25, boy soraya Mansoor (3) : Status: Acute Qualifiers: Weeks of gestation: 28 weeks Qualified Code(s): Z3A.28 - 28 weeks gestation of Comment: declined ntd NIPT & Carrier testing. nl anatomy Orders: Orders POC Urinalysis 2 Dip (Clinic) Today 04/14/25 1554 <Electronically signed by Pam hobbs MD> Date _ Pam Acosta MD Cosigner Signature: Date (if applicable) CC: ~ [facility] Work Phone: 1(522) 352-449404-02-2025 Evaluation note* Diagnosis Onset Date Resolution Status Admit Date Obesity affecting acute March 01, 2025 2:48pm acute March 01 2:48pm Supervision of high-risk acute March 01, 2025 2:48pm Tilted uterus resolved March 01, 2025 2:48pm Obesity affecting acute March 28, 2025 2:19pm acute March 28 2:19pm Supervision of high-risk acute March 28, 2025 2:19pm Obesity affecting acute April 14, 2025 3:36pm acute April 14, 2025 3:36pm Supervision of high-risk acute April 14, 2025 3 :36pm Obesity affecting acute April 28, 2025 3:02pm acute April 28, 2025 3:02pm Supervision of high-risk acute April 28, 2025 3 :02pm Obesity affecting acute May 09, 2025 2:31pm acute May 09 2:31pm Supervision of high-risk acute May 09, 2025 2:31pm Obesity affecting acute May 26, 2025 3:21pm acute May 26 3:21pm Supervision of high-risk acute May 26, 2025 3:21pm Obesity affecting acute June 05, 2025 9:19am acute June 05, 2025 9:19am Supervision of high-risk acute June 05, 2025 9 :19am [facility] Work Phone: 1(144) 329-397704-02-2025 Evaluation note* Diagnosis Onset Date Resolution Status Admit Date Obesity affecting acute March 01, 2025 2:48pm acute March 01 2:48pm Supervision of high-risk acute March 01, 2025 2:48pm Tilted uterus resolved March 01, 2025 2:48pm Obesity affecting acute March 28, 2025 2:19pm acute March 28 2:19pm Supervision of high-risk acute March 28, 2025 2:19pm Obesity affecting acute April 14, 2025 3:36pm acute April 14, 2025 3:36pm Supervision of high-risk acute April 14, 2025 3 :36pm Obesity affecting acute April 28, 2025 3:02pm acute April 28, 2025 3:02pm Supervision of high-risk acute April 28, 2025 3 :02pm Obesity affecting acute May 09, 2025 2:31pm acute May 09 2:31pm Supervision of high-risk acute May 09, 2025 2:31pm Obesity affecting acute May 26, 2025 3:21pm acute May 26 3:21pm Supervision of high-risk acute May 26, 2025 3:21pm Obesity affecting acute June 05, 2025 9:19am acute June 05, 2025 9:19am Supervision of high-risk acute June 05, 2025 9 :19am GBS (group B Streptococcus carrier), +RV culture, currently acute June 16 3:37pm Obesity affecting acute June 16, 2025 3:37pm acute June 16 3:37pm Supervision of high-risk acute June 16, 2025 3:37pm [facility] Work Phone: [phone]) 925-444703-04-2025 Evaluation note* Diagnosis Onset Date Resolution Status Admit Date Obesity affecting acute January 31, 2025 2:17pm acute January 31 2:17pm Supervision of high-risk a cute January 31, 2025 2:17pm Dyspareunia resolved January 31 2:17pm Family history of antiphosph olipid syndrome resolved January 31, 2025 2:17pm History of hyperprolactinemia resolv ed January 31, 2025 2:17pm [place] resolved January 31, 2025 2:17pm Tilted uterus resolved January 31, 2025 2:17pm PCOS (polycystic ovarian syndrome) i nactive January 31, 2025 2:17pm Obesity affecting acute March 01, 2025 2:48pm acute March 01 2:48pm Supervision of high-risk a cute March 01, 2025 2:48pm Tilted uterus resolved March 01, 2025 2:48pm Obesity affecting acute March 28, 2025 2:19pm acute March 28 2:19pm Supervision of high-risk a cute March 28, 2025 2:19pm Obesity affecting acute April 14, 2025 3:36pm acute April 14, 2025 3:36pm Supervision of high-risk a cute April 14, 2025 3:36pm Obesity affecting acute April 28, 2025 3:02pm acute April 28, 2025 3:02pm Supervision of high-risk a cute April 28, 2025 3:02pm Obesity affecting acute May 09, 2025 2:31pm acute May 09 2:31pm Supervision of high-risk a cute May 09, 2025 2:31pm [place] [employer] Work Phone: [phone]) 679-781403-04-2025 Evaluation note* Diagnosis Onset Date Resolution Status Admit Date Obesity affecting acute January 31, 2025 2:17pm acute January 31 2:17pm Supervision of high-risk a cute January 31, 2025 2:17pm Dyspareunia resolved January 31 2:17pm Family history of antiphosph olipid syndrome resolved January 31, 2025 2:17pm History of hyperprolactinemia resolv ed January 31, 2025 2:17pm [place] resolved January 31, 2025 2:17pm Tilted uterus resolved January 31, 2025 2:17pm PCOS (polycystic ovarian syndrome) i nactive January 31, 2025 2:17pm Obesity affecting acute March 01, 2025 2:48pm acute March 01 2:48pm Supervision of high-risk a cute March 01, 2025 2:48pm Tilted uterus resolved March 01, 2025 2:48pm Obesity affecting acute March 28, 2025 2:19pm acute March 28 2:19pm Supervision of high-risk a cute March 28, 2025 2:19pm Obesity affecting acute April 14, 2025 3:36pm acute April 14, 2025 3:36pm Supervision of high-risk a cute April 14, 2025 3:36pm Obesity affecting acute April 28, 2025 3:02pm acute April 28, 2025 3:02pm Supervision of high-risk a cute April 28, 2025 3:02pm Obesity affecting acute May 09, 2025 2:31pm acute May 09 2:31pm Supervision of high-risk a cute May 09, 2025 2:31pm Obesity affecting acute May 26, 2025 3:21pm acute May 26 3:21pm Supervision of high-risk a cute May 26, 2025 3:21pm [place] [employer] Work Phone: 1(783) 984-321902-07-2025 Evaluation note* Diagnosis Onset Date Resolution Status Admit Date Obesity affecting acute January 06, 2025 3:18pm acute January 06, 2025 3:18pm Supervision of high-risk acute January 06 3:18pm Dyspareunia resolved January 06, 2025 3:18pm Family history of antiphospholipid syndrome resolved 2024 3:18pm History of hyperprolactinemia resolv ed January 06, 2025 3:18pm [place] resolved December 3:18pm Tilted uterus resolved December 3:18pm PCOS (polycystic ovarian syndrome) inactive January 06 3:18pm Obesity affecting acute January 31, 2025 2:17pm acute January 31 2:17pm Supervision of high-risk acute January 31, 2025 2:17pm Dyspareunia resolved January 31 2:17pm Family history of antiphospholipid syndrome resolved January 31, 2025 2:17pm History of hyperprolactinemia resolv ed January 31, 2025 2:17pm [place] resolved January 31, 2025 2:17pm Tilted uterus resolved January 31, 2025 2:17pm PCOS (polycystic ovarian syndrome) inactive January 31, 2025 2:17pm Obesity affecting acute March 01, 2025 2:48pm acute March 01 2:48pm Supervision of high-risk acute March 01, 2025 2:48pm Tilted uterus resolved March 01, 2025 2:48pm Obesity affecting acute March 28, 2025 2:19pm acute March 28 2:19pm Supervision of high-risk acute March 28, 2025 2:19pm Obesity affecting acute April 14, 2025 3:36pm acute April 14, 2025 3:36pm Supervision of high-risk acute April 14, 2025 3 :36pm [place] [employer] Work Phone: 1(855) 107-829802-07-2025 Evaluation note* Diagnosis Onset Date Resolution Status Admit Date Obesity affecting acute January 06, 2025 3:18pm acute January 06, 2025 3:18pm Supervision of high-risk acute January 06 3:18pm Dyspareunia resolved January 06, 2025 3:18pm Family history of antiphospholipid syndrome resolved 2024 3:18pm History of hyperprolactinemia resolv ed January 06, 2025 3:18pm [place] resolved December 3:18pm Tilted uterus resolved December 3:18pm PCOS (polycystic ovarian syndrome) inactive January 06 3:18pm Obesity affecting acute January 31, 2025 2:17pm acute January 31 2:17pm Supervision of high-risk acute January 31, 2025 2:17pm Dyspareunia resolved January 31 2:17pm Family history of antiphospholipid syndrome resolved January 31, 2025 2:17pm History of hyperprolactinemia resolv ed January 31, 2025 2:17pm [place] resolved January 31, 2025 2:17pm Tilted uterus resolved January 31, 2025 2:17pm PCOS (polycystic ovarian syndrome) inactive January 31, 2025 2:17pm Obesity affecting acute March 01, 2025 2:48pm acute March 01 2:48pm Supervision of high-risk acute March 01, 2025 2:48pm Tilted uterus resolved March 01, 2025 2:48pm Obesity affecting acute March 28, 2025 2:19pm acute March 28 2:19pm Supervision of high-risk acute March 28, 2025 2:19pm Obesity affecting acute April 14, 2025 3:36pm acute April 14, 2025 3:36pm Supervision of high-risk acute April 14, 2025 3 :36pm Obesity affecting acute April 28, 2025 3:02pm acute April 28, 2025 3:02pm Supervision of high-risk acute April 28, 2025 3 :02pm [place] [employer] Work Phone: 1(256) 367-337001-10-2025 Evaluation note* Diagnosis Onset Date Resolution Status Admit Date Dyspareunia acute December 09, 2024 12:57pm Family history of antiphospholipid syndrome acute 2024 12:57pm History of hyperprolactinemia acute December 09, 2024 12:57pm [place] acute November 12:57pm Obesity affecting acute December 09, 2024 12:57pm PCOS (polycystic ovarian syndrome) acute December 09 12:57pm acute December 09, 2024 12:57pm Supervision of high-risk acute December 09 12:57pm Tilted uterus acute November 12:57pm Dyspareunia acute January 06, 2025 3:18pm Family history of antiphospholipid syndrome acute 2024 3:18pm History of hyperprolactinemia acute January 06, 2025 3:18pm [place] acute December 3:18pm Obesity affecting acute January 06, 2025 3:18pm PCOS (polycystic ovarian syndrome) acute January 06 3:18pm acute January 06, 2025 3:18pm Supervision of high-risk acute January 06 3:18pm Tilted uterus acute December 3:18pm Dyspareunia acute January 31 2:17pm Family history of antiphospholipid syndrome acute January 31, 2025 2:17pm History of hyperprolactinemia acute January 31, 2025 2:17pm [place] acute January 31, 2025 2:17pm Obesity affecting acute January 31, 2025 2:17pm PCOS (polycystic ovarian syndrome) acute January 31, 2025 2:17pm acute January 31 2:17pm Supervision of high-risk acute January 31, 2025 2:17pm Tilted uterus acute January 31, 2025 2:17pm [facility] Work Phone: 1(645) 478-536101-10-2025 Evaluation note* Diagnosis Onset Date Resolution Status Admit Date Obesity affecting acute December 09, 2024 12:57pm acute December 09, 2024 12:57pm Supervision of high-risk acute December 09 12:57pm Dyspareunia resolved December 09, 2024 12:57pm Family history of antiphospholipid syndrome resolved 2024 12:57pm History of hyperprolactinemia resolv ed December 09, 2024 12:57pm [place] resolved November 12:57pm Tilted uterus resolved November 12:57pm PCOS (polycystic ovarian syndrome) inactive December 09 12:57pm Obesity affecting acute January 06, 2025 3:18pm acute January 06, 2025 3:18pm Supervision of high-risk acute January 06 3:18pm Dyspareunia resolved January 06, 2025 3:18pm Family history of antiphospholipid syndrome resolved 2024 3:18pm History of hyperprolactinemia resolv ed January 06, 2025 3:18pm [place] resolved December 3:18pm Tilted uterus resolved December 3:18pm PCOS (polycystic ovarian syndrome) inactive January 06 3:18pm Obesity affecting acute January 31, 2025 2:17pm acute January 31 2:17pm Supervision of high-risk acute January 31, 2025 2:17pm Dyspareunia resolved January 31 2:17pm Family history of antiphospholipid syndrome resolved January 31, 2025 2:17pm History of hyperprolactinemia resolv ed January 31, 2025 2:17pm [place] resolved January 31, 2025 2:17pm Tilted uterus resolved January 31, 2025 2:17pm PCOS (polycystic ovarian syndrome) inactive January 31, 2025 2:17pm Obesity affecting acute March 01, 2025 2:48pm acute March 01 2:48pm Supervision of high-risk acute March 01, 2025 2:48pm Tilted uterus resolved March 01, 2025 2:48pm Obesity affecting acute March 28, 2025 2:19pm acute March 28 2:19pm Supervision of high-risk acute March 28, 2025 2:19pm [facility] Work Phone: 1(402) 324-888209-19-2024 NoteTelephone Visit Via Phone Call [address] [facility] [address] [place] [phone] Telephone Visit [facility] 08/18/2024 Raphael Razo CNP Provider Location: Office Patient Location Internal Sales: None Patient Location: Patient's Home Patient: Alyssa Pro Date of : 2000 (24 y.o. female) PCP: Raphael Razo CNP I discussed risks, benefits and alternatives of a telephone visit telemedicine consultation with the patient (and any accompanying persons) including the risks that the patient's personal health details and medical records will be discussed over real-time, synchronous, interactive audio technology, the visit will not be recorded without the express consent of both the provider and the patient, and that there are inherent diagnostic limitations compared to [id number] evaluations. We elected to proceed with the telephone visit telemedicine consultation. MAGDALENA Shah is a 24 year old patient on telehealth today for acute visit: sick. No significant PMH to review. Patient reports cold like symptoms: PATEL, fatigue, cough with sputum production, congestion, runny nose. She denies any N/V and no diarrhea. She did have fever x 1 day (didn't actually take temperature; states she was chilling/sweating/chilling). She did not check for COVID 19. Onset x 1.5 weeks ago. We discussed treatment options. She declines a CXR at this time; she believes she might be . We had a lengthy discussion as she does sound sick on the phone. I offered obtaining blood test for and proceeding with CXR she declines at this time. We had discussion regarding alarming signs and when to proceed to ED. She is currently on vitamin; she has an established [facility]; we discussed avoiding NSAID medications, we discussed safe OTC medications she can take. She is on day 37 of her cycle. She reports her initial test was negative however states she is attempting and her ovulation was 7 days back. States she never goes past day 36 without menses (with today being 37 possibility she could be ). All risks of prescribed medications discussed in detail. Patient wishes to proceed with ATB therapies without further testing at this time. The following portions of the patient's history were reviewed and updated as appropriate: allergies, current medications, past family history, past medical history, past social history, past surgical history, and problem list. Review of Systems Constitutional: Positive for fatigue. Negative for appetite change, chills, diaphoresis, fever and unexpected weight change. HENT: Positive for congestion, rhinorrhea, sinus pressure and sinus pain. Eyes: Negative for visual disturbance. Respiratory: Positive for cough. Negative for apnea, choking, chest tightness, shortness of breath, wheezing and stridor. Cardiovascular: Negative for chest pain, palpitations and leg swelling. Gastrointestinal: Negative for abdominal pain, constipation, diarrhea, nausea and vomiting. Endocrine: Negative for polydipsia, polyphagia and polyuria. Genitourinary: Negative for difficulty urinating, frequency, hematuria and urgency. Musculoskeletal: Negative for arthralgias, gait problem, joint swelling and neck stiffness. Skin: Negative for rash. Neurological: Negative for dizziness, seizures, syncope, facial asymmetry, weakness, light-headedness, numbness and headaches. Psychiatric/Behavioral: The patient is not nervous/anxious. Patient's Medications New Prescriptions AMOXICILLIN (AMOXIL) 500 MG CAPSULE Take 1 (one) capsule (500 mg total) by mouth 3 (three) times a day . Previous Medications PITAVASTATIN CALCIUM (LIVALO) 2 MG TAB Take 1 (one) tablet (2 mg total) by mouth daily . Modified Medications No medications on file Discontinued Medications No medications on file Assessment/Plan: Problem List Items Addressed This Visit None Visit Diagnoses Upper respiratory tract infection, unspecified type - Primary Relevant Medications amoxicillin (AMOXIL) 500 MG capsule I have spent 15 minutes with the patient reviewing the HPI and Plan of Care. AUTHENTICATED BY RAPHALE RAZO, ON 08/18/2024 12:44:28[facility] History of Present illness Narrative* Raphael Razo CNP - 08/18/2024 12:27 PM EDT Telephone Visit Via Phone Call [address] [facility] [address] [place] [phone] Telephone Visit [facility] 08/18/2024 Raphael Razo CNP Provider Location: Office Patient Location Internal Sales: None Patient Location: Patient's Home Patient: Alyssa Pro Date of : 2000 (24 y.o. female) PCP: Raphael Razo CNP I discussed risks, benefits and alternatives of a telephone visit telemedicine consultation with the patient (and any accompanying persons) including the risks that the patient's personal health details and medical records will be discussed over real-time, synchronous, interactive audio technology,the visit will not be recorded without the express consent of both the provider and the patient, and that there are inherent diagnostic limitations compared to [id number] evaluations. We elected toproceed with the telephone visit telemedicine consultation. HPI Alyssa is a 24 year old patient on telehealth today for acute visit: sick. No significant PMH to review. Patient reports cold like symptoms: PATEL, fatigue, cough with sputum production, congestion, runny nose. She denies any N/V and no diarrhea. She did have fever x 1 day (didn't actually take temperature; states she was chilling/sweating/chilling). She did not check for COVID 19. Onset x 1.5 weeks ago. We discussed treatment options. She declines a CXR at this time; she believes she might be . We had a lengthy discussion as she does sound sick on the phone. I offered obtaining blood test for and proceeding with CXR she declines at this time. We had discussion regarding alarming signs and when to proceed to ED. She is currently on vitamin; she has an established OB[facility]; we discussed avoiding NSAID medications, we discussed safe OTC medications she can take. She is on day 37 of her cycle. She reports her initial test was negative however states she is attempting and her ovulation was 7 days back. States she never goes past day 36 without menses (with today being 37 possibility she could be ). All risks of prescribed medications discussed in detail. Patient wishes to proceed with ATB therapies without further testing at this time. The following portions of the patient's history were reviewed and updated as appropriate: allergies, current medications, past family history, past medical history, past social history, past surgicalhistory, and problem list. Review of Systems Constitutional: Positive for fatigue. Negative for appetite change, chills, diaphoresis, fever and unexpected weight change. HENT: Positive for congestion, rhinorrhea, sinus pressure and sinus pain. Eyes: Negative for visual disturbance. Respiratory: Positive for cough. Negative for apnea, choking, chest tightness, shortness of breath,wheezing and stridor. Cardiovascular: Negative for chest pain, palpitations and leg swelling. Gastrointestinal: Negative for abdominal pain, constipation, diarrhea, nausea and vomiting. Endocrine: Negative for polydipsia, polyphagia and polyuria. Genitourinary: Negative for difficulty urinating, frequency, hematuria and urgency. Musculoskeletal: Negative for arthralgias, gait problem, joint swelling and neck stiffness. Skin: Negative for rash. Neurological: Negative for dizziness, seizures, syncope, facial asymmetry, weakness, light-headedness, numbness and headaches. Psychiatric/Behavioral: The patient is not nervous/anxious. Patient's Medications New Prescriptions AMOXICILLIN (AMOXIL) 500 MG CAPSULE Take 1 (one) capsule (500 mg total) by mouth 3 (three) times a day . Previous Medications PITAVASTATIN CALCIUM (LIVALO) 2 MG TAB Take 1 (one) tablet (2 mg total) by mouth daily . Modified Medications No medications on file Discontinued Medications No medications on file Assessment/Plan: Problem List Items Addressed This Visit None Visit Diagnoses Upper respiratory tract infection, unspecified type - Primary Relevant Medications amoxicillin (AMOXIL) 500 MG capsule I have spent 15 minutes with the patient reviewing the HPI and Plan of Care. documented in this [id number] Note* Addendum Note - Raphael Razo CNP - 04/07/2024 1:50 PM EDTAddended by: RAPHAEL RAZO on: 04/07/2024 01:50 PM Modules accepted: Orders [id number] Note* Addendum Note - Raphael Razo CNP - 04/07/2024 1:50 PM EDTAddended by: RAPHAEL RAZO on: 04/07/2024 01:50 PM Modules accepted: Orders [id number] Note08/15/2020 8:07 AM 04/04/2024 2:00 PM Depression Screening Little interest or pleasure in doing things 1 0 Feeling down, depressed, or hopeless 0 0 PHQ-2 Total Score 1 0 Trouble falling or staying asleep, or sleeping too much 3 Feeling tired or having little energy 3 Poor appetite or overeating 0 Feeling bad about yourself - or that you are a failure or have let yourself or your family down 0 Trouble concentrating on things, such as reading the newspaper or watching television 0 Moving or speaking so slowly that other people could have noticed. Or the opposite - being so fidgety or restless that you have been moving around a lot more than usual 0 Thoughts that you would be better off , or of hurting yourself in some way 0 PHQ-9 Total Score 7 AUTHENTICATED BY RAPHAEL RAZO, ON 04/07/2024 13:50:30[facility] 04-07-2024 History of Present illness Narrative* Raphael Razo CNP - 04/07/2024 1:50 PM EDT 08/15/2020 8:07 AM 04/04/2024 2:00 PM Depression Screening Little interest or pleasure in doing things 1 0 Feeling down, depressed, or hopeless 0 0 PHQ-2 Total Score 1 0 Trouble falling or staying asleep, or sleeping too much 3 Feeling tired or having little energy 3 Poor appetite or overeating 0 Feeling bad about yourself - or that you are a failure or have let yourself or your family down 0 Trouble concentrating on things, such as reading the newspaper or watching television 0 Moving or speaking so slowly that other people could have noticed. Or the opposite - being so fidgety or restless that you have been moving around a lot more than usual 0 Thoughts that you would be better off , or of hurting yourself in some way 0 PHQ-9 Total Score 7 * Raphael Razo CNP - 04/04/2024 3:04 PM EDT Office Progress Notes Patient Name: Alyssa Pro Date : 04/04/2024 MR #: [id number] : 2000 Summary and Plan Problem List Items Addressed This Visit None Visit Diagnoses History of anemia - Primary Relevant Orders CBC and Differential Iron Study with Ferritin Wellness examination Relevant Orders Comprehensive Metabolic Panel Hypercholesterolemia Relevant Orders Lipid Panel Palpitations Relevant Orders TSH with Reflex Free T4 ECG 12 Lead HPI Alyssa is a 24 year old patient here today to establish care. History includes familial hypercholesterolemia, hypercholesterolemia; PCOS. Patient here today to discuss repeating her labs; history of hypercholesterolemia. She previously was on STATIN medication and was following with at [facility] clinic. Extensive workup completed with no etiology to hypercholesterolemia. Significant family history for hypercholesterolemia. Patient has tried Atorvastatin as well as rosuvastatin and has been unable to tolerate either medication secondary to s/e muscle fatigue. Patient also concerned today about episodes of racing HR. Reports she typically experiences this atrest. She denies any palpitations with exercise. Reports when the episodes happen she experiences dizziness and lightheadedness. Episodes last approximately 1 minute and then resolve spontaneously. Patient follows with [facility]; in [place]. Patient reports that she does have extremely heavy periods; has PCOS. Review of Systems : Review of Systems Constitutional: Negative for appetite change, chills, diaphoresis, fatigue, fever and unexpected weight change. HENT: Negative for congestion, sinus pressure and sinus pain. Eyes: Negative for visual disturbance. Respiratory: Positive for shortness of breath (during episode of palpitation only). Negative for apnea, cough, choking, chest tightness, wheezing and stridor. Cardiovascular: Positive for palpitations. Negative for chest pain and leg swelling. Gastrointestinal: Negative for abdominal pain, constipation, diarrhea, nausea and vomiting. Endocrine: Negative for polydipsia, polyphagia and polyuria. Genitourinary: Negative for difficulty urinating, frequency, hematuria and urgency. Musculoskeletal: Negative for arthralgias, gait problem, joint swelling and neck stiffness. Skin: Negative for rash. Neurological: Positive for dizziness and light-headedness. Negative for seizures, syncope, facial asymmetry, weakness, numbness and headaches. Psychiatric/Behavioral: The patient is not nervous/anxious. Past Medical, Surgical, Family, and Social History: History reviewed. No pertinent past medical history. History reviewed. No pertinent surgical history. Family History Problem Relation Age of Onset Arthritis Mother Stroke Mother No Known Problems Father No Known Problems Sister No Known Problems Brother Heart disease Maternal Grandmother Heart attack Maternal Grandfather Heart disease Paternal Grandmother Cancer Paternal Grandfather No Known Problems Sister Social History Socioeconomic History Marital status: Number of children: 0 Highest education level: Some college, no degree Tobacco Use Smoking status: Never Smokeless tobacco: Never Vaping Use Vaping Use: Never used Substance and Sexual Activity Alcohol use: No Drug use: Never Sexual activity: Yes Partners: Male control/protection: Condom Social Determinants of Health Financial Resource Strain: Low Risk (04/04/2024) Overall Financial Resource Strain (CARDIA) Difficulty of Paying Living Expenses: Not very hard Food Insecurity: No Food Insecurity (04/04/2024) Hunger Vital Sign Worried About Running Out of Food in the Last Year: Never true Ran Out of Food in the Last Year: Never true Transportation Needs: No Transportation Needs (04/04/2024) PRAPARE - Transportation Lack of Transportation (Medical): No Lack of Transportation (Non-Medical): No Physical Activity: Insufficiently Active (04/04/2024) Exercise Vital Sign Days of Exercise per Week: 2 days Minutes of Exercise per Session: 30 min Stress: No Stress Concern Present (04/04/2024) [place] [employer] - Occupational Stress Questionnaire Feeling of Stress : Only a little Social Connections: Unknown (04/04/2024) Social Connection and Isolation Panel [NHANES] Frequency of Communication with Friends and Family: More than three times a week Frequency of Social Gatherings with Friends and Family: More than three times a week Attends [employer] Services: More than 4 times per year Active Member of Clubs or Organizations: Yes Attends Club or Organization Meetings: More than 4 times per year Housing Stability: Unknown (04/04/2024) Housing Stability Vital Sign Unable to Pay for Housing in the Last Year: No Unstable Housing in the Last Year: No Allergies and Medications: I have reviewed the patient's allergies. Patient has no known allergies. Medications: Patient's Medications New Prescriptions No medications on file Previous Medications No medications on file Modified Medications No medications on file Discontinued Medications ATORVASTATIN (LIPITOR) 10 MG TABLET Take 1 (one) tablet (10 mg total) by mouth daily . ROSUVASTATIN (CRESTOR) 10 MG TABLET Take 1 (one) tablet (10 mg total) by mouth daily . OARRS/NARxCHECK Report Received and Assessed: Date controlled substance agreement signed: No data found Date of last drug screen: The ASCVD Risk score (Yamini DK, et al., 2019) failed to calculate for the following reasons: The 2019 ASCVD risk score is only valid for ages 40 to 79 Physical Exam: Vital Signs: BP 118/78 Pulse 70 Temp 97.5 F (36.4 C) (Temporal) Ht 5' 6" Wt 99.8 kg (220 lb) SpO2 98% BMI 35.51 kg/m Physical Exam Vitals and nursing note reviewed. Constitutional: General: She is not in acute distress. Appearance: Normal appearance. She is normal weight. She is not ill-appearing, toxic-appearing or diaphoretic. HENT: Head: Normocephalic and atraumatic. Right Ear: Tympanic membrane and external ear normal. Left Ear: Tympanic membrane and external ear normal. Nose: Nose normal. Mouth/Throat: Mouth: Mucous membranes are moist. Pharynx: Oropharynx is clear. Eyes: Extraocular Movements: Extraocular movements intact. Conjunctiva/sclera: Conjunctivae normal. Pupils: Pupils are equal, round, and reactive to light. Neck: Vascular: No carotid bruit. Cardiovascular: Rate and Rhythm: Normal rate and regular rhythm. Pulses: Normal pulses. Heart sounds: Normal heart sounds. No murmur heard. No friction rub. No gallop. Pulmonary: Effort: Pulmonary effort is normal. No respiratory distress. Breath sounds: Normal breath sounds. No stridor. No wheezing, rhonchi or rales. Chest: Chest wall: No tenderness. Abdominal: General: Bowel sounds are normal. There is no distension. Palpations: Abdomen is soft. Tenderness: There is no abdominal tenderness. There is no right CVA tenderness, left CVA tenderness, guarding or rebound. Hernia: No hernia is present. Musculoskeletal: General: No swelling, tenderness, deformity or signs of injury. Normal range of motion. Cervical back: Normal range of motion and neck supple. No rigidity or tenderness. Right lower leg: No edema. Left lower leg: No edema. Lymphadenopathy: Cervical: No cervical adenopathy. Skin: General: Skin is warm and dry. Findings: No rash. Neurological: General: No focal deficit present. Mental Status: She is alert and oriented to person, place, and time. Motor: No weakness. Gait: Gait normal. Psychiatric: Mood and Affect: Mood normal. Behavior: Behavior normal. Thought Content: Thought content normal. Judgment: Judgment normal. Laboratory and Additional Data Reviewed: Reviewed 04/04/24 : Laboratory, Microbiology, Pathology, Radiology, Cardiology, Medications, and Transcriptions Spent 20 minutes reviewing chart, performance of history physical going over each of individual medical problems. * Raphael Razo CNP - 04/04/2024 3:04 PM EDT 08/15/2020 8:07 AM 04/04/2024 2:00 PM Depression Screening Little interest or pleasure in doing things 1 0 Feeling down, depressed, or hopeless 0 0 PHQ-2 Total Score 1 0 Trouble falling or staying asleep, or sleeping too much 3 Feeling tired or having little energy 3 Poor appetite or overeating 0 Feeling bad about yourself - or that you are a failure or have let yourself or your family down 0 Trouble concentrating on things, such as reading the newspaper or watching television 0 Moving or speaking so slowly that other people could have noticed. Or the opposite - being so fidgety or restless that you have been moving around a lot more than usual 0 Thoughts that you would be better off , or of hurting yourself in some way 0 PHQ-9 Total Score 7 documented in this [id number] Miscellaneous Notes* Addendum Note - Raphael Razo CNP - 04/07/2024 1:50 PM EDTAddended by: RAPHAEL RAZO on: 04/07/2024 01:50 PM Modules accepted: Orders * Addendum Note - Raphael Razo CNP - 04/07/2024 1:47 PM EDTAddended by: RAPHAEL RAZO on: 04/07/2024 01:47 PM Modules accepted: Orders, Level of Service documented in this [id number] Note* Addendum Note - Raphael Razo CNP - 04/07/2024 1:47 PM EDTAddended by: RAPHAEL RAZO on: 04/07/2024 01:47 PM Modules accepted: Orders, Level of Service [id number] Note* Addendum Note - Raphael Razo CNP - 04/07/2024 1:47 PM EDTAddended by: RAPHAEL RAZO on: 04/07/2024 01:47 PM Modules accepted: Orders, Level of Service [id number] NoteOffice Progress Notes Patient Name: Alyssa Pro Date : 04/04/2024 MR #: [id number] : 2000 Summary and Plan Problem List Items Addressed This Visit None Visit Diagnoses History of anemia - Primary Relevant Orders CBC and Differential Iron Study with Ferritin Wellness examination Relevant Orders Comprehensive Metabolic Panel Hypercholesterolemia Relevant Orders Lipid Panel Palpitations Relevant Orders TSH with Reflex Free T4 ECG 12 Lead HPI Alyssa is a 24 year old patient here today to establish care. History includes familial hypercholesterolemia, hypercholesterolemia; PCOS. Patient here today to discuss repeating her labs; history of hypercholesterolemia. She previously was on STATIN medication and was following with at [facility]. Extensive workup completed with no etiology to hypercholesterolemia. Significant family history for hypercholesterolemia. Patient has tried Atorvastatin as well as rosuvastatin and has been unable to tolerate either medication secondary to s/e muscle fatigue. Patient also concerned today about episodes of racing HR. Reports she typically experiences this at rest. She denies any palpitations with exercise. Reports when the episodes happen she experiences dizziness and lightheadedness. Episodes last approximately 1 minute and then resolve spontaneously. Patient follows with [facility]; in [place]. Patient reports that she does have extremely heavy periods; has PCOS. Review of Systems : Review of Systems Constitutional: Negative for appetite change, chills, diaphoresis, fatigue, fever and unexpected weight change. HENT: Negative for congestion, sinus pressure and sinus pain. Eyes: Negative for visual disturbance. Respiratory: Positive for shortness of breath (during episode of palpitation only). Negative for apnea, cough, choking, chest tightness, wheezing and stridor. Cardiovascular: Positive for palpitations. Negative for chest pain and leg swelling. Gastrointestinal: Negative for abdominal pain, constipation, diarrhea, nausea and vomiting. Endocrine: Negative for polydipsia, polyphagia and polyuria. Genitourinary: Negative for difficulty urinating, frequency, hematuria and urgency. Musculoskeletal: Negative for arthralgias, gait problem, joint swelling and neck stiffness. Skin: Negative for rash. Neurological: Positive for dizziness and light-headedness. Negative for seizures, syncope, facial asymmetry, weakness, numbness and headaches. Psychiatric/Behavioral: The patient is not nervous/anxious. Past Medical, Surgical, Family, and Social History: History reviewed. No pertinent past medical history. History reviewed. No pertinent surgical history. Family History Problem Relation Age of Onset Arthritis Mother Stroke Mother No Known Problems Father No Known Problems Sister No Known Problems Brother Heart disease Maternal Grandmother Heart attack Maternal Grandfather Heart disease Paternal Grandmother Cancer Paternal Grandfather No Known Problems Sister Social History Socioeconomic History Marital status: Number of children: 0 Highest education level: Some college, no degree Tobacco Use Smoking status: Never Smokeless tobacco: Never Vaping Use Vaping Use: Never used Substance and Sexual Activity Alcohol use: No Drug use: Never Sexual activity: Yes Partners: Male control/protection: Condom Social Determinants of Health Financial Resource Strain: Low Risk (04/04/2024) Overall Financial Resource Strain (CARDIA) Difficulty of Paying Living Expenses: Not very hard Food Insecurity: No Food Insecurity (04/04/2024) Hunger Vital Sign Worried About Running Out of Food in the Last Year: Never true Ran Out of Food in the Last Year: Never true Transportation Needs: No Transportation Needs (04/04/2024) PRAPARE - Transportation Lack of Transportation (Medical): No Lack of Transportation (Non-Medical): No Physical Activity: Insufficiently Active (04/04/2024) Exercise Vital Sign Days of Exercise per Week: 2 days Minutes of Exercise per Session: 30 min Stress: No Stress Concern Present (04/04/2024) [place] [employer] - Occupational Stress Questionnaire Feeling of Stress : Only a little Social Connections: Unknown (04/04/2024) Social Connection and Isolation Panel [NHANES] Frequency of Communication with Friends and Family: More than three times a week Frequency of Social Gatherings with Friends and Family: More than three times a week Attends Moravian Services: More than 4 times per year Active Member of Clubs or Organizations: Yes Attends Club or Organization Meetings: More than 4 times per year Housing Stability: Unknown (04/04/2024) Housing Stability Vital Sign Unable to Pay for Housing in the Last Year: No Unstable Housing in the Last Year: No Allergies and Medications: I have reviewed the patient's aller (more content not included)...[facility]05-06-2024 Note08/15/2020 8:07 AM 04/04/2024 2:00 PM Depression Screening Little interest or pleasure in doing things 1 0 Feeling down, depressed, or hopeless 0 0 PHQ-2 Total Score 1 0 Trouble falling or staying asleep, or sleeping too much 3 Feeling tired or having little energy 3 Poor appetite or overeating 0 Feeling bad about yourself - or that you are a failure or have let yourself or your family down 0 Trouble concentrating on things, such as reading the newspaper or watching television 0 Moving or speaking so slowly that other people could have noticed. Or the opposite - being so fidgety or restless that you have been moving around a lot more than usual 0 Thoughts that you would be better off , or of hurting yourself in some way 0 PHQ-9 Total Score 7 AUTHENTICATED BY RAPHAEL RAZO, ON 04/04/2024 15:49:06[facility] 04-04-2024 History of Present illness Narrative* Raphael Razo, PROSTHODONTIST/OWNER - 04/04/2024 3:04 PM EDT Office Progress Notes Patient Name: Alyssa Pro Date : 04/04/2024 MR #: [id number] : 2000 Summary and Plan Problem List Items Addressed This Visit None Visit Diagnoses History of anemia - Primary Relevant Orders CBC and Differential Iron Study with Ferritin Wellness examination Relevant Orders Comprehensive Metabolic Panel Hypercholesterolemia Relevant Orders Lipid Panel Palpitations Relevant Orders TSH with Reflex Free T4 ECG 12 Lead HPI Alyssa is a 24 year old patient here today to establish care. History includes familial hypercholesterolemia, hypercholesterolemia; PCOS. Patient here today to discuss repeating her labs; history of hypercholesterolemia. She previously was on STATIN medication and was following with at [facility] clinic. Extensive workup completed with no etiology to hypercholesterolemia. Significant family history for hypercholesterolemia. Patient also concerned today about episodes of racing HR. Reports she typically experiences this atrest. She denies any palpitations with exercise. Reports when the episodes happen she experiences dizziness and lightheadedness. Episodes last approximately 1 minute and then resolve spontaneously. Patient follows with [facility]; in [place]. Patient reports that she does have extremely heavy periods; has PCOS. Review of Systems : Review of Systems Constitutional: Negative for appetite change, chills, diaphoresis, fatigue, fever and unexpected weight change. HENT: Negative for congestion, sinus pressure and sinus pain. Eyes: Negative for visual disturbance. Respiratory: Positive for shortness of breath (during episode of palpitation only). Negative for apnea, cough, choking, chest tightness, wheezing and stridor. Cardiovascular: Positive for palpitations. Negative for chest pain and leg swelling. Gastrointestinal: Negative for abdominal pain, constipation, diarrhea, nausea and vomiting. Endocrine: Negative for polydipsia, polyphagia and polyuria. Genitourinary: Negative for difficulty urinating, frequency, hematuria and urgency. Musculoskeletal: Negative for arthralgias, gait problem, joint swelling and neck stiffness. Skin: Negative for rash. Neurological: Positive for dizziness and light-headedness. Negative for seizures, syncope, facial asymmetry, weakness, numbness and headaches. Psychiatric/Behavioral: The patient is not nervous/anxious. Past Medical, Surgical, Family, and Social History: History reviewed. No pertinent past medical history. History reviewed. No pertinent surgical history. Family History Problem Relation Age of Onset Arthritis Mother Stroke Mother No Known Problems Father No Known Problems Sister No Known Problems Brother Heart disease Maternal Grandmother Heart attack Maternal Grandfather Heart disease Paternal Grandmother Cancer Paternal Grandfather No Known Problems Sister Social History Socioeconomic History Marital status: Number of children: 0 Highest education level: Some college, no degree Tobacco Use Smoking status: Never Smokeless tobacco: Never Vaping Use Vaping Use: Never used Substance and Sexual Activity Alcohol use: No Drug use: Never Sexual activity: Yes Partners: Male control/protection: Condom Social Determinants of Health Financial Resource Strain: Low Risk (04/04/2024) Overall Financial Resource Strain (CARDIA) Difficulty of Paying Living Expenses: Not very hard Food Insecurity: No Food Insecurity (04/04/2024) Hunger Vital Sign Worried About Running Out of Food in the Last Year: Never true Ran Out of Food in the Last Year: Never true Transportation Needs: No Transportation Needs (04/04/2024) PRAPARE - Transportation Lack of Transportation (Medical): No Lack of Transportation (Non-Medical): No Physical Activity: Insufficiently Active (04/04/2024) Exercise Vital Sign Days of Exercise per Week: 2 days Minutes of Exercise per Session: 30 min Stress: No Stress Concern Present (04/04/2024) [place] [employer] - Occupational Stress Questionnaire Feeling of Stress : Only a little Social Connections: Unknown (04/04/2024) Social Connection and Isolation Panel [NHANES] Frequency of Communication with Friends and Family: More than three times a week Frequency of Social Gatherings with Friends and Family: More than three times a week Attends Moravian Services: More than 4 times per year Active Member of Clubs or Organizations: Yes Attends Club or Organization Meetings: More than 4 times per year Housing Stability: Unknown (04/04/2024) Housing Stability Vital Sign Unable to Pay for Housing in the Last Year: No Unstable Housing in the Last Year: No Allergies and Medications: I have reviewed the patient's allergies. Patient has no known allergies. Medications: Patient's Medications New Prescriptions No medications on file Previous Medications No medications on file Modified Medications No medications on file Discontinued Medications ATORVASTATIN (LIPITOR) 10 MG TABLET Take 1 (one) tablet (10 mg total) by mouth daily . ROSUVASTATIN (CRESTOR) 10 MG TABLET Take 1 (one) tablet (10 mg total) by mouth daily . OARRS/NARxCHECK Report Received and Assessed: Date controlled substance agreement signed: No data found Date of last drug screen: The ASCVD Risk score (Yamini SANFORD, et al., 2019) failed to calculate for the following reasons: The 2019 ASCVD risk score is only valid for ages 40 to 79 Physical Exam: Vital Signs: BP 118/78 Pulse 70 Temp 97.5 F (36.4 C) (Temporal) Ht 5' 6" Wt 99.8 kg (220 lb) SpO2 98% BMI 35.51 kg/m Physical Exam Vitals and nursing note reviewed. Constitutional: General: She is not in acute distress. Appearance: Normal appearance. She is normal weight. She is not ill-appearing, toxic-appearing or diaphoretic. HENT: Head: Normocephalic and atraumatic. Right Ear: Tympanic membrane and external ear normal. Left Ear: Tympanic membrane and external ear normal. Nose: Nose normal. Mouth/Throat: Mouth: Mucous membranes are moist. Pharynx: Oropharynx is clear. Eyes: Extraocular Movements: Extraocular movements intact. Conjunctiva/sclera: Conjunctivae normal. Pupils: Pupils are equal, round, and reactive to light. Neck: Vascular: No carotid bruit. Cardiovascular: Rate and Rhythm: Normal rate and regular rhythm. Pulses: Normal pulses. Heart sounds: Normal heart sounds. No murmur heard. No friction rub. No gallop. Pulmonary: Effort: Pulmonary effort is normal. No respiratory distress. Breath sounds: Normal breath sounds. No stridor. No wheezing, rhonchi or rales. Chest: Chest wall: No tenderness. Abdominal: General: Bowel sounds are normal. There is no distension. Palpations: Abdomen is soft. Tenderness: There is no abdominal tenderness. There is no right CVA tenderness, left CVA tenderness, guarding or rebound. Hernia: No hernia is present. Musculoskeletal: General: No swelling, tenderness, deformity or signs of injury. Normal range of motion. Cervical back: Normal range of motion and neck supple. No rigidity or tenderness. Right lower leg: No edema. Left lower leg: No edema. Lymphadenopathy: Cervical: No cervical adenopathy. Skin: General: Skin is warm and dry. Findings: No rash. Neurological: General: No focal deficit present. Mental Status: She is alert and oriented to person, place, and time. Motor: No weakness. Gait: Gait normal. Psychiatric: Mood and Affect: Mood normal. Behavior: Behavior normal. Thought Content: Thought content normal. Judgment: Judgment normal. Laboratory and Additional Data Reviewed: Reviewed 04/04/24 : Laboratory, Microbiology, Pathology, Radiology, Cardiology, Medications, and Transcriptions Spent 20 minutes reviewing chart, performance of history physical going over each of individual medical problems. * Raphael Razo CNP - 04/04/2024 3:04 PM EDT 08/15/2020 8:07 AM 04/04/2024 2:00 PM Depression Screening Little interest or pleasure in doing things 1 0 Feeling down, depressed, or hopeless 0 0 PHQ-2 Total Score 1 0 Trouble falling or staying asleep, or sleeping too much 3 Feeling tired or having little energy 3 Poor appetite or overeating 0 Feeling bad about yourself - or that you are a failure or have let yourself or your family down 0 Trouble concentrating on things, such as reading the newspaper or watching television 0 Moving or speaking so slowly that other people could have noticed. Or the opposite - being so fidgety or restless that you have been moving around a lot more than usual 0 Thoughts that you would be better off , or of hurting yourself in some way 0 PHQ-9 Total Score 7 documented in this [id number] History of Present illness Narrative* Kamla Medina, [place] - 04/08/2023 4:02 PM EDT Subjective Patient ID: Alyssa Pro is a 23 y.o. female. HPI Pt presents today for a problem visit related to wanting thyroid and hormone levels checked. Ptstates she is always fatigued and has noticed [...] replacing carbs with vegetables. Pt states her lifestylechanges really took place about 2 months ago. [...] past medical history, past social history, past surgicalhistory, and problem list. Review of Systems Constitutional: [...] mood, self-injury and suicidal ideas. The patient isnot nervous/anxious. Objective Physical Exam Vitals reviewed. Constitutional: [...] supplements, reviewed increased proteins, reviewed types of bodyweight exercises. Reviewed with pt will check for [...] CBC and Differential; Future documented in this [id number] History of Present illness Narrative* Kamla Medina CNM - 12/17/2022 9:06 AM EST Patient ID: Alyssa Pro is a 22 [...] Denies any other issues. She works at [employer], is running for exercise and training for a half marathon. She admits to a healthy diet and mostly cooks at home. She is a . She is sexually active denies dyspareunia. Uses OCP for BC. Her LMP is 11/25/22. She denies any issues with bowel or bladder. She is due for her first pap. She denies any fhx of ovarian or coloncancer. Her maternal aunt did have breast cancer, [...] mood, self-injury and suicidal ideas. The patient isnot nervous/anxious. Objective BP 131/80 Pulse 78 Ht 5' 6" Wt 98.4 kg (216 lb 14.4 oz) [...] by mouth daily . documented in this [id number] Instructions* Patient Instructions* Pam Mckinnon R.Ph. - 10/09/2022 8:42 AM EST PLAN: Continue [...] lab orders will be in the system andyou can go to ANY [facility] lab to have this drawn. Physical [...] amount, paying particular attention to carbohydrate intake, isthe most important thing to consider for weight [...] 87 [phone] none documented in this [id number] History of Present illness Narrative* Tegan EliasPh. - 10/09/2022 8:08 AM EST Video Visit [facility] [address] [id number] Via Real-time Synchronous Audiovisual [facility] 10/09/2022 Micheal Elias.Ph. Provider Location: [facility] Patient Location Internal Sales: None Patient Location: Patient's Work Patient: Alyssa Pro Date of : 2000 (22 y.o. female) PCP: Tiny Marrufo CNP Video Visit Consent Statement: I discussed [...] that there are some limitations compared to [id number]-[id number] evaluations. We elected to proceed. Collaborative Provider: Tiny Choe MD Alyssa Pro is a 22 y.o. female initially seen 09/18/21 for Primary Prevention with h/o LDL-C over 190mg/dl. She has a significant family history of ASCVD. 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 - 10/08/2022 3:17 PM EST Video Visit [facility] [address] [phone] Via Real-time Synchronous Audiovisual [facility] 10/08/2022 Tegan EliasPh. Provider Location: [facility] Patient Location Internal Sales: None Patient Location: Patient's Home Patient: Alyssa Pro Date of : 2000 (22 y.o. female) PCP: Tiny Marrufo CNP Video Visit Consent Statement: I discussed [...] that there are some limitations compared to [id number]-[id number] evaluations. We elected to proceed. 09/18/2021 L[facility] INITIAL VISIT Visit Date: 09/18/21 Provider: Nella HurdD Treating Provider: Tiny Choe MD Location: [facility] Alyssa Pro is a 22 y.o. female initially seen 09/18/21 for Primary Prevention with h/o LDL-C over 190mg/dl. She has a significant family history of ASCVD. 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 female. HPI Alyssa presents today for a medication follow up after starting OCP for heavy bleeding with herperiods. Pt states her periods are much better, she has mangle tender bleeding and mangle tender cramps associated with her period. LMP 07/07/22, [...] mood, self-injury and suicidal ideas. The patient isnot nervous/anxious. Objective Physical Exam Vitals reviewed. Constitutional: [...] 1 (one) tablet by mouth daily . * Kamla Medina CNM - 07/14/2022 3:03 PM EDT documented in this [id number] History of Present illness Narrative* Micheal Elias.Ph. - 07/01/2022 1:20 PM EDT Video Visit [facility] [address] [address] Via Real-time Synchronous Audiovisual [facility] 07/01/2022 Micheal Elias.Ph. Provider Location: [facility] Patient Location Internal Sales: None Patient Location: Patient's Home Patient: Alyssa Pro Date of : 2000 (22 y.o. female) PCP: Tiny Marrufo CNP Video Visit Consent Statement: I discussed [...] that there are some limitations compared to obmg-sz-zyls evaluations. We elected to proceed. 09/18/2021 [facility] INITIAL VISIT Visit Date: 09/18/21 Provider: Nella HurdD Treating Provider: Tiny Choe MD Location: [facility] Alyssa Pro is a 22 y.o. female seen today for Primary Prevention with h/o LDL-C over 190mg/dl.She has a significant family history of ASCVD. Referred by Tiny Marrufo CNP History: Dyslipidemia - pure hypercholesterolemia and [...] On norgestimate-ethinyl estradioL (ORTHO TRI-CYCLEN LO) 0.18/0.215/0.25 mg-25mcg per tablet history: preeclampsia, eclampsia, low weight, gestational diabetes, > expected hyperlipidemia during Age of menopause, surgical menopause: Menorrhagia with irregular cycle Treatment history: Statins: 09/18/21 Rosuva 20mg - noncompliance Non-statins: Fibrates: Niacin: Bile Acid: Ezetimibe: PCSK9i: Vascepa/Lovaza: Nexletol/Nexlizet: Other OTC products: Side effect issues: Current Treatment: Rosuva 20mg - noncompliant Current diabetes medications: none 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 - 07/01/2022 1:20 PM EDT Video Visit [facility] [address] [address] Via Real-time Synchronous Audiovisual [facility] 07/01/2022 Tegan EliasPh. Provider Location: [facility] Patient Location Internal Sales: [place] Patient Location: Patient's Home Patient: Alyssa Pro Date of : 2000 (22 y.o. female) PCP: Tiny Marrufo CNP Video Visit Consent Statement: I discussed [...] that there are some limitations compared to ofiy-tp-nxxh evaluations. We elected to proceed. 09/18/2021 [facility] INITIAL VISIT Visit Date: 09/18/21 Provider: Nella HurdD Treating Provider: Tiny Choe MD Location: [facility] Alyssa Pro is a 22 y.o. female seen today for Primary Prevention with h/o LDL-C over 190mg/dl.She has a significant family history of ASCVD. 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 female. HPI Alyssa presents for a problem visit related to heavy periods, pt was previously on control to help control this and had some relief but stopped taking the control a few months ago. Ptstates she is having monthly periods but bleeding [...] see how periods are with continuous OCP. * Kamla Medina CNM - 04/08/2022 3:53 PM EDT documented in this [id number] Miscellaneous Notes* Telephone Encounter - Lindsey Zapien MA - 10/21/2021 2:37 PM EST Pt called for refill, has appointment, lab dates correct. documented in this [id number] Instructions* Patient Instructions* Tiny Marrufo CNP - 09/23/2021 8:11 PM EDT Images from the original note were not included. Pelvic Pain: Care Instructions Your Care Instructions Pelvic pain, or pain in the lower belly, can have many causes. Often pelvic pain is not serious andgets better in a few days. If your pain continues or gets worse, you may need tests and treatment. Tell your doctor about any new symptoms. These may be signs of a serious problem. Follow-up care is a galladro part of your treatment and safety. Be [...] and spicy foods, other fruits, and alcohol until48 hours after your symptoms have gone away. Take an hdgs-eog-mbfgssc pain medicine, such as acetaminophen (Tylenol), ibuprofen (Advil, Motrin),or naproxen (Aleve). Read and follow all instructions [...] Log into your personal health record on [email or web address] and enter B514 in the "Education" box to learn more about "Pelvic Pain: Care Instructions." Current as of: January 10, 2021 Content Version: 13.0 3016-2532 [employer]. Care instructions adapted under license by your healthcare professional. If you have questions about a medical condition or this instruction, always ask your healthcare professional. [employer] disclaims any warranty or liability for your use of this information. documented in this [id number] Miscellaneous Notes* Assessment & Plan Note - Tiny Marrufo CNP - 09/23/2021 8:10 PM EDT Associated Problem(s): Acute vaginitis Vaginitis swab obtained and sent. * Assessment & Plan Note - Tiny Marrufo CNP - 09/23/2021 7:54 AM EDT Associated Problem(s): Suprapubic pain, acute Pelvic u/s completed Consider referral to [facility] Vaginitis swab sent documented in this [id number] History of Present illness Narrative* Tiny Marrufo CNP - 09/23/2021 7:30 AM EDT Images from the original note [...] of free fluid in the pelvis. Retroverted uterus." -- Reports rLQ abd pain has resolved Reports mid suprapubic pain - mild at present. Feels like a cramping and feels it when she runs. Feels a 'snag' with intercourse and is so painful that sometimes she screams. Reports no problems with intercourse prior to marriage, stopped for 3 months and now intercourse ispainful. Currently sexually active 2 - 3 x [...] Friends and Family: Not on file Attends [employer] Services: Not on file Active Member of [...] medications. Medication note: due to EMR limitations: "DISCONTINUED" medications may mean: PREVIOUSLY stopped STOPPING today REFILLING today Review of Systems: 10 organ systems were reviewed. All systems were negative, apart from what was mentioned in the HPIand the following. Review of Systems Constitutional: Negative [...] (36.7 C) (Temporal) Resp 18 Ht 5' 6" Wt 87.5 kg (193 lb) LMP 09/13/2021 (Approximate) SpO2 98% BMI 31.15 kg/m Wt Readings from Last 3 Encounters: 09/23/21 87.5 kg (193 lb) 07/22/21 (P) 86.9 kg (191 lb 8 oz) 08/15/20 80.9 kg (178 lb 4.8 oz) (94 %, Z= 1.58)* * Growth percentiles are based on [facility] (Girls, 2-20 Years) data. No results found for: HGBA1C BP Readings from Last 3 Encounters: 09/23/21 127/78 07/22/21 131/83 08/15/20 137/79 Physical Exam Vitals and nursing note reviewed. Exam conducted with a soil field technician present. Constitutional: General: She is not in [...] masses, RECTAL: , no external hemorrhoids.PAP: Pap smearnot performed,vaginitis swab obtained. exam chaperoned byAnton Ambriz [...] Primary Pelvic u/s completed Consider referral to [facility] Vaginitis swab sent Relevant Orders POC Urinalysis [...] causes. Often pelvic pain is not serious andgets better in a few days. If your [...] and spicy foods, other fruits, and alcohol until48 hours after your symptoms have gone away. Take an bhfn-fom-sulufbk pain medicine, such as acetaminophen (Tylenol), ibuprofen (Advil, Motrin),or naproxen (Aleve). Read and follow all instructions [...] Log into your personal health record on [email or web address]://ZIRXt.Plugaround and enter B514 in the "Education" box to learn more about "Pelvic Pain: Care Instructions." Current as of: January 10, 2021 Content Version: 13.0 [employer]. Care instructions adapted under license by your healthcare professional. If you have questions about a medical condition or this instruction, always ask your healthcare professional. [employer] disclaims any warranty or liability for your use of this information. For any new medications prescribed today, patient was educated about indications for the medication, how to take the medication and potential side effects of the medications. Goals None I personally spent > 25 minutes on this patients encounter today, Tiny Marrufo CNP documented in this [id number] Instructions* Patient Instructions* Tiny Marrufo CNP - 07/22/2021 9:22 AM EDT Images [...] develop later. If you notice any problems ornew symptoms, get medical treatment right away. Follow-up [...] water and other clear liquids until you feelbetter. If you have kidney, heart, or liver disease and have to limit fluids, talk with your doctorbefore you increase the amount of fluids you [...] as aspirin, ibuprofen (Advil, Motrin), and naproxen (Aleve).These can cause stomach upset. Talk to your [...] Log into your personal health record on [email or web address] and enter Z482 in the "Education" box to learn more about "AbdominalPain: Care Instructions." Current as of: September 17, 2020 Content Version: 12.9 [employer]. Care instructions adapted under license by your healthcare professional. If you have questions about a medical condition or this instruction, always ask your healthcare professional. [employer] disclaims any warranty or liability for your use of this information. documented in this [id number] Miscellaneous Notes* Assessment & Plan Note - Tiny Marrufo CNP - 07/22/2021 9:21 AM EDT Associated Problem(s): Right lower quadrant abdominal pain A referral has been made for a transvaginal ultrasound.. You will be contacted to schedule an appointment. Please f/u with our office if you have not been contacted about this referral within 1-2 weeks. documented in this [id number] History of Present illness Narrative* Tiny Marrufo CNP - 07/22/2021 9:00 AM EDT Images from the original note [...] More than three times a week Attends [employer] Services: More than 4 times per year [...] therapy Medication note: due to EMR limitations: "DISCONTINUED" medications may mean: PREVIOUSLY stopped STOPPING today REFILLING today Review of Systems: 10 organ systems were reviewed. All systems were negative, apart from what was mentioned in the HPIand the following. Review of Systems Constitutional: Negative. [...] (Temporal) Resp (P) 12 Ht (P) 5' 6" Wt (P) 86.9 kg (191 lb 8 oz) LMP 07/18/2021 SpO2 (P) 98% BMI (P) 30.91 kg/m Wt Readings from Last 3 Encounters: 07/22/21 (P) 86.9 kg (191 lb 8 oz) 08/15/20 80.9 kg (178 lb 4.8 oz) (94 %, Z= 1.58)* 11/20/18 72.6 kg (160 lb) (90 %, Z= 1.29)* * Growth percentiles are based on CDC [...] develop later. If you notice any problems ornew symptoms, get medical treatment right away. Follow-up [...] water and other clear liquids until you feelbetter. If you have kidney, heart, or liver disease and have to limit fluids, talk with your doctorbefore you increase the amount of fluids you [...] as aspirin, ibuprofen (Advil, Motrin), and naproxen (Aleve).These can cause stomach upset. Talk to your [...] Log into your personal health record on [email or web address] and enter W426 in the "Education" box to learn more about "AbdominalPain: Care Instructions." Current as of: September 17, 2020 Content Version: 12.9 [id number] [employer]. Care instructions adapted under license by your healthcare professional. If you have questions about a medical condition or this instruction, always ask your healthcare professional. [employer] disclaims any warranty or liability for your use of this information. For any new medications prescribed today, patient was educated about indications for the medication, how to take the medication and potential side effects of the medications. Goals None Tiny Marrufo CNP documented in this [id number] Miscellaneous Notes* Telephone Encounter - Opal Egan MA - 03/20/2021 12:20 PM EDT Called pt and left message that Mary Ann Tyson will refill once pt is out when pharmacy sends notification * Telephone Encounter - Mary Ann Tyson CNP - 03/20/2021 12:07 PM EDT I will refill when out, pharm will send notification * Telephone Encounter - Opal Egan MA - 03/20/2021 10:43 AM EDT Please advise thank you * Telephone Encounter - Opal Egan MA - 03/20/2021 10:39 AM EDT Called pt and scheduled her in for her yearly but she will not have enough patches to get her through. Can you send in 6 more to get her to her appt? Please advise thank you documented in this [id number] Miscellaneous Notes* Telephone Encounter - Opal Egan MA - 03/20/2021 10:39 AM EDT Called pt and scheduled her in [facility] for her yearly but she will not have enough patches to get her through. Can you send in 6 more to get her to her appt? Please advise thank you documented in this [id number] Miscellaneous Notes* Telephone Encounter - Kiara Fung LPN - 03/18/2021 8:28 AM EDT ----- Message from Cheikh Welch sent at [...] preferred pharmacy listed below? Yes Preferred pharmacies: [address] AT [place] [address] & [place] [address] [place] [phone] Pt Call Back Number Work Phone Not on file. Patient call back message sent to the primary care clinical pool. Cheikh Welch [facility]* Diagnosis Menorrhagia with irregular cycle [facility] Diagnosis Menorrhagia with irregular cycle [facility]* Diagnosis Encounter for contraceptive management, unspecified type- Primary Right lower quadrant abdominal pain Menorrhagia with irregular cycle Fatigue, unspecified type [facility] Diagnosis Suprapubic pain, acute- Primary Acute vaginitis Unspecified vaginitis and vulvovaginitis [facility] Diagnosis Dyspareunia in female- Primary [facility] Diagnosis Hypercholesterolemia with LDL greater than 190 mg/dL [facility] Diagnosis Menorrhagia with regular cycle- Primary [facility] Diagnosis Menorrhagia with regular cycle [facility] Diagnosis Encounter for control pills maintenance- Primary Surveillance of previously prescribed contraceptive pill Menorrhagia with regular cycle [facility]* Diagnosis Familial hypercholesterolemia- Primary [facility]* Diagnosis Well woman exam with routine gynecological exam- Primary Routine gynecological examination Abnormal menses Unspecified disorder of menstruation and other abnormal bleeding from female genital tract Encounter for control pills maintenance Surveillance of previously prescribed contraceptive pill [facility]* Diagnosis Familial hypercholesterolemia- Primary [facility]* Diagnosis Elevated prolactin level- Primary [facility]* Diagnosis Weight gain- Primary Other symptoms concerning nutrition, metabolism, and development Menorrhagia with regular cycle [facility]* Diagnosis Elevated prolactin level- Primary [facility]* Diagnosis Onset Date Resolution Status Dysmenorrhea acute Dyspareunia acute Family history of antiphospholipid syndrome acute History of hyperprolactinemia acute Mittelschmer acute PCOS (polycystic ovarian syndrome) acute Encounter for routine gynecological examination noneactive [facility] Work Phone: Evaluation note* Diagnosis History of anemia- Primary Personal history of diseases of blood and blood-forming organs Wellness examination Hypercholesterolemia Pure hypercholesterolemia Palpitations [facility]* Diagnosis History of anemia- Primary Personal history of diseases of blood and blood-forming organs Wellness examination Hypercholesterolemia Pure hypercholesterolemia Palpitations [facility]* Diagnosis Palpitations- Primary Hypercholesterolemia Pure hypercholesterolemia [facility]* Diagnosis Upper respiratory tract infection, unspecified type- Primary [facility]* Diagnosis Well adult exam- Primary Routine general medical examination at a health care facility Menorrhagia with irregular cycle Acute vaginitis Unspecified vaginitis and vulvovaginitis Screening for lipid disorders Screening for chlamydial disease Special screening examination for unspecified chlamydial disease Encounter for contraceptive management, unspecified type- Primary Right lower quadrant abdominal pain Menorrhagia with irregular cycle Fatigue, unspecified type Suprapubic pain, acute- Primary Acute vaginitis Unspecified vaginitis and vulvovaginitis Less than 8 weeks gestation of - Primary [facility] Author Zulma Lima [facility] Note Date/Time June 05, 2025 9:52a m [facility] [address] [place] [address], [address] [place] [address] OFFICE VISIT Date of Service: 06/05/25 MR#: [id number] Acct: [id number] Name: ALYSSA PRO Rep #: [id number] : 2000 Provider: Dr. 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 Cancer skin Social History adopted: No household members: spouse housing: house number of children: 0 current occupational status: employed current occupation: [employer] current occupational exposures/hazards: No pets and animals: Yes pets and animals: dog(s) history of recent travel: Yes (October) out of state: Yes out of country:No sexually active: Yes Smoking Status: Never smoker alcohol intake: current alcohol intake frequency: holidays/special occasions only details: not while substance use type: does not use well-balanced diet: daily or most days caffeine: Yes Type: coffee Number of servings: 1 eating out: 4 or more times/week during the past year weight has: decreased > 10 lbs what type of physical activity do you participate in: none art/yazdanism: Latter-Day seatbelt use: always do you feel safe at home: Yes 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 OB Visit JONAS Calculator Estimated Delivery Date Method Current WG Current Estimate 07/05/25 LMP (Certain) 35w 5d Other Estimates 07/06/25 Ultrasound #1 35w 4d Expected Delivery Route/Plan Labor Preferences- CB/BF classes: [] labor support person: [] labor intervention preferences: [] pain management options preferred: [] cut cord/dad catch: [] : [] PP control planned: [] discussed possible routes of delivery and associated risks: [] special requests: [] Specific Issue/Plans Covid status: [] Flu vaccine: [] Tdap vaccine: given Rhogam: na LARC form signed: declined movement and labor precautions reviewed. Problem list reviewed and updated with the most current plan of care details and appropriate orders placed. Relevant counseling for the gestational age provided. Continue routine care and follow up unless otherwise noted in visit notes/problem list details Initial Weight: 205 lb Date -?-?-?-?-?-?-?-?-?-?-?-?- EGA Weight BP Urine Prot -?-?-?-?-?-?-?-?-?-?-?-?- Glucose FHR FuHt Pres Dilation -?-?-?-?-?-?--?-?-?-?-?-?- Effaced St Visit Note 12/09/24 -?-?-?-?-?-?-?-?-?-?-?-?- 10w 2d 205 lb 2 oz (+2 oz) 136/83 -?-?-?-?-?-?-?-?-?-?-?-?- 173 -?-?-?-?-?-?-?-?-?-?-?-?- KW- CRL cons wit h dates. Declines NIPT. 01/06/25 -?-?-?-?-?-?-?-?-?-?-?-?- 14w 2d 205 lb 6 oz (+6 oz) 131/85 Negative -?-?-?-?-?-?-?-?-?-?-?-?- Negative 147 -?-?-?-?-?--?-?-?-?-?-?-?- JV- no lof, vagi nal bleeding, or cramping. declines nipt and did blood work. 01/31/25 -?-?-?-?-?-?-?-?-?-?-?-?- 17w 6d 206 lb 4 oz (+1 lb 4 oz) 121/82 Negative -?-?-?-?-?-?-?-?-?-?-?-?- Negative 142 -?-?-?-?-?-?-?-?-?-?-?-?- JV- no complaint s today other than some pelvic pain that "feels like when I have an ovarian cyst" She was checked out at an urgent care in [place] and treated with amoxil but urine culture was neg. 03/01/25 -?-?-?-?-?-?-?-?-?-?-?-?- 22w 0d 209 lb 4 oz (+4 lb 4 oz) 109/74 Negative -?-?-?-?-?-?-?-?-?-?-?-?- Negative 145 -?-?-?-?-?-?-?-?-?-?-?-?- Sm- no vb lof go od fm 03/28/25 -?-?-?-?-?-?-?-?-?-?-?-?- 25w 6d 213 lb 2 oz (+8 lb 2 oz) 111/68 Negative -?-?-?-?-?-?-?-?-?-?-?-?- Negative 150 27 -?-?-?-?-?-?-?-?-?-?-?-?- kw- no vb/lof/ct x. good fm. CBE classes discussed. 28 week labs today. 04/14/25 -?-?-?-?-?-?-?-?-?-?-?-?- 28w 2d 217 lb 4 oz (+12 lb 4 oz) 101/72 Negative -?-?-?-?-?-?-?-?-?-?-?-?- Negative 140 28 -?-?-?-?-?-?-?-?-?-?-?-?- Sm- no vb lof go od fm no regualr ctx 04/28/25 -?-?-?-?-?-?-?-?-?-?-?-?- 30w 2d 217 lb 8 oz (+12 lb 8 oz) 110/74 Negative -?-?-?-?-?-?-?-?-?-?-?--?- Negative 140 30 -?-?-?-?-?-?-?-?-?-?-?-?- SM- no vb lof go od fm no regular ctx 05/09/25 -?-?-?-?-?-?-?-?-?-?-?-?- 31w 6d 219 lb 2 oz (+14 lb 2 oz) 107/72 Negative -?-?-?-?-?-?-?-?-?-?-?-?- Negative 135 32 -?-?-?-?-?-?-?-?-?-?-?-?- KW- no vb/lof/ct x. good fm. CBE classes signed up. 05/26/25 -?-?-?-?-?-?-?-?-?-?-?-?- 34w 2d 223 lb 6 oz (+18 lb 6 oz) 110/76 Negative -?-?-?-?-?-?-?-?-?-?-?-?- Negative 140 34 Cephalic -?-?-?-?-?-?-?-?-?-?-?-?- SM- no vb lof go od fm no regular ctx did cb classes 06/05/25 -?-?-?-?-?-?-?-?-?-?-?-?- 35w 5d 222 lb 6 oz (+17 lb 6 oz) 107/73 Negative -?-?-?-?-?-?-?-?-?-?-?-?- Negative 141 38 Cephalic 2 -?-?-?-?-?-?-?-?-?-?-?-?- 80 -2 JV- GBS co llected. labor precautions discussed. RTO 1 week. ACOG First Trimester First Trimester: Discussed Results POC Urinalysis 2 Dip (Clinic) Office Urine Glucose Negative Last Edit by Lyndsey Bush on 06/05/25 09: 36 Office Urine Protein Negative Last Edit by Lyndsey Bush on 06/05/25 09: 36 Coding Level of Care Code OB Routine Diagnoses Obesity affecting O99.210 Supervision of high-risk O09.90 35 weeks gestation of Z3A.35 Weeks of gestation: 35 weeks Assessment and Plan Assessment and Plan (1) Obesity affecting : Status: Acute Comment: HgbA1c (2) Supervision of high-risk : Status: Acute Comment: PRR, G1PO, jonas 07/05/25, boy soraya Mansoor (3) : Status: Acute Qualifiers: Weeks of gestation: 35 weeks Qualified Code(s): Z3A.35 - 35 weeks gestation of Comment: declined ntd NIPT & Carrier testing. nl anatomy Orders: Orders POC Urinalysis 2 Dip (Clinic) Today Culture, Group B Streptococcus Today O09.90 - Supervision of high risk , unspecified, unspecified trimester 06/05/25 0952 <Electronically signed by Zulma Gallardo DO> Date _ Zulma Garcia DO Cosigner Signature: Date (if applicable) CC: ~ [facility] Work Phone: Reason for referral (narrative)No reason for referral information availableWSum[facility] Work Phone: Instructions * Patient Instructions - Nasrin Brenner [...] fluid ounces of warm water. Take an ainf-uyo-kfjnxwi pain medicine, such as acetaminophen (Tylenol), ibuprofen (Advil, Motrin),or naproxen (Aleve). Be safe with medicines. Read and follow all instructions on the label. No one younger than 20 should take aspirin. It has been linked to Mike syndrome, a serious illness. Be careful when taking nstd-sie-ggpzgzl cold or flu medicines and Tylenol at the same time. Many ofthese medicines have acetaminophen, which is Tylenol. Read the labels to make sure that you are nottaking more than the recommended dose. Too much acetaminophen (Tylenol) can be harmful. Try an nlyw-bns-xlygxij throat spray to relieve throat pain. Drink [...] Log into your personal health record on [email or web address] and enter M655 in the "Education" box to learn more about "Tonsillitis: Care Instructions." Current as of: February 23, 2018 Content Version: 10.08 [employer]. Care instructions adapted under license by your healthcare professional. If you have questions about a medical condition or this instruction, always ask your healthcare professional. [employer] disclaims any warranty or liability for your [...] fluid ounces of warm water. Take an himo-ofm-bmpfcmp pain medicine, such as acetaminophen (Tylenol), ibuprofen (Advil, Motrin),or naproxen (Aleve). Be safe with medicines. Read and follow all instructions on the label. No one younger than 20 should take aspirin. It has been linked to Mike syndrome, a serious illness. Be careful when taking ewky-unu-muqnjlz cold or flu medicines and Tylenol at the same time. Many ofthese medicines have acetaminophen, which is Tylenol. Read the labels to make sure that you are nottaking more than the recommended dose. Too much acetaminophen (Tylenol) can be harmful. Try an xcms-elc-ncoinut throat spray to relieve throat pain. Drink [...] Log into your personal health record on [email or web address] and enter M655 in the "Education" box to learn more about "Tonsillitis: Care Instructions." Current as of: February 23, 2018 Content Version: .20052213-2820 [employer]. Care instructions adapted under license by your healthcare professional. If you have questions about a medical condition or this instruction, always ask your healthcare professional. [employer] disclaims any warranty or liability for your [...] fluid ounces of warm water. Take an xgis-foq-fslmlgm pain medicine, such as acetaminophen (Tylenol), ibuprofen (Advil, Motrin),or naproxen (Aleve). Be safe with medicines. Read and follow all instructions on the label. No one younger than 20 should take aspirin. It has been linked to Mike syndrome, a serious illness. Be careful when taking pjlo-qzk-qdrrkez cold or flu medicines and Tylenol at the same time. Many ofthese medicines have acetaminophen, which is Tylenol. Read the labels to make sure that you are nottaking more than the recommended dose. Too much acetaminophen (Tylenol) can be harmful. Try an lmnx-vqy-gvpiveh throat spray to relieve throat pain. Drink [...] Log into your personal health record on [email or web address] and enter M655 in the "Education" box to learn more about "Tonsillitis: Care Instructions." Current as of: February 23, 2018 Content Version: 11.9 8658-4150 [employer]. Care instructions adapted under license by your healthcare professional. If you have questions about a medical condition or this instruction, always ask your healthcare professional. [employer] disclaims any warranty or liability for your [...] fluid ounces of warm water. Take an uosx-fzm-ocmzvou pain medicine, such as acetaminophen (Tylenol), ibuprofen (Advil, Motrin),or naproxen (Aleve). Be safe with medicines. Read and follow all instructions on the label. No one younger than 20 should take aspirin. It has been linked to Mike syndrome, a serious illness. Be careful when taking ligj-bsx-eypwoix cold or flu medicines and Tylenol at the same time. Many ofthese medicines have acetaminophen, which is Tylenol. Read the labels to make sure that you are nottaking more than the recommended dose. Too much acetaminophen (Tylenol) can be harmful. Try an lmbf-ook-orgbmbj throat spray to relieve throat pain. Drink [...] Log into your personal health record on [email or web address] and enter M655 in the "Education" box to learn more about "Tonsillitis: Care Instructions." Current as of: February 23, 2018 Content Version: .[id number] [employer]. Care instructions adapted under license by your healthcare professional. If you have questions about a medical condition or this instruction, always ask your healthcare professional. [employer] disclaims any warranty or liability for your use of this information. ots of liquids - popsicles!!! No ibuprofen with orapred. Worse to ER. Can call me today or [phone] in this encounter* Patient Instructions* Mary Ann Tyson, PROSTHODONTIST/OWNER - 08/15/2020 10:06 PM EDT Problem List [...] your doctor if you can take an nbbh-hgt-jqcofih medicine. You may be low in iron because of blood loss. Eat a balanced diet that is high in iron and vitamin C. Foods rich in iron include red meat, shellfish, eggs, beans, and leafy green vegetables. Talk to your doctor about whether you need to take iron pills or a multivitamin. When should you call for help? [id number] anytime you think you may need emergency [...] Log into your personal health record on [email or web address] and enter I327 in the "Education" box to learn more about "Abnormal Uterine Bleeding: Care Instructions." Current as of: October 07, 2019 Content Version: 12.5 [employer]. Care instructions adapted under license by your healthcare professional. If you have questions about a medical condition or this instruction, always ask your healthcare professional. [employer] disclaims any warranty or liability for your use of this information. documented in this encounter History of Present Illness * Nasrin Brenner MD - 11/20/2018 10:42 AM EST Formatting of this note may be different from the original. PATIENT NAME: Alyssa Calvin [facility] [address] [facility] [id number] : 2000 DATE OF VISIT: 11/20/2018 SS#: [id number] PROVIDER: Nasrin Brenner MD Chief Complaint Patient presents with Sore Throat SUBJECTIVE 18 y.o. female presents Sore Throat Sick for a week - started out as a little cold. Now has sore throat and ear pain. [facility] - checked ears and [...] breath. 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 Has relatives that were sick with vomiting [...] (38.6 C) (Oral) Resp 18 Ht 5' 6" Wt 72.6 kg (160 lb) LMP 11/04/2018 [...] fever. in this encounter* Mary Ann Tyson, PROSTHODONTIST/OWNER - 08/15/2020 7:31 AM EDT OUTPATIENT WELL WOMAN PROGRESS NOTE Subjective: Alyssa Calvin is a 20 y.o. female and is here for a new patient preventative care visit. Patient formally seen by manager ems. Health maintenance reviewed and updated. Lab work [...] (36.6 C) (Skin) Resp 16 Ht 5' 6" Wt 80.9 kg (178 lb 4.8 oz) [...] kg (178 lb 4.8 oz) Height: 5' 6" Body mass index is 28.78 kg/m . [...] Purpose Family History No Family History Records Found Relationship Condition Age at Onset Recorded Date/T isatu aunt Malignant neoplasm of breast Unknown grandfather Malignant neoplasm Unknown mother Antiphospholipid syndrome Unknown Relationship Condition Age at Onset Recorded Date/T isatu aunt Malignant neoplasm of breast Unknown grandfather Malignant neoplasm Unknown mother Antiphospholipid syndrome Unknown Malignant neoplasm Unknown Advance Directives No Advanced Directives Records FoundDocuments on File Type Date Recorded Patient Model Set Artist Expl anation Advance Directives and Living Will Documents on File Type Date Recorded Patient Model Set Artist Expl anation Advance Directives and Living Will Documents on File Type Date Recorded Patient Model Set Artist Expl anation Advance Directives and Livin g Will 09/05/2021 2:18 PM Documents on File Type Date Recorded Patient Model Set Artist Expl anation Advance Directives and Livin g Will 09/05/2021 2:18 PM Reason for Referral Specialty Diagnoses / Procedures Referred By Contac t Referred To Contact Obstetrics and Gynecology Diagnoses Right lower quadrant abdominal pain Procedures US Transvaginal Tiny Marrufo, LÁZARO [address] [place] [address] Referral ID Status Reason Start Date Expiration Date V isits Requested Visits Authorized [id number] Authorized 07/22/2021 07/22/2022 1 1 Specialty Diagnoses / Procedures Referred By Contac t Referred To Contact Obstetrics and Gynecology Diagnoses Dyspareunia in female Tiny Marrufo, LÁZARO [address] [place] [address] [address] [facility] [place] [address] [place] [phone] Referral ID Status Reason Start Date Expiration Date V isits Requested Visits Authorized [id number] Authorized 09/26/2021 09/26/2022 1 1 Specialty Diagnoses / Procedures Referred By Contac t Referred To Contact Radiology Diagnoses Elevated prolactin level Procedures MR Pituitary With And Without Contrast Kamla Medina, CNM [address] [place] [id number] Referral ID Status Reason Start Date Expiration Date V isits Requested Visits Authorized [id number] New Request 04/13/2023 04/12/2024 1 1 Specialty Diagnoses / Procedures Referred By Contac t Referred To Contact Cardiology Diagnoses Palpitations Procedures ECG 12 Lead Raphael Razo CNP [address] [place] [address] Referral ID Status Reason Start Date Expiration Date Visits Re quested Visits Authorized [id number] Closed 04/04/2024 04/04/2025 1 1 Specialty Diagnoses / Procedures Referred By Contac t Referred To Contact Cardiology Diagnoses Palpitations Procedures Cardiac event monitor Raphael Razo CNP [address] [place] [address] [facility] [facility] [place] [address] Referral ID Status Reason Start Date Expiration Date Visits Requested Visits Authorized [id number] Authorized Specialty Services Required/Pat ient's Best Interest 04/07/2024 04/07/2025 1 1 Specialty Diagnoses / Procedures Referred By Contac t Referred To Contact Diagnoses Brock Razo, Raphael Glover, PROSTHODONTIST/OWNER [address] [place] [address] Referral ID Status Reason Start Date Expiration Date V isits Requested Visits Authorized [id number] Authorized 04/07/2024 04/07/2025 1 1 Chief Complaint and Reason for Visit Chief Complaint Annual (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 MATE) Unspecified ovarian cyst, unspecified side Reason for Visit Dysmenorrhea Dyspareunia Family history of antiphospholipid syndrome History of hyperprolactinemia [place] PCOS (polycystic ovarian syndrome) Encounter for routine gynecological examination Chief Complaint Admit Date NOB LMP 09/28December 09, 2024 1 2:57pm 14wk OB January 06, 2025 3 :18pm 18 wk ob January 31, 2025 2:17 pm Reason for Visit Admit Date Dyspareunia December 09, 2024 1 2:57pm Family history of antiphospholipid syndr ome December 09, 2024 12:57pm History of hyperprolactinemia December 092024 12:57pm [place] December 09, 2024 1 2:57pm Obesity affecting November 12:57pm PCOS (polycystic ovarian syndrome) Novua 2024 12:57pm December 09, 2024 1 2:57pm Supervision of high-risk 2024 12:57pm Tilted uterus December 09, 2024 1 2:57pm Dyspareunia January 06, 2025 3 :18pm Family history of antiphospholipid syndr ome January 06, 2025 3:18pm History of hyperprolactinemia January 062024 3:18pm [place] January 06, 2025 3 :18pm Obesity affecting December 3:18pm PCOS (polycystic ovarian syndrome) Febru smith 2024 3:18pm January 06, 2025 3 :18pm Supervision of high-risk Febru 2024 3:18pm Tilted uterus January 06, 2025 3 :18pm Dyspareunia January 31, 2025 2:17 pm Family history of antiphospholipid syndr ome January 31, 2025 2:17pm History of hyperprolactinemia January 31, 2025 2:17pm [place] January 31, 2025 2:17 pm Obesity affecting January 31, 2 025 2:17pm PCOS (polycystic ovarian syndrome) January 31, 2025 2:17pm January 31, 2025 2:17 pm Supervision of high-risk January 31, 2025 2:17pm Tilted uterus January 31, 2025 2:17 pm Chief Complaint Admit Date NOB LMP 09/28December 09, 2024 1 2:57pm 14wk OB January 06, 2025 3 :18pm 18 wk ob January 31, 2025 2:17 pm 22 wk ob March 01, 2025 2:48 pm 26 wk ob/glucose March 28, 2025 2:1 9pm Reason for Visit Admit Date Obesity affecting November 12:57pm December 09, 2024 1 2:57pm Supervision of high-risk 2024 12:57pm Dyspareunia December 09, 2024 1 2:57pm Family history of antiphospholipid syndr ome December 09, 2024 12:57pm History of hyperprolactinemia December 092024 12:57pm [place] December 09, 2024 1 2:57pm Tilted uterus December 09, 2024 1 2:57pm PCOS (polycystic ovarian syndrome) Novua 2024 12:57pm Obesity affecting December 3:18pm January 06, 2025 3 :18pm Supervision of high-risk u 2024 3:18pm Dyspareunia January 06, 2025 3 :18pm Family history of antiphospholipid syndr ome January 06, 2025 3:18pm History of hyperprolactinemia January 062024 3:18pm [place] January 06, 2025 3 :18pm Tilted uterus January 06, 2025 3 :18pm PCOS (polycystic ovarian syndrome) Febru [email or web address] 3:18pm Obesity affecting January 31, 2 025 2:17pm January 31, 2025 2:17 pm Supervision of high-risk January 31, 2025 2:17pm Dyspareunia January 31, 2025 2:17 pm Family history of antiphospholipid syndr ome January 31, 2025 2:17pm History of hyperprolactinemia January 31, 2025 2:17pm [place] January 31, 2025 2:17 pm Tilted uterus January 31, 2025 2:17 pm PCOS (polycystic ovarian syndrome) January 31, 2025 2:17pm Obesity affecting March 01, 2 025 2:48pm March 01, 2025 2:48 pm Supervision of high-risk March 01, 2025 2:48pm Tilted uterus March 01, 2025 2:48 pm Obesity affecting March 28, 2025 2:19pm March 28, 2025 2:1 9pm Supervision of high-risk March 28, 2025 2:19pm Chief Complaint Admit Date 14wk OB January 06, 2025 3 :18pm 18 wk ob January 31, 2025 2:17 pm 22 wk ob March 01, 2025 2:48 pm 26 wk ob/glucose March 28, 2025 2:1 9pm 28 wk ob April 14, 2025 3:36p m Reason for Visit Admit Date Obesity affecting December 3:18pm January 06, 2025 3 :18pm Supervision of high-risk u 2024 3:18pm Dyspareunia January 06, 2025 3 :18pm Family history of antiphospholipid syndr ome January 06, 2025 3:18pm History of hyperprolactinemia January 062024 3:18pm [place] January 06, 2025 3 :18pm Tilted uterus January 06, 2025 3 :18pm PCOS (polycystic ovarian syndrome) Febru 2024 3:18pm Obesity affecting January 31, 2 025 2:17pm January 31, 2025 2:17 pm Supervision of high-risk January 31, 2025 2:17pm Dyspareunia January 31, 2025 2:17 pm Family history of antiphospholipid syndr ome January 31, 2025 2:17pm History of hyperprolactinemia January 31, 2025 2:17pm [place] January 31, 2025 2:17 pm Tilted uterus January 31, 2025 2:17 pm PCOS (polycystic ovarian syndrome) January 31, 2025 2:17pm Obesity affecting March 01, 2 025 2:48pm March 01, 2025 2:48 pm Supervision of high-risk March 01, 2025 2:48pm Tilted uterus March 01, 2025 2:48 pm Obesity affecting March 28, 2025 2:19pm March 28, 2025 2:1 9pm Supervision of high-risk March 28, 2025 2:19pm Obesity affecting April 14 3:36pm April 14, 2025 3:36p m Supervision of high-risk March 302024 3:36pm Chief Complaint Admit Date 14wk OB January 06, 2025 3 :18pm 18 wk ob January 31, 2025 2:17 pm 22 wk ob March 01, 2025 2:48 pm 26 wk ob/glucose March 28, 2025 2:1 9pm 28 wk ob April 14, 2025 3:36p m 30 wk ob April 28, 2025 3:02p m Reason for Visit Admit Date Obesity affecting December 3:18pm January 06, 2025 3 :18pm Supervision of high-risk Febru [email or web address] 3:18pm Dyspareunia January 06, 2025 3 :18pm Family history of antiphospholipid syndr ome January 06, 2025 3:18pm History of hyperprolactinemia January 062024 3:18pm [place] January 06, 2025 3 :18pm Tilted uterus January 06, 2025 3 :18pm PCOS (polycystic ovarian syndrome) Febru smith 2024 3:18pm Obesity affecting January 31, 2 025 2:17pm January 31, 2025 2:17 pm Supervision of high-risk January 31, 2025 2:17pm Dyspareunia January 31, 2025 2:17 pm Family history of antiphospholipid syndr ome January 31, 2025 2:17pm History of hyperprolactinemia January 31, 2025 2:17pm [place] January 31, 2025 2:17 pm Tilted uterus January 31, 2025 2:17 pm PCOS (polycystic ovarian syndrome) January 31, 2025 2:17pm Obesity affecting March 01, 2 025 2:48pm March 01, 2025 2:48 pm Supervision of high-risk March 01, 2025 2:48pm Tilted uterus March 01, 2025 2:48 pm Obesity affecting March 28, 2025 2:19pm March 28, 2025 2:1 9pm Supervision of high-risk March 28, 2025 2:19pm Obesity affecting April 14 3:36pm April 14, 2025 3:36p m Supervision of high-risk March 302024 3:36pm Obesity affecting April 28 3:02pm April 28, 2025 3:02p m Supervision of high-risk April 012024 3:02pm Chief Complaint Admit Date 18 wk ob January 31, 2025 2:17 pm 22 wk ob March 01, 2025 2:48 pm 26 wk ob/glucose March 28, 2025 2:1 9pm 28 wk ob April 14, 2025 3:36p m 30 wk ob April 28, 2025 3:02p m 32 wk ob May 09, 2025 2:31 pm Reason for Visit Admit Date Obesity affecting January 31, 2 025 2:17pm January 31, 2025 2:17 pm Supervision of high-risk January 31, 2025 2:17pm Dyspareunia January 31, 2025 2:17 pm Family history of antiphospholipid syndr ome January 31, 2025 2:17pm History of hyperprolactinemia January 31, 2025 2:17pm [place] January 31, 2025 2:17 pm Tilted uterus January 31, 2025 2:17 pm PCOS (polycystic ovarian syndrome) January 31, 2025 2:17pm Obesity affecting March 01, 2 025 2:48pm March 01, 2025 2:48 pm Supervision of high-risk March 01, 2025 2:48pm Tilted uterus March 01, 2025 2:48 pm Obesity affecting March 28, 2025 2:19pm March 28, 2025 2:1 9pm Supervision of high-risk March 28, 2025 2:19pm Obesity affecting April 14 3:36pm April 14, 2025 3:36p m Supervision of high-risk March 302024 3:36pm Obesity affecting April 28 3:02pm April 28, 2025 3:02p m Supervision of high-risk April 012024 3:02pm Obesity affecting May 09 2 025 2:31pm May 09, 2025 2:31 pm Supervision of high-risk May 09, 2025 2:31pm Chief Complaint Admit Date 18 wk ob January 31, 2025 2:17 pm 22 wk ob March 01, 2025 2:48 pm 26 wk ob/glucose March 28, 2025 2:1 9pm 28 wk ob April 14, 2025 3:36p m 30 wk ob April 28, 2025 3:02p m 32 wk ob May 09, 2025 2:31 pm 34 wk ob May 26, 2025 3:21 pm Reason for Visit Admit Date Obesity affecting January 31, 2 025 2:17pm January 31, 2025 2:17 pm Supervision of high-risk January 31, 2025 2:17pm Dyspareunia January 31, 2025 2:17 pm Family history of antiphospholipid syndr ome January 31, 2025 2:17pm History of hyperprolactinemia January 31, 2025 2:17pm [place] January 31, 2025 2:17 pm Tilted uterus January 31, 2025 2:17 pm PCOS (polycystic ovarian syndrome) January 31, 2025 2:17pm Obesity affecting March 01 2 025 2:48pm March 01, 2025 2:48 pm Supervision of high-risk March 01, 2025 2:48pm Tilted uterus March 01, 2025 2:48 pm Obesity affecting March 28, 2025 2:19pm March 28, 2025 2:1 9pm Supervision of high-risk March 28, 2025 2:19pm Obesity affecting April 14 3:36pm April 14, 2025 3:36p m Supervision of high-risk March 302024 3:36pm Obesity affecting April 28 3:02pm April 28, 2025 3:02p m Supervision of high-risk April 012024 3:02pm Obesity affecting May 09, 2 025 2:31pm May 09, 2025 2:31 pm Supervision of high-risk May 09, 2025 2:31pm Obesity affecting May 26, 2 025 3:21pm May 26, 2025 3:21 pm Supervision of high-risk May 26, 2025 3:21pm Chief Complaint Admit Date 22 wk ob March 01, 2025 2:48 pm 26 wk ob/glucose March 28, 2025 2:1 9pm 28 wk ob April 14, 2025 3:36p m 30 wk ob April 28, 2025 3:02p m 32 wk ob May 09, 2025 2:31 pm 34 wk ob May 26, 2025 3:21 pm 36wk ob June 05, 2025 9:19a m Reason for Visit Admit Date Obesity affecting March 01, 2 025 2:48pm March 01, 2025 2:48 pm Supervision of high-risk March 01, 2025 2:48pm Tilted uterus March 01, 2025 2:48 pm Obesity affecting March 28, 2025 2:19pm March 28, 2025 2:1 9pm Supervision of high-risk March 28, 2025 2:19pm Obesity affecting April 14 3:36pm April 14, 2025 3:36p m Supervision of high-risk March 302024 3:36pm Obesity affecting April 28 3:02pm April 28, 2025 3:02p m Supervision of high-risk April 012024 3:02pm Obesity affecting May 09, 2 025 2:31pm May 09, 2025 2:31 pm Supervision of high-risk May 09, 2025 2:31pm Obesity affecting May 26, 2 025 3:21pm May 26, 2025 3:21 pm Supervision of high-risk May 26, 2025 3:21pm Obesity affecting June 05 9:19am June 05, 2025 9:19a m Supervision of high-risk June 05, 2025 9:19am Chief Complaint Admit Date 22 wk ob March 01, 2025 2:48 pm 26 wk ob/glucose March 28, 2025 2:1 9pm 28 wk ob April 14, 2025 3:36p m 30 wk ob April 28, 2025 3:02p m 32 wk ob May 09, 2025 2:31 pm 34 wk ob May 26, 2025 3:21 pm 36wk ob June 05, 2025 9:19a m 37wk ob June 16, 2025 3:37 pm Reason for Visit Admit Date Obesity affecting March 01, 2 025 2:48pm March 01, 2025 2:48 pm Supervision of high-risk March 01, 2025 2:48pm Tilted uterus March 01, 2025 2:48 pm Obesity affecting March 28, 2025 2:19pm March 28, 2025 2:1 9pm Supervision of high-risk March 28, 2025 2:19pm Obesity affecting April 14 3:36pm April 14, 2025 3:36p m Supervision of high-risk March 302024 3:36pm Obesity affecting April 28 3:02pm April 28, 2025 3:02p m Supervision of high-risk April 012024 3:02pm Obesity affecting May 09, 2 025 2:31pm May 09, 2025 2:31 pm Supervision of high-risk May 09, 2025 2:31pm Obesity affecting May 26, 2 025 3:21pm May 26, 2025 3:21 pm Supervision of high-risk May 26, 2025 3:21pm Obesity affecting June 05 9:19am June 05, 2025 9:19a m Supervision of high-risk June 05, 2025 9:19am GBS (group B Streptococcus c arrier), +RV culture, currently June 16, 2025 3:37pm Obesity affecting June 16, 2 025 3:37pm June 16, 2025 3:37 pm Supervision of high-risk June 16, 2025 3:37pm Additional Source Comments Reason for Visit (unrecogniz ed section and content) Reason Comments Sore Throat Reason Comments Annual Exam Establish Care Fatigue [...] age. Patient complains of bleeding while on "active pill" that last 2-3 days. Also here for bcp refills Reason Comments Hormone questions Stopped taking control about 2 months ago, did not like it and caused crazy mood swings. Would like thyroid and hormone labs checked. Is using condoms now. Reason Comments Gap Closure (Health Maintenance) HPV Vac cines(1 - 3-dose series) Never doneHIV Screening Never doneHepatitis C Screening Never doneDepression Screening (PHQ-2/9) due on 1Chlamydia Screening due on 2COVID-19 Vaccine(2022- season) Never doneWellness Visit due on 12/17/2023 Establish Care New patient to estab jennifer/ fatigue,nausea, Reason Comments Gap Closure (Health Maintenance) Follow-up Cold for 3 weeksHPV Vaccines(1 - 3-dose series) Never doneInfluenza Vaccine(1) Never done INFORMATION SOURCE (unrecogn ized section and content) DATE CREATED AUTHOR 11/23/2018 [facility] DATE CREATED AUTHOR AUTHOR'S ORGANIZ ATION 10/05/2021 [facility] DATE CREATED AUTHOR AUTHOR'S ORGANIZ ATION 05/08/2023 [facility] DATE CREATED AUTHOR AUTHOR'S ORGANIZ ATION 04/10/2024 [facility] DATE CREATED AUTHOR AUTHOR'S ORGANIZ ATION 08/20/2024 [facility] DATE CREATED AUTHOR AUTHOR'S ORGANIZ ATION 02/11/2025 [facility] DATE CREATED AUTHOR AUTHOR'S ORGANIZ ATION 06/19/2025 [facility] Assessment & Plan Note - Mary Ann Tyson, PROSTHODONTIST/OWNER - 08/15/2020 10:03 PM EDTTelephone Encounter - [...] preferred pharmacy listed below? Yes Preferred pharmacies: [address] [place] [address] [address] [place] [address] [facility] [address] Pt Call Back Number Work Phone Not on file. Patient call back message sent to the primary care clinical pool. Billy Albarran documented in this encounter Care Teams (unrecognized sec tion and content) Piece Dyeing Machine Tender Relationship Specialty Start Date End Date Tiny Marrufo CNP [address] [place] [address], [place] [address] PCP - General Nurse Practitioner 03/20/21 Piece Dyeing Machine Tender Relationship Specialty Start Date End Date Tiny Marrufo CNP [address] [place] [address], [place] [address] PCP - General Nurse Practitioner 03/20/21 Tiny [facility]rufo CNP [facility] [place] [address] PCP - JIMENEZ Attributed Provider - [employer] 12/31/20 11/29/50 Piece Dyeing Machine Tender Relationship Specialty Start Date End Date Tiny Marrufo CNP [facility] [address] [place] [address], [place] [address] PCP - General Nurse Practitioner 03/20/21 Tiny Marrufo CNP [facility] [facility] [address] [place] [address], [place] [address] PCP - JIMENEZ Attributed Provider - [employer] 12/31/20 11/28/21 Piece Dyeing Machine Tender Relationship Specialty Start Date End Date Tiny Marrufo CNP [address] [place] [address], [place] [address] PCP - General Nurse Practitioner 03/20/21 Piece Dyeing Machine Tender Relationship Specialty Start Date End Date Tiny Marrufo CNP [address] [place] [address], [place] [address] PCP - General Nurse Practitioner 03/20/21 Tiny Marrufo CNP [address] [facility] [place] [address] PCP - JIMENEZ Attributed Provider - [employer] 12/31/20 11/29/50 Piece Dyeing Machine Tender Relationship Specialty Start Date End Date Marrufo, Tiny, PROSTHODONTIST/OWNER [address] [place] [address], [place] [address] PCP - General Nurse Practitioner 03/20/21 Tiny Marrufo CNP [address] [place] [address], [place] [address] PCP - JIMENEZ Attributed Provider - [employer] 12/31/20 11/29/50 Pie[employer] Dyeing Machine Tender Relationship Specialty Start Date End Date Tiny Marrufo CNP [address] [place] [address], [place] [address] PCP - General Nurse Practitioner 03/20/21 Tiny Marrufo CNP [address] [place] [address], [place] [address] PCP - JIMENEZ Attributed Provider - [employer] 12/31/20 11/29/50 Piece Dyeing Machine Tender Relationship Specialty Start Date End Date Tiny Marrufo CNP [address] [place] [address], [place] [address] PCP - General Nurse Practitioner 03/20/21 Tiny Marrufo CNP [address] [place] [address], [place] [address] PCP - JIMENEZ Attributed Provider - [employer] 12/31/20 11/29/50 Piece Dyeing Machine Tender Relationship Specialty Start Date End Date Tiny Marrufo CNP [address] [place] [address], [place] [address] PCP - General Nurse Practitioner 03/20/21 Tiny Marrufo CNP [address] [place] [address], [place] [address] PCP - JIMENEZ Attributed Provider - [employer] 12/31/20 11/29/50 Piece Dyeing Machine Tender Relationship Specialty Start Date End Date Tiny Marrufo CNP [address] [place] [address], [place] [address] PCP - General Nurse Practitioner 03/20/21 Tiny Marrufo CNP [address] [place] [address], [place] [address] PCP - JIMENEZ Attributed Provider - [employer] 12/31/20 11/29/50 Piece Dyeing Machine Tender Relationship Specialty Start Date End Date Tiny Marrufo CNP [address] [place] [address], [place] [address] PCP - General Nurse Practitioner 03/20/21 Tiny Marrufo CNP [address] [place] [address], [place] [address] PCP - JIMENEZ Attributed Provider - [employer] 12/31/20 11/29/50 Piece Dyeing Machine Tender Relationship Specialty Start Date End Date Tiny Marrufo CNP [address] [place] [address], [place] [address] PCP - General Nurse Practitioner 03/20/21 Tiny Marrufo CNP [address] [facility] [address] [address] [place] [address], [place] [address] PCP - JIMENEZ Attributed Provider - [employer] 12/31/20 11/29/50 Piece Dyeing Machine Tender Relationship Specialty Start Date End Date Tiny Marrufo CNP [address] [place] [address], [place] [address] PCP - General Nurse Practitioner 03/20/21 Tiny Marrufo CNP [address] [facility] [place] [address] PCP - JIMENEZ Attributed Provider - [employer] 12/31/20 11/29/50 Team Status: Active Member Role Status Dates No Primary Care Physician Primary Care Provider Active Team Status: Inactive Member Role Status Dates Ursula Mcmullen JANITOR, JANITOR-C Attending Provider Active NIRU TRIPLETT Primary Care Provider, Referring Provider Active Team Status: Inactive Member Role Status Dates Ursula Mcmullen JANITOR, JANITOR-C Attending Provider, Referring Provider Active No Primary Care Physician Primary Care Provider Active Piece Dyeing Machine Tender Relationship Specialty Start Date End Date Tiny Marrufo CNP [address] [place] [address] PCP - JIMENEZ Attributed Provider - [employer] 12/31/20 11/29/50 Raphael Razo CNP [address] [id number] PCP - General Nurse Practitioner 04/04/24 Piece Dyeing Machine Tender Relationship Specialty Start Date End Date Tiny Marrufo CNP [address] [place], [place] [id number] PCP - JIMENEZ Attributed Provider - [employer] 12/31/20 11/29/50 Raphael Razo, LÁZARO [address] [place] [address] PCP - General Nurse Practitioner 04/04/24 Piece Dyeing Machine Tender Relationship Specialty Start Date End Date Tiny Marrufo CNP [address] [place] [address] PCP - JIMENEZ Attributed Provider - [employer] 12/31/20 11/29/50 Raphael Razo, LÁZARO [address] [place] [address] PCP - General Nurse Practitioner 04/04/24 Piece Dyeing Machine Tender Relationship Specialty Start Date End Date Tiny Marrufo CNP [address] [place] [address] PCP - JIMENEZ Attributed Provider - [employer] 12/31/20 11/29/50 Raphael Razo, LÁZARO [address] [place] [address] PCP - General Nurse Practitioner 04/04/24 Piece Dyeing Machine Tender Relationship Specialty Start Date End Date Raphael Razo, LÁZARO [address] [place] [address] PCP - General Nurse Practitioner 04/04/24 Tiny Marrufo, LÁZARO [address] [place] [address] PCP - JIMENEZ Attributed Provider - [employer] 05/30/24 11/29/50 Piece Dyeing Machine Tender Relationship Specialty Start Date End Date Raphael Razo, LÁZARO [address] [place] [address] PCP - General Nurse Practitioner 04/04/24 Tiny Marrufo, LÁZARO [address] [facility] [address] [place] [address] PCP - JIMENEZ Attributed Provider - [employer] 05/30/24 11/29/50 Team Status: Inactive Member Role Status Dates No Primary Care Physician Primary Care Provider Active Start: December 09, 2024 End: December 09, 2024 No Primary Care Physician Referring Provider Active Start: December 09, 2024 End: December 09, 2024 Lory Saldana CNM Attending Provider Active S tart: December 09, 2024 End: December 09, 2024 Team Status: Inactive Member Role Status Dates No Primary Care Physician Primary Care Provider Active Start: December 09, 2024 End: December 09, 2024 Lory aSldana CNM Attending Provider Active S tart: December 09, 2024 End: December 09, 2024 Lory Saldana CNM Referring Provider Active S tart: December 09, 2024 End: December 09, 2024 Team Status: Inactive Member Role Status Dates No Primary Care Physician Primary Care Provider Active Start: January 06, 2025 End: January 06, 2025 No Primary Care Physician Referring Provider Active Start: January 06, 2025 End: January 06, 2025 Dr. Zulma Garcia DO Attending Provider Activ e Start: January 06, 2025 End: January 06, 2025 Team Status: Inactive Member Role Status Dates No Primary Care Physician Primary Care Provider Active Start: January 31, 2025 End: January 31, 2025 No Primary Care Physician Referring Provider Active Start: January 31, 2025 End: January 31, 2025 Dr. Zulma Garcia DO Attending Provider Activ e Start: January 31, 2025 End: January 31, 2025 Team Status: Inactive Member Role Status Dates No Primary Care Physician Primary Care Provider Active Start: January 31, 2025 End: January 31, 2025 Dr. Zulma Garcia DO Attending Provider Activ e Start: January 31, 2025 End: January 31, 2025 Dr. Zulma Garcia DO Referring Provider Activ e Start: January 31, 2025 End: January 31, 2025 Team Status: Inactive Member Role Status Dates No Primary Care Physician Primary Care Provider Active Start: March 01, 2025 End: March 01, 2025 No Primary Care Physician Referring Provider Active Start: March 01, 2025 End: March 01, 2025 Dr. Pam Acosta MD Attending Provider Active Start: March 01, 2025 End: March 01, 2025 Team Status: Inactive Member Role Status Dates No Primary Care Physician Primary Care Provider Active Start: March 28, 2025 End: March 28, 2025 Dr. Pam Acosta MD Attending Provider Active Start: March 28, 2025 End: March 28, 2025 Dr. Pam Acosta MD Referring Provider Active Start: March 28, 2025 End: March 28, 2025 Team Status: Inactive Member Role Status Dates No Primary Care Physician Primary Care Provider Active Start: March 28, 2025 End: March 28, 2025 No Primary Care Physician Referring Provider Active Start: March 28, 2025 End: March 28, 2025 Lory Saldana CNM Attending Provider Active S tart: March 28, 2025 End: March 28, 2025 Team Status: Inactive Member Role Status Dates No Primary Care Physician Primary Care Provider Active Start: April 14, 2025 End: April 14, 2025 No Primary Care Physician Referring Provider Active Start: April 14, 2025 End: April 14, 2025 Dr. Pam Acosta MD Attending Provider Active Start: April 14, 2025 End: April 14, 2025 Team Status: Inactive Member Role Status Dates No Primary Care Physician Primary Care Provider Active Start: April 28, 2025 End: April 28, 2025 No Primary Care Physician Referring Provider Active Start: April 28, 2025 End: April 28, 2025 Dr. Pam Aocsta MD Attending Provider Active Start: April 28, 2025 End: April 28, 2025 Team Status: Inactive Member Role Status Dates No Primary Care Physician Primary Care Provider Active Start: May 09, 2025 End: May 09, 2025 No Primary Care Physician Referring Provider Active Start: May 09, 2025 End: May 09, 2025 Lory Saldana CNM Attending Provider Active S tart: May 09, 2025 End: May 09, 2025 Team Status: Active Member Role/Relationship Status Dates No Primary Care Physician Primary Care Provider Active Team Status: Inactive Member Role/Relationship Status Dates No Primary Care Physician Primary Care Provider Active Start: January 31, 2025 End: January 31, 2025 No Primary Care Physician Referring Provider Active Start: January 31, 2025 End: January 31, 2025 Dr. Zulma Garcia DO Attending Provider Activ e Start: January 31, 2025 End: January 31, 2025 Team Status: Inactive Member Role/Relationship Status Dates No Primary Care Physician Primary Care Provider Active Start: January 31, 2025 End: January 31, 2025 Dr. Zulma Garcia DO Attending Provider Activ e Start: January 31, 2025 End: January 31, 2025 Dr. Zulma Garcia DO Referring Provider Activ e Start: January 31, 2025 End: January 31, 2025 Team Status: Inactive Member Role/Relationship Status Dates No Primary Care Physician Primary Care Provider Active Start: March 01, 2025 End: March 01, 2025 No Primary Care Physician Referring Provider Active Start: March 01, 2025 End: March 01, 2025 Dr. Pam Acosta MD Attending Provider Active Start: March 01, 2025 End: March 01, 2025 Team Status: Inactive Member Role/Relationship Status Dates No Primary Care Physician Primary Care Provider Active Start: March 28, 2025 End: March 28, 2025 Dr. Pam Acosta MD Attending Provider Active Start: March 28, 2025 End: March 28, 2025 Dr. Pam Acosta MD Referring Provider Active Start: March 28, 2025 End: March 28, 2025 Team Status: Inactive Member Role/Relationship Status Dates No Primary Care Physician Primary Care Provider Active Start: March 28, 2025 End: March 28, 2025 No Primary Care Physician Referring Provider Active Start: March 28, 2025 End: March 28, 2025 Lory Saldana CNM Attending Provider Active S tart: March 28, 2025 End: March 28, 2025 Team Status: Inactive Member Role/Relationship Status Dates No Primary Care Physician Primary Care Provider Active Start: April 14, 2025 End: April 14, 2025 No Primary Care Physician Referring Provider Active Start: April 14, 2025 End: April 14, 2025 Dr. Pam Acosta MD Attending Provider Active Start: April 14, 2025 End: April 14, 2025 Team Status: Inactive Member Role/Relationship Status Dates No Primary Care Physician Primary Care Provider Active Start: April 28, 2025 End: April 28, 2025 No Primary Care Physician Referring Provider Active Start: April 28, 2025 End: April 28, 2025 Dr. Pam Acosta MD Attending Provider Active Start: April 28, 2025 End: April 28, 2025 Team Status: Inactive Member Role/Relationship Status Dates No Primary Care Physician Primary Care Provider Active Start: May 09, 2025 End: May 09, 2025 No Primary Care Physician Referring Provider Active Start: May 09, 2025 End: May 09, 2025 Lory Saldana CNM Attending Provider Active S tart: May 09, 2025 End: May 09, 2025 Team Status: Inactive Member Role/Relationship Status Dates No Primary Care Physician Primary Care Provider Active Start: May 26, 2025 End: May 26, 2025 No Primary Care Physician Referring Provider Active Start: May 26, 2025 End: May 26, 2025 Dr. Pam Acosta MD Attending Provider Active Start: May 26, 2025 End: May 26, 2025 Team Status: Inactive Member Role/Relationship Status Dates No Primary Care Physician Primary Care Provider Active Start: March 01, 2025 End: March 01, 2025 No Primary Care Physician Referring Provider Active Start: March 01, 2025 End: March 01, 2025 Dr. Pam Acosta MD Attending Provider Active Start: March 01, 2025 End: March 01, 2025 Team Status: Inactive Member Role/Relationship Status Dates No Primary Care Physician Primary Care Provider Active Start: March 28, 2025 End: March 28, 2025 Dr. Pam Acosta MD Attending Provider Active Start: March 28, 2025 End: March 28, 2025 Dr. Pam Acosta MD Referring Provider Active Start: March 28, 2025 End: March 28, 2025 Team Status: Inactive Member Role/Relationship Status Dates No Primary Care Physician Primary Care Provider Active Start: March 28, 2025 End: March 28, 2025 No Primary Care Physician Referring Provider Active Start: March 28, 2025 End: March 28, 2025 Lory Saldana CNM Attending Provider Active S tart: March 28, 2025 End: March 28, 2025 Team Status: Inactive Member Role/Relationship Status Dates No Primary Care Physician Primary Care Provider Active Start: April 14, 2025 End: April 14, 2025 No Primary Care Physician Referring Provider Active Start: April 14, 2025 End: April 14, 2025 Dr. Pam Acosta MD Attending Provider Active Start: April 14, 2025 End: April 14, 2025 Team Status: Inactive Member Role/Relationship Status Dates No Primary Care Physician Primary Care Provider Active Start: April 28, 2025 End: April 28, 2025 No Primary Care Physician Referring Provider Active Start: April 28, 2025 End: April 28, 2025 Dr. Pam Acosta MD Attending Provider Active Start: April 28, 2025 End: April 28, 2025 Team Status: Inactive Member Role/Relationship Status Dates No Primary Care Physician Primary Care Provider Active Start: May 09, 2025 End: May 09, 2025 No Primary Care Physician Referring Provider Active Start: May 09, 2025 End: May 09, 2025 Lory Saldana CNM Attending Provider Active S tart: May 09, 2025 End: May 09, 2025 Team Status: Inactive Member Role/Relationship Status Dates No Primary Care Physician Primary Care Provider Active Start: May 26, 2025 End: May 26, 2025 No Primary Care Physician Referring Provider Active Start: May 26, 2025 End: May 26, 2025 Dr. Pam Acosta MD Attending Provider Active Start: May 26, 2025 End: May 26, 2025 Team Status: Inactive Member Role/Relationship Status Dates No Primary Care Physician Primary Care Provider Active Start: June 05, 2025 End: June 05, 2025 No Primary Care Physician Referring Provider Active Start: June 05, 2025 End: June 05, 2025 Dr. Zulma Garcia DO Attending Provider Activ e Start: June 05, 2025 End: June 05, 2025 Team Status: Inactive Member Role/Relationship Status Dates No Primary Care Physician Primary Care Provider Active Start: June 05, 2025 End: June 05, 2025 Dr. Zulma Garcia DO Attending Provider Activ e Start: June 05, 2025 End: June 05, 2025 Team Status: Inactive Member Role/Relationship Status Dates No Primary Care Physician Primary Care Provider Active Start: June 16, 2025 End: June 16, 2025 No Primary Care Physician Referring Provider Active Start: June 16, 2025 End: June 16, 2025 Lilliana Melton CNM Attending Provider Active Start: June 16, 2025 End: June 16, 2025 Goals (unrecognized section and content) Goals may be documented in a n alternate sectionGoals may be documented in an alternate sectionGoals may be documented in an alternate sectionGoals may be documented in an alternate sectionGoals may be documented in an alternate sectionGoals may be documented in an alternate sectionGoals may be documented in an alternate sectionGoals may be documented in an alternate sectionGoals may be documented in an alternate sectionGoals may be documented in an alternate section FOR RECORDS PERTAINING TO PATIENTS WHO ARE [...] BE BASED ON THE PRIMARY CLINICAL RECORDS. [facility] [address] [facility]. provides no warranty or guarantee of the accuracy or completeness of information in this document.
[2025-06-20 05:46] LABS: ROM Internal Control Test YES-OK TO RESULT pt. (Internal QC)
[2025-06-20 05:47] LABS: ROM Patient Test POSITIVE (Negative); Record Kit Lot#, ROM+ K3358
--- OUTSIDE RECORDS SUMMARY | 2025-06-20 06:22 | XMS RPT_ITS | CCD ---
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 Zulma Garcia DO Attending Provider Dr. Zulma Garcia DO Referring Provider Dr. Pam Acosta MD Attending Provider [phone] Dr. Pam Acosta MD Referring Provider [phone] Care Physician, No Primary Primary Care Provider Unavailable Care Physician, No Primary Referring Provider Un available Lory Saldana CNM Attending Provider [phone] Care Physician, No Primary Primary Care Provider Unavailable Care Physician, No Primary Referring Provider Un available Dr. Zulma Garcia DO Attending Provider Care Physician, No Primary Primary Care Provider Unavailable Care Physician, No Primary Referring Provider Un available Dr. Zulma Garcia DO Attending Provider Lilliana Melton CNM Attending Provider [phone] Zulma Garcia Attending Unavailabl e Care Physician, No Primary Primary Care Unava ilable Lory Saldana Attending Unavailable Care Physician, No Primary Primary Care Unava ilable Care Physician, No Primary Referring Unava ilable Pam Acosta Attending Unavailable Care Physician, No Primary Primary Care Unava ilable Care Physician, No Primary Referring Unava ilable Zluma Garcia Attending Unavailabl e Care Physician, No [...] Physician, No Primary Primary Care Unava ilable aPm Acosta Attending Unavailable Care Physician, No Primary Primary Care Unava ilable Care Physician, No Primary Referring Unava ilable Benedict WOODS BOSS, Ursula Attending Unavailable Care Physician, No Primary [...] day . 21 capsule 08/18/2024 Active Multivit 14-Mfdl-Zbyqty 1-Dha (Pnv-Dha) 27 mg iron-1 mg -300 mg capsule (9 sources) Start: 12-02-2024 Multivit 52-Apif-Fctnmx 1-Dha (Pnv-Dha) 27 mg iron-1 mg -300 [...] 02, 2024 4:11pm 168 hr ethinyl estradiol 0.40985 mg/hr / norelgestromin 0.54674 mg/hr transdermal system (7 sources) Progestin, Estrogen [...] out only. SA spouse. Orders given/lives in [place]. Then consider HSG, letrozole Immunizations and screening [...] Episodic Comment on above: Neg MRI at [facility]. Prolactin WNL 01/2024 Other and delivery including [...] Test Name Value Interpretation Reference Range Facility [employer] Office Visit Reporton 06-16-2025 [employer] Office Visit Report [facility]'s [address], [address] [place] [address] OFFICE VISIT Date of Service: 06/16/25 MR#: [id number] Acct: [id number] Name: ALYSSA PRO Rep #: [id number] : 2000 Provider: MINERVA colindres Age/Sex: 25/F Location: [place] Status: Signed Intake Vital Signs 05/09/25 14:34 06/05/25 09:23 06/16/25 15:42 06/16/25 15:42 Height 5 ft 6 in 5 ft 6 in 5 ft 6 in 5 ft 6 in Weight: 228 lb 6 oz BMI 36.8 BP 117/81 H Intake Visit 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 Normal [facility] Rule out Beta Strep (Grp. B) on 06-09-2025 ALIN Streptococcus agalac tiae (B) Amount Growth 3+ Streptococcus agalactiae (B): REACTION Ampicillin Islt KATHY <=0.25 cefTRIAXone Islt KATHY <=0.12 S Clindamycin Islt KATHY <=0.25 S Clindamycin.induced Susc Islt NEG Linezolid Islt KATHY <=2 S Vancomycin Islt KATHY 0.5 S Normal [facility] Comment on above: Performed By: #### L 3890.6005, BTS, L509.4005, L100.0100, L3890.6100, L3890.6300, L509.8000, L501.9985 #### [facility] [address] [place], [address] Laboratory - Chemistry and C hemistry - challengeOrdered By: Zulma Lima on 06-05-2025 Glucose Ql (U) Negative [facility] Laboratory - UrinalysisOrder ed By: Zulma Lima on 06-05-2025 Protein Ql (U) Negative [facility] [employer] Office Visit Reporton 06-05-2025 [employer] Office Visit Report [facility]'s [address], [address] [place] [address] OFFICE VISIT Date of Service: 06/05/25 MR#: [id number] Acct: [id number] Name: ALYSSA PRO Rep #: [id number] : 2000 Provider: Dr. 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 03/01/ (more content not included)... Normal [facility] Screening beta-hemolytic Str eptococcus cultureOrdered By: Zulma Lima on 06-05-2025 Beta-hemolytic Streptococcus culture Streptococcus agalactiae (B) Abnormal [facility] Laboratory - Chemistry and C hemistry - challengeOrdered By: Zulma Lima on 05-26-2025 Glucose Ql (U) Negative [facility] Laboratory - UrinalysisOrder ed By: Zulma Lima on 05-26-2025 Protein Ql (U) Negative [facility] [employer] Office Visit Reporton 05-26-2025 [employer] Office Visit Report [facility]'s [address], [address] [place] [address] OFFICE VISIT Date of Service: 05/26/25 MR#: [id number] Acct: [id number] Name: ALYSSA PRO Rep #: [id number] : 2000 Provider: Dr. 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 Normal [facility] Laboratory - Chemistry and C hemistry - challengeOrdered By: Lory Saldana on 05-09-2025 Glucose Ql (U) Negative [facility] Laboratory - UrinalysisOrder ed By: Lory Saldana on 05-09-2025 Protein Ql (U) Negative [facility] [employer] Office Visit Reporton 05-09-2025 [employer] Office Visit Report [facility] [address] [place] [address], [address] [place] [address] OFFICE VISIT Date of Service: 05/09/25 MR#: [id number] Acct: [id number] Name: ALYSSA PRO Rep #: [id number] : 2000 Provider: MINERVA Hoang ams Age/Sex: 25/F Location: [facility] Status: Signed Intake Vital Signs 12/09/24 13:07 04/28/25 15:06 05/09/25 14:34 Height 5 ft 6 in 5 ft 6 in 5 ft 6 in Weight: 219 lb 2 oz BMI 35.4 BP 107/72 Intake Visit Reasons: 32 wk ob 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 Normal [facility] Laboratory - Chemistry and C hemistry - challengeOrdered By: Pam Acosta on 04-28-2025 Glucose Ql (U) Negative [facility] Laboratory - UrinalysisOrder ed By: Pam Acosta on 04-28-2025 Protein Ql (U) Negative [facility] [employer] Office Visit Reporton 04-28-2025 [employer] Office Visit Report [facility] [address], [address] [place] [address] OFFICE VISIT Date of Service: 04/28/25 MR#: [id number] Acct: [id number] Name: ALYSSA PRO Rep #: [id number] : 2000 Provider: Dr. 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 03/01/25 -???-???-???-???-???-? (more content not included)... Normal [facility] Laboratory - Chemistry and C hemistry - challengeOrdered By: Pam Acosta on 04-14-2025 Glucose Ql (U) Negative [facility] Laboratory - UrinalysisOrder ed By: Pam Acosta on 04-14-2025 Protein Ql (U) Negative [facility] [employer] Office Visit Reporton 04-14-2025 [employer] Office Visit Report [facility]'s [address], [address] [place] [address] OFFICE VISIT Date of Service: 04/14/25 MR#: [id number] Acct: [id number] Name: ALYSSA PRO Rep #: [id number] : 2000 Provider: Dr. 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 03/01/25 -???-???-???-???-???-??? -???-???-???-???-???-??? - 22w 0d (more content not included)... Normal [facility] Absolute lymphocyte countOrd ered By: Pam Acosta on 03-28-2025 Lymphocytes Auto (Unsp spec) [#/Vol] 1.87 10*3/uL 0.83-4.51 [facility] Absolute neutrophil countOrd ered By: Pam Acosta on 03-28-2025 Neutrophils (Bld) [#/Vol] 10.5 10*3/uL High 2.0-7.7 [facility] Automated lymphocyte count a s percentage of total leukocytesOrdered By: Pam Acosta on 03-28-2025 Lymphocytes/100 WBC Auto (Unsp spec) 14.1 % Low 19-41 [facility] Basophil percentageOrdered B y: Pam Acosta on 03-28-2025 Basophils/100 WBC (Bld) 0.2 % 0-1 [facility] CBC W/Diff, Liudmilaon 03-01 Absolute Lymph 1.87 X10 3/uL Normal 0.83-4.51 [facility] Comment on above: Performed By: #### L 100.0100, L501.0250, L3890.6006, L509.8002 #### [facility] [address] [place], [address] Absolute Neut 10.5 X10 3/uL High 2.0-7.7 [facility] Comment on above: Performed By: #### L 100.0100, L501.0250, L3890.6006, L509.8002 #### [facility] [address] [place], [address] Basophils/100 WBC (Bld) 0.2 % Normal 0-1 [facility] Comment on above: Performed By: #### L 100.0100, L501.0250, L3890.6006, L509.8002 #### [facility] [address] [place], [address] Eosinophils/100 WBC (Bld) 0.3 % Normal 0-5 [facility] Comment on above: Performed By: #### L 100.0100, L501.0250, L3890.6006, L509.8002 #### [facility] [address] [place], [address] Erythrocyte distribution width (RBC) [Ratio] 12.7 % Normal 11.6-14.6 [facility] Comment on above: Performed By: #### L 100.0100, L501.0250, L3890.6006, L509.8002 #### [facility] [address] [place], [address] Hematocrit (Bld) [Volume fraction] 34.3 % Low 37-47 [facility] Comment on above: Performed By: #### L 100.0100, L501.0250, L3890.6006, L509.8002 #### [facility] [address] [place], [address] Hemoglobin (Bld) [Mass/Vol] 12.1 g/dL Normal 12.0-15.0 [facility] Comment on above: Performed By: #### L 100.0100, L501.0250, L3890.6006, L509.8002 #### [facility] [address] [place], [address] IG% 0.800 Normal 0.0-0.9 [facility] Comment on above: Result Comment: IG% - Immature Granulocytes (promyelocytes, myelocytes and metamyelocytes) > 1% indicates that a LEFT SHIFT is Present. Performed By: #### L 100.0100, L501.0250, L3890.6006, L509.8002 #### [facility] [address] [place], [address] Lymphocytes/100 WBC (Bld) 14.1 % Low 19-41 [facility] Comment on above: Performed By: #### L 100.0100, L501.0250, L3890.6006, L509.8002 #### [facility] [address] [place], [address] MCH (RBC) [Entitic mass] 33.7 pg High 27.0-32.0 [facility] Comment on above: Performed By: #### L 100.0100, L501.0250, L3890.6006, L509.8002 #### [facility] [address] [place], [address] MCHC (RBC) [Mass/Vol] 35.3 g/dL Normal 32-36 [facility] Comment on above: Performed By: #### L 100.0100, L501.0250, L3890.6006, L509.8002 #### [facility] [address] [place], [address] MCV (RBC) [Entitic vol] 95.5 fL Normal 81-99 [facility] Comment on above: Performed By: #### L 100.0100, L501.0250, L3890.6006, L509.8002 #### [facility] [address] [place], [address] Monocytes/100 WBC (Bld) 4.9 % Normal 0-10 [facility] Comment on above: Performed By: #### L 100.0100, L501.0250, L3890.6006, L509.8002 #### [facility] [address] [place], [address] Neutrophils/100 WBC (Bld) 79.7 % High 47-70 [facility] Comment on above: Performed By: #### L 100.0100, L501.0250, L3890.6006, L509.8002 #### [facility] [address] [place], [address] Nucleated RBC (Bld) [#/Vol] 0 10*3/uL Normal 0-5 [facility] Comment on above: Performed By: #### L 100.0100, L501.0250, L3890.6006, L509.8002 #### [facility] [address] [place], [address] Platelet mean volume (Bld) [Entitic vol] 9.8 fL Normal 6.2-12.0 [facility] Comment on above: Performed By: #### L 100.0100, L501.0250, L3890.6006, L509.8002 #### [facility] [address] [place], [address] Platelets (Bld) [#/Vol] 360 10*3/uL Normal 150-450 [facility] Comment on above: Performed By: #### L 100.0100, L501.0250, L3890.6006, L509.8002 #### [facility] [address] [place], [address] RBC (Bld) [#/Vol] 3.59 10*6/uL Low 4.2-5.4 [facility] Comment on above: Performed By: #### L 100.0100, L501.0250, L3890.6006, L509.8002 #### [facility] [address] [place], [address] RDW SD 44.0 fl High 35.1-43.9 [facility] Comment on above: Performed By: #### L 100.0100, L501.0250, L3890.6006, L509.8002 #### [facility] [address] [place], [address] WBC (Bld) [#/Vol] 13.2 10*3/uL High 4.4-11.0 [facility] Comment on above: Performed By: #### L 100.0100, L501.0250, L3890.6006, L509.8002 #### [facility] [address] [place], [address] Eosinophil percentageOrdered By: Pam Acosta on 03-28-2025 Eosinophils/100 WBC (Bld) 0.3 % 0-5 [facility] Erythrocyte distribution wid th ratioOrdered By: Pam Acosta on 03-28-2025 Erythrocyte distribution width (RBC) [Ratio] 12.7 % 11.6-14.6 [facility] Erythrocyte distribution wid th standard deviationOrdered By: Pam Acosta on 03-28-2025 Erythrocyte distribution width (RBC) [Ratio] 44.0 fl High 35.1-43.9 [facility] Glucose Challenge Gest 1H 50 carla 03-28-2025 GLU GEST 50g 1H 108 mg/dL Normal 70-140 [facility] Comment on above: Performed By: #### L 100.0100, L501.0250, L3890.6006, L509.8002 #### [facility] [address] [place], [address] Glucose measurement at 2 mira rs post-dose gestational glucose tolerance testOrdered By: Pam Acosta on 03-28-2025 Glucose [Mass/Vol] 108 mg/dL 70-140 [facility] HIVon 03-28-2025 HIV Non-Reactive Normal Nonreactive [facility] Comment on above: Result Comment: Non- Reactive Reactive Repeatedly reactive samples must be confirmed according to CDC recommended confirmatory algorithms. The subresults for either HIVAG or AHIV can be used as an aid in the selection of the confirmation algorithm for reactive samples. Send out specimens with Reactive results to [facility] for confirmation. Order the HIV antibody detection and differentiation: lc#[id number] Performed By: #### L 3890.6005, BTS, L509.4005, L100.0100, L3890.6100, L3890.6300, L509.8000, L501.9985 #### [facility] [address] [place], [place], [address] Hematocrit Auto (Bld) [Volum e fraction]Ordered By: Pam Acosta on 03-28-2025 Hematocrit (Bld) [Volume fraction] 34.3 % Low 37-47 [facility] Hemoglobin measurementOrdere d By: Pam Acosta on 03-28-2025 Hemoglobin (Bld) [Mass/Vol] 12.1 g/dL 12.0-15.0 [facility] Immature granulocytes/100 WB C Auto (Bld)Ordered By: Pam Acosta on 03-28-2025 Immature granulocytes/100 WBC (Bld) 0.800 % 0.0-0.9 [facility] Comment on above: IG% - Immature Granu locytes (promyelocytes, myelocytes and metamyelocytes) > 1% indicates that a LEFT SHIFT is Present. Laboratory - Chemistry and C hemistry - challengeOrdered By: Lory Saldana on 03-28-2025 Glucose Ql (U) Negative [facility] Laboratory - UrinalysisOrder ed By: Lory Saldana on 03-28-2025 Protein Ql (U) Negative [facility] MCV (mean corpuscular volume ) determinationOrdered By: Pam Acosta on 03-28-2025 MCV (RBC) [Entitic vol] 95.5 fL 81-99 [facility] Mean corpuscular hemoglobin (MCH) determinationOrdered By: Pam Acosta on 03-28-2025 MCH (RBC) [Entitic mass] 33.7 pg High 27.0-32.0 [facility] Mean corpuscular hemoglobin concentration (MCHC) determinationOrdered By: Pam Acosta on 03-28-2025 MCHC (RBC) [Mass/Vol] 35.3 g/dL 32-36 [facility] Mean platelet volume determi nationOrdered By: Pam Acosta on 03-28-2025 Platelet mean volume (Bld) [Entitic vol] 9.8 fL 6.2-12.0 [facility] Monocyte percentageOrdered B y: Pam Acosta on 03-28-2025 Monocytes/100 WBC (Bld) 4.9 % 0-10 [facility] Neutrophil percentageOrdered By: Pam Acosta on 03-28-2025 Neutrophils/100 WBC (Bld) 79.7 % High 47-70 [facility] No Panel InformationOrdered By: Pam Acosta on 03-28-2025 HIV (1&2) Antibody Non-Reactive Nonreactive [facility] Comment on above: Non-ReactiveReactive Repeatedly reactive samples must be confirmed according to CDC recommended confirmatory algorithms. The subresults for either HIVAG or AHIV can be used as an aid in the selection of the confirmation algorithm for reactive samples.Send out specimens with Reactive results to [facility] for confirmation.Order the HIV antibody detection and differentiation: #[id number] Nucleated red blood cell per centageOrdered By: Pam Acosta on 03-28-2025 Nucleated RBC/100 WBC (Bld) [Ratio] 0 % 0-5 [facility] [employer] Office Visit Reporton 03-28-2025 [employer] Office Visit Report [facility] [address], [address] [place] [address] OFFICE VISIT Date of Service: 03/28/25 MR#: [id number] Acct: [id number] Name: ALYSSA PRO Rep #: [id number] : 2000 Provider: MINERVA Hoang ams Age/Sex: 25/F Location: [place] Status: Signed Intake Vital Signs 12/09/24 13:07 01/06/25 15:33 03/01/25 15:01 03/28/25 14:22 Height 5 ft 6 in 5 ft 6 in 5 ft 6 in 5 ft 6 in Weight: 213 lb 2 oz BMI 34.4 BP 111/68 Intake Visit Reasons: 26 wk ob/glucose 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 Normal [facility] Platelet countOrdered By: Robles Acosta on 03-28-2025 Platelets (Bld) [#/Vol] 360 10*3/uL 150-450 [facility] RBC Auto (Bld) [#/Vol]Ordere d By: Pam Acosta on 03-28-2025 RBC (Bld) [#/Vol] 3.59 10*6/uL Low 4.2-5.4 [facility] Syphilis Antibodieson 2024 Syphilis Abs Non-Reactive Normal Nonreactive [facility] Comment on above: Performed By: #### L 3890.6005, BTS, L509.4005, L100.0100, L3890.6100, L3890.6300, L509.8000, L501.9985 #### [facility] [address] [place], [address] White blood cell (WBC) count Ordered By: Pam Acosta on 03-28-2025 WBC (Bld) [#/Vol] 13.2 10*3/uL High 4.4-11.0 [facility] Laboratory - Chemistry and C hemistry - challengeOrdered By: Pam Acosta on 03-01-2025 Glucose Ql (U) Negative [facility] Laboratory - UrinalysisOrder ed By: Pam Acosta on 03-01-2025 Protein Ql (U) Negative [facility] [employer] Office Visit Reporton 03-01-2025 [employer] Office Visit Report [facility] [address], [address] [place] [address] OFFICE VISIT Date of Service: 03/01/25 MR#: [id number] Acct: [id number] Name: ALYSSA PRO Rep #: [id number] : 2000 Provider: Dr. 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 Normal [facility] Genital Culture Comprehensiv betty 02-04-2025 VAC Reason for Exam: pel nathalia pain Normal vaginal fletcher isolated. No yeast, Gardnerella, Neisseria or beta-hemolytic Streptococcus isolated. Normal [facility] Comment on above: Performed By: #### L 3890.6005, BTS, L509.4005, L100.0100, L3890.6100, L3890.6300, L509.8000, L501.9985 #### [facility] [address] [place], [place], [id number] Genital cultureOrdered By: Gabby Lima on 01-31-2025 Genital Culture Neisseria or beta-hemolytic Streptococcus isolated. [facility] Source specific culture Neisseria or beta-hemolytic Streptococcus isolated. [facility] Gram Stainon 01-31-2025 GS Reason for Exam: pel nathalia pain Gram Stain 4+ Gram positive rods 2+ White Blood Cells No Gram negative diplococci Score = 0 Interpretation: 0-3 Normal, 4-6 Intermediate, 7-10 Positive BV Normal [facility] Comment on above: Performed By: #### L 3890.6005, BTS, L509.4005, L100.0100, L3890.6100, L3890.6300, L509.8000, L501.9985 #### [facility] [address] [place], [place], [id number] Gram stainOrdered By: Nancy Lima on 01-31-2025 Microscopic observation Gram stain Nom (Unsp spec) [facility] - Chemistry and C hemistry - challengeOrdered By: Zulma Lima on 01-31-2025 Glucose Ql (U) Negative [facility] - UrinalysisOrder ed By: Zulma Lima on 01-31-2025 Protein Ql (U) Negative [facility] [employer] Office Visit Reporton 01-31-2025 [employer] Office Visit Report [facility] [address], [address] [place] [address] OFFICE VISIT Date of Service: 01/31/25 MR#: [id number] Acct: [id number] Name: ALYSSA PRO Rep #: [id number] : 2000 Provider: Dr. 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 Normal [facility] - Chemistry and C hemistry - challengeOrdered By: Zulma Lima on 01-06-2025 Glucose Ql (U) Negative [facility] - UrinalysisOrder ed By: Zulma Lima on 01-06-2025 Protein Ql (U) Negative [facility] [employer] Office Visit Reporton 01-06-2025 [employer] Office Visit Report [facility] [address], [address] [place] [address] OFFICE VISIT Date of Service: 01/06/25 MR#: [id number] Acct: [id number] Name: ALYSSA PRO Rep #: [id number] : 2000 Provider: Dr. 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 Normal [facility] HIV - WCHon 12-13-2024 HIV Non-Reactive Normal Nonreactive [facility] Comment on above: Order Comment: Reaso n for Exam: Performed By: #### L 3890.6005, BTS, L509.4005, L100.0100, L3890.6100, L3890.6300, L509.8000, L501.9985 #### [facility] [address] [place] [place], [address] Chlamydia/GC KENYON aptimaon CHLAMY,NUC ACID Negative Normal Negative [facility] Comment on above: Performed By: #### L 3890.6005, BTS, L509.4005, L100.0100, L3890.6100, L3890.6300, L509.8000, L501.9985 #### [facility] [address] [place], [place], [id number] GC BY NUC ACID Negative Normal Negative [facility] Comment on above: Result Comment: Perf ormed at: =G - [facility] [address] [place] [id number] Importer Or Exporter: Monique Neil MD, Phone: [phone] Performed By: #### L 3890.6005, BTS, L509.4005, L100.0100, L3890.6100, L3890.6300, L509.8000, L501.9985 #### [facility] [address] [place], [place], [id number] Hepatitis B Surface Antigeno n 12-12-2024 HEP B Surf Ag Non-Reactive Normal Nonreactive [facility] Comment on above: Order Comment: Reaso n for Exam: Performed By: #### L 3890.6005, BTS, L509.4005, L100.0100, L3890.6100, L3890.6300, L509.8000, L501.9985 #### [facility] [address] [place], [place], [id number] Hepatitis C Antibodyon 12-12 Hepatitis C AB Non-Reactive Normal Nonreactive [facility] Comment on above: Order Comment: Reaso n for Exam: Result Comment: Non Reactive: < 0.8 Equivocal: >/= 0.8 to < 1.0 Reactive: >/= 1.0 The CDC requires that a reactive/equivocal HCV antibody result be sent out for confirmation. HCV Quant by PCR testing. Performed By: #### L 3890.6005, BTS, L509.4005, L100.0100, L3890.6100, L3890.6300, L509.8000, L501.9985 #### [facility] [address] [place], [address] L509.8000on 12-12-2024 Syphilis Abs Non-Reactive Normal [facility] Comment on above: Order Comment: Reaso n for Exam: Performed By: #### L 3890.6005, BTS, L509.4005, L100.0100, L3890.6100, L3890.6300, L509.8000, L501.9985 #### [facility] [address] [place], [address] Rubella IgGon 12-12-2024 Rubella IgG Reactive Normal Nonreactive [facility] Comment on above: Order Comment: Reaso n for Exam: Result Comment: Anti body Results Interpretation of Immune Status Non Reactive Presumed Non-Immune Equivocal Equivocal Reactive Presumed Immune Performed By: #### L 3890.6005, BTS, L509.4005, L100.0100, L3890.6100, L3890.6300, L509.8000, L501.9985 #### [facility] [address] [place], [place], [id number] Urine Cultureon 12-12-2024 [facility] Mixed Gram Positive Organisms [place] Count 11,000-25,000 MIXC Mixed contaminants. Submit a new specimen if indicated. Normal [facility] Comment on above: Performed By: #### L 3890.6005, BTS, L509.4005, L100.0100, L3890.6100, L3890.6300, L509.8000, L501.9985 #### [facility] [address] [place], [place], [address] Absolute lymphocyte countOrd ered By: Lory Saldana on 12-09-2024 Lymphocytes Auto (Unsp spec) [#/Vol] 2.21 10*3/uL 0.83-4.51 [facility] Absolute neutrophil countOrd ered By: Lory Saldana on 12-09-2024 Neutrophils (Bld) [#/Vol] 8.5 10*3/uL High 2.0-7.7 [facility] Automated lymphocyte count a s percentage of total leukocytesOrdered By: Lory Saldana on 12-09-2024 Lymphocytes/100 WBC Auto (Unsp spec) 19.4 % 19-41 [facility] Basophil percentageOrdered B y: Lory Saldana on 12-09-2024 Basophils/100 WBC (Bld) 0.2 % 0-1 [facility] C. trachomatis rRNA KENYON+prob e Ql (Unsp spec)Ordered By: Lory Saldana on 12-09-2024 Chlamydia DNA (KENYON) Negative Negative [facility] CBC W/Diff, Automatedon 11-30 0-2024 Absolute Lymph 2.21 X10 3/uL Normal 0.83-4.51 [facility] Comment on above: Performed By: #### L 3890.6005, BTS, L509.4005, L100.0100, L3890.6100, L3890.6300, L509.8000, L501.9985 #### [facility] [address] [place], [address] Absolute Neut 8.5 X10 3/uL High 2.0-7.7 [facility] Comment on above: Performed By: #### L 3890.6005, BTS, L509.4005, L100.0100, L3890.6100, L3890.6300, L509.8000, L501.9985 #### [facility] [address] [place], [address] Basophils/100 WBC (Bld) 0.2 % Normal 0-1 [facility] Comment on above: Performed By: #### L 3890.6005, BTS, L509.4005, L100.0100, L3890.6100, L3890.6300, L509.8000, L501.9985 #### [facility] [address] [place], [address] Eosinophils/100 WBC (Bld) 0.3 % Normal 0-5 [facility] Comment on above: Performed By: #### L 3890.6005, BTS, L509.4005, L100.0100, L3890.6100, L3890.6300, L509.8000, L501.9985 #### [facility] [address] [place], [address] Erythrocyte distribution width (RBC) [Ratio] 12.0 % Normal 11.6-14.6 [facility] Comment on above: Performed By: #### L 3890.6005, BTS, L509.4005, L100.0100, L3890.6100, L3890.6300, L509.8000, L501.9985 #### [facility] [address] [place], [address] Hematocrit (Bld) [Volume fraction] 35.7 % Low 37-47 [facility] Comment on above: Performed By: #### L 3890.6005, BTS, L509.4005, L100.0100, L3890.6100, L3890.6300, L509.8000, L501.9985 #### [facility] [address] [place], [address] Hemoglobin (Bld) [Mass/Vol] 12.1 g/dL Normal 12.0-15.0 [facility] Comment on above: Performed By: #### L 3890.6005, BTS, L509.4005, L100.0100, L3890.6100, L3890.6300, L509.8000, L501.9985 #### [facility] [address] [place], [address] IG% 0.400 Normal 0.0-0.9 [facility] Comment on above: Result Comment: IG% - Immature Granulocytes (promyelocytes, myelocytes and metamyelocytes) > 1% indicates that a LEFT SHIFT is Present. Performed By: #### L 3890.6005, BTS, L509.4005, L100.0100, L3890.6100, L3890.6300, L509.8000, L501.9985 #### [facility] [address] [place], [address] Lymphocytes/100 WBC (Bld) 19.4 % Normal 19-41 [facility] Comment on above: Performed By: #### L 3890.6005, BTS, L509.4005, L100.0100, L3890.6100, L3890.6300, L509.8000, L501.9985 #### [facility] [address] [place], [address] MCH (RBC) [Entitic mass] 31.8 pg Normal 27.0-32.0 [facility] Comment on above: Performed By: #### L 3890.6005, BTS, L509.4005, L100.0100, L3890.6100, L3890.6300, L509.8000, L501.9985 #### [facility] [address] [place], [address] MCHC (RBC) [Mass/Vol] 33.9 g/dL Normal 32-36 [facility] Comment on above: Performed By: #### L 3890.6005, BTS, L509.4005, L100.0100, L3890.6100, L3890.6300, L509.8000, L501.9985 #### [facility] [address] [place], [address] MCV (RBC) [Entitic vol] 93.9 fL Normal 81-99 [facility] Comment on above: Performed By: #### L 3890.6005, BTS, L509.4005, L100.0100, L3890.6100, L3890.6300, L509.8000, L501.9985 #### [facility] [address] [place], [address] Monocytes/100 WBC (Bld) 5.0 % Normal 0-10 [facility] Comment on above: Performed By: #### L 3890.6005, BTS, L509.4005, L100.0100, L3890.6100, L3890.6300, L509.8000, L501.9985 #### [facility] [address] [place], [address] Neutrophils/100 WBC (Bld) 74.7 % High 47-70 [facility] Comment on above: Performed By: #### L 3890.6005, BTS, L509.4005, L100.0100, L3890.6100, L3890.6300, L509.8000, L501.9985 #### [facility] [address] [place], [address] Nucleated RBC (Bld) [#/Vol] 0 10*3/uL Normal 0-5 [facility] Comment on above: Performed By: #### L 3890.6005, BTS, L509.4005, L100.0100, L3890.6100, L3890.6300, L509.8000, L501.9985 #### [facility] [address] [place], [address] Platelet mean volume (Bld) [Entitic vol] 10.6 fL Normal 6.2-12.0 [facility] Comment on above: Performed By: #### L 3890.6005, BTS, L509.4005, L100.0100, L3890.6100, L3890.6300, L509.8000, L501.9985 #### [facility] [address] [place], [address] Platelets (Bld) [#/Vol] 370 10*3/uL Normal 150-450 [facility] Comment on above: Performed By: #### L 3890.6005, BTS, L509.4005, L100.0100, L3890.6100, L3890.6300, L509.8000, L501.9985 #### [facility] [address] [place], [address] RBC (Bld) [#/Vol] 3.80 10*6/uL Low 4.2-5.4 [facility] Comment on above: Performed By: #### L 3890.6005, BTS, L509.4005, L100.0100, L3890.6100, L3890.6300, L509.8000, L501.9985 #### [facility] [address] [place], [address] RDW SD 42.0 fl Normal 35.1-43.9 [facility] Comment on above: Performed By: #### L 3890.6005, BTS, L509.4005, L100.0100, L3890.6100, L3890.6300, L509.8000, L501.9985 #### [facility] [address] [place], [address] WBC (Bld) [#/Vol] 11.4 10*3/uL High 4.4-11.0 [facility] Comment on above: Performed By: #### L 3890.6005, BTS, L509.4005, L100.0100, L3890.6100, L3890.6300, L509.8000, L501.9985 #### [facility] [address] [place], [address] Chlamydia trachomatis rRNA d etection by probe and target amplification methodOrdered By: Lory Saldana on 12-09-2024 C. trachomatis rRNA KNEYON+probe Ql (Unsp spec) Negative Negative [facility] Eosinophil percentageOrdered By: Lory Saldana on 12-09-2024 Eosinophils/100 WBC (Bld) 0.3 % 0-5 [facility] Erythrocyte distribution wid th ratioOrdered By: Lory Saldana on 12-09-2024 Erythrocyte distribution width (RBC) [Ratio] 12.0 % 11.6-14.6 [facility] Erythrocyte distribution wid th standard deviationOrdered By: Lory Saldana on 12-09-2024 Erythrocyte distribution width (RBC) [Entitic vol] 42.0 fL 35.1-43.9 [facility] Erythrocyte distribution width (RBC) [Ratio] 42.0 fl 35.1-43.9 [facility] HIV 1 and HIV-2 antibody ass ay with HIV-1 p24 antigen detectionOrdered By: Lory Saldana on 12-09-2024 HIV 1+2 Ab+HIV1 p24 Ag IA Ql Non-Reactive Nonreactive [facility] HIV 1+2 Ab+HIV1 p24 Ag IA Ql Ordered By: Lory Saldana on 12-09-2024 HIV (1&2) Antibody Non-Reactive Nonreactive [facility] Hematocrit Auto (Bld) [Volum e fraction]Ordered By: Lory Saldana on 12-09-2024 Hematocrit (Bld) [Volume fraction] 35.7 % Low 37-47 [facility] Hemoglobin A1con 12-09-2024 HbA1c (Bld) [Mass fraction] 5.1 % Normal 3.8-5.6 [facility] Comment on above: Result Comment: Norm al < 5.7 % Prediabetic 5.7 - 6.4 % Diabetic >or= 6.5 % Please note range changes. Performed By: #### L 3890.6005, BTS, L509.4005, L100.0100, L3890.6100, L3890.6300, L509.8000, L501.9985 #### [facility] [address] [place], [place], [id number] Hemoglobin A1c percentageOrd ered By: Lory Saldana on 12-09-2024 HbA1c (Bld) [Mass fraction] 5.1 % 3.8-5.6 [facility] Comment on above: Normal < 5.7 % Predi abetic 5.7 - 6.4 % Diabetic >or= 6.5 % Please note range changes. Hemoglobin measurementOrdere d By: Lory Saldana on 12-09-2024 Hemoglobin (Bld) [Mass/Vol] 12.1 g/dL 12.0-15.0 [facility] Hepatitis B surface antigen detectionOrdered By: Lory Saldana on 12-09-2024 Hepatitis B Surface Antigen Non-Reactive Nonreactive [facility] Hepatitis C virus antibody a ssayOrdered By: Lory Saldana on 12-09-2024 Hepatitis C Antibody Non-Reactive Nonreactive [facility] Comment on above: Non Reactive: < 0.8 Equivocal: >/= 0.8 to < 1.0 Reactive: >/= 1.0The CDC requires that a reactive/equivocal HCV antibody result be sent out for confirmation. HCV Quant by PCR testing. Immature granulocytes/100 WB C Auto (Bld)Ordered By: Lory Saldana on 12-09-2024 Immature granulocytes/100 WBC (Bld) 0.400 % 0.0-0.9 [facility] Comment on above: IG% - Immature Granu locytes (promyelocytes, myelocytes and metamyelocytes) > 1% indicates that a LEFT SHIFT is Present. Lymphocytes Auto (Unsp spec) [#/Vol]Ordered By: Lory Saldana on 12-09-2024 Lymphocytes (Bld) [#/Vol] 2.21 10*3/uL 0.83-4.51 [facility] Lymphocytes/100 WBC Auto (Un sp spec)Ordered By: Lory Saldana on 12-09-2024 Lymphocytes/100 WBC (Bld) 19.4 % 19-41 [facility] MCV (mean corpuscular volume ) determinationOrdered By: Lory Saldana on 12-09-2024 MCV (RBC) [Entitic vol] 93.9 fL 81-99 [facility] Mean corpuscular hemoglobin (MCH) determinationOrdered By: Lory Saldana on 12-09-2024 MCH (RBC) [Entitic mass] 31.8 pg 27.0-32.0 [facility] Mean corpuscular hemoglobin concentration (MCHC) determinationOrdered By: Lory Saldana on 12-09-2024 MCHC (RBC) [Mass/Vol] 33.9 g/dL 32-36 [facility] Mean platelet volume determi nationOrdered By: Lory Saldana on 12-09-2024 Platelet mean volume (Bld) [Entitic vol] 10.6 fL 6.2-12.0 [facility] Monocyte percentageOrdered B y: Lory Saldana on 12-09-2024 Monocytes/100 WBC (Bld) 5.0 % 0-10 [facility] Neisseria gonorrhoeae nuclei c acid detection by amplified probe techniqueOrdered By: Lory Saldana on 12-09-2024 N. gonorrhoeae DNA KENYON+probe Ql (Unsp spec) Negative Negative [facility] Comment on above: Performed at: =[address]as [place] [id number] Director: Monique Neil MD, Phone: [phone] Neutrophil percentageOrdered By: Lory Saldana on 12-09-2024 Neutrophils/100 WBC (Bld) 74.7 % High 47-70 [facility] Nucleated red blood cell per centageOrdered By: Lory Saldana on 12-09-2024 Nucleated RBC/100 WBC (Bld) [Ratio] 0 % 0-5 [facility] [employer] Office Visit Reporton 12-09-2024 [employer] Office Visit Report [facility] [address], [address] [place] [address] OFFICE VISIT Date of Service: 12/09/24 MR#: [id number] Acct: [id number] Name: ALYSSA PRO Rep #: [id number] : 2000 Provider: MINERVA Hoang ams Age/Sex: 24/F Location[facility] Status: Signed Intake Vital Signs 10/05/24 13:07 12/09/24 13:06 12/09/24 13:07 Height 5 ft 6 in 5 ft 6 in 5 ft 6 in Weight: 214 lb 205 lb 2 oz BMI 34.5 33.0 BP 122/80 H 136/83 H Intake Visit Reasons: NOB [facility] 09/28 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 Normal [facility] Platelet countOrdered By: Scout Saldana on 12-09-2024 Platelets (Bld) [#/Vol] 370 10*3/uL 150-450 [facility] RBC Auto (Bld) [#/Vol]Ordere d By: Lory Saldana on 12-09-2024 RBC (Bld) [#/Vol] 3.80 10*6/uL Low 4.2-5.4 [facility] Rubella immune status IgGOrd ered By: Lory Saldana on 12-09-2024 Rubella IgG Antibody Reactive Nonreactive [facility] Comment on above: Antibody Results Int erpretation of Immune Status Non Reactive Presumed Non-Immune Equivocal Equivocal Reactive Presumed Immune Serum Treponema species anti body detectionOrdered By: Lory Saldana on 12-09-2024 Treponema sp Ab Ql (S) Non-Reactive [facility] Treponema sp Ab Ql (S)Ordere d By: Lory Saldana on 12-09-2024 Syphilis Total Antibody Non-Reactive [facility] Type AND Screenon 12-09-2024 Ab SCREEN GEL Negative Normal [facility] Comment on above: Order Comment: PN Performed By: #### L 3890.6005, BTS, L509.4005, L100.0100, L3890.6100, L3890.6300, L509.8000, L501.9985 #### [facility] [address] [place], [place], [address] Urine cultureOrdered By: Hero Saldana on 12-09-2024 Bacteria identified Cx Nom (U) Positive Abnormal [facility] White blood cell (WBC) count Ordered By: Lory Saldana on 12-09-2024 WBC (Bld) [#/Vol] 11.4 10*3/uL High 4.4-11.0 [facility] [employer] Office Visit Reporton 10-05-2024 [employer] Office Visit Report [facility] [address], [address] [place] [address] OFFICE VISIT Date of Service: 10/05/24 MR#: [id number] Acct: [id number] Name: ALYSSA PRO Rep #: [id number] : 2000 Provider: OLIVIA pearce Age/Sex: 24/F Location: [place] Status: Signed Intake Vital Signs 10/05/24 13:07 Height 5 ft 6 in Weight: 214 lb BMI 34.5 BP 122/80 H 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 SA spouse. Orders given/lives in [place]. 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 10/05/24 1327 Date Ursula Mcmullen NP [employer] Cosigner Signature: Date (if applicable) CC: Normal [facility] CBC WITH AUTO DIFFERENTIALon 04-06-2024 AUTO NRBC 0.0 % Normal [facility] Comment on above: Performed By: #### L [id number] #### [facility] [address] [place], [place] [address] Harley Machuca M.D. [id number] AUTO NRBC ABS COUNT 0.00 K/mcL Normal 0.00-0.00 [facility] Comment on above: Performed By: #### L [id number] #### [facility] [address] [place], [place] [address] Harley Machuca M.D. [id number] BASOPHILS ABSOLUTE COUNT 0.03 K/mcL Normal 0.00-0.30 [facility] Comment on above: Performed By: #### L [id number] #### [facility] [address] [place] [address] Harley Machuca M.D. [id number] Basophils/100 WBC (Bld) 0.4 % Normal [facility] Comment on above: Performed By: #### L [id number] #### [facility] [address] [place] [address] Harley Machuca M.D. [id number] Eosinophils (Bld) [#/Vol] 0.06 10*3/uL Normal 0.00-0.50 [facility] Comment on above: Performed By: #### L [id number] #### [facility] [address] [place] [address] Harley Machuca M.D. [id number] Eosinophils/100 WBC (Bld) 0.7 % Normal [facility] Comment on above: Performed By: #### L [id number] #### [facility] [address] [place] [address] Harley Machuca M.D. [id number] Erythrocyte distribution width (RBC) [Ratio] 12.4 % Normal 11.6-14.8 [facility] Comment on above: Performed By: #### L [id number] #### LAB [address] [place] [address] Harley Machuca M.D. [id number] Hematocrit (Bld) [Volume fraction] 36.8 % Normal 36.0-46.0 [facility] Comment on above: Performed By: #### L [id number] #### LAB [address] [place] [address] Harley Machuca M.D. [id number] Hemoglobin (Bld) [Mass/Vol] 12.5 g/dL Normal 12.0-16.0 [facility] Comment on above: Performed By: #### L [id number] #### LAB [address] [address] Harley Machuca M.D. [id number] IG ABSOLUTE 0.02 K/mcL Normal 0.00-0.30 [facility] Comment on above: Performed By: #### L [id number] #### LAB [address] [address] Harley Machuca M.D. [id number] IG PERCENT 0.20 % Normal [facility] Comment on above: Result Comment: The IG parameter is the percentage of metamyelocytes, myelocytes and promyelocytes. An immature granulocyte count (IG) of 1% or more suggests the possibility of infection, an IG count of 3% is very likely related to an infection. Performed By: #### L [id number] #### LAB [address] [address] Harley Machuca M.D. [id number] Lymphocytes (Bld) [#/Vol] 2.15 10*3/uL Normal 0.90-4.00 [facility] Comment on above: Performed By: #### L [id number] #### LAB [address] [address] Harley Machuca M.D. [id number] Lymphocytes/100 WBC (Bld) 26.4 % Normal [facility] Comment on above: Performed By: #### L [id number] #### MH LAB [address] [address] Harley Machuca M.D. [id number] MCH (RBC) [Entitic mass] 32.1 pg Normal 26.0-34.0 [facility] Comment on above: Performed By: #### L [id number] #### MH LAB [address] [address] Harley Machuca M.D. [id number] MCV (RBC) [Entitic vol] 94.6 fL Normal 80.0-100.0 [facility] Comment on above: Performed By: #### L [id number] #### LAB [address] [place] [address] Harley Machuca M.D. [id number] MEAN CORPUSCULAR HEMOGLOBIN CONC 34.0 g/dL Normal 31.0-37.0 [facility] Comment on above: Performed By: #### L [id number] #### LAB [address] [address] Harley Machuca M.D. [id number] Monocytes (Bld) [#/Vol] 0.68 10*3/uL Normal 0.30-0.90 [facility] Comment on above: Performed By: #### L [id number] #### LAB [address] [address] Harley Machuca M.D. [id number] Monocytes/100 WBC (Bld) 8.4 % Normal [facility] Comment on above: Performed By: #### L [id number] #### LAB [address] [address] Harley Machuca M.D. [id number] NEUTROPHILS ABSOLUTE COUNT 5.19 K/mcL Normal 1.70-7.00 [facility] Comment on above: Performed By: #### L [id number] #### LAB [address] [address] Harley Machuca M.D. [id number] Neutrophils/100 WBC (Bld) 63.9 % Normal [facility] Comment on above: Performed By: #### L [id number] #### LAB [address] [place] [address] Harley Machuca M.D. [id number] Platelet mean volume (Bld) [Entitic vol] 10.1 fL Normal 9.4-12.4 [facility] Comment on above: Performed By: #### L [id number] #### LAB [address] [address] Harley Machuca M.D. [id number] Platelets (Bld) [#/Vol] 364 10*3/uL Normal 150-400 [facility] Comment on above: Performed By: #### L [id number] #### LAB [address] [place] [address] Harley Machuca M.D. [id number] RBC (Bld) [#/Vol] 3.89 10*6/uL Low 4.00-5.20 [facility] Comment on above: Performed By: #### L [id number] #### MH LAB [address] [address] Harley Machuca M.D. [id number] WBC (Bld) [#/Vol] 8.13 10*3/uL Normal 4.50-11.00 [facility] Comment on above: Performed By: #### L [id number] #### MH LAB [address] [address] Harley Machuca M.D. [id number] COMPREHENSIVE METABOLIC PANE Henrik 04-06-2024 Albumin [Mass/Vol] 4.2 g/dL Normal 3.2-5.2 [facility] Comment on above: Order Comment: [facility] has implemented the eGFR calculation approach that does not have a coefficient for race that conforms to the NKF-ASN Task Force Recommendations. Performed By: #### [id number] #### LAB [address] [address] Harley Machuca M.D. [id number] ALP [Catalytic activity/Vol] 86 U/L Normal 40-140 [facility] Comment on above: Order Comment: [facility] has implemented the eGFR calculation approach that does not have a coefficient for race that conforms to the NKF-ASN Task Force Recommendations. Performed By: #### 4 [id number] #### MH LAB [address] [address] Harley Machuca M.D. [id number] ALT [Catalytic activity/Vol] 15 U/L Normal 0-35 U/L [facility] Comment on above: Order Comment: [facility] has implemented the eGFR calculation approach that does not have a coefficient for race that conforms to the NKF-ASN Task Force Recommendations. Performed By: #### 4 [id number] #### MH LAB [address] [address] Harley Machuca M.D. [id number] Anion gap [Moles/Vol] 14 mmol/L Normal 10-[address] [facility] Comment on above: Order Comment: [facility] has implemented the eGFR calculation approach that does not have a coefficient for race that conforms to the NKF-ASN Task Force Recommendations. Performed By: #### 4 [id number] #### LAB [address] [address] Harley Machuca M.D. [id number] AST [Catalytic activity/Vol] 22 U/L Normal 0-35 U/L [facility] Comment on above: Order Comment: [facility] has implemented the eGFR calculation approach that does not have a coefficient for race that conforms to the NKF-ASN Task Force Recommendations. Performed By: #### 4 [id number] #### LAB [address] [address] Harley Machuca M.D. [id number] Bilirubin [Mass/Vol] 0.5 mg/dL Normal 0.0-1.3 [facility] Comment on above: Order Comment: [facility] has implemented the eGFR calculation approach that does not have a coefficient for race that conforms to the NKF-ASN Task Force Recommendations. Performed By: #### 4 [id number] #### LAB [address] [address] Harley Machuca M.D. [id number] Calcium [Mass/Vol] 9.2 mg/dL Normal 8.4-10.2 [facility] Comment on above: Order Comment: [facility] has implemented the eGFR calculation approach that does not have a coefficient for race that conforms to the NKF-ASN Task Force Recommendations. Performed By: #### 4 [id number] #### LAB [address] [address] Harley Machuca M.D. [id number] Chloride [Moles/Vol] 105 mmol/L Normal 98-108 [facility] Comment on above: Order Comment: [facility] has implemented the eGFR calculation approach that does not have a coefficient for race that conforms to the NKF-ASN Task Force Recommendations. Performed By: #### 4 [id number] #### LAB [address] [place], [place] [address] Harley Machuca M.D. [id number] Creatinine [Mass/Vol] 0.76 mg/dL Normal 0.40-1.[address] [facility] Comment on above: Order Comment: [facility] has implemented the eGFR calculation approach that does not have a coefficient for race that conforms to the NKF-ASN Task Force Recommendations. Performed By: #### 4 [id number] #### LAB [address] [address] Harley Machuca M.D. [id number] EGFR 113 mL/min/1.73 m2 Normal >=60 [facility] Comment on above: Order Comment: [facility] has implemented the eGFR calculation approach that does not have a coefficient for race that conforms to the NKF-ASN Task Force Recommendations. Result Comment: Pat mated GFR was calculated using the 2020 CKD-EPI creatinine equation. Performed By: #### 4 [id number] #### LAB [address] [address] Harley Machuca M.D. [id number] Glucose [Mass/Vol] 92 mg/dL Normal 65-99 [facility] Comment on above: Order Comment: [facility] has implemented the eGFR calculation approach that does not have a coefficient for race that conforms to the NKF-ASN Task Force Recommendations. Performed By: #### 4 [id number] #### LAB [address] [address] Harley Machuca M.D. [id number] HCO3 (Bld) [Moles/Vol] 22 mmol/L Normal 21-32 [facility] Comment on above: Order Comment: [facility] has implemented the eGFR calculation approach that does not have a coefficient for race that conforms to the NKF-ASN Task Force Recommendations. Performed By: #### 4 [id number] #### LAB [address] [address] Harley Machuca M.D. [id number] Potassium [Moles/Vol] 4.1 mmol/L Normal 3.5-5.[address] [facility] Comment on above: Order Comment: [facility] has implemented the eGFR calculation approach that does not have a coefficient for race that conforms to the NKF-ASN Task Force Recommendations. Performed By: #### 4 [id number] #### LAB [address] [address] Harley Machuca M.D. [id number] Protein [Mass/Vol] 6.9 g/dL Normal 6.0-8.0 [facility] Comment on above: Order Comment: [facility] has implemented the eGFR calculation approach that does not have a coefficient for race that conforms to the NKF-ASN Task Force Recommendations. Performed By: #### 4 [id number] #### LAB [address] [address] Harley Machuca M.D. [id number] Sodium [Moles/Vol] 137 mmol/L Normal 135-145 [facility] Comment on above: Order Comment: [facility] has implemented the eGFR calculation approach that does not have a coefficient for race that conforms to the NKF-ASN Task Force Recommendations. Performed By: #### 4 [id number] #### LAB [address] [address] Harley Machuca M.D. [id number] Urea nitrogen [Mass/Vol] 17 mg/dL Normal 8-25 [facility] Comment on above: Order Comment: [facility] has implemented the eGFR calculation approach that does not have a coefficient for race that conforms to the NKF-ASN Task Force Recommendations. Performed By: #### 4 [id number] #### LAB [address] [address] Harley Machuca M.D. [id number] Urea nitrogen/Creatinine [Mass ratio] 22.4 mg/mg High 10.0-20.0 [facility] Comment on above: Order Comment: [facility] has implemented the eGFR calculation approach that does not have a coefficient for race that conforms to the NKF-ASN Task Force Recommendations. Performed By: #### 4 [id number] #### LAB [address] [address] Harley Machuca M.D. [id number] Comprehensive metabolic 2000 panelon 04-06-2024 Albumin [Mass/Vol] 4.2 g/dL 3.2 - 5.2 g/dL [facility] ALP [Catalytic activity/Vol] 86 U/L 40 - 140 U/L [facility] ALT [Catalytic activity/Vol] 15 U/L 0-35 U/L [facility] Anion gap [Moles/Vol] 14 mmol/L 10 - 2 0 mmol/L [facility] AST [Catalytic activity/Vol] 22 U/L 0-35 U/L [facility] Bilirubin [Mass/Vol] 0.5 mg/dL 0.0 - 1 .3 mg/dL [facility] Calcium [Mass/Vol] 9.2 mg/dL 8.4 - 10. 2 mg/dL [facility] Chloride [Moles/Vol] 105 mmol/L 98 - 10 8 mmol/L [facility] Creatinine [Mass/Vol] 0.76 mg/dL 0.40 - 1.10 mg/dL [facility] GFR/1.73 sq M.predicted CKD-EPI (S/P/Bld) [Vol rate/Area] 113 - PINF [facility] Comment on above: Estimated GFR was ca lculated using the 2020 CKD-EPI creatinine equation. Glucose [Mass/Vol] 92 mg/dL 65 - 99 mg/dL [facility] HCO3 [Moles/Vol] 22 mmol/L 21 - 32 mmol/L [facility] Potassium [Moles/Vol] 4.1 mmol/L 3.5 - 5.1 mmol/L [facility] Protein [Mass/Vol] 6.9 g/dL 6.0 - 8.0 g/dL [facility] Sodium [Moles/Vol] 137 mmol/L 135 - 145 mmol/L [facility] Urea nitrogen [Mass/Vol] 17 mg/dL 8 - 25 mg/dL [facility] Urea nitrogen/Creatinine [Mass ratio] 22.4 mg/mg High 10.0 - 20.0 [facility] has implemented the eGFR calculation approach that does not have a coefficient for race that conforms to the NKF-ASN Task Force Recommendations. [facility] IRON STUDY WITH FERRITINon 0 04-06-2024 Ferritin [Mass/Vol] 105 ng/mL Normal 13-150 [facility] Comment on above: Performed By: #### 4 [id number] #### MH LAB [address] [id number] Harley Machuca M.D. [id number] Iron [Mass/Vol] 151 ug/dL Normal 30-160 [facility] Comment on above: Performed By: #### 4 [id number] #### MH LAB [address] [id number] Harley Machuca M.D. [id number] IRON SATURATION 47 % Normal 20-50 [facility] Comment on above: Performed By: #### 4 [id number] #### MH LAB [address] [address] Harley Machuca M.D. [id number] TIBC (CALCULATED) 321 mcg/dL Normal 225-430 [facility] Comment on above: Performed By: #### 4 [id number] #### LAB [address] [address] Harley Machuca M.D. [id number] LIPID PANELon 04-06-2024 Cholesterol [Mass/Vol] 237 mg/dL High 100-199 [facility] Comment on above: Performed By: #### 4 6087 #### MH LAB [address] [address] Harley Machuca M.D. [id number] Cholesterol in HDL [Mass/Vol] 43 mg/dL Normal 40-59 [facility] Comment on above: Performed By: #### 4 [id number] #### MH LAB [address] [address] Harley Machuca M.D. [id number] Cholesterol.total/Chol esterol in HDL [Mass ratio] 5.5 {ratio} Normal [facility] Comment on above: Result Comment: Fema le Cholesterol/HDL Ratio: Average risk: 4.4 1/2 average risk: 3.3 2 x average risk: 7.1 Performed By: #### 4 6096 #### MH LAB [address] [address] Harley Machuca M.D. [id number] LDL CHOLESTEROL CALCULATED 166 mg/dL High 10-130 [facility] Comment on above: Result Comment: [facility] Cholesterol Education Program Guidelines: LDL Cholesterol Optimal: <100 mg/dL Near Optimal/above Optimal: 100-129 mg/dL Borderline High: 130-159 mg/dL High: 160-189 mg/dL Very High: greater than or equal to 190 mg/dL Performed By: #### 4 [id number] #### LAB [address] [place], [place] [address] Harley Machuca M.D. [id number] NON HDL CHOL 194 mg/dL Normal [facility] Comment on above: Result Comment: [facility] Cholesterol Education Program Guidelines: NON HDL Cholesterol Desirable: <130 mg/dL Borderline High: 130-159 mg/dL High: 160-189 mg/dL Very High: > or = 190 mg/dL Performed By: #### 4 [id number] #### LAB [address] [place], [place] [address] Harley Machuca M.D. [id number] Triglyceride [Mass/Vol] 141 mg/dL Normal 30-150 [facility] Comment on above: Performed By: #### 4 [id number] #### LAB [address] [place], [place] [address] Harley Machuca M.D. [id number] Laboratory - Chemistry and C hemistry - challengeon 04-06-2024 Ferritin [Mass/Vol] 105 ng/mL 13 - 150 ng/mL [facility] Iron [Mass/Vol] 151 ug/dL [facility] Iron binding capacity [Mass/Vol] 321 [facility] Iron saturation [Mass fraction] 47 % 20 - 50 % [facility] Lipid 1996 panelon Cholesterol [Mass/Vol] 237 mg/dL High 100 - 199 mg/dL [facility] Cholesterol in HDL [Mass/Vol] 43 mg/dL 40 - 59 mg/dL [facility] Cholesterol in LDL [Mass/Vol] 166 mg/dL High 10 - 130 mg/dL [facility] Comment on above: National Cholesterol Education Program Guidelines: LDL Cholesterol Optimal: <100 mg/dL Near Optimal/above Optimal: 100-129 mg/dL Borderline High: 130-159 mg/dL High: 160-189 mg/dL Very High: greater than or equal to 190 mg/dL Cholesterol non HDL [Mass/Vol] 194 mg/dL [facility] Comment on above: National Cholesterol Education Program Guidelines: NON HDL Cholesterol Desirable: <130 mg/dL Borderline High: 130-159 mg/dL High: 160-189 mg/dL Very High: > or = 190 mg/dL Cholesterol.total/Chol esterol in HDL [Mass ratio] 5.5 {ratio} ratio [facility] Comment on above: Female Cholesterol/H DL Ratio: Average risk: 4.4 1/2 average risk: 3.3 2 x average risk: 7.1 Triglyceride [Mass/Vol] 141 mg/dL 30 - 150 mg/dL [facility] No Panel Informationon 04-06 Interpretation and review of laboratory results Abnormal [facility] Interpretation and review of laboratory results Normal [facility] TSH DL <= 0.005 mIU/L Qnon 0 04-06-2024 TSH Qn 3.33 m[IU]/L [facility] TSH WITH REFLEX FREE T4on TSH Qn 3.33 m[IU]/L Normal 0.27-4.20 [facility] Comment on above: Performed By: #### 4 [id number] #### MH LAB [address] [place], [place] [address] Harley Machuca M.D. [id number] Dilute Wing's viper venom timeOrdered By: Ursula Mcmullen on 02-12-2024 dRVVT Coag (PPP) [Time] 34.8 s 0.0-47.0 [facility] No Panel InformationOrdered By: Ursula Mcmullen on 02-12-2024 Anti-Cardiolipin IgM Antibody < 9 MPL U/mL 0-12 [facility] Comment on above: Negative: <13 Indete rminate: 13 - 20 Low-Med Positive: >20 - 80 High Positive: >80Performed at: - [facility] [id number] Director: Hien Julian MD, Phone: [phone] at: [facility] [id number] [place], [place] [id number] Director: Dragan Gotti PhD, Phone: [phone] Prolactin 13.1 ng/mL [facility] Comment on above: NORMAL REFERENCE RAN GES FEMALE NON- 2.2 - 30.3 ng/mL 8.1 - 347.6 ng/mL POST-MENOPAUSAL 0.7 - 31.5 ng/mL MALE 2.5 - 17.4 ng/mL Serum beta 2 glycoprotein 1 IgA antibody detectionOrdered By: Ursula Mcmullen on 02-12-2024 Beta 2 glycoprotein 1 IgA Ql (S) <9 0-25 [facility] Comment on above: Result Units: GPI Ig [...] glycoprotein 1 IgG Ql (S) <9 0-20 [facility] Comment on above: Result Units: GPI Ig [...] glycoprotein 1 IgM Ql (S) <9 0-32 [facility] Comment on above: Result Units: GPI Ig [...] Qn (S) < 9 GPL U/mL 0-14 [facility] Comment on above: Negative: <15 Indete rminate: 15 - 20 Low-Med Positive: >20 - 80 High Positive: >80 Thin prep Papanicolaou smear with manual screeningOrdered By: Ursula Mcmullen on 02-12-2024 Thin prep Papanicolaou smear with manual screening 36.8 sec 0.0-47.6 [facility] Thin prep Papanicolaou smear with manual screening 1.01 Ratio 0.00-1.34 [facility] Thin prep Papanicolaou smear with manual screening 23.8 sec 0.0-43.5 [facility] Thin prep Papanicolaou smear with manual screening Comment: . [facility] Comment on above: No lupus anticoagula nt was detected. Thrombin time in platelet po or plasmaOrdered By: Ursula Mcmullen on 02-12-2024 Thrombin time Coag (PPP) [Time] 17.6 sec 0.0-23.0 [facility] MR PITUITARY WITH AND WITHOU T CONTRASTon [...] PM EDT Transcribed by: SHUBHAM HERRING on Vandiver April 26, 2023 6:16:25 PM EDT Finalized by: SHUBHAM HERRING on Vandiver April 26, 2023 6:16:25 PM EDT [facility] Comment on above: Order Comment: Injur y/Trauma or Illness?:Illness/Other How long have you had these symptoms (acute/chronic)?:Acute Reason for exam?:Elevated prolactin level, possible pituitory adenoma Type of Exam?:Initial Additional signs and symptoms?:Elevated prolactin level DHEA-SulfateOrdered By: Martha Zamorano on 04-09-2023 DHEA-S [Mass/Vol] 326 ug/dL [facility] Comment on above: Assay performed by Sophia arabella [employer] DXI Immunoassay. Interpretation and review of laboratory results Normal [facility] HbA1c (Bld) [Mass fraction]O rdered By: Sammie Bran on 04-09-2023 Average glucose Estimated from glycated hemoglobin (Bld) [Mass/Vol] 100 mg/dL 68 - 114 mg/dL [facility] Interpretation and review of laboratory results Normal [facility] Normal: 4.0% - 5.6% Increased risk for diabetes: 5.7% - 6.4% Diabetes: >= 6.5% Pediatrics: No established reference range Estimated average glucose: 68-114 mg/dL [facility] Hemoglobin [id number] By: Tiarra Bran on 04-09-2023 HbA1c (Bld) [Mass fraction] 5.1 % 4.0 - 5.6 % [facility] Testosterone Free [Mass/Vol] Ordered By: Chucky White on 04-09-2023 Albumin [Mass/Vol] 4.5 g/dL 3.8 - 5.3 g/dL [facility] Calculated Free Testosterone 5.1 pg/mL 1.0 - 9.0 pg/mL [facility] Interpretation and review of laboratory results Normal [facility] Sex hormone binding globulin [Moles/Vol] 29.4 nmol/L 24.6 - 122 nmol/L [facility] Testosterone [Mass/Vol] 27 ng/dL 6 - 82 ng/dL [facility] Follicle Stimulating Hormone on 04-08-2023 Follitropin Qn 2.1 m[IU]/mL mIU/mL [facility] Follitropin Qnon 04-08-2023 FSH Female: Follicular phase: 3.0-20.0 Midcycle peak: 9.0-26.0 Luteal phase: 1.0-12.0 Post menopausal: 18.0-153.0 [facility] HCG Qnon 04-08-2023 Beta HCG ( test) Ql (U) Males and non females: <5 mIU/mL Females during : 3-4 weeks 9-130 mIU/mL 4-5 weeks 75-2600 mIU/mL 5-6 weeks 850-20,800 mIU/mL 6-7 weeks 4000-100,200 mIU/mL 7-12 weeks 11,500-289,000 mIU/mL 12-16 weeks 18,300-137,000 mIU/mL 16-29 weeks 1,400-53,000 mIU/mL 29-41 weeks 940-60,000 mIU/mL [facility] Luteinizing Hormoneon 2022 Lutropin Qn 9.7 m[IU]/mL mIU/mL [facility] Lutropin Qnon 04-08-2023 LH Female: Follicular phase: 2.0-15.0 Midcycle peak: 22.0-105.0 Luteal phase: 0.6-19.0 Post menopausal: 16.0-64.0 [facility] No Panel Informationon 04-08 [facility] Interpretation and review of laboratory results Normal [facility] Prolactinon 04-08-2023 Prolactin [Mass/Vol] 46.4 ng/mL High 1.4 - 2 4.2 ng/mL [facility] Prolactin [Mass/Vol]on 04-08 Interpretation and review of laboratory results Abnormal [facility] TSH DL <= 0.005 mIU/L Qnon 0 04-08-2023 TSH Qn 2.28 m[IU]/L [facility] hCG, Blood, Quantitativeon 0 04-08-2023 HCG Qn [facility] HCG ( test) Ql (U)O rdered By: Maria Dolores Carrasco on 12-17-2022 Internal Control Pass [facility] POC , urineOrdered By: Maria Dolores Carrasco on 12-17-2022 HCG ( test) Ql (U) Negative Negative [facility] POC Urinalysis Dipstick, Aut oOrdered By: Anton Shetty on 09-23-2021 Bilirubin Ql (U) Negative Negative [facility] Glucose Ql (U) Negative Normal, Negative mg/dL [facility] Hemoglobin Ql (U) Negative Negative [facility] Interpretation and review of laboratory results Abnormal [facility] Ketones Ql (U) Negative Negative mg/dL [facility] Leukocyte esterase Test strip Ql (U) Negative Negative [facility] Nitrite Ql (U) Negative Negative [facility] pH (U) 5.5 [pH] [facility] Protein Ql (U) Negative Negative mg/dL [facility] Specific gravity (U) [Rel density] 1.030 Abnormal [facility] Urobilinogen Qn (U) 0.2 mg/dL <2.0, 0. 2, Normal, Negative, 1.0, 2.0, <1.0 [facility] Comprehensive metabolic 2000 panelon 07-22-2021 Albumin [Mass/Vol] 3.6 g/dL 3.2 - 5.2 g/dL [facility] ALP [Catalytic activity/Vol] 76 U/L 40 - 140 U/L [facility] ALT [Catalytic activity/Vol] 26 U/L 14 - 65 U/L [facility] Anion gap [Moles/Vol] 13 mmol/L 10 - 2 0 mmol/L [facility] AST [Catalytic activity/Vol] 18 U/L 0 - 45 U/L [facility] Bilirubin [Mass/Vol] 0.2 mg/dL 0.0 - 1 .3 mg/dL [facility] Calcium [Mass/Vol] 9.0 mg/dL 8.4 - 10. 2 mg/dL [facility] Chloride [Moles/Vol] 108 mmol/L 98 - 10 8 mmol/L [facility] Creatinine [Mass/Vol] 0.75 mg/dL 0.40 - 1.10 [facility] GFR/1.73 sq M.predicted CKD-EPI (S/P/Bld) [Vol rate/Area] 115 >=60 mL/min/1.73 m2 [facility] Glucose [Mass/Vol] 83 mg/dL 65 - 99 mg/dL [facility] HCO3 [Moles/Vol] 23 mmol/L 21 - 32 mmol/L [facility] Potassium [Moles/Vol] 4.4 mmol/L 3.5 - 5.1 mmol/L [facility] Protein [Mass/Vol] 7.4 g/dL 6.0 - 8.0 g/dL [facility] Sodium [Moles/Vol] 140 mmol/L 135 - 145 mmol/L [facility] Urea nitrogen [Mass/Vol] 13 mg/dL 8 - 25 mg/dL [facility] Urea nitrogen/Creatinine [Mass ratio] 17.3 mg/mg [facility] The eGFR should be u sed for monitoring renal function only and not for medication dosing. [facility] Ferritinon 07-22-2021 Ferritin [Mass/Vol] 53 ng/mL 13 - 150 ng/mL [facility] Iron and Iron binding capaci ty panelon 07-22-2021 Iron [Mass/Vol] 111 ug[facility] [Mass/Vol] 380 [facility] Iron saturation [Mass fraction] 29 % 20 - 50 % [facility] Lipid 1996 panelon Cholesterol [Mass/Vol] 309 mg/dL High 100 - 199 mg/dL [facility] Comment on above: National Cholesterol Education Program Guidelines: Cholesterol Desirable: <200 mg/dL Borderline High: 200-239 mg/dL High: greater than or equal to 240 mg/dL Cholesterol in HDL [Mass/Vol] 63 mg/dL 40 - 59 [facility] Comment on above: National Cholesterol Education Program Guidelines: HDL Cholesterol Low: <40 mg/dL Near Optimal: 40-59 mg/dL High: greater than or equal to 60 mg/dL Cholesterol in LDL [Mass/Vol] 229 mg/dL High 10 - 130 mg/dL [facility] Comment on above: National Cholesterol Education Program Guidelines: LDL Cholesterol Optimal: <100 mg/dL Near Optimal/above Optimal: 100-129 mg/dL Borderline High: 130-159 mg/dL High: 160-189 mg/dL Very High: greater than or equal to 190 mg/dL Cholesterol non HDL [Mass/Vol] 246 mg/dL [facility] Comment on above: National Cholesterol Education Program Guidelines: NON HDL Cholesterol Desirable: <130 mg/dL Borderline High: 130-159 mg/dL High: 160-189 mg/dL Very High: > or = 190 mg/dL Cholesterol.total/Chol esterol in HDL [Mass ratio] 4.9 {ratio} ratio [facility] Comment on above: Female Cholesterol/H DL Ratio: Average risk: 4.4 1/2 average risk: 3.3 2 x average risk: 7.1 Interpretation and review of laboratory results Abnormal [facility] Triglyceride [Mass/Vol] 87 mg/dL 30 - 150 mg/dL [facility] Comment on above: National Cholesterol Education Program Guidelines: Triglyceride Normal: <150 mg/dL Borderline High: 150-199 mg/dL High: 200-499 mg/dL Very High: greater than or equal to 500 mg/dL No Panel Informationon 07-22 Interpretation and review of laboratory results Normal [facility] POC Urinalysis Dipstick, Aut oOrdered By: Kiara Fung on 07-22-2021 Bilirubin Ql (U) Negative Negative [facility] Glucose Ql (U) Negative Normal, Negative mg/dL [facility] Hemoglobin Ql (U) Trace-lysed Abnormal Negative [facility] Interpretation and review of laboratory results Abnormal [facility] Ketones Ql (U) Negative Negative mg/dL [facility] Leukocyte esterase Test strip Ql (U) Negative Negative [facility] Nitrite Ql (U) Negative Negative [facility] pH (U) 6.5 [pH] [facility] Protein Ql (U) Negative Negative mg/dL [facility] Specific gravity (U) [Rel density] 1.025 [facility] Urobilinogen Qn (U) 0.2 mg/dL <2.0, 0. 2, Normal, Negative, 1.0, 2.0, <1.0 [facility] TSH DL <= 0.005 mIU/L Qnon 0 07-22-2021 TSH Qn 2.40 m[IU]/L [facility] VAGINITIS DNA PROBESon 08-16 Zita sp DNA Probe+sig amp Ql (Vag fld) Negative Negative [facility] G. vaginalis DNA Probe+sig amp Ql (Vag fld) Negative Negative [facility] Interpretation and review of laboratory results Normal [facility] T. vaginalis DNA Probe+sig amp Ql (Vag fld) Negative Negative [facility] POC Infectious Mononucleosis Antibodyon 11-20-2018 Infectious [place] Negative Invalid Interpretation Code Negative [facility] Internal Control Invalid Interpretation Code [facility] Interpretation and review of laboratory results Abnormal Invalid Interpretation Code [facility] Vital Signs Date Time Vital Sign Value Performing Clinician Facility 06-16-2025 15:42-0400 Body height 167.64 cm No Primary Care Physician [facility] 06-16-2025 [id number]:[id number] Body mass index (BMI) [Ratio] 36.8 kg/m2 No Primary Care Physician [facility] 06-16-2025 [id number]:[id number] Body weight 103.58 kg No Primary Care Physician [facility] 06-16-2025 15:42-0400 Diastolic blood pressure 81 mm[Hg] No Primary Care Physician [facility] 06-16-2025 15:42-0400 Systolic blood pressure 117 mm[Hg] No Primary Care Physician [facility] 06-05-2025 09:23-0400 Body height 167.64 cm No Primary Care Physician [facility] 06-05-2025 09:23-0400 Body mass index (BMI) [Ratio] 35.9 kg/m2 No Primary Care Physician [facility] 06-05-2025 09:23-0400 Body weight 100.86 kg No Primary Care Physician [facility] 06-05-2025 09:23-0400 Diastolic blood pressure 73 mm[Hg] No Primary Care Physician [facility] 06-05-2025 09:23-0400 Systolic blood pressure 107 mm[Hg] No Primary Care Physician [facility] 05-26-2025 15:15-0400 Body height 167.64 cm No Primary Care Physician [facility] 05-26-2025 15:14-0400 Body mass index (BMI) [Ratio] 36 kg/m2 No Primary Care Physician [facility] 05-26-2025 15:14-0400 Body weight 101.32 kg No Primary Care Physician [facility] 05-26-2025 15:14-0400 Diastolic blood pressure 76 mm[Hg] No Primary Care Physician [facility] 05-26-2025 15:14-0400 Systolic blood pressure 110 mm[Hg] No Primary Care Physician [facility] 05-09-2025 14:34-0400 Body height 167.64 cm No Primary Care Physician [facility] 05-09-2025 14:34-0400 Body mass index (BMI) [Ratio] 35.4 kg/m2 No Primary Care Physician [facility] 05-09-2025 14:34-0400 Body weight 99.39 kg No Primary Care Physician [facility] 05-09-2025 14:34-0400 Diastolic blood pressure 72 mm[Hg] No Primary Care Physician [facility] 05-09-2025 14:34-0400 Systolic blood pressure 107 mm[Hg] No Primary Care Physician [facility] 04-28-2025 15:06-0400 Body height 167.64 cm No Primary Care Physician [facility] 04-28-2025 15:06-0400 Body mass index (BMI) [Ratio] 35.1 kg/m2 No Primary Care Physician [facility] 04-28-2025 15:06-0400 Body weight 98.65 kg No Primary Care Physician [facility] 04-28-2025 15:06-0400 Diastolic blood pressure 74 mm[Hg] No Primary Care Physician [facility] 04-28-2025 15:06-0400 Systolic blood pressure 110 mm[Hg] No Primary Care Physician [facility] 04-14-2025 15:42-0400 Body height 167.64 cm No Primary Care Physician [facility] 04-14-2025 15:39-0400 Body mass index (BMI) [Ratio] 35 kg/m2 No Primary Care Physician [facility] 04-14-2025 15:39-0400 Body weight 98.54 kg No Primary Care Physician [facility] 04-14-2025 15:39-0400 Diastolic blood pressure 72 mm[Hg] No Primary Care Physician [facility] 04-14-2025 15:39-0400 Systolic blood pressure 101 mm[Hg] No Primary Care Physician [facility] 03-28-2025 14:22-0400 Body height 167.64 cm No Primary Care Physician [facility] 03-28-2025 14:22-0400 Body mass index (BMI) [Ratio] 34.4 kg/m2 No Primary Care Physician [facility] 03-28-2025 14:22-0400 Body weight 96.67 kg No Primary Care Physician [facility] 03-28-2025 14:22-0400 Diastolic blood pressure 68 mm[Hg] No Primary Care Physician [facility] 03-28-2025 14:22-0400 Systolic blood pressure 111 mm[Hg] No Primary Care Physician [facility] 03-01-2025 14:54-0400 Body mass index (BMI) [Ratio] 33.7 kg/m2 No Primary Care Physician [facility] 03-01-2025 14:54-0400 Body weight 94.91 kg No Primary Care Physician [facility] 03-01-2025 14:54-0400 Diastolic blood pressure 74 mm[Hg] No Primary Care Physician [facility] 03-01-2025 14:54-0400 Systolic blood pressure 109 mm[Hg] No Primary Care Physician [facility] 01-31-2025 14:33-0500 Body height 167.64 cm No Primary Care Physician [facility] 01-31-2025 14:32-0500 Body mass index (BMI) [Ratio] 33.3 kg/m2 No Primary Care Physician [facility] 01-31-2025 14:32-0500 Body weight 93.55 kg No Primary Care Physician [facility] 01-31-2025 14:32-0500 Diastolic blood pressure 82 mm[Hg] No Primary Care Physician [facility] 01-31-2025 14:32-0500 Systolic blood pressure 121 mm[Hg] No Primary Care Physician [facility] 01-06-2025 15:33-0500 Body mass index (BMI) [Ratio] 33.1 kg/m2 No Primary Care Physician [facility] 01-06-2025 15:33-0500 Body weight 93.15 kg No Primary Care Physician [facility] 01-06-2025 15:33-0500 Diastolic blood pressure 85 mm[Hg] No Primary Care Physician [facility] 01-06-2025 15:33-0500 Systolic blood pressure 131 mm[Hg] No Primary Care Physician [facility] 12-09-2024 13:06-0500 Body mass index (BMI) [Ratio] 33 kg/m2 No Primary Care Physician [facility] 12-09-2024 13:06-0500 Body weight 93.04 kg No Primary Care Physician [facility] 12-09-2024 13:06-0500 Diastolic blood pressure 83 mm[Hg] No Primary Care Physician [facility] 12-09-2024 13:06-0500 Systolic blood pressure 136 mm[Hg] No Primary Care Physician [facility] 04-04-2024 14:37-0400 Body height 167.6 cm Raphael Razo CNP Work Phone: [facility] 04-04-2024 14:37-0400 Body mass index (BMI) [Ratio] 35.51 kg/m2 Raphael Razo CNP Work Phone: [facility] 04-04-2024 14:37-0400 Body temperature 97.5 [degF] Raphael Dung DRAFTING ENGINEER Work Phone: [facility] 04-04-2024 14:37-0400 Body weight 99.79 kg Raphael Dung DRAFTING ENGINEER Work Phone: [facility] 04-04-2024 14:37-0400 Diastolic blood pressure 78 mm[Hg] Raphael Dung DRAFTING ENGINEER Work Phone: [facility] 04-04-2024 14:37-0400 Heart rate 70 /min Raphael Dung DRAFTING ENGINEER Work Phone: [facility] 04-04-2024 14:37-0400 SaO2% (BldA) [Mass fraction] 98 % Raphael Dung DRAFTING ENGINEER Work Phone: [facility] 04-04-2024 14:37-0400 Systolic blood pressure 118 mm[Hg] Raphael Razo DRAFTING ENGINEER Work Phone: [facility] 04-08-2023 15:23-0400 Body mass index (BMI) [Ratio] 34.81 kg/m2 Kamla Masimore CNM Work Phone: [facility] 04-08-2023 15:23-0400 Body weight 97.84 kg Kamla Masimore CNM Work Phone: [facility] 04-08-2023 15:23-0400 Diastolic blood pressure 77 mm[Hg] Kamla Masimore CNM Work Phone: [facility] 04-08-2023 15:23-0400 Heart rate 97 /min Kamla Masimore CNM Work Phone: [facility] 04-08-2023 15:23-0400 Systolic blood pressure 124 mm[Hg] Kamla Masimore CNM Work Phone: [facility] 12-17-2022 08:27-0500 Body height 167.6 cm Kamla Masimore CNM Work Phone: [facility] 12-17-2022 08:27-0500 Body mass index (BMI) [Ratio] 35.01 kg/m2 Kamla Masimore CNM Work Phone: [facility] 12-17-2022 08:27-0500 Body weight 98.39 kg Kamla Masimore CNM Work Phone: [facility] 12-17-2022 08:27-0500 Diastolic blood pressure 80 mm[Hg] Kamla Masimore CNM Work Phone: [facility] 12-17-2022 08:27-0500 Heart rate 78 /min Kamla Masimore CNM Work Phone: [facility] 12-17-2022 08:27-0500 Systolic blood pressure 131 mm[Hg] Kamla Masimore CNM Work Phone: [facility] 07-14-2022 14:52-0400 Body height 167.6 cm Kamla Masimore CNM Work Phone: [facility] 07-14-2022 14:52-0400 Body mass index (BMI) [Ratio] 33.73 kg/m2 Kamla Masimore CNM Work Phone: [facility] 07-14-2022 14:52-0400 Body weight 94.8 kg Kamla Masimore CNM Work Phone: [facility] 07-14-2022 14:52-0400 Diastolic blood pressure 77 mm[Hg] Kamla Masimore CNM Work Phone: [facility] 07-14-2022 14:52-0400 Heart rate 90 /min Kamla Masimore CNM Work Phone: [facility] 07-14-2022 14:52-0400 Systolic blood pressure 116 mm[Hg] Kamla Masimore CNM Work Phone: [facility] 04-08-2022 13:31-0400 Body height 167.6 cm Kamla Masimore CNM Work Phone: [facility] 04-08-2022 13:31-0400 Body mass index (BMI) [Ratio] 33.25 kg/m2 Kamla Masimore CNM Work Phone: [facility] 04-08-2022 13:31-0400 Body weight 93.44 kg Kamla Basurtoore CNM Work Phone: [facility] 04-08-2022 13:31-0400 Diastolic blood pressure 77 mm[Hg] Kamla Basurtoore CNM Work Phone: [facility] 04-08-2022 13:31-0400 Heart rate 85 /min Kamla Basurtoore CNM Work Phone: [facility] 04-08-2022 13:31-0400 Systolic blood pressure 124 mm[Hg] Kamla Basurtoore CNM Work Phone: [facility] 09-23-2021 07:27-0400 Body height 167.6 cm Tiny Marrufo DRAFTING ENGINEER Work Phone: [facility] 09-23-2021 07:27-0400 Body mass index (BMI) [Ratio] 31.15 kg/m2 Tiny Cloude DRAFTING ENGINEER Work Phone: [facility] 09-23-2021 07:27-0400 Body temperature 98.01 [degF] Tiny Cloude DRAFTING ENGINEER Work Phone: [facility] 09-23-2021 07:27-0400 Body weight 87.54 kg Tiny Cloude DRAFTING ENGINEER Work Phone: [facility] 09-23-2021 07:27-0400 Diastolic blood pressure 78 mm[Hg] Tiny Cloude DRAFTING ENGINEER Work Phone: [facility] 09-23-2021 07:27-0400 Heart rate 97 /min Tiny Cloude DRAFTING ENGINEER Work Phone: [facility] 09-23-2021 07:27-0400 Respiratory rate 18 /min Tiny Marrufo DRAFTING ENGINEER Work Phone: [facility] 09-23-2021 07:27-0400 SaO2% (BldA) [Mass fraction] 98 % Tiny Marrufo DRAFTING ENGINEER Work Phone: [facility] 09-23-2021 07:27-0400 Systolic blood pressure 127 mm[Hg] Tiny Marrufo DRAFTING ENGINEER Work Phone: [facility] 07-22-2021 09:27-0400 Diastolic blood pressure 83 mm[Hg] Tiny Marrufo DRAFTING ENGINEER Work Phone: [facility] 07-22-2021 09:27-0400 Systolic blood pressure 131 mm[Hg] Tiny Marrufo DRAFTING ENGINEER Work Phone: [facility] 08-15-2020 07:22-0400 BMI (Body Mass Index) 28.78 kg/m2 [facility] 08-15-2020 07:22-0400 Body Temperature 97.9 [degF] [facility] 07:22-0400 Body weight 80.88 kg [facility] 08-15-2020 07:22-0400 BP Diastolic 79 mm[Hg] [facility] 08-15-2020 07:22-0400 BP Systolic 137 mm[Hg] [facility] 08-15-2020 07:22-0400 Height 167.6 cm [facility] 08-15-2020 07:22-0400 Pulse (Heart Rate) 85 /min [facility] 08-15-2020 07:22-0400 Pulse Oximetry 98 % [facility] 08-15-2020 07:22-0400 Respiratory Rate 16 /min Mary Ann Marbella [facility] 11-20-2018 10:15-0500 BMI (Body Mass Index) 25.82 kg/m2 Nasrin Brenner [facility] 11-20-2018 10:15-0500 Body Temperature 101.41 [degF] Nasrin Brenner [facility] 11-20-2018 10:15-0500 BP Diastolic 69 mm[Hg] Nasrin Brenner [facility] 11-20-2018 10:15-0500 BP Systolic 121 mm[Hg] Nasrin Brenner [facility] 11-20-2018 10:15-0500 Height 167.6 cm Nasrin Brenner [facility] 11-20-2018 10:15-0500 Pulse (Heart Rate) 100 /min Nasrin Brenner [facility] 11-20-2018 10:15-0500 Pulse Oximetry 98 % Nasrin Brenner [facility] 11-20-2018 10:15-0500 Respiratory Rate 18 /min Nasrin [facility] 11-20-2018 10:15-0500 Weight 72.58 kg Nasrin Brenner [facility] Encounters Encounter Date Encounter Type Care Provider Facility Start: 06-20-2025 ambulatory Pam garcia:[facility] Start: 06-16-2025 End: 06-16-2025 Patient encounter procedure Lilliana Melton [facility] Work Phone: Start: 06-16-2025 End: 06-16-2025 ambulatory No Primary Care Physician -[facility] Start: 06-05-2025 End: 06-05-2025 ambulatory No Primary Care Physician -Laboratory Specimen Start: 06-05-2025 End: 06-05-[address] Zulma Garcia DO -Laboratory Specimen Work Phone: Start: 06-05-2025 End: 06-05-[address] Zulma Garcia DO -[facility] Work Phone: Start: 06-05-2025 End: 06-05-2025 ambulatory No Primary Care Physician [facility] Start: 06-05-2025 End: 06-05-2025 ambulatory Zulma Garcia Facility:[facility] Start: 05-26-2025 End: 05-26-[address] Pam Acosta MD -[facility] Work Phone: Start: 05-26-2025 End: 05-26-2025 ambulatory No Primary Care Physician [facility] Start: 05-09-2025 End: 05-09-2025 Patient encounter procedure Lory Saldana [facility] -[facility] Work Phone: Start: 05-09-2025 End: 05-09-2025 ambulatory No Primary Care Physician [facility] Work Phone: Start: 04-28-2025 End: 04-28-[address] Pam Acosta MD -[facility] Work Phone: Start: 04-28-2025 End: 04-28-2025 ambulatory No Primary Care Physician [facility] Work Phone: Start: 04-14-2025 End: 04-14-[address] Pam Acosta MD -[facility] Work Phone: Start: 04-14-2025 End: 04-14-2025 ambulatory No Primary Care Physician [facility] Work Phone: Start: 03-28-2025 End: 03-28-2025 ambulatory No Primary Care Physician [facility] Work Phone: Start: 03-28-2025 End: 03-28-2025 Patient encounter procedure Lory Saldana CNM -[facility] Work Phone: Start: 03-28-2025 End: 03-28-2025 ambulatory Pam Acosta Facility:[facility] Start: 03-01-2025 End: 03-01-[address] Pam Acosta MD -[facility] Work Phone: Start: 03-01-2025 End: 03-01-2025 ambulatory Pam Acosta Facility:[facility] Start: 02-09-2025 End: 02-09-2025 ambulatory [facility] Start: 01-31-2025 End: 01-31-2025 ambulatory No Primary Care Physician [facility] Work Phone: Start: 01-31-2025 End: 01-31-[address] Zulma Garcia DO -Laboratory, Specimen Work Phone: Start: 01-31-2025 End: 01-31-[address] Zulma Garcia DO -[facility] Work Phone: Start: 01-31-2025 End: 01-31-2025 ambulatory Zulma Garcia Facility:[facility] Start: 01-31-2025 End: 01-31-2025 ambulatory Zulma Garcia Facility:[facility] Start: 01-06-2025 End: 01-06-[address] Zulma Garcia DO -[facility] Work Phone: Start: 01-06-2025 End: 01-06-2025 ambulatory Zulma Garcia Facility:[facility] Start: 12-09-2024 End: 12-09-2024 Patient encounter procedure Lory Saldana CN -[facility] Work Phone: Start: 12-09-2024 End: 12-09-2024 ambulatory Lory Saldana Facility:[facility] Start: 12-09-2024 End: 12-09-2024 ambulatory Lory Les Facility:[facility] Start: 11-07-2024 End: 11-07-2024 Orders Only Raphael Razo DRAFTING ENGINEER Work Phone: [facility] Physician [facility] Comment on above: Less than 8 weeks ge station of (Primary Dx) Start: 10-05-2024 End: 10-05-2024 ambulatory Ursula Mcmullen NP Facility:[facility] Start: 08-18-2024 End: 08-18-2024 Phys/qhp telephone evaluation 11-20 min Raphael Razo DRAFTING ENGINEER Work Phone: [facility] Physician [facility] Comment on above: Upper respiratory tr act infection, unspecified type (Primary Dx) Start: 08-18-2024 End: 08-18-2024 ambulatory [facility] Start: 04-11-2024 Orders Only Raphael iglesias DRAFTING ENGINEER Work Phone: [facility] Physician [facility] Start: 04-08-2024 End: 04-09-2024 ambulatory [facility] Start: 04-07-2024 Orders Only Raphael iglesias DRAFTING ENGINEER Work Phone: [facility] Physician [facility] Comment on above: Palpitations (Primar y Dx); Hypercholesterolemia Start: 04-06-2024 End: 04-10-2024 ambulatory [facility] Start: 04-06-2024 End: 04-10-2024 Encounter for general adult medical examination without abnormal findings [facility] Start: 04-04-2024 End: 04-04-2024 Initial preventive medicine new pt age 18-39yrs Raphael Razo DRAFTING ENGINEER Work Phone: [facility] Comment on above: History of anemia (P rimary Dx); Wellness examination; Hypercholesterolemia; Palpitations Start: 04-04-2024 End: 04-04-2024 Patient encounter status Raphael Razo DRAFTING ENGINEER Work Phone: [facility] Start: 04-04-2024 End: 04-04-2024 ambulatory RAPHAEL RAZO [facility] Ambulatory Start: 04-04-2024 End: 04-04-2024 Encounter for general adult medical examination without abnormal findings RAPHAEL RAZO [facility] Ambulatory Start: 02-12-2024 End: 02-12-2024 ambulatory [facility] Work Phone: Start: 02-12-2024 End: 02-12-2024 Patient encounter procedure [facility] Work Phone: Start: 02-02-2024 End: 02-02-2024 Patient encounter procedure TINY MARRUFO [facility] Work Phone: Start: 08-05-2023 End: 08-09-2023 ambulatory [place] [facility] Start: 04-30-2023 Orders Only Kamla Altaf Basurtoore CNM Work Phone: [facility] Comment on above: Elevated prolactin l evel (Primary Dx) Start: 04-23-2023 End: 04-24-2023 [facility] Start: 04-13-2023 Orders Only Kamla Mayorgandr fady Masimore CNM Work Phone: [facility] Comment on above: Elevated prolactin l evel (Primary Dx) Start: 04-08-2023 End: 04-08-2023 Office outpatient visit 15 minutes Kamla Shirleygriffin CNM Work Phone: [facility] Comment on above: Weight gain (Primary Dx); Menorrhagia with regular cycle Start: 12-25-2022 Orders Only Lele Barger tania,PharmD [facility] Comment on above: Familial hypercholes terolemia (Primary Dx) Start: 12-18-2022 Orders Only Pam landrum R.Ph. Work Phone: [facility] Comment on above: Familial hypercholes terolemia (Primary Dx) Start: 12-17-2022 End: 12-17-2022 Patient encounter procedure Kamal [facility] CNM Work Phone: [facility] Start: 12-17-2022 End: 12-17-2022 Periodic preventive med est patient 18-39 yrs Kamla [facility] CNM Work Phone: [facility] Comment on above: Well woman exam with routine gynecological exam (Primary Dx); Abnormal menses; Encounter for control pills maintenance Start: 10-09-2022 End: 10-09-2022 Office outpatient visit 5 minutes Pam Burton.Ph. Work Phone: [facility] Comment on above: Familial hypercholes terolemia (Primary Dx) Start: 10-08-2022 Documentation procedure Pam Burton.Ph. Work Phone: [facility] Start: 07-14-2022 End: 07-14-2022 Office outpatient visit 10 minutes Kamla [facility] CNM Work Phone: [facility] Physician [facility] Comment on above: Encounter for control pills maintenance (Primary Dx); Menorrhagia with regular cycle Start: 07-01-2022 Documentation procedure Pam Burton.Ph. Work Phone: [facility] Comment on above: Lab grid update Start: 06-12-2022 Refill Kamla [facility] CNM Work Phone: [facility] Comment on above: Menorrhagia with reg ular cycle Start: 04-08-2022 End: 04-08-2022 Office outpatient new 30 minutes Kamla Snyder Carol SHUKLA Work Phone: [facility] Comment on above: Menorrhagia with reg ular cycle (Primary Dx) Start: 10-21-2021 Refill Lindsey Zapien MA [facility] Comment on above: Medication Refill Start: 10-03-2021 End: 10-03-2021 ambulatory TINY MARRUFO [facility] Start: 09-26-2021 Orders Only Tiny SHUKLA P Work Phone: [facility] Comment on above: Dyspareunia in femal e (Primary Dx) Start: 09-23-2021 End: 09-23-2021 Office outpatient visit 15 minutes Tiny Marrufo CNP Work Phone: [facility] Comment on above: Suprapubic pain, acu te (Primary Dx); Acute vaginitis Start: 07-22-2021 End: 07-22-2021 Office outpatient visit 15 minutes Tiny Marrufo CNP Work Phone: [facility] Comment on above: Encounter for contra ceptive management, unspecified type (Primary Dx); Right lower quadrant abdominal pain; Screening for lipid disorders; Menorrhagia with irregular cycle; Fatigue, unspecified type Start: 03-18-2021 End: 03-18-2021 Refill Mary Ann Tyson CNP Work Phone: [facility] Comment on above: Menorrhagia with irr egular cycle Start: 03-17-2021 End: 03-17-2021 Refill Mary Ann Tyson CNP Work Phone: [facility] Comment on above: Menorrhagia with irr egular cycle Start: 12-05-2020 End: 12-05-2020 Refill Mary Ann Tyson Work Phone: [facility] Comment on above: Menorrhagia with irr egular cycle Start: 08-15-2020 End: 08-15-2020 Initial preventive medicine new pt age 18-39yrs Mary Ann Tyson Work Phone: [facility] Comment on above: Well adult exam (Evelyn lily Dx); Menorrhagia with irregular cycle; Acute vaginitis; Screening for lipid disorders; Screening for chlamydial disease Start: 11-20-2018 End: 11-20-2018 Patient encounter procedure PHYSICIAN NO [facility] Start: 11-20-2018 End: 11-20-2018 Office outpatient visit 15 minutes Nasrin Brenner Work Phone: [facility] Comment on above: Tonsillitis (Primary Dx) [...] w/le ast 12 lds w/i&r Raphael Razo DRAFTING ENGINEER Work Phone: Start: 04-04-2024 Adult depression scr eening assessment Raphael Razo DRAFTING ENGINEER Work Phone: Start: 02-12-2024 Pelvic echography TINY MARRUFO Start: 12-17-2022 Urine test visual color cmprsn meths Kamla Lillian Medina [facility] Work Phone: Start: 12-17-2022 Microscopic observat ion [Identifier] in Cervix by Cyto stain Kamla Shirleygriffin [facility] Work Phone: Start: 09-23-2021 Urnls dip stick/tabl et rgnt auto w/o microscopy Tiny Niru [facility] Work Phone: Start: 07-22-2021 Urnls dip stick/tabl et rgnt auto w/o microscopy Tiny Niru [facility] Work Phone: Start: 08-15-2020 Gardnerella vaginali s rRNA assay Mary Ann Tyson Work Phone: Start: 08-15-2020 Adult depression scr eening assessment Mary Ann Tyson Start: 11-20-2018 End: 11-20-2018 Heterophile antibodies screen Nasrin Brenner Work Phone: Plan of Treatment Date Care Activity Detail Author Start: 03-22-2028 Tetanus vaccination Tetanus: Every 10yrs [facility] Start: 12-17-2025 Screening for malignant neoplasm of cervix Pap Smear [facility] Start: 06-05-2025 Beta-hemolytic Streptococcus culture Group B Streptococcus Culture [facility] Start: 06-05-2025 Streptococcus agalactiae [Presence] in Unspecified specimen by Organism specific culture [facility] Start: 04-04-2025 Depression screening using PHQ-9 (Patient Health Questionnaire 9) score [facility] Start: 04-04-2025 History and physical examination, annual for health maintenance Wellness Visit [facility] Start: 07-31-2024 Influenza vaccination [facility] Start: 07-05-2024 End: 07-05-2024 Patient encounter procedure 07/05/2024 2:20 PM EDT Office Visit [facility] Physician [facility] [address] [place] [phone] Raphael Razo, LÁZARO [address] [place] [address] [facility] Start: 12-17-2023 History and physical examination, annual for health maintenance Wellness Visit [facility] Start: 07-31-2023 Influenza vaccination Sequential Influenza Vaccine (Season Ended) [facility] Start: 12-29-2022 End: 12-25-2023 Lipid 1996 panel - Serum or Plasma Lipid Panel Lab Routine Familial hypercholesterolemia Expected: 12/29/2022 (Approximate), Expires: 12/25/2023 [facility] Work Phone: Comment on above: Expected: 12/29/2022 (Approximate), Expi res: 12/25/2023 Start: 12-19-2022 End: 12-18-2023 Lipid 1996 panel - Serum or Plasma Lipid Panel Lab Routine Familial hypercholesterolemia Expected: 12/19/2022 (Approximate), Expires: 12/18/2023 [facility] Work Phone: Comment on above: Expected: 12/19/2022 (Approximate), Expi res: 12/18/2023 Start: 12-02-2022 End: 12-02-2022 Patient encounter procedure 12/02/2022 Office Visit Obstetrics and Gynecology Kamla Medina, MINERVA [address] [place] [address] [facility] Physician [facility] Start: 11-17-2022 End: 10-09-2023 Lipid 1996 panel - Serum or Plasma Lipid Panel Lab Routine Familial hypercholesterolemia Expected: 11/17/2022 (Approximate), Expires: 10/09/2023 [facility] Work Phone: Comment on above: Expected: 11/17/2022 (Approximate), Expi res: 10/09/2023 Start: 10-03-2022 Screening for Chlamydia trachomatis Chlamydia Screening [facility] Start: 07-31-2022 Influenza vaccination [facility] Start: 07-08-2022 End: 07-08-2022 Patient encounter procedure 07/08/2022 Office Visit Obstetrics and Gynecology Kamla Medina CNM [address] [place] [address] [facility] Start: 01-22-2022 End: 01-22-2022 Telemedicine consultation with patient 01/22/2022 Telemedicine Cardiology [facility] Start: 08-19-2021 End: 08-19-2021 Patient encounter procedure [facility] Start: 08-15-2021 Adolescent depression screening assessment Depression Screening (PHQ9) [facility] Start: 08-15-2021 Depression screening using PHQ-9 (Patient Health Questionnaire 9) score [facility] Start: 08-15-2021 Hepatitis C antibody, confirmatory test Hepatitis C Screening [facility] Comment on above: Postponed from 2019 (Patient Refus ed) Start: 08-15-2021 Hepatitis C screening Hepatitis C Screening [facility] Comment on above: Postponed from 2019 (Patient Refus ed) Start: 08-15-2021 History and physical examination, annual for health maintenance Wellness Visit [facility] Start: 08-15-2021 HIV screening HIV Screening [facility] Comment on above: Postponed from 2016 (Patient Refus ed) Start: 08-15-2021 Screening for Chlamydia trachomatis Chlamydia Screening [facility] Start: 07-31-2021 Influenza vaccination Sequential Influenza Vaccine (#1) [facility] Start: 05-29-2021 Influenza vaccination Sequential Influenza Vaccine (#1) [facility] Comment on above: Postponed from 07/31/2020 (Patient Refus ed) Start: 05-29-2021 Influenza vaccination given Sequential Influenza Vaccine (#1) [facility] Comment on above: Postponed from 07/31/2020 (Patient Refus ed) Start: 11-15-2020 End: 11-15-2020 Office Visit 11/15/2020 Office Visit Primary Care Mary Ann Tyson, DRAFTING ENGINEER [address] [place] [address] [phone] [facility] Start: 08-15-2020 End: 08-15-2021 Neisseria gonorrhoeae nucleic acid detection Chlamydia/Gonorrhoeae Amplified RNA Microbiology Routine Screening for chlamydial disease Expected: 08/15/2020, Expires: 08/15/2021 [facility] Comment on above: Expected: 08/15/2020, Expires: Start: 2019 Hepatitis C screening Hepatitis C Screening [facility] Start: 07-31-2018 Influenza vaccination SEQUENTIAL INFLUENZA VACCINE (#1) [facility] Start: 2017 COVID-19 Vaccine (1) COVID-19 Vaccine (1) [facility] Start: 2017 Meningococcus vaccination MENINGOCOCCAL VACCINE (1 of 1 - 2-dose series) [facility] Start: 2016 HIV screening HIV Screening [facility] Start: 2016 Vaccination for human papillomavirus HPV Vaccines (1 - 3-dose series) [facility] Start: 2014 Varicella vaccination VARICELLA VACCINES (1 of 2 - 2-dose adolescent series) [facility] Start: 2013 COVID-19 Vaccine (1) COVID-19 Vaccine (1) [facility] Start: 2012 Vaccination for human papillomavirus [facility] Start: 2008 Vaccination for diphtheria, pertussis, and tetanus DTAP VACCINES (1 - Tdap) [facility] Start: 2006 COVID-19 Vaccine (1) COVID-19 Vaccine (1) [facility] Start: 2002 Hepatitis A immunization HEPATITIS A VACCINES (1 of 2 - 2-dose series) [facility] Start: 2002 Sdgyjbh-rjchh-lmrehpi vaccination MMR VACCINES (1 of 2 - Standard series) [facility] Start: 2001 COVID-19 Vaccine (#1) COVID-19 Vaccine (#1) [facility] Start: 2001 Inactivated poliovirus vaccine (product) IPV VACCINES (1 of 4 - All-IPV series) [facility] Start: 2001 Hepatitis B vaccination HEPATITIS B VACCINES (1 of 3 - 3-dose primary series) [facility] Start: 2001 Screening for Chlamydia trachomatis Chlamydia Screening [facility] Start: 2001 Screening for malignant neoplasm of cervix Pap Smear [facility] Start: 2001 Tetanus vaccination TETANUS EVERY 10 YR [facility] 12 lead ECG ECG 12 Lead ECG Routine Palpitations 04/04/2024 3:33 PM EDT [facility] End: 06-07-2025 Cardiac event recording Cardiac event monitor Cardiac Services Routine Palpitations 1 Occurrences starting 04/07/2024 until 06/07/2025 [facility] Work Phone: Comment on above: 1 Occurrences starting 04/07/2024 until 06/07/2025 End: 11-07-2025 Choriogonadotropin [Units/volume] in Serum or Plasma hCG, Quantitative, Blood Lab Routine Less than 8 weeks gestation of 1 Occurrences starting 11/07/2024 until 11/07/2025 [facility] Work Phone: Comment on above: 1 Occurrences starting 11/07/2024 until 11/07/2025 End: 08-15-2021 Complete blood count with white cell differential, manual CBC and Differential Lab Routine Menorrhagia with irregular cycle 1 Occurrences starting 08/15/2020 until 08/15/2021 [facility] Comment on above: 1 Occurrences starting 08/15/2020 until 08/15/2021 End: 04-08-2023 Complete blood count with white cell differential, manual CBC and Differential Lab Routine Menorrhagia with regular cycle 1 Occurrences starting 04/08/2022 until 04/08/2023 [facility] Work Phone: Comment on above: 1 Occurrences starting 04/08/2022 until 04/08/2023 End: 04-04-2025 Complete blood count with white cell differential, manual CBC and Differential Lab Routine History of anemia 1 Occurrences starting 04/04/2024 until 04/04/2025 [facility] Comment on above: 1 Occurrences starting 04/04/2024 until 04/04/2025 End: 08-15-2021 Comprehensive metabolic 2000 panel Comprehensive Metabolic Panel Lab Routine Well adult exam 1 Occurrences starting 08/15/2020 until 08/15/2021 [facility] Comment on above: 1 Occurrences starting 08/15/2020 until 08/15/2021 End: 04-04-2025 Comprehensive metabolic 2000 panel - Serum or Plasma Comprehensive Metabolic Panel Lab Routine Wellness examination 1 Occurrences starting 04/04/2024 until 04/04/2025 [facility] Comment on above: 1 Occurrences starting 04/04/2024 until 04/04/2025 End: 08-15-2021 Ferritin [Mass/Vol] Ferritin Lab Routine Menorrhagia with irregular cycle 1 Occurrences starting 08/15/2020 until 08/15/2021 [facility] Comment on above: 1 Occurrences starting 08/15/2020 until 08/15/2021 End: 09-23-2022 Gardnerella vaginalis rRNA assay Vaginitis DNA Probes Microbiology Routine Acute vaginitis 1 Occurrences starting 09/23/2021 until 09/23/2022 [facility] Work Phone: Comment on above: 1 Occurrences starting 09/23/2021 until 09/23/2022 Gardnerella vaginali s rRNA assay Vaginitis DNA Probes Microbiology Routine Acute vaginitis 09/23/2021 7:49 AM EDT [facility] End: 08-15-2021 Iron and Iron binding capacity panel - Serum or Plasma Iron and TIBC Lab Routine Menorrhagia with irregular cycle 1 Occurrences starting 08/15/2020 until 08/15/2021 [facility] Comment on above: 1 Occurrences starting 08/15/2020 until 08/15/2021 End: 04-04-2025 Iron measurement Iron Study with Ferritin Lab Routine History of anemia 1 Occurrences starting 04/04/2024 until 04/04/2025 [facility] Comment on above: 1 Occurrences starting 04/04/2024 until 04/04/2025 End: 08-15-2021 Lipid 1996 panel Lipid Panel Lab Routine Screening for lipid disorders 1 Occurrences starting 08/15/2020 until 08/15/2021 [facility] Comment on above: 1 Occurrences starting 08/15/2020 until 08/15/2021 End: 04-04-2025 Lipid 1996 panel - Serum or Plasma Lipid Panel Lab Routine Hypercholesterolemia 1 Occurrences starting 04/04/2024 until 04/04/2025 [facility] Work Phone: Comment on above: 1 Occurrences starting 04/04/2024 until 04/04/2025 Microscopic examinat ion of vaginal Papanicolaou smear Thinprep Pap Smear Pathology and Cytology Routine Well woman exam with routine gynecological exam Ordered: 12/17/2022 [facility] Work Phone: Comment on above: Ordered: 12/17/2022 End: 04-13-2024 MR Pituitary With And Without Contrast MR Pituitary With And Without Contrast Imaging Routine Elevated prolactin level 1 Occurrences starting 04/13/2023 until 04/13/2024 [facility] Work Phone: Comment on above: 1 Occurrences starting 04/13/2023 until 04/13/2024 Neisseria gonorrhoea e nucleic acid detection Chlamydia/Gonorrhoeae Amplified RNA Microbiology Routine Screening for chlamydial disease 08/15/2020 7:50 AM EDT [facility] End: 04-30-2024 Prolactin [Mass/volume] in Serum or Plasma Prolactin Lab Routine Elevated prolactin level 1 Occurrences starting 04/30/2023 until 04/30/2024 [facility] Work Phone: Comment on above: 1 Occurrences starting 04/30/2023 until 04/30/2024 Streptococcus agalac tiae [Presence] in Unspecified specimen by Organism specific culture [facility] End: 04-04-2025 Thyrotropin [Units/volume] in Serum or Plasma TSH with Reflex Free T4 Lab Routine Palpitations 1 Occurrences starting 04/04/2024 until 04/04/2025 [facility] Comment on above: 1 Occurrences starting 04/04/2024 until 04/04/2025 End: 07-22-2022 Transvaginal ultrasonography of pelvis US Transvaginal Imaging Routine Right lower quadrant abdominal pain 1 Occurrences starting 07/22/2021 until 07/22/2022 [facility] Work Phone: Comment on above: 1 Occurrences starting 07/22/2021 until 07/22/2022 Immunizations Immunization Date Immunization Notes Care Provider [facility] 04-28-2025 tetanus toxoid, reduced diphtheria toxoid, and acellular pertussis vaccine, adsorbed No Primary Care Physician [facility] 03-22-2018 hepatitis A vaccine, pediatric/adolescent dosage, 2 dose schedule [facility] 03-22-2018 tetanus toxoid, reduced diphtheria toxoid, and acellular pertussis vaccine, adsorbed [facility] 07-08-2007 diphtheria, tetanus toxoids and acellular pertussis vaccine [facility] 07-08-2007 measles, mumps and rubella virus vaccine [facility] 07-08-2007 poliovirus vaccine, inactivated [facility] 07-08-2007 varicella virus vaccine [facility] 05-21-2006 measles, mumps and rubella virus vaccine [facility] 05-21-2002 haemophilus influenz ae type b vaccine, conjugate unspecified formulation [facility] 05-21-2002 hepatitis B vaccine, pediatric or pediatric/adolescent dosage [facility] 05-21-2002 measles, mumps and rubella virus vaccine [facility] 01-20-2002 diphtheria, tetanus toxoids and acellular pertussis vaccine, unspecified formulation [facility] 01-20-2002 pneumococcal conjuga te vaccine, 7 valent [facility] 01-20-2002 pneumococcal Conjugate, unspecified formulation [facility] 01-20-2002 varicella virus vaccine [facility] 2001 diphtheria, tetanus toxoids and acellular pertussis vaccine, unspecified formulation [facility] 2001 haemophilus influenz ae type b vaccine, conjugate unspecified formulation [facility] 2001 hepatitis B vaccine, pediatric or pediatric/adolescent dosage [facility] 2001 pneumococcal conjuga te vaccine, 7 valent [facility] 2001 pneumococcal Conjugate, unspecified formulation [facility] 2001 poliovirus vaccine, unspecified formulation [facility] 2001 pneumococcal conjuga te vaccine, 7 valent [facility] 2001 pneumococcal Conjugate, unspecified formulation [facility] 2001 poliovirus vaccine, unspecified formulation [facility] 2001 diphtheria, tetanus toxoids and acellular pertussis vaccine, unspecified formulation [facility] 2001 haemophilus influenz ae type b vaccine, conjugate unspecified formulation [facility] 2001 hepatitis B vaccine, pediatric or pediatric/adolescent dosage [facility] Payers Date Payer Category Payer Private Health Insurance [id number] 2024 Private Health Insurance [id number] 2024 Unknown [id number] 2024 Self-pay 2019 [facility] SARAH GLASS UE/PREF/HMO/PPO [id number] 2019 Unknown [id number] [id number]. [id number] 2019 Unknown ANTHEM ANTHEM BLUE/PREF/HMO/PPO [id number] 2019-Present [phone] [address] [place] [address] [id number]. 2.7.3.188001.315 2019 Unknown [id number] 2001 Unknown [id number] 2.16.840.1.161921.3.579. 2.902 2001 Unknown [id number] 2.16.840.1.498813.3.579. 2.903 2001 Unknown [id number] 2.16.840.1.619214.3.579. 2.903 2001 Unknown [id number] 2.16.840.1.283581.3.579. 2.903 2001 Unknown [id number] 2.16.840.1.617072.3.579. 2.903 2001 Unknown [id number] 2.16.840.1.890553.3.579. 2.903 2001 Unknown [id number] 2.16.840.1.046945.3.579. 2.479 1962 Unknown [id number] 2.16.840.1.952202.3.579. 2.900 Unknown [id number] 2.16.840.1.987300.3.579. 2.462 Unknown [id number] 2.16.840.1.460239.3.579. 2.462 Unknown [id number] 2.16.840.1.009381.3.579. 2.462 Unknown [id number] 2.16.840.1.464699.3.579. 2.462 Unknown [id number] 2.16.840.1.027002.3.579. 2.462 Unknown [id number] 2.16.840.1.282298.3.579. 2.462 Unknown [id number] 2.16.840.1.326996.3.579. 2.462 Unknown [id number] 2.16.840.1.738022.3.579. 2.462 Unknown [id number] 2.16.840.1.703965.3.579. 2.462 Unknown [id number] 2.16.840.1.200027.3.579. 2.462 Unknown [id number] 2.16.840.1.810016.3.579. 2.462 Unknown [id number] 2.16.840.1.696391.3.579. 2.462 Unknown [id number] 2.16.840.1.061484.3.579. 2.462 Unknown [id number] 2.16.840.1.315607.3.579. 2.462 Unknown [id number] 2.16.840.1.719685.3.579. 2.462 Unknown [id number] 2.16.840.1.382226.3.579. 2.462 Unknown [id number] 2.16.840.1.319690.3.579. 2.462 Social History Date Type Detail Facility Start: 11-20-2018 End: 12-02-2024 Tobacco smoking status GAIS Never smoker [facility] Start: 2001 Sex Assigned At Not on file [facility] Start: 08-15-2020 End: 07-14-2022 Tobacco use and exposure Never used [facility] Start: 08-15-2020 End: 08-18-2024 Alcohol intake Current non-drinker of alcohol (finding) [facility] Start: 08-15-2020 History SDOH Social Connections Phone 5 [facility] Start: 08-15-2020 History SDOH Social Connections Pentecostalism 3 [facility] Start: 08-15-2020 History SDOH Social Connections Membership 1 [facility] Start: 08-15-2020 History SDOH Social Connections Living 7 [facility] Start: 08-15-2020 History SDOH Physica l Activity DPW 2 [facility] Start: 08-15-2020 History SDOH Education 21 [facility] Start: 03-29-2022 End: 04-23-2023 Exposure to SARS-CoV-2 (event) Not sure [facility] Start: 08-15-2020 End: 04-04-2024 History of Social function [facility] Start: 08-15-2020 End: 04-04-2024 Humiliation, Afraid, Rape, and Kick questionnaire [HARK] [facility] Within the last year , have you been afraid of your partner or ex-partner? No [facility] Do you belong to any clubs or organizations such as jehovah's witness groups, unions, [employer] or athletic groups, or school groups? Yes [facility] Are you now , , , , never or living with a partner? Never [facility] Adult Depression Scr eening Assessment 7 [facility] Do you feel stress - tense, restless, nervous, or anxious, or unable to sleep at night because your mind is troubled all the time - these days [OSQ] Only a little [facility] (I/We) worried wheth er (my/our) food would run out before (I/we) got money to buy more. Never true [facility] Start: 02-02-2024 Tobacco smoking stat us NHIS Unknown if ever smoked [facility] Start: 2001 Sex Assigned At Female [facility] How hard is it for y ou to pay for the very basics like food, housing, medical care, and heating Not very hard [facility] Start: 02-13-2025 Sex Female (finding) [facility] Clinical Notes 03-18-2021 to 06-05-2025 Note Date & Type Note Facility 06-05-2025 [place] [facility] [place]09[place] [facility] [place]-09-2025 Progress note Note Date/Time May 09, 2025 2:54pm [facility] [address], [address] [place] [address] OFFICE VISIT Date of Service: 05/09/25 MR#: [id number] Acct: [id number] Name: ALYSSA PRO Rep #: [id number] : 2000 Provider: MINERVA Saldana Age/Sex: 25/F Location: [place] Status: Signed Intake Vital Signs 12/09/24 13:07 04/28/25 15:06 05/09/25 14:34 Height 5 ft 6 in 5 ft 6 in 5 ft 6 in Weight: 219 lb 2 oz BMI 35.4 BP 107/72 Intake Visit 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 [place] appropriate handout given. 05/09/25 5201 <Electronically signed by Lory Stoney s CNM> Date _ Lory SHUKLAM Danieleignangelica Signature: Date (if applicable) CC: ~ [facility] Work Phone: 1(246) 462-203505-30-2025 Progress [facility] [address] [place] [address], [address] [place] [address] OFFICE VISIT Date of Service: 04/28/25 MR#: [id number] Acct: [id number] Name: ALYSSA PRO Rep #: [id number] : 2000 Provider: Dr. 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 History 1 Elective abortions Hx Para 0 [...] checked out at an urgent care in [place] and treated with amoxil but urine culture [...] Performing Provider: Pam Acosta MD Performing Location: [facility] Administered by: Anum Bonner on 04/28/25 15:16 Dose Route Admin Location Dispensed Lot Number Expiration Date NDC Manager Enrollment 0.5 mL IM Left Deltoid 0.5 mL [id number] 03/29/27 36736-501-49 SANOF [employer]-PASTEUR VIS Given Date VIS Provided [...] Cosign Signature: Date (if applicable) CC: ~ [facility] [id number] Progress note Author Pam Acosta [facility] Note Date/Time April 28, 2025 3:38p [facility] [address] [place] [address], [address] [place] [address] OFFICE VISIT Date of Service: 04/28/25 MR#: [id number] Acct: [id number] Name: ALYSSA PRO Rep #: [id number] : 2000 Provider: Dr. 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 history: - [place]-Head Worker History 1 Elective abortions Hx Para 0 [...] checked out at an urgent care in [place] and treated with amoxil but urine culture [...] Performing Provider: Pam Acosta MD Performing Location: [facility] [place] Administered by: Anum Bonner on 04/28/25 15:16 Dose Route Admin Location Dispensed Lot Number Expiration Date NDC Manager Enrollment 0.5 mL IM Left Deltoid 0.5 mL [id number] 03/29/27 10588-013-08 SANOF I-PASTEUR VIS Given Date VIS Provided [...] hobbs MD> Date _ Pam Acosta MD [facility] Signature: Date (if applicable) CC: ~ [facility] Work Phone: 1(664) 877-666505-16-2025 Progress [facility] [address], [address] [place] [address] OFFICE VISIT Date of Service: 04/14/25 MR#: [id number] Acct: [id number] Name: ALYSSA PRO Rep #: [id number] : 2000 Provider: Dr. 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 Note Date/Time April 14, 2025 3:54p [facility] [address], [address] [place] [address] OFFICE VISIT Date of Service: 04/14/25 MR#: [id number] Acct: [id number] Name: ALYSSA PRO Rep #: [id number] : 2000 Provider: Dr. 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 Work Phone: [phone]) [phone] Evaluation note* Diagnosis Onset Date Resolution Status [...] high-risk a cute May 09, 2025 2:31pm [facility] Work Phone: [phone]) [phone] Evaluation note* Diagnosis Onset Date Resolution Status [...] high-risk a cute May 26, 2025 3:21pm [facility] Work Phone: [phone]) [phone] Evaluation note* Diagnosis Onset Date Resolution Status [...] high-risk acute April 14, 2025 3 :36pm [facility] Work Phone: [phone]) 442-465902-07-2025 Evaluation note* Diagnosis Onset Date Resolution Status [...] high-risk acute April 28, 2025 3 :02pm [facility] Work Phone: [phone]) [phone] Evaluation note* Diagnosis Onset Date Resolution Status [...] Tilted uterus acute January 31, 2025 2:17pm [facility] Work Phone: [phone] Evaluation note* Diagnosis Onset Date Resolution Status [...] of high-risk acute March 28, 2025 2:19pm [facility] Work Phone: [phone]) [phone] NoteTelephone Visit Via Phone Call [address] [facility] [address] [place] [phone] Telephone Visit [facility] 08/18/2024 Raphael Razo CNP Provider Location: Office Patient Location Gluing Machine Offbearer: None Patient Location: Patient's Home Patient: Alyssa [...] there are inherent diagnostic limitations compared to kbwk-cj-srla evaluations. We elected to proceed with the [...] currently on vitamin; she has an established OB-PULP BLEACHER; we discussed avoiding NSAID medications, we discussed [...] HPI and Plan of Care. AUTHENTICATED BY RAPHAEL RAZO, ON 08/18/2024 12:44:28[facility] History of Present illness Narrative* Raphael Razo CNP - 08/18/2024 12:27 PM EDT Telephone Visit Via Phone Call [address] [facility] [address] [place] [phone] Telephone Visit [facility] 08/18/2024 Raphael Razo CNP Provider Location: Office Patient Location Gluing Machine Offbearer: None Patient Location: Patient's Home Patient: Alyssa [...] there are inherent diagnostic limitations compared to jjrb-qy-pdyx evaluations. We elected toproceed with the telephone [...] currently on vitamin; she has an established OB-PULP BLEACHER; we discussed avoiding NSAID medications, we discussed [...] and Plan of Care. documented in this [id number] Note* Addendum Note - Raphael Razo CNP - 04/07/2024 1:50 PM EDTAddended by: RAPHAEL RAZO on: 04/07/2024 01:50 PM Modules accepted: Orders [id number] Note* Addendum Note - Raphael Razo CNP - 04/07/2024 1:50 PM EDTAddended by: RAPHAEL RAZO on: 04/07/2024 01:50 PM Modules accepted: Orders [id number] Note08/15/2020 8:07 AM 04/04/2024 2:00 PM Depression [...] 7 AUTHENTICATED BY RAPHAEL RAZO, ON 04/07/2024 13:50:30[facility] 04-07-2024 History of Present illness [...] Alyssa Pro Date : 04/04/2024 MR #: [id number] : 2000 Summary and Plan Problem List [...] and then resolve spontaneously. Patient follows with PULP BLEACHER; in [place]. Patient reports that she does have extremely [...] min Stress: No Stress Concern Present (04/04/2024) [employer] - Occupational Stress Questionnaire Feeling of Stress : Only a little Social Connections: Unknown (04/04/2024) Social Connection and Isolation Panel [NHANES] Frequency of Communication with Friends and Family: More than three times a week Frequency of Social Gatherings with Friends and Family: More than three times a week Attends Bahai Services: More than 4 times per year [...] PHQ-9 Total Score 7 documented in this [id number] Miscellaneous Notes* Addendum Note - Raphael Razo CNP - 04/07/2024 1:50 PM EDTAddended by: RAPHAEL RAZO on: 04/07/2024 01:50 PM Modules accepted: Orders * Addendum Note - Raphael Razo CNP - 04/07/2024 1:47 PM EDTAddended by: RAPHAEL RAZO on: 04/07/2024 01:47 PM Modules accepted: Orders, Level of Service documented in this [id number] Note* Addendum Note - Raphael Razo CNP - 04/07/2024 1:47 PM EDTAddended by: RAPHAEL RAZO on: 04/07/2024 01:47 PM Modules accepted: Orders, Level of Service [id number] Note* Addendum Note - Raphael Razo CNP - 04/07/2024 1:47 PM EDTAddended by: RAPHAEL RAZO on: 04/07/2024 01:47 PM Modules accepted: Orders, Level of Service [id number] NoteOffice Progress Notes Patient Name: Alyssa Pro Date : 04/04/2024 MR #: [id number] : 2000 Summary and Plan Problem List [...] and then resolve spontaneously. Patient follows with PULP BLEACHER; in [place]. Patient reports that she does [...] min Stress: No Stress Concern Present (04/04/2024) [employer] - Occupational Stress Questionnaire Feeling of Stress : Only a little Social Connections: Unknown (04/04/2024) Social Connection and Isolation Panel [NHANES] Frequency of Communication with Friends and Family: More than three times a week Frequency of Social Gatherings with Friends and Family: More than three times a week Attends Bahai Services: More than 4 times per year Active Member of Clubs or Organizations: Yes Attends Club or Organization Meetings: More than 4 times per year Housing Stability: Unknown (04/04/2024) Housing Stability Vital Sign Unable to Pay for Housing in the Last Year: No Unstable Housing in the Last Year: No Allergies and Medications: I have reviewed the patient's aller (more content not included)...[facility]05-06-2024 Note08/15/2020 8:07 AM 04/04/2024 2:00 [...] 7 AUTHENTICATED BY RAPHAEL RAZO, ON 04/04/2024 15:49:06[facility] 04-04-2024 History of Present illness Narrative* Raphael Razo, DRAFTING ENGINEER - 04/04/2024 3:04 PM EDT Office Progress Notes Patient Name: Alyssa Pro Date : 04/04/2024 MR #: [id number] : 2000 Summary and Plan Problem List [...] and then resolve spontaneously. Patient follows with PULP BLEACHER; in [place]. Patient reports that she does [...] min Stress: No Stress Concern Present (04/04/2024) [employer] - Occupational Stress Questionnaire Feeling of Stress : Only a little Social Connections: Unknown (04/04/2024) Social Connection and Isolation Panel [NHANES] Frequency of Communication with Friends and Family: More than three times a week Frequency of Social Gatherings with Friends and Family: More than three times a week Attends Bahai Services: More than 4 times per year [...] PHQ-9 Total Score 7 documented in this [id number] History of Present illness Narrative* Kamla [facility], [...] CBC and Differential; Future documented in this [id number] History of Present illness Narrative* Kamla Medina [...] Denies any other issues. She works at [employer], is running for exercise and training for [...] by mouth daily . documented in this [id number] Instructions* Patient Instructions* Pam Mckinnon R.Ph. - [...] the system andyou can go to ANY [facility] lab to have this drawn. Physical [...] [phone] none documented in this [id number] History of Present illness Narrative* Tegan EliasPh. - 10/09/2022 8:08 AM EST Video Visit [facility] [address] [phone] Via Real-time Synchronous Audiovisual [facility] 10/09/2022 Micheal Elias.Ph. Provider Location: [facility] Patient Location Gluing Machine Offbearer: None Patient Location: Patient's Work Patient: Alyssa [...] that there are some limitations compared to cfun-as-fqnk evaluations. We elected to proceed. 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 - 10/08/2022 3:17 PM EST Video Visit [facility] [address] [phone] Via Real-time Synchronous Audiovisual [facility] 10/08/2022 Tegan EliasPh. Provider Location: [facility] Patient Location Gluing Machine Offbearer: None Patient Location: Patient's Home Patient: Alyssa [...] that there are some limitations compared to aclv-sv-ovpm evaluations. We elected to proceed. 09/18/2021 [facility] INITIAL VISIT Visit Date: 09/18/21 Provider: Nella HurdD Treating Provider: Tiny Choe MD Location: [facility] Alyssa Pro is a 22 y.o. 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 female. HPI Alyssa presents today for a medication follow up after starting OCP for heavy bleeding with herperiods. Pt states her periods are much better, she has heel cutter bleeding and heel cutter cramps associated with her period. LMP 07/07/22, [...] 07/14/2022 3:03 PM EDT documented in this [id number] History of Present illness Narrative* Micheal Elias.Ph. - 07/01/2022 1:20 PM EDT Video Visit [facility] [address] [phone] Via Real-time Synchronous Audiovisual [facility] 07/01/2022 Micheal Elias.Ph. Provider Location: [facility] Patient Location Gluing Machine Offbearer: None Patient Location: Patient's Home Patient: Alyssa Pro Date of : 2000 (22 y.o. female) PCP: Tiyn Marrufo CNP Video Visit Consent Statement: I [...] that there are some limitations compared to vext-pf-puas evaluations. We elected to proceed. 09/18/2021 [facility] CL[facility]IC INITIAL VISIT Visit Date: 09/18/21 Provider: Nella HurdD Treating Provider: Tiny Choe MD Location: [facility] Alyssa Pro is a 22 y.o. 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 - 07/01/2022 1:20 PM EDT Video Visit [facility] [address] [phone] Via Real-time Synchronous Audiovisual [facility] 07/01/2022 Tegan EliasPh. Provider Location: [facility] Patient Location Gluing Machine Offbearer: [place] Patient Location: Patient's Home Patient: Alyssa [...] that there are some limitations compared to zuex-fr-dwhj evaluations. We elected to proceed. 09/18/2021 L[facility]ID CLINIC INITIAL VISIT Visit Date: 09/18/21 Provider: Nella HurdD Treating Provider: Tiny Choe MD Location: [facility] Alyssa Pro is a 22 y.o. 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 documented in this [id number] Instructions* Patient Instructions* Tiny Marrufo CNP - [...] your symptoms have gone away. Take an pcio-oao-egrzicd pain medicine, such as acetaminophen (Tylenol), ibuprofen [...] Log into your personal health record on [email or web address]://[email or web address] and enter B514 in the "Education" box to learn more about "Pelvic Pain: Care Instructions." Current as of: January 10, 2021 Content Version: 13.0 9574-4644 [employer]. Care instructions adapted under license by your healthcare professional. If you have questions about a medical condition or this instruction, always ask your healthcare professional. [employer] disclaims any warranty or liability for your use of this information. documented in this [id number] Miscellaneous Notes* Assessment & Plan Note - Tiny Marrufo CNP - 09/23/2021 8:10 PM EDT Associated Problem(s): Acute vaginitis Vaginitis swab obtained and sent. * Assessment & Plan Note - Tiny Marrufo CNP - 09/23/2021 7:54 AM EDT Associated Problem(s): Suprapubic pain, acute Pelvic u/s completed Consider referral to PULP BLEACHER Vaginitis swab sent documented in this [id number] History of Present illness Narrative* Tiny Marrufo [...] Friends and Family: Not on file Attends Bahai Services: Not on file Active Member of [...] 1.58)* * Growth percentiles are based on [facility] (Girls, 2-20 Years) data. No results found for: HGBA1C BP Readings from Last 3 Encounters: 09/23/21 127/78 07/22/21 131/83 08/15/20 137/79 Physical Exam Vitals and nursing note reviewed. Exam conducted with a bulk intake worker present. Constitutional: General: She is not in [...] Primary Pelvic u/s completed Consider referral to PULP BLEACHER Vaginitis swab sent Relevant Orders POC Urinalysis [...] your symptoms have gone away. Take an blha-bhk-auesdui pain medicine, such as acetaminophen (Tylenol), ibuprofen [...] Log into your personal health record on [email or web address] and enter B514 in the "Education" box to learn more about "Pelvic Pain: Care Instructions." Current as of: January 10, 2021 Content Version: 13.0 [employer]. Care instructions adapted under license by your healthcare professional. If you have questions about a medical condition or this instruction, always ask your healthcare professional. [employer] disclaims any warranty or liability for your use of this information. For any new medications prescribed today, patient was educated about indications for the medication, how to take the medication and potential side effects of the medications. Goals None I personally spent > 25 minutes on this patients encounter today, Tiny Marrufo CNP documented in this [id number] Instructions* Patient Instructions* Tiny Marrufo CNP - [...] Log into your personal health record on [email or web address]://[email or web address] and enter Z763 in the "Education" box to learn more about "AbdominalPain: Care Instructions." Current as of: September 17, 2020 Content Version: 12.9 [employer]. Care instructions adapted under license by your healthcare professional. If you have questions about a medical condition or this instruction, always ask your healthcare professional. [employer] disclaims any warranty or liability for your use of this information. documented in this [id number] Miscellaneous Notes* Assessment & Plan Note - Tiny Marrufo CNP - 07/22/2021 9:21 AM EDT Associated Problem(s): Right lower quadrant abdominal pain A referral has been made for a transvaginal ultrasound.. You will be contacted to schedule an appointment. Please f/u with our office if you have not been contacted about this referral within 1-2 weeks. documented in this [id number] History of Present illness Narrative* Tiny Marrufo [...] More than three times a week Attends Bahai Services: More than 4 times per year [...] Log into your personal health record on [email or web address]://[employer] and enter B722 in the "Education" box to learn more about "AbdominalPain: Care Instructions." Current as of: September 17, 2020 Content Version: 12.9 3189-7768 [employer]. Care instructions adapted under license by your healthcare professional. If you have questions about a medical condition or this instruction, always ask your healthcare professional. [employer] disclaims any warranty or liability for your use of this information. For any new medications prescribed today, patient was educated about indications for the medication, how to take the medication and potential side effects of the medications. Goals None Tiny Marrufo CNP documented in this [id number] Miscellaneous Notes* Telephone Encounter - Opal Egan [...] Please advise thank you documented in this [id number] Miscellaneous Notes* Telephone Encounter - Opal Egan MA - 03/20/2021 10:39 AM EDT Called pt and scheduled her in [facility] for her yearly but she will not have enough patches to get her through. Can you send in 6 more to get her to her appt? Please advise thank you documented in this [id number] Miscellaneous Notes* Telephone Encounter - Kiara Fung [...] preferred pharmacy listed below? Yes Preferred pharmacies: [address] [facility] [place] [address] & [facility] [address] [place] [phone] Pt Call Back Number Work Phone Not [...] Fatigue, unspecified type [facility] Diagnosis Suprapubic pain, acute- Primary Acute vaginitis Unspecified vaginitis and vulvovaginitis [facility] Diagnosis Dyspareunia in female- Primary [facility] Diagnosis Hypercholesterolemia with LDL greater than 190 mg/dL [facility] Diagnosis Menorrhagia with regular cycle- Primary [facility]* Diagnosis Menorrhagia with regular cycle [facility] Diagnosis Encounter for control pills maintenance- Primary Surveillance of previously prescribed contraceptive pill Menorrhagia with regular cycle [facility] Diagnosis Familial hypercholesterolemia- Primary [facility]* Diagnosis Well woman exam with routine gynecological exam- Primary Routine gynecological examination Abnormal menses Unspecified disorder of menstruation and other abnormal bleeding from female genital tract Encounter for control pills maintenance Surveillance of previously prescribed contraceptive pill [facility] Diagnosis Familial hypercholesterolemia- Primary [facility]* Diagnosis Elevated prolactin level- Primary [facility]* Diagnosis Weight gain- Primary Other symptoms concerning nutrition, metabolism, and development Menorrhagia with regular cycle [facility] Diagnosis Elevated prolactin level- Primary [facility]* Diagnosis Onset Date Resolution Status Dysmenorrhea acute Dyspareunia acute Family history of antiphospholipid syndrome acute History of hyperprolactinemia acute Mittelschmer acute PCOS (polycystic ovarian syndrome) acute Encounter for routine gynecological examination noneactive [facility] Work Phone: Evaluation note* Diagnosis History of anemia- Primary Personal history of diseases of blood and blood-forming organs Wellness examination Hypercholesterolemia Pure hypercholesterolemia Palpitations [facility] Diagnosis History of anemia- Primary Personal history of diseases of blood and blood-forming organs Wellness examination Hypercholesterolemia Pure hypercholesterolemia Palpitations [facility]* Diagnosis Palpitations- Primary Hypercholesterolemia Pure hypercholesterolemia [facility]* Diagnosis Upper respiratory tract infection, unspecified type- Primary [facility]* Diagnosis Well adult exam- Primary [...] of - Primary [facility] Author Zulma Lima [facility] Note Date/Time June 05, 2025 9:52a m [facility] [address] [place] [address], [address] [place] [address] OFFICE VISIT Date of Service: 06/05/25 MR#: [id number] Acct: [id number] Name: ALYSSA PRO Rep #: [id number] : 2000 Provider: Dr. 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 Take an hjnc-dxj-wweieyt pain medicine, such as acetaminophen (Tylenol), ibuprofen (Advil, Motrin),or naproxen (Aleve). Be safe with medicines. Read and follow all instructions on the label. No one younger than 20 should take aspirin. It has been linked to Mike syndrome, a serious illness. Be careful when taking zrpe-wco-ojcgufy cold or flu medicines and Tylenol at the same time. Many ofthese medicines have acetaminophen, which is Tylenol. Read the labels to make sure that you are nottaking more than the recommended dose. Too much acetaminophen (Tylenol) can be harmful. Try an gwyv-lak-ajplstu throat spray to relieve throat pain. Drink [...] Log into your personal health record on [email or web address] and enter M655 in the "Education" box to learn more about "Tonsillitis: Care Instructions." Current as of: February 23, 2018 Content Version: 10.08 Everypoint. Care instructions adapted under license by your healthcare professional. If you have questions about a medical condition or this instruction, always ask your healthcare professional. Everypoint disclaims any warranty or liability for your [...] fluid ounces of warm water. Take an wbdm-smo-ynifxec pain medicine, such as acetaminophen (Tylenol), ibuprofen (Advil, Motrin),or naproxen (Aleve). Be safe with medicines. Read and follow all instructions on the label. No one younger than 20 should take aspirin. It has been linked to Mike syndrome, a serious illness. Be careful when taking skvi-dsv-tbhwzjw cold or flu medicines and Tylenol at the same time. Many ofthese medicines have acetaminophen, which is Tylenol. Read the labels to make sure that you are nottaking more than the recommended dose. Too much acetaminophen (Tylenol) can be harmful. Try an ahud-ijz-bvepcqz throat spray to relieve throat pain. Drink [...] Log into your personal health record on [email or web address] and enter M655 in the "Education" box to learn more about "Tonsillitis: Care Instructions." Current as of: February 23, 2018 Content Version: .20057468-9592 Everypoint. Care instructions adapted under license by your healthcare professional. If you have questions about a medical condition or this instruction, always ask your healthcare professional. Everypoint disclaims any warranty or liability for your [...] fluid ounces of warm water. Take an gycy-xlu-uwxlrqt pain medicine, such as acetaminophen (Tylenol), ibuprofen (Advil, Motrin),or naproxen (Aleve). Be safe with medicines. Read and follow all instructions on the label. No one younger than 20 should take aspirin. It has been linked to Mike syndrome, a serious illness. Be careful when taking yseu-lcs-ngmkfbh cold or flu medicines and Tylenol at the same time. Many ofthese medicines have acetaminophen, which is Tylenol. Read the labels to make sure that you are nottaking more than the recommended dose. Too much acetaminophen (Tylenol) can be harmful. Try an sssg-eix-cxuucya throat spray to relieve throat pain. Drink [...] Log into your personal health record on [email or web address] and enter M655 in the "Education" box to learn more about "Tonsillitis: Care Instructions." Current as of: February 23, 2018 Content Version: 11.9 5561-6870 Everypoint. Care instructions adapted under license by your healthcare professional. If you have questions about a medical condition or this instruction, always ask your healthcare professional. Everypoint disclaims any warranty or liability for your [...] fluid ounces of warm water. Take an zlnh-gqc-eozccwn pain medicine, such as acetaminophen (Tylenol), ibuprofen (Advil, Motrin),or naproxen (Aleve). Be safe with medicines. Read and follow all instructions on the label. No one younger than 20 should take aspirin. It has been linked to Mike syndrome, a serious illness. Be careful when taking jfwp-mrm-javpreb cold or flu medicines and Tylenol at the same time. Many ofthese medicines have acetaminophen, which is Tylenol. Read the labels to make sure that you are nottaking more than the recommended dose. Too much acetaminophen (Tylenol) can be harmful. Try an aigm-czo-sgavfsq throat spray to relieve throat pain. Drink [...] Log into your personal health record on [email or web address] and enter M655 in the "Education" box to learn more about "Tonsillitis: Care Instructions." Current as of: February 23, 2018 Content Version: .[id number] Everypoint. Care instructions adapted under license by your healthcare professional. If you have questions about a medical condition or this instruction, always ask your healthcare professional. Everypoint disclaims any warranty or liability for your use of this information. ots of liquids - popsicles!!! No ibuprofen with orapred. Worse to ER. Can call me today or [phone] in this encounter* Patient Instructions* Mary Ann Tyson, DRAFTING ENGINEER - 08/15/2020 10:06 PM EDT Problem List [...] your doctor if you can take an mlac-spv-fhrawnq medicine. You may be low in iron because of blood loss. Eat a balanced diet that is high in iron and vitamin C. Foods rich in iron include red meat, shellfish, eggs, beans, and leafy green vegetables. Talk to your doctor about whether you need to take iron pills or a multivitamin. When should you call for help? [id number] anytime you think you may need emergency [...] Log into your personal health record on [email or web address] and enter I327 in the "Education" box to learn more about "Abnormal Uterine Bleeding: Care Instructions." Current as of: October 07, 2019 Content Version: 12.5 Everypoint. Care instructions adapted under license by your healthcare professional. If you have questions about a medical condition or this instruction, always ask your healthcare professional. [employer] disclaims any warranty or liability for your use of this information. documented in this encounter History of Present Illness * Nasrin Brenner MD - 11/20/2018 10:42 AM EST Formatting of this note may be different from the original. PATIENT NAME: Alyssa Calvin [facility] [address] [id number] : 2000 DATE OF VISIT: 11/20/2018 SS#: [id number] PROVIDER: Nasrin Brenner MD Chief Complaint Patient presents with Sore Throat SUBJECTIVE 18 y.o. female presents Sore Throat Sick for a week - started out as a little cold. Now has sore throat and ear pain. Seen at [facility] 5 days ago - checked ears and [...] fever. in this encounter* Mary Ann Tyson, DRAFTING ENGINEER - 08/15/2020 7:31 AM EDT OUTPATIENT WELL WOMAN PROGRESS NOTE Subjective: Alyssa Calvin is a 20 y.o. female and is here for a new patient preventative care visit. Patient formally seen by directory compiler. Health maintenance reviewed and updated. Lab work [...] FoundDocuments on File Type Date Recorded Patient Developmental Therapist Expl anation Advance Directives and Living Will Documents on File Type Date Recorded Patient Developmental Therapist Expl anation Advance Directives and Living Will Documents on File Type Date Recorded Patient Developmental Therapist Expl anation Advance Directives and Livin g Will 09/05/2021 2:18 PM Documents on File Type Date Recorded Patient Developmental Therapist Expl anation Advance Directives and Livin g Will 09/05/2021 2:18 PM Reason for Referral Specialty Diagnoses / Procedures Referred By Contac t Referred To Contact Obstetrics and Gynecology Diagnoses Right lower quadrant abdominal pain Procedures US Transvaginal Tiny Marrufo, LÁZARO [address] [place] [address] Referral ID Status Reason Start Date Expiration Date V isits Requested Visits Authorized [id number] Authorized 07/22/2021 07/22/2022 1 1 Specialty Diagnoses / Procedures Referred By Contac t Referred To Contact Obstetrics and Gynecology Diagnoses Dyspareunia in female Tiny Marrufo, LÁZARO [address] [place] [address] [facility] [address] [place] [phone] Referral ID Status Reason Start Date Expiration Date V isits Requested Visits Authorized [id number] Authorized 09/26/2021 09/26/2022 1 1 Specialty Diagnoses / Procedures Referred By Contac t Referred To Contact Radiology Diagnoses Elevated prolactin level Procedures MR Pituitary With And Without Contrast Kamla Medina, CNM [address] [place] [id number] Referral ID Status Reason Start Date Expiration Date V isits Requested Visits Authorized [id number] New Request 04/13/2023 04/12/2024 1 1 Specialty Diagnoses / Procedures Referred By Contac t Referred To Contact Cardiology Diagnoses Palpitations Procedures ECG 12 Lead Raphael Razo CNP [address] [place] [address] Referral ID Status Reason Start Date Expiration Date Visits Re quested Visits Authorized [id number] Closed 04/04/2024 04/04/2025 1 1 Specialty Diagnoses / Procedures Referred By Contac t Referred To Contact Cardiology Diagnoses Palpitations Procedures Cardiac event monitor Raphael Razo CNP [address] [place] [address] [facility] [address] [facility] [place] [address] Referral ID Status Reason Start Date Expiration Date Visits Requested Visits Authorized [id number] Authorized Specialty Services Required/Pat ient's Best Interest 04/07/2024 04/07/2025 1 1 Specialty Diagnoses / Procedures Referred By Contac t Referred To Contact Diagnoses Brock Razo, Raphael Glover, DRAFTING ENGINEER [address] [place] [address] Referral ID Status Reason Start Date Expiration Date V isits Requested Visits Authorized [id number] Authorized 04/07/2024 04/07/2025 1 1 Chief Complaint and Reason for Visit Chief Complaint Annual (PULP BLEACHER) Unspecified ovarian cyst, unspecified side Reason for [...] section and content) DATE CREATED AUTHOR [facility]23/2018 [facility] DATE CREATED AUTHOR AUTHOR'S ORGANIZ ATION 10/05/2021 [facility] DATE CREATED AUTHOR AUTHOR'S ORGANIZ ATION 05/08/2023 [facility] DATE CREATED AUTHOR AUTHOR'S ORGANIZ ATION 04/10/2024 [facility] DATE CREATED AUTHOR AUTHOR'S ORGANIZ ATION 08/20/2024 [facility] DATE CREATED AUTHOR AUTHOR'S ORGANIZ ATION 02/11/2025 [facility] DATE CREATED AUTHOR AUTHOR'S ORGANIZ ATION 06/19/2025 [facility] Assessment & Plan Note - Mary Ann Tyson, DRAFTING ENGINEER - 08/15/2020 10:03 PM EDTTelephone Encounter - [...] preferred pharmacy listed below? Yes Preferred pharmacies: [address] [place] [address] [address] [facility] [address] Pt Call Back Number Work Phone Not on file. Patient call back message sent to the primary care clinical pool. Billy Albarran documented in this encounter Care Teams (unrecognized sec tion and content) Sheep Or Calf Grader Relationship Specialty Start Date End Date Tiny Marrufo CNP [address] [place] [address], [place] [address] PCP - General Nurse Practitioner 03/20/21 Sheep Or Calf Grader Relationship Specialty Start Date End Date Tiny Marrufo CNP [address] [place] [address], [place] [address] PCP - General Nurse Practitioner 03/20/21 Tiny Marrufo CNP [address] [facility] [place] [address] PCP - JIMENEZ Attributed Provider - [place] 12/31/20 11/29/50 Sheep Or Calf Grader Relationship Specialty Start Date End Date Tiny Marrufo CNP [address] [facility] [address] [place] [address], [place] [address] PCP - General Nurse Practitioner 03/20/21 Tiny Marrufo CNP [address] [facility] [address] [place] [address], [place] [address] PCP - JIMENEZ Attributed Provider - [place] [employer] 12/31/20 11/28/21 Sheep Or Calf Grader Relationship Specialty Start Date End Date Tiny Marrufo CNP [address] [place] [address], [place] [address] PCP - General Nurse Practitioner 03/20/21 Sheep Or Calf Grader Relationship Specialty Start Date End Date Tiny Marrufo CNP [address] [place] [address], [place] [address] PCP - General Nurse Practitioner 03/20/21 Tiny Marrufo CNP [address] [facility] [place] [address] PCP - JIMENEZ Attributed Provider - [place] [employer] 12/31/20 11/29/50 Sheep Or Calf Grader Relationship Specialty Start Date End Date Marrufo, Tiny, DRAFTING ENGINEER [address] [place] [address], [place] [address] PCP - General Nurse Practitioner 03/20/21 Tiny Marrufo CNP [address] [place] [address], [place] [address] PCP - JIMENEZ Attributed Provider - [place] 12/31/20 11/29/50 Sheep Or Calf Grader Relationship Specialty Start Date End Date Tiny Marrufo CNP [address] [place] [address], [place] [address] PCP - General Nurse Practitioner 03/20/21 Tiny Marrufo CNP [address] [place] [address], [place] [address] PCP - JIMENEZ Attributed Provider - [place] [employer] 12/31/20 11/29/50 Sheep Or Calf Grader Relationship Specialty Start Date End Date Tiny Marrufo CNP [address] [place] [address], [place] [address] PCP - General Nurse Practitioner 03/20/21 Tiny Marrufo CNP [address] [place] [address], [place] [address] PCP - JIMENEZ Attributed Provider - [place] [employer] 12/31/20 11/29/50 Sheep Or Calf Grader Relationship Specialty Start Date End Date Tiny Marrufo CNP [address] [place] [address], [place] [address] PCP - General Nurse Practitioner 03/20/21 Tiny Marrufo CNP [address] [place] [address], [place] [address] PCP - JIMENEZ Attributed Provider - [place] [employer] 12/31/20 11/29/50 Sheep Or Calf Grader Relationship Specialty Start Date End Date Tiny Marrufo CNP [address] [place] [address], [place] [address] PCP - General Nurse Practitioner 03/20/21 Tiny Marrufo CNP [address] [place] [address], [place] [address] PCP - JIMENEZ Attributed Provider - [place] [employer] 12/31/20 11/29/50 Sheep Or Calf Grader Relationship Specialty Start Date End Date Tiny Marrufo CNP [address] [place] [address], [place] [address] PCP - General Nurse Practitioner 03/20/21 Tiny Marrufo CNP [address] [place] [address], [place] [address] PCP - JIMENEZ Attributed Provider - [place] [employer] 12/31/20 11/29/50 Sheep Or Calf Grader Relationship Specialty Start Date End Date Tiny Marrufo CNP [address] [place] [address], [place] [address] PCP - General Nurse Practitioner 03/20/21 Tiny Marrufo CNP [address] [facility] [address] [place] [address], [place] [address] PCP - JIMENEZ Attributed Provider - [place] [employer] 12/31/20 11/29/50 Sheep Or Calf Grader Relationship Specialty Start Date End Date Tiny Marrufo CNP [address] [place] [address], [place] [address] PCP - General Nurse Practitioner 03/20/21 Tiny Marrufo CNP [address] [facility] [place] [address] PCP - JIMENEZ Attributed Provider - [place] 12/31/20 11/29/50 Team Status: Active Member Role Status Dates No Primary Care Physician Primary Care Provider Active Team Status: Inactive Member Role Status Dates Ursula Mcmullen WOODS BOSS, WOODS BOSS-C Attending Provider Active NIRU TRIPLETT Primary Care Provider, Referring Provider Active Team Status: Inactive Member Role Status Dates Ursula Mcmullen WOODS BOSS, WOODS BOSS-C Attending Provider, Referring Provider Active No Primary Care Physician Primary Care Provider Active Sheep Or Calf Grader Relationship Specialty Start Date End Date Tiny Marrufo CNP [address] [place] [address] PCP - JIMENEZ Attributed Provider - [place] 12/31/20 11/29/50 Raphael Razo CNP [address] [id number] PCP - General Nurse Practitioner 04/04/24 Sheep Or Calf Grader Relationship Specialty Start Date End Date Tiny Marrufo CNP [address] [place], [place] [phone] PCP - JIMENEZ Attributed Provider - [place] [employer] 12/31/20 11/29/50 Raphael Razo, LÁZARO [address] [place] [address] PCP - General Nurse Practitioner 04/04/24 Sheep Or Calf Grader Relationship Specialty Start Date End Date Tiny Marrufo CNP [address] [place] [address] PCP - JIMENEZ Attributed Provider - [place] [employer] 12/31/20 11/29/50 Raphael Razo, LÁZARO [address] [place] [address] PCP - General Nurse Practitioner 04/04/24 Sheep Or Calf Grader Relationship Specialty Start Date End Date Tiny Marrufo CNP [address] [place] [address] PCP - JIMENEZ Attributed Provider - [place] [employer] 12/31/20 11/29/50 Raphael Razo, LÁZARO [address] [place] [address] PCP - General Nurse Practitioner 04/04/24 Sheep Or Calf Grader Relationship Specialty Start Date End Date Raphael Razo, LÁZARO [address] [place] [address] PCP - General Nurse Practitioner 04/04/24 Tiny Marrufo, LÁZARO [address] [place] [address] PCP - JIMENEZ Attributed Provider - [place] [employer] 05/30/24 11/29/50 Sheep Or Calf Grader Relationship Specialty Start Date End Date Raphael Razo, LÁZARO [address] [place] [address] PCP - General Nurse Practitioner 04/04/24 Tiny Marrufo, LÁZARO [address] [facility] [facility] [address] [address] [place] [address] PCP - JIMENEZ Attributed Provider - [place] 05/30/24 11/29/50 Team Status: Inactive Member [...] BE BASED ON THE PRIMARY CLINICAL RECORDS. [facility] [employer] [facility]. provides no warranty or guarantee of the accuracy or completeness of information in this document.
[2025-06-20] MEDS: Lactated Ringers 1,000 ML 50 ML IV (06:45)
[2025-06-20 07:04] LABS: Hematocrit 36.0 % (37-47); Hemoglobin 12.8 g/dL (12.0-15.0); Immature Granulocytes Count 0.070 X10^3/uL (0.0-0.0); Mean Corp Hgb Conc 35.6 g/dL (32-36); Mean Corpuscular Volume 93.5 fL (81-99); Mean Platelet Vol. 10.8 fl (6.2-12.0); NRBC Flagged by Analyzer 0 % (0-5); Platelet Count 414 K/mm3 (150-450); RBC Distribution Width CV 12.4 % (11.6-14.6); RBC Distribution Width SD 42.5 fl (35.1-43.9); Red Blood Count 3.85 M/mm3 (4.2-5.4); White Blood Count 14.7 K/mm3 (4.4-11.0)
--- NOTE | 2025-06-20 07:34 | HP.PCM.OB_ITS ---
HPI - General General Date of Admission: 06/20/25 HPI Narrative CELIA PRO, is a 25 F who presents at 37w6d IAL regular ctx and SROm clear fluid Maternal Data Information TREE Calculator Estimated Delivery Date Method Current WG Current Estimate 07/05/25 LMP (Certain) 37w 6d Other Estimates 07/06/25 Ultrasound #1 37w 5d PFSH PFSH Medical History (Updated 06/20/25 @ 07:[address] Pam Acosta MD) Family history of hearing loss at age younger than 7 years Anovulation Dysmenorrhea PCOS (polycystic ovarian syndrome) Home Medications Medication Instructions Recorded Last Taken Type multivitamin no.47-iron fum 27 cap PO 12/02/24 Unknown History mg-folate no.1 1 mg-dha 300 mg capsule (PNV-DHA) Allergy/AdvReac Type Severity Reaction Status Date / Time No Known Allergies Allergy Verified 06/20/25 05:14 Family History Aunt Breast cancer Maternal Grandfather Cancer Pancreatic- Paternal Mother APL (antiphospholipid syndrome) 9 miscarriages. Cancer skin Social History adopted: No household members: spouse housing: house number of children: 0 current occupational status: employed current occupation: [employer] current occupational exposures/hazards: No pets and animals: Yes pets and animals: dog(s) history of recent travel: Yes ( - October) out of state: Yes out of country: No sexually active: Yes Smoking Status: Never smoker alcohol intake: current alcohol intake frequency: holidays/special occasions only details: not while substance use type: does not use well-balanced diet: daily or most days caffeine: Yes Type: coffee Number of servings: 1 eating out: 4 or more times/week during the past year weight has: decreased > 10 lbs what type of physical activity do you participate in: none art/anglican: Mu-Ism seatbelt use: always do you feel safe at home: Yes 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 Problem list reviewed and updated with the most current plan of care details and appropriate orders placed. Relevant counseling for the gestational age provided. Continue routine care and follow up unless otherwise noted in visit notes/problem list details OB Flowsheet Initial Weight: 205 lb Date - - - - - - - - - - - - - EGA Weight BP Urine Prot - - - - - - - - - - - - - Glucose FHR FuHt Pres Dilation - - - - - - - - - - - - - Effaced St Visit Note 12/09/24 - - - - - - - - - - - - - 10w 2d 205 lb 2 oz (+2 oz) 136/83 - - - - - - - - - - - - - 173 - - - - - - - - - - - - - KW- CRL cons wit h dates. Declines NIPT. 01/06/25 - - - - - - - - - - - - - 14w 2d 205 lb 6 oz (+6 oz) 131/85 Negative - - - - - - - - - - - - - Negative 147 - - - - - - - - - - - - - JV- no lof, vagi nal bleeding, or cramping. declines nipt and did blood work. 01/31/25 - - - - - - - - - - - - - 17w 6d 206 lb 4 oz (+1 lb 4 oz) 121/82 Negative - - - - - - - - - - - - - Negative 142 - - - - - - - - - - - - - JV- no complaint s today other than some pelvic pain that "feels like when I have an ovarian cyst" She was checked out at an urgent care in [place] and treated with amoxil but urine culture was neg. 03/01/25 - - - - - - - - - - - - - 22w 0d 209 lb 4 oz (+4 lb 4 oz) 109/74 Negative - - - - - - - - - - - - - Negative 145 - - - - - - - - - - - - - Sm- no vb lof go od fm 03/28/25 - - - - - - - - - - - - - 25w 6d 213 lb 2 oz (+8 lb 2 oz) 111/68 Negative - - - - - - - - - - - - - Negative 150 27 - - - - - - - - - - - - - kw- no vb/lof/ct x. good fm. CBE classes discussed. 28 week labs today. 04/14/25 - - - - - - - - - - - - - 28w 2d 217 lb 4 oz (+12 lb 4 oz) 101/72 Negative - - - - - - - - - - - - - Negative 140 28 - - - - - - - - - - - - - Sm- no vb lof go od fm no regualr ctx 04/28/25 - - - - - - - - - - - - - 30w 2d 217 lb 8 oz (+12 lb 8 oz) 110/ Negative - - - - - - - - - - - - - Negative 140 30 - - - - - - - - - - - - - SM- no vb lof go od fm no regular ctx 05/09/25 - - - - - - - - - - - - - 31w 6d 219 lb 2 oz (+14 lb 2 oz) 107/ Negative - - - - - -- - - - - - - - Negative 135 32 - - - - - - - - - - - - - KW- no vb/lof/ct x. good fm. CBE classes signed up. 05/26/25 - - - - - - - - - - - - - 34w 2d 223 lb 6 oz (+18 lb 6 oz) 110/ Negative - - - - - - - - - - - - - Negative 140 34 Cephalic - - - - - - - - - - - - - SM- no vb lof go od fm no regular ctx did cb classes 06/05/25 - - - - - - - - - - - - - 35w 5d 222 lb 6 oz (+17 lb 6 oz) 107/ Negative - - - - - - - - - - - - - Negative 141 38 Cephalic 2 - - - - - - - - - - - - - 80 -2 JV- GBS co llected. labor precautions discussed. RTO 1 week. 06/16/25 - - - - - - - - - - - - - 37w 2d 228 lb 6 oz (+23 lb 6 oz) 117/81 Negative - - - - - - - - - - - - - Negative 154 38 Cephalic 2 .5 - - - - - - - - - - - - - 80 -2 LC- no vb/ ctx/lof. good fm. reviewed plan- scanned in. NST FHR Rate Baby A Baseline: 140 Variability:: Moderate Accelerations:: 15 x 15 Decelerations:: None NST Reactive:: Yes FHR Category:: Category I Uterine Activity:: q3-5 ROS Constitutional Constitutional: Reports systems reviewed and no addt'l complaints, except as documented ENT HEENT: Reports systems reviewed and no addt'l complaints, except as documented Cardiovascular Cardiovascular: Reports systems reviewed and no addt'l complaints, except as documented Respiratory/Chest Respiratory/Chest: Reports systems reviewed and no addt'l complaints, except as documented Gastrointestinal Gastrointestinal: Reports systems reviewed and no addt'l complaints, except as documented and nausea; Denies abdominal pain Genitourinary Genitourinary: Reports systems reviewed and no addt'l complaints, except as documented, contractions Details: present and frequency (regular ) and movement Details: present Musculoskeletal Musculoskeletal: Reports systems reviewed and no addt'l complaints, except as documented Integumentary Integumentary: Reports as per HPI Neurologic Neurologic: Reports systems reviewed and no addt'l complaints, except as documented Endocrine Endocrinology: Reports systems reviewed and no addt'l complaints, except as documented Vital Signs Vital Signs Vital Signs: 06/20/25 07:27 06/20/25 07:28 06/20/25 07:28 Pulse Rate 98 Blood Pressure 127/74 H BP Systolic 127 BP Diastolic 74 Pulse Ox 98 Weight Weight: 224 lb Body Mass Index (BMI) 36.1 Physical Exam Const alert, oriented x3 and healthy appearing Constitutional Narrative: uncomfortable with contractions HEENT normocephalic and moist oral mucous membranes Head and Scalp: atraumatic Neck full ROM, no lymphadenopathy, supple and thyroid normal General: trachea midline Thyroid: thyroid normal Lymph Lymphatic: no lymphadenopathy noted Chest inspection of chest normal Resp normal respiratory effort Cardio regular rate GI soft to palpation and non-tender GI Narrative: gravid Inspection: gravid external exam normal Bimanual Exam - Vag & Uterus: uterus non-tender Manual OB Exam: estimated gestational size appropriate, presentation cephalic, dilated, effaced and station Extremity normal to inspection General Extremity: Negative for edema Skin no rashes or lesions noted Neuro deep tendon reflexes 2+ bilaterally Motor Exam: strength 5/5 throughout and clonus absent Psych mental status grossly normal Labs Labs Labs: Blood Type A POSITIVE Antibody Screen NEGATIVE Hct 36.0 % (37-47) L Hgb 12.8 g/dL (12.0-15.0) Pap Smear Negative Syphilis Total Ab Nonreactive (Nonreactive) Rubella IgG Antibody Reactive (Nonreactive) Hep Bs Antigen Non-Reactive (Nonreactive) Hepatitis C Antibody Non-Reactive (Nonreactive) Chlamydia DNA (KENYON) Negative (Negative) N.gonorrhoeae DNA (KENYON) Negative (Negative) HIV 1&2 Antibody Nonreactive (Nonreactive) Glucose 1 Hr 50 gm 108 mg/dL (70-140) Assessment & Plan (1) : QUALIFIERS: Weeks of gestation: 37 weeks Qualified Code(s): Z3A.37 - 37 weeks gestation of COMMENT: declined ntd NIPT & Carrier testing. nl anatomy (2) Supervision of high-risk : COMMENT: HNASEL, G1KELLY, tree 07/05/25, boy soraya Mansoor (3) Obesity affecting : COMMENT: HgbA1c (4) GBS (group B Streptococcus carrier), +RV culture, currently : COMMENT: treat in labor (5) SROM (spontaneous rupture of membranes): PLAN: Plan Patient presents srom pitocin PRN. Pain management: plans epidural. GBS positive plan IV PCN. Management of any complications: none I have reviewed the [facility] and made any clinically relevant updates.
--- NOTE | 2025-06-20 07:34 | PCM.HP.OB ---
HPI - General General Date of Admission: 06/20/25 HPI Narrative CELIA PRO, is a 25 F who presents at 37w6d IAL regular ctx and SROm clear fluid Maternal Data Information TREE Calculator Estimated Delivery Date Method Current WG Current Estimate 07/05/25 LMP (Certain) 37w 6d Other Estimates 07/06/25 Ultrasound #1 37w 5d PFSH PFSH Medical History (Updated 06/20/25 @ 07:[address] Pam Acosta MD) Family history of hearing loss at age younger than 7 years Anovulation Dysmenorrhea PCOS (polycystic ovarian syndrome) Home Medications Medication Instructions Recorded Last Taken Type multivitamin no.47-iron fum 27 cap PO 12/02/24 Unknown History mg-folate no.1 1 mg-dha 300 mg capsule (PNV-DHA) Allergy/AdvReac Type Severity Reaction Status Date / Time No Known Allergies Allergy Verified 06/20/25 05:14 Family History Aunt Breast cancer Maternal Grandfather Cancer Pancreatic- Paternal Mother APL (antiphospholipid syndrome) 9 miscarriages. Cancer skin Social History adopted: No household members: spouse housing: house number of children: 0 current occupational status: employed current occupation: [employer] current occupational exposures/hazards: No pets and animals: Yes pets and animals: dog(s) history of recent travel: Yes ( - October) out of state: Yes out of country: No sexually active: Yes Smoking Status: Never smoker alcohol intake: current alcohol intake frequency: holidays/special occasions only details: not while substance use type: does not use well-balanced diet: daily or most days caffeine: Yes Type: coffee Number of servings: 1 eating out: 4 or more times/week during the past year weight has: decreased > 10 lbs what type of physical activity do you participate in: none art/episcopal: Cheondoism seatbelt use: always do you feel safe at home: Yes 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 Problem list reviewed and updated with the most current plan of care details and appropriate orders placed. Relevant counseling for the gestational age provided. Continue routine care and follow up unless otherwise noted in visit notes/problem list details OB Flowsheet Initial Weight: 205 lb Date <del> </del> EGA Weight BP Urine Prot <del> </del> Glucose FHR FuHt Pres Dilation <del> </del> Effaced St Visit Note 12/09/24 <del> </del> 10w 2d 205 lb 2 oz (+2 oz) 136/83 <del> </del> 173 <del> </del> KW- CRL cons with dates. Declines NIPT. 01/06/25 <del> </del> 14w 2d 205 lb 6 oz (+6 oz) 131/85 Negative <del> </del> Negative 147 <del> </del> JV- no lof, vaginal bleeding, or cramping. declines nipt and did blood work. 01/31/25 <del> </del> 17w 6d 206 lb 4 oz (+1 lb 4 oz) 121/82 Negative <del> </del> Negative 142 <del> </del> JV- no complaints today other than some pelvic pain that "feels like when I have an ovarian cyst" She was checked out at an urgent care in [place] and treated with amoxil but urine culture was neg. 03/01/25 <del> </del> 22w 0d 209 lb 4 oz (+4 lb 4 oz) 109/74 Negative <del> </del> Negative 145 <del> </del> Sm- no vb lof good fm 03/28/25 <del> </del> 25w 6d 213 lb 2 oz (+8 lb 2 oz) 111/68 Negative <del> </del> Negative 150 27 <del> </del> kw- no vb/lof/ctx. good fm. CBE classes discussed. 28 week labs today. 04/14/25 <del> </del> 28w 2d 217 lb 4 oz (+12 lb 4 oz) 101/72 Negative <del> </del> Negative 140 28 <del> </del> Sm- no vb lof good fm no regualr ctx 04/28/25 <del> </del> 30w 2d 217 lb 8 oz (+12 lb 8 oz) 110/74 Negative <del> </del> Negative 140 30 <del> </del> SM- no vb lof good fm no regular ctx 05/09/25 <del> </del> 31w 6d 219 lb 2 oz (+14 lb 2 oz) 107/72 Negative <del> </del> Negative 135 32 <del> </del> KW- no vb/lof/ctx. good fm. CBE classes signed up. 05/26/25 <del> </del> 34w 2d 223 lb 6 oz (+18 lb 6 oz) 110/76 Negative <del> </del> Negative 140 34 Cephalic <del> </del> SM- no vb lof good fm no regular ctx did cb classes 06/05/25 <del> </del> 35w 5d 222 lb 6 oz (+17 lb 6 oz) 107/73 Negative <del> </del> Negative 141 38 Cephalic 2 <del> </del> 80 -2 JV- GBS collected. labor precautions discussed. RTO 1 week. 06/16/25 <del> </del> 37w 2d 228 lb 6 oz (+23 lb 6 oz) 117/81 Negative <del> </del> Negative 154 38 Cephalic 2.5 <del> </del> 80 -2 LC- no vb/ctx/lof. good fm. reviewed plan- scanned in. NST FHR Rate Baby A Baseline: 140 Variability:: Moderate Accelerations:: 15 x 15 Decelerations:: None NST Reactive:: Yes FHR Category:: Category I Uterine Activity:: q3-5 ROS Constitutional Constitutional: Reports systems reviewed and no addt'l complaints, except as documented ENT HEENT: Reports systems reviewed and no addt'l complaints, except as documented Cardiovascular Cardiovascular: Reports systems reviewed and no addt'l complaints, except as documented Respiratory/Chest Respiratory/Chest: Reports systems reviewed and no addt'l complaints, except as documented Gastrointestinal Gastrointestinal: Reports systems reviewed and no addt'l complaints, except as documented and nausea; Denies abdominal pain Genitourinary Genitourinary: Reports systems reviewed and no addt'l complaints, except as documented, contractions Details: present and frequency (regular ) and movement Details: present Musculoskeletal Musculoskeletal: Reports systems reviewed and no addt'l complaints, except as documented Integumentary Integumentary: Reports as per HPI Neurologic Neurologic: Reports systems reviewed and no addt'l complaints, except as documented Endocrine Endocrinology: Reports systems reviewed and no addt'l complaints, except as documented Vital Signs Vital Signs Vital Signs: 06/20/25 07:27 06/20/25 07:28 06/20/25 07:28 Pulse Rate 98 Blood Pressure 127/74 H BP Systolic 127 BP Diastolic 74 Pulse Ox 98 Weight Weight: 224 lb Body Mass Index (BMI) 36.1 Physical Exam Const alert, oriented x3 and healthy appearing Constitutional Narrative: uncomfortable with contractions HEENT normocephalic and moist oral mucous membranes Head and Scalp: atraumatic Neck full ROM, no lymphadenopathy, supple and thyroid normal General: trachea midline Thyroid: thyroid normal Lymph Lymphatic: no lymphadenopathy noted Chest inspection of chest normal Resp normal respiratory effort Cardio regular rate GI soft to palpation and non-tender GI Narrative: gravid Inspection: gravid external exam normal Bimanual Exam - Vag & Uterus: uterus non-tender Manual OB Exam: estimated gestational size appropriate, presentation cephalic, dilated, effaced and station Extremity normal to inspection General Extremity: Negative for edema Skin no rashes or lesions noted Neuro deep tendon reflexes 2+ bilaterally Motor Exam: strength 5/5 throughout and clonus absent Psych mental status grossly normal Labs Labs Labs: Blood Type A POSITIVE Antibody Screen NEGATIVE Hct 36.0 % (37-47) L Hgb 12.8 g/dL (12.0-15.0) Pap Smear Negative Syphilis Total Ab Nonreactive (Nonreactive) Rubella IgG Antibody Reactive (Nonreactive) Hep Bs Antigen Non-Reactive (Nonreactive) Hepatitis C Antibody Non-Reactive (Nonreactive) Chlamydia DNA ([place]ON) Negative (Negative) N.gonorrhoeae DNA ([place]ON) Negative (Negative) HIV 1&2 Antibody Nonreactive (Nonreactive) Glucose 1 Hr 50 gm 108 mg/dL (70-140) Assessment & Plan (1) : QUALIFIERS: Weeks of gestation: 37 weeks Qualified Code(s): Z3A.37 - 37 weeks gestation of COMMENT: declined ntd NIPT & Carrier testing. nl anatomy (2) Supervision of high-risk : COMMENT: PRR, G1PO, tree 07/05/25, boy soraya Mansoor (3) Obesity affecting : COMMENT: HgbA1c (4) GBS (group B Streptococcus carrier), +RV culture, currently : COMMENT: treat in labor (5) SROM (spontaneous rupture of membranes): PLAN: Plan Patient presents srom pitocin PRN. Pain management: plans epidural. GBS positive plan IV PCN. Management of any complications: none I have reviewed the [facility] and made any clinically relevant updates.
[2025-06-20 08:14] LABS: Syphilis Antibodies Nonreactive (Nonreactive)
[2025-06-20] MEDS: Penicillin G Pot 5,000,000 UNITS in 0.9% Normal Saline (100mL MB+) 100 ML 150 UNITS IV (08:30)
[2025-06-20] MEDS: Lactated Ringers 1,000 ML 999 ML IV (09:18)
[2025-06-20] MEDS: fentaNYL-bupivacaine (epidural) 100 ML BAG EPIDURAL (10:12)
[2025-06-20] MEDS: Penicillin G 3,000,000 Units 50 ML 100 UNITS IV (13:02)
[2025-06-20] MEDS: Oxytocin 15 Units/NS 250ml 15 UNITS/250 ML IV.SOLN 2 UNITS IV (14:14)
--- NOTE | 2025-06-20 15:01 | OB.VAGDELI_ITS ---
Assessment & Plan (1) : QUALIFIERS: Weeks of gestation: 37 weeks Qualified Code(s): Z3A.37 - 37 weeks gestation of COMMENT: declined ntd NIPT & Carrier testing. nl anatomy (2) Supervision of high-risk : COMMENT: PRR, G1PO, tree 07/05/25, jon lira Mansoor (3) Obesity affecting : COMMENT: HgbA1c (4) GBS (group B Streptococcus carrier), +RV culture, currently : COMMENT: treat in labor (5) SROM (spontaneous rupture of membranes): (6) Vaginal delivery: COMMENT: SM jon lira 37 Maternal Data Information TREE Calculator Estimated Delivery Date Method Current WG Current Estimate 07/05/25 LMP (Certain) 37w 6d Other Estimates 07/06/25 Ultrasound #1 37w 5d Vaginal Delivery Maternal Presentation Maternal Presentation: see assessment and plan Vaginal Delivery Information Procedure Performed: Spontaneous Vaginal Delivery Surgeon/Practitioner: Pam Acosta Pre-Procedure Diagnosis: see assessment and plan Post-Procedure Diagnosis: same Type of anesthesia: Epidural Findings Description of procedure: Patient began pushing and delivered the head in the RAUDEL presentation. The head was delivered atraumatically . The anterior and posterior shoulders delivered without complication followed by the rest of the infant and the infant was placed on the maternal abdomen. Delayed cord clamping was employed for approximately 60 seconds. Cord was clamped and cut and gentle traction was applied to the cord and the placenta delivered spontaneously immediately fo llowing it was noted to be intact with three-vessel cord. The perineum and vagina were inspected and was noted to have a second -degree laceration that was repaired in the usual fashion with 3-0 vicryl rapide . EBL was 100 cc. Patient and tolerated delivery well. Presentation: Vertex Placental Delivery Description: Spontaneous Specimen collected: Yes Description of specimen(s) removed: placenta Sew Out Operator steel detailer: No Post Vaginal Deli Medications given after delivery: Other (pitocin) Complication Complications: No Multi Select Codes Urinary/Genital Urinary/Genital CPT Codes: 97861 [facility]aginal Delivery [facility]
--- NOTE | 2025-06-20 15:02 | DCINST_ITS ---
Discharge Instructions DC O2, CPAP, BIPAP needs Home O2 Discharge instructions: No Dressing / Incision Discharge Activity: Return to Normal Activity, May Not Drive (while taking narcotic pain medications.) and May Shower May resume sexual activity in: 4-6 weeks Dressing / Incision Call your doctor if your incision/area has: Continuous Slow Oozing, Sudden Increased Bleeding, Increased Pain/ Swelling, Increased Redness and Foul Smelling Discharge Follow Up Care Please Follow Up With: Pam Acosta MD When: Call [phone] to make an appointment with your doctor in 6 weeks. If you had elevated blood pressure or 4th degree laceration, you will need to be seen in 2 weeks. Test Results: Test results from this visit will be discussed in further detail at your follow- up appointment, if applicable. Discharge Plan Admission Admit Date/Time: 06/20/25 05:53 Attending Provider: Lory Saldana Primary Care Provider: Beata Physician,Saige Primary Discharge Orders/Prescriptions Prescriptions: No Action PNV-DHA 27 mg iron-1 mg -300 mg capsule PO Referrals / Follow Up: Care Physician,Saige Primary [Primary Care Provider] -
[2025-06-20] MEDS: Oxytocin 15 Units/NS 250ml 15 UNITS/250 ML IV.SOLN 83 UNITS IV (15:53)
[2025-06-20] MEDS: Benzocaine/Lanolin/Aloe Vera 85 GM Spray 1 SPRAY TOPICAL (22:26)
[2025-06-21 00:03] VITALS: BP 116/66; PULSE 75; RESP 14; TEMP 36.1
[2025-06-21 03:21] VITALS: BP 99/58; PULSE 70; RESP 14; TEMP 36.1
--- NOTE | 2025-06-21 06:09 | PCM.PN.OB ---
Subjective Subjective Patient doing well without complaints. Tolerating PO. Ambulating and voiding without difficulty. feeding well. Denies chest pain, shortness of breath, calf pain/swelling, fevers, chills, lightheadedness. Objective Data Objective Data Vital Signs: Vital Signs Temp Pulse Resp BP Pulse Ox O2 Del Method 96.9 F L 70 14 99/58 L 97 Room Air 06/21/25 03:21 06/21/25 03:21 06/21/25 03:21 06/21/25 03:21 06/20/25 20:40 06/21/25 03:21 Oxygen Delivery Method Room Air Weight: 224 lb Body Mass Index (BMI) 36.1 Intake & Output: Intake and Output for Last 24 Hours 06/19/25 06/20/25 06/21/25 23:59 23:59 23:59 Intake Total 1803.87 / 1803.87 Output Total 2400 / 2400 Balance -596.13 / -596.13 - -1 Lab / Micro Data 06/20/25 06:45 Labs: Laboratory Results - last 24 hr 06/20/25 06:45: WBC 14.7 H, RBC 3.85 L, Hgb 12.8, Hct 36.0 L, MCV 93.5, MCH 33.2 H, MCHC 35.6, RDW Std Deviation 42.5, RDW Coeff of Zeyad 12.4, Plt Count 414, MPV 10.8, Immature Gran % (Auto) 0.500, Neut % (Auto) 78.1 H, Lymph % (Auto) 15.1 L, [place] % (Auto) 5.8, Eos % (Auto) 0.2, Baso % (Auto) 0.3, Absolute Neuts (auto) 11.5 H, Absolute Lymphs (auto) 2.22, Nucleated RBC % 0, Syphilis Total Ab Nonreactive, Blood Type A POSITIVE, Antibody Screen NEGATIVE ROS Constitutional Constitutional: Reports systems reviewed and no addt'l complaints, except as documented Cardiovascular Cardiovascular: Reports systems reviewed and no addt'l complaints, except as documented Respiratory/Chest Respiratory/Chest: Reports systems reviewed and no addt'l complaints, except as documented Gastrointestinal Gastrointestinal: Reports systems reviewed and no addt'l complaints, except as documented Physical Exam Const alert, oriented x3 and no apparent distress HEENT Head and Scalp: atraumatic Resp normal respiratory effort GI soft to palpation and non-tender Bimanual Exam - Vag & Uterus: uterus non-tender Uterus Palpation: uterus fundus firm (below Umbilicus) Assessment & Plan (1) Vaginal delivery: COMMENT: SM boy soraya 37 PLAN: Plan s/p PPD # 1 1. routine post delivery care 2. breast feeding- support given 3. rh positive 4. rubella immune
[2025-06-21 08:41] VITALS: BP 115/84; PULSE 96; RESP 16; TEMP 36.4
[2025-06-21] MEDS: Senna/Docusate Sodium 1 Tablet PO (08:51)
[2025-06-21 12:21] VITALS: BP 137/85; PULSE 79; RESP 16
[2025-06-21 16:47] VITALS: BP 117/75; PULSE 78; RESP 16
[2025-06-21 21:20] VITALS: BP 103/74; PULSE 76; RESP 16; TEMP 36.6
[2025-06-22 01:40] VITALS: BP 125/72; PULSE 84; RESP 16; TEMP 37
--- NOTE | 2025-06-22 07:28 | PN.OBGYN_ITS ---
Subjective Subjective Patient doing well without complaints. Tolerating PO. Ambulating and voiding without difficulty. feeding well. Denies chest pain, shortness of breath, calf pain/swelling, fevers, chills, lightheadedness. Objective Data Objective Data Vital Signs: Vital Signs Temp Pulse Resp BP Pulse Ox O2 Del Method 98.6 F 84 16 125/72 H 97 Room Air 06/22/25 01:40 06/22/25 01:40 06/22/25 01:40 06/22/25 01:40 06/20/25 20:40 06/21/25 16:47 Oxygen Delivery Method Room Air Weight: 224 lb Body Mass Index (BMI) 36.1 Intake & Output: Intake and Output for Last 24 Hours 06/20/25 06/21/25 06/22/25 23:59 23:59 23:59 Intake Total 1803.87 / 1803.87 Output Total 2400 / 2400 Balance -596.13 / -596.13 - -1 Lab / Micro Data 06/20/25 06:45 Labs: Laboratory Results - last 24 hr 06/20/25 06:45: WBC 14.7 H, RBC 3.85 L, Hgb 12.8, Hct 36.0 L, MCV 93.5, MCH 33.2 H, MCHC 35.6, RDW Std Deviation 42.5, RDW Coeff of Zeyad 12.4, Plt Count 414, MPV 10.8, Immature Gran % (Auto) 0.500, Neut % (Auto) 78.1 H, Lymph % (Auto) 15.1 L, [place] % (Auto) 5.8, Eos % (Auto) 0.2, Baso % (Auto) 0.3, Absolute Neuts (auto) 11.5 H, Absolute Lymphs (auto) 2.22, Nucleated RBC % 0, Syphilis Total Ab Nonreactive, Blood Type A POSITIVE, Antibody Screen NEGATIVE ROS Constitutional Constitutional: Reports systems reviewed and no addt'l complaints, except as documented Cardiovascular Cardiovascular: Reports systems reviewed and no addt'l complaints, except as documented Respiratory/Chest Respiratory/Chest: Reports systems reviewed and no addt'l complaints, except as documented Gastrointestinal Gastrointestinal: Reports systems reviewed and no addt'l complaints, except as documented Physical Exam Const alert, oriented x3 and no apparent distress HEENT Head and Scalp: atraumatic Resp normal respiratory effort GI soft to palpation and non-tender Bimanual Exam - Vag & Uterus: uterus non-tender Uterus Palpation: uterus fundus firm (below Umbilicus) Assessment & Plan (1) Vaginal delivery: COMMENT: SM boy soraya 38 PLAN: Plan s/p PPD # 2 1. routine post delivery care 2. breast feeding- support given 3. rh positive 4. rubella immune
[2025-06-22 08:48] VITALS: BP 128/69; PULSE 74; RESP 16; TEMP 36.6
== END 2025-06-22 10:25 | disposition home or self-care (01) | DRG 807 ==
LOC: WPOUT 06:19 → WP 06:19
PROVIDERS: Advanced Practice Midwife; Admitting Provider Obstetrics & Gynecology; Referring Provider Obstetrics & Gynecology; Visit Provider Obstetrics & Gynecology
DX: O70.1 Second degree perineal laceration during delivery (principal); Z37.0 Single live birth; B95.1 Streptococcus, group B, as the cause of diseases classified elsewhere; O99.214 Obesity complicating childbirth; E28.2 Polycystic ovarian syndrome; O99.824 Streptococcus B carrier state complicating childbirth; Z3A.37 37 weeks gestation of pregnancy; O99.284 Endocrine, nutritional and metabolic diseases complicating childbirth
CPT/HCPCS: 59025; 59050; 84112; 85025; 86780; 86850; 86900; 86901; 99221; G0378